=== PATIENT | male | born 1935 | race Caucasian/White ===

== ENCOUNTER 2017-10-05 10:28 | Emergency (ER) | payer MEDICARE, BC ==
[2017-10-05 11:19] VITALS: BP 141/73
--- NOTE | 2017-10-05 12:13 | EDM.PDOC ---
ED HPI GENERAL MEDICAL PROBLEM - General Chief Complaint: Skin Complaint Stated Complaint: DRAINAGE ON CHEST Time Seen by Provider: 10/05/17 11:40 Source of Information: Reports: Patient History Limitations: Reports: No Limitations - History of Present Illness INITIAL COMMENTS - FREE TEXT/NARRATIVE: Cal comes into [facility] ED with new onset drainage from a wound to R anterior chest. He had a Pacemaker/Defib placed in [place] about a month ago, and noticed some drainage this am on his shirt. There is no pain, tenderness or odor. Drainage appears blood tinged. Inspection reveals turbid blood tinged drainage from the corner of the wound, and a WC was obtained. - Related Data Allergies Allergy/AdvReac Type Severity Reaction Status Date / Time Penicillins Allergy Hives Verified 10/05/17 11:10 Home Meds: Home Meds Aspirin [Ecotrin] 81 mg PO BEDTIME 10/27/14 [History] Carvedilol 12.5 mg PO BID 10/27/14 [History] Furosemide [Lasix] 20 mg PO DAILY #30 tablet 10/27/14 [Rx] Isosorbide Mononitrate [Imdur] 30 mg PO DAILY 10/27/14 [History] Losartan [Cozaar] 25 mg PO BEDTIME 10/27/14 [History] [place]-3 Fatty Acids [Fish Oil] 2 tab PO BID 10/27/14 [History] Rosuvastatin [Crestor] 20 mg PO BEDTIME 10/27/14 [History] Spironolactone [Aldactone] 12.5 mg PO DAILY 10/27/14 [History] Clindamycin HCl [Cleocin HCl] 300 mg PO Q6HR #20 capsule 10/05/17 [Rx] Past Medical History - Past Health History Medical/Surgical History: Denies Medical/Surgical History Other Genitourinary History: kidney disease - Past Surgical History Other Cardiovascular Surgeries/Procedures: 1 stent, triple bypass Social & Family History - Tobacco Use Smoking Status *Q: Former Smoker Years of Tobacco use: 28 - Alcohol Use Days Per Week of Alcohol Use: 7 Number of Drinks Per Day: 1 Total Drinks Per Week: 7 - Recreational Drug Use Recreational Drug Use: No ED ROS GENERAL - Review of Systems Review Of Systems: ROS reveals no pertinent complaints other than HPI. ED EXAM, SKIN/RASH Exam: See Below Exam Limited By: No Limitations General Appearance: Alert, WD/WN, No Apparent Distress Head: Normocephalic Neck: Normal Inspection, Supple, Non-Tender, Full Range of Motion Respiratory/Chest: No Respiratory Distress, Lungs Clear, Normal Breath Sounds, No Accessory Muscle Use, Chest Non-Tender, Other (Pacemaker wound R upper chest with a draining small wound from pocket, nontender, no erythema, additional turbid fluid was removed manually) Cardiovascular: Normal Peripheral Pulses, Regular Rate, Rhythm, No Murmur GI/Abdominal: Normal Bowel Sounds, Soft, Non-Tender, No Organomegaly, No Distention, No Mass (Male) Exam: Deferred Rectal (Males) Exam: Deferred Back Exam: Normal Inspection Extremities: Normal Inspection Neurological: Alert, Oriented, CN II-XII Intact, Normal Cognition, Normal Gait, No Motor/Sensory Deficits Psychiatric: Normal Affect, Normal Mood Skin: Warm, Dry, Wound/Incision (see annotation above) Course - Vital Signs Text/Narrative:: Following manual removal of turbid blood tinged fluid from wound, a dressing was applied. Last Recorded V/S: Last Vital Signs Temp 36.1 C 10/05/17 11:12 Pulse 63 10/05/17 11:12 Resp 16 10/05/17 11:12 BP 141/73 H 10/05/17 11:12 Pulse Ox 99 10/05/17 11:12 Departure - Departure Time of Disposition: 12:13 Disposition: Home, Self-Care 01 Condition: Fair Clinical Impression: Abscess - Discharge Information Prescriptions: Clindamycin HCl [Cleocin HCl] 300 mg PO Q6HR #20 capsule Referrals: Sunny Johnson MD [Primary Care Provider] - - Problem List & Annotations (1) Abscess SNOMED Code(s): 458250008 Code(s): L02.91 - CUTANEOUS ABSCESS, UNSPECIFIED Status: Acute Current Visit: Yes Annotation/Comment:: Mr Concepcion has a small abscess involving the surgical pocket created for his new Pacemaker/Defib. He is 'allergic' to Augmentin. I dispensed Clindamycin 300mg cap q6 hrs, and advised a call to Cardiology on Saturday for follow up. He may return to ED if any issues with swelling, tenderness, fever, or constitutional sxs related to antibx. - Problem List Review Problem List Initiated/Reviewed/Updated: Yes - Assessment/Plan Plan: Follow up with Cardiology on Saturday.
== END 2017-10-05 12:20 | disposition home or self-care (01) ==
LOC: FB.ED 10:28
DX: T82.7XXA Infection and inflammatory reaction due to other cardiac and vascular devices, implants and grafts, initial encounter (principal); J86.9 Pyothorax without fistula; Z87.891 Personal history of nicotine dependence; Z79.899 Other long term (current) drug therapy; Z88.0 Allergy status to penicillin
CPT/HCPCS: 87070; 87077; 87186; 87205; 99283

== ENCOUNTER 2018-02-04 21:48 | Emergency (ER) | payer MEDICARE, BC ==
--- NOTE | 2018-02-04 22:07 | EDM.PDOC ---
ED HPI GENERAL MEDICAL PROBLEM - General Chief Complaint: Chest Pain Stated Complaint: CHESTPAIN Time Seen by Provider: 02/04/18 22:00 Source of Information: Reports: Patient History Limitations: Reports: No Limitations - History of Present Illness INITIAL COMMENTS - FREE TEXT/NARRATIVE: Cal comes into [facility] ED with a hx of L precordial chest pains for less than 10 minutes that occurred about an hour ago while sitting in a chair watching TV. Pains were nonradiating, not associated with SOB, palpitations, sweats, dizziness, or GI upset. He has been pain free since arrival by car. He was given ASA 325 mg po, and an IV was inserted. A 12 lead ekg notes paced rhythm without new changes. 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 He has taken no meds. - Related Data Allergies Allergy/AdvReac Type Severity Reaction Status Date / Time Penicillins Allergy Hives Verified 02/04/18 21:53 Home Meds: Home Meds Carvedilol 12.5 mg PO BID 10/27/14 [History] Furosemide [Lasix] 20 mg PO DAILY #30 tablet 10/27/14 [Rx] Isosorbide Mononitrate [Imdur] 30 mg PO DAILY 10/27/14 [History] Losartan [Cozaar] 25 mg PO BEDTIME 10/27/14 [History] [place]-3 Fatty Acids [Fish Oil] 2 tab PO BID 10/27/14 [History] Rosuvastatin [Crestor] 20 mg PO BEDTIME 10/27/14 [History] Warfarin Sodium [Jantoven] 5 mg PO DAILY 02/04/18 [History] Zolpidem [Ambien] 2.5 mg PO BEDTIME 02/04/18 [History] traMADol HCl [Tramadol HCl] 50 mg PO BEDTIME 02/04/18 [History] Past Medical History - Past Health History Medical/Surgical History: Denies Medical/Surgical History HEENT History: Reports: Impaired Vision Other HEENT History: wears glasses Cardiovascular History: Reports: Heart Failure, High Cholesterol, Hypertension, [place] Other Genitourinary History: kidney disease - Infectious Disease History Infectious Disease History: Reports: Chicken Pox, Measles, Mumps - Past Surgical History Other Cardiovascular Surgeries/Procedures: 1 stent, triple bypass Social & Family History - Family History Family Medical History: Noncontributory - Caffeine Use Caffeine Use: Reports: Coffee ED ROS GENERAL - Review of Systems Review Of Systems: See Below Constitutional: Reports: No Symptoms HEENT: Reports: No Symptoms Respiratory: Reports: No Symptoms Cardiovascular: Reports: Chest Pain Endocrine: Reports: No Symptoms GI/Abdominal: Reports: No Symptoms : Reports: No Symptoms Musculoskeletal: Reports: No Symptoms Skin: Reports: No Symptoms Neurological: Reports: No Symptoms Psychiatric: Reports: No Symptoms Hematologic/Lymphatic: Reports: No Symptoms Immunologic: Reports: No Symptoms ED EXAM, GENERAL - Physical Exam Exam: See Below Exam Limited By: No Limitations General Appearance: Alert, WD/WN, No Apparent Distress Eye Exam: Bilateral Eye: EOMI, Normal Inspection, PERRL Ears: Normal External Exam Nose: Normal Inspection Throat/Mouth: Normal Inspection, Normal Lips, Normal Teeth, Normal Gums, Normal Oropharynx, Normal Voice, No Airway Compromise Head: Normocephalic Neck: Normal Inspection, Supple, Non-Tender, Full Range of Motion Respiratory/Chest: No Respiratory Distress, Lungs Clear, Normal Breath Sounds, No Accessory Muscle Use, Chest Non-Tender Cardiovascular: Regular Rate, Rhythm, No Edema, No Gallop, No JVD, No Murmur GI/Abdominal: Normal Bowel Sounds, Soft, Non-Tender, No Organomegaly, No Distention, No Mass (Male) Exam: Deferred Rectal (Males) Exam: Deferred Back Exam: Normal Inspection Extremities: Normal Inspection Neurological: Alert, Oriented, CN II-XII Intact, Normal Cognition, Normal Gait, No Motor/Sensory Deficits Psychiatric: Normal Affect, Normal Mood Skin Exam: Warm, Dry, Intact, Normal Color, No Rash Lymphatic: No Adenopathy Course - Vital Signs Text/Narrative:: Following assessment at the [facility] ED, an IV was started in the LUE. A 12 lead ekg noted paced rhythm, ASA 325 mg po, port chest x ray noting some cardiac enlargement, pacemaker, no active infiltrates. The CBC was baseline, Troponin I 0.062, BUN 28, Cr 1.0. I discussed case with Dr Link at [facility] who accepted care of the patient. Last Recorded V/S: Last Vital Signs Temp Pulse 60 02/04/18 21:48 Resp 15 02/04/18 21:48 BP 127/59 L 02/04/18 21:48 Pulse Ox 100 02/04/18 21:48 - Orders/Labs/Meds Orders: Active Orders 24 hr Category Date Time Status EKG Documentation Completion [RC] ASDIRECTED Care 02/04/18 22:03 Active Chest 1V Frontal [CR] Stat Exams 02/04/18 22:03 Taken Sodium Chloride 0.9% [Saline Flush] Med 02/04/18 23:02 Active 10 ml FLUSH ASDIRECTED PRN Peripheral IV Insertion Adult [OM.PC] Routine Oth 02/04/18 23:02 Ordered EKG 12 Lead [EK] Routine Ther 02/04/18 22:03 Ordered Medication Orders Sodium Chloride (Saline Flush) 10 ml FLUSH ASDIRECTED PRN PRN Reason: Keep Vein Open Last Admin: 02/04/18 23:10 Dose: 10 ml Labs: Laboratory Tests 02/04/18 02/04/18 02/04/18 Range/Units 22:03 22:10 22:10 WBC 5.9 (4.5-12.0) X10-3/uL RBC 4.04 L (4.30-5.75) x10(6)uL Hgb 13.5 (11.5-15.5) g/dL Hct 39.5 (30.0-51.3) % MCV 97.8 H (80-96) fL MCH 33.4 (27.7-33.6) pg MCHC 34.2 (32.2-35.4) g/dL RDW 14.4 (11.5-15.5) % Plt Count 151 (125-369) X10(3)uL MPV 8.5 (7.4-10.4) fL Neut % (Auto) 69.1 (46-82) % Lymph % (Auto) 20.4 (13-37) % [place] % (Auto) 6.9 (4-12) % Eos % (Auto) 3 (1.0-5.0) % Baso % (Auto) 1 (0-2) % Neut # (Auto) 4.1 (1.6-8.3) # Lymph # (Auto) 1.2 (0.6-5.0) # [place] # (Auto) 0.4 (0.0-1.3) # Eos # (Auto) 0.2 (0.0-0.8) # Baso # (Auto) 0.0 (0.0-0.2) # Sodium 136 (135-145) mmol/L Potassium 4.1 (3.5-5.3) mmol/L Chloride 103 (100-110) mmol/L Carbon Dioxide 27 (21-32) mmol/L BUN 28 H (7-18) mg/dL Creatinine 1.0 (0.70-1.30) mg/dL Est Cr Clr Drug Dosing 53.20 mL/min Estimated GFR (MDRD) > 60 (>60) BUN/Creatinine Ratio 28.0 H (9-20) Glucose 133 H (80-116) mg/dL Calcium 8.5 L (8.6-10.2) mg/dL Troponin I 0.062 H (<0.017-0.056) ng/mL Meds: Medications Generic Name Dose Route Start Last Admin Trade Name Freq PRN Reason Stop Dose Admin Sodium Chloride 10 ml 02/04/18 23:02 02/04/18 23:10 Saline Flush FLUSH 10 ml ASDIRECTED PRN Administration Keep Vein Open Discontinued Medications Generic Name Dose Route Start Last Admin Trade Name Freq PRN Reason Stop Dose Admin Aspirin 324 mg 02/04/18 23:04 02/04/18 23:10 Aspirin PO 02/04/18 23:05 324 mg ONETIME ONE Administration Departure - Departure Time of Disposition: 23:25 Disposition: DC/Tfer to Other 70 Reason for Transfer *Q: Primary PCI Indicated Condition: Fair Clinical Impression: Non-STEMI (non-ST elevated myocardial infarction) Referrals: Sunny Johnson MD [Primary Care Provider] - Forms: ED Department Discharge - Problem List & Annotations (1) Non-STEMI (non-ST elevated myocardial infarction) SNOMED Code(s): 810614384 Code(s): I21.4 - NON-ST ELEVATION (NSTEMI) MYOCARDIAL INFARCTION Status: Acute Current Visit: Yes Annotation/Comment:: Mr Gramajo will be transferred to [facility] by ground ambulance tonight. - Problem List Review Problem List Initiated/Reviewed/Updated: Yes - My Orders Last 24 Hours: My Active Orders 02/04/18 22:03 EKG Documentation Completion [RC] ASDIRECTED Chest 1V Frontal [CR] Stat EKG 12 Lead [EK] Routine 02/04/18 23:02 Sodium Chloride 0.9% [Saline Flush] 10 ml FLUSH ASDIRECTED PRN Peripheral IV Insertion Adult [OM.PC] Routine - Assessment/Plan Last 24 Hours: My Active Orders 02/04/18 22:03 EKG Documentation Completion [RC] ASDIRECTED Chest 1V Frontal [CR] Stat EKG 12 Lead [EK] Routine 02/04/18 23:02 Sodium Chloride 0.9% [Saline Flush] 10 ml FLUSH ASDIRECTED PRN Peripheral IV Insertion Adult [OM.PC] Routine Plan: Follow up with Cardiology.
[2018-02-04] MEDS: Aspirin 81 MG Tab.Chew PO ONE (23:10)
[2018-02-04] MEDS: Sodium Chloride 0.9% 10 ML Syringe FLUSH PRN (23:10)
[2018-02-04 23:50] VITALS: BP 144/71
--- NOTE | 2018-02-05 13:24 | CR ---
INDICATION: Atypical chest pain. CHEST: An AP portable upright view of the chest, 02/04/2018, was compared with 10/27/2014 and again revealed the heart to be enlarged with bipolar pacemaker leads unchanged in position. The aorta is tortuous and calcified. Evidence of previous median sternotomy is again noted. Diminished bone density is noted, compatible with osteoporosis. Markings appear similar to the previous examination with no definite active infiltrate or effusion. However, minimal pneumonia and pleuritis cannot be excluded at the left costophrenic angle with increased density in that area. Overlying EKG leads are noted. Lungs appear to be somewhat hyperaerated with mildly flattened diaphragm leaf, raising question of COPD. Upper lung field pulmonary vasculature is minimally prominent and somewhat indistinct, raising question of a mild or early CHF. This should be correlated clinically - PA and lateral views of the chest with full inspiration may be helpful for further evaluation. IMPRESSION: 1. No definite acute process but difficult to exclude pneumonia and pleuritis at the left costophrenic angle. 2. Minimal or early CHF is difficult to exclude but not definite. 3. ASHD with cardiomegaly and bipolar pacemaker leads also post median sternotomy. MTDD
== END 2018-02-05 00:05 | disposition other institution (70) ==
LOC: FB.ED 21:48
DX: I21.4 Non-ST elevation (NSTEMI) myocardial infarction (principal); Z88.0 Allergy status to penicillin; Z79.899 Other long term (current) drug therapy
CPT/HCPCS: 36415; 71045; 80048; 84484; 85025; 85610; 93005; 99285; A9270; J7050

== ENCOUNTER 2018-02-20 10:03 | Emergency (ER) | payer MEDICARE, BC ==
--- NOTE | 2018-02-20 10:46 | EDM.PDOC ---
ED HPI GENERAL MEDICAL PROBLEM - General Chief Complaint: Respiratory Problem Stated Complaint: SOB Time Seen by Provider: 02/20/18 10:36 Source of Information: Reports: Patient History Limitations: Reports: No Limitations - History of Present Illness INITIAL COMMENTS - FREE TEXT/NARRATIVE: Presents with exertional dyspnea x 1 month. Has a h/o heart failure, took an extra Lasix this morning (40mg total). Patient had a cardiac work up at [facility] @2 weeks ago for NSTEMI, negative coronary angio per patient. Coreg was increased. Denies chest pain. Patient called [facility] this morning because exertional SOB has not improved and they referred him here. Patient states symptoms have not worsened. No dyspnea at rest. Per [facility] med records: Coronary Angiography (02/07/18): [place] three vessel CAD with patent grafts (CLIFFORD to LAD, SVG to OM1, SVG to PDA), patent stent in LM to LCX. Transthoracic Echocardiogram (02/05/18): EF decreased from 40% to 35%, PAH increased from 24mm Hg to 50mm Hg (compared to 11/04/14 Echo). Duration: Week(s): (4) Severity: Moderate Associated Symptoms: Denies: Chest Pain, Cough - Related Data Allergies Allergy/AdvReac Type Severity Reaction Status Date / Time Penicillins Allergy Hives Verified 02/20/18 10:30 Home Meds: Home Meds Carvedilol 12.5 mg PO BID 10/27/14 [History] Furosemide [Lasix] 20 mg PO DAILY #30 tablet 10/27/14 [Rx] Isosorbide Mononitrate [Imdur] 30 mg PO DAILY 10/27/14 [History] [place]-3 Fatty Acids [Fish Oil] 2 tab PO BID 10/27/14 [History] Rosuvastatin [Crestor] 20 mg PO BEDTIME 10/27/14 [History] Warfarin Sodium [Jantoven] 5 mg PO SUTUWETHSA 02/04/18 [History] Zolpidem [Ambien] 2.5 mg PO BEDTIME 02/04/18 [History] traMADol HCl [Tramadol HCl] 50 mg PO BEDTIME 02/04/18 [History] Furosemide 20 mg PO DAILY PRN 02/20/18 [History] Warfarin Sodium [Jantoven] 2.5 mg PO MOFR 02/20/18 [History] Past Medical History HEENT History: Reports: Impaired Vision Other HEENT History: wears glasses Cardiovascular History: Reports: Automatic Implantable Cardioverter Defibrillators, Bypass (3V CABG ), Heart Failure, High Cholesterol, Hypertension, [place], Pacemaker Other Genitourinary History: kidney disease - Infectious Disease History Infectious Disease History: Reports: Chicken Pox, Measles, Mumps - Past Surgical History Other Cardiovascular Surgeries/Procedures: 1 stent, triple bypass Social & Family History - Family History Family Medical History: Noncontributory - Tobacco Use Smoking Status *Q: Former Smoker Tobacco Use Within Last Twelve Months: No - Caffeine Use Caffeine Use: Reports: Coffee - Alcohol Use Alcohol Use History: Yes Alcohol Use Frequency: Socially ED ROS GENERAL - Review of Systems Review Of Systems: ROS reveals no pertinent complaints other than HPI. ED EXAM, GENERAL - Physical Exam Exam: See Below Exam Limited By: No Limitations General Appearance: Alert, WD/WN, No Apparent Distress Ears: Normal External Exam Nose: Normal Inspection Throat/Mouth: No Airway Compromise Head: Atraumatic, Normocephalic Neck: Full Range of Motion Respiratory/Chest: No Respiratory Distress, Lungs Clear, Normal Breath Sounds Cardiovascular: Regular Rate, Rhythm, No Murmur GI/Abdominal: No Distention Back Exam: Full Range of Motion Extremities: Normal Range of Motion Neurological: Alert, Oriented, Normal Cognition, No Motor/Sensory Deficits Psychiatric: Normal Affect, Normal Mood Skin Exam: Warm, Dry, Intact EKG INTERPRETATION EKG Date: 02/20/18 Time: 10:39 Rhythm: Other (paced) Rate (Beats/Min): 75 EKG Interpretation Comments: Ventricular-paced rhythm Course - Vital Signs Last Recorded V/S: Last Vital Signs Temp 36.3 C 02/20/18 10:03 Pulse 66 02/20/18 12:02 Resp 16 02/20/18 12:02 BP 139/71 02/20/18 12:02 Pulse Ox 99 02/20/18 12:02 - Orders/Labs/Meds Orders: Active Orders 24 hr Category Date Time Status CXR [Chest 2V] [CR] Stat Exams 02/20/18 10:34 Taken EKG 12 Lead [EK] Stat Ther 02/20/18 10:34 Ordered Labs: Laboratory Tests 09/20/18 09/20/18 09/20/18 Range/Units 10:44 10:44 10:44 WBC 7.1 (4.5-12.0) X10-3/uL RBC 3.90 L (4.30-5.75) x10(6)uL Hgb 12.9 (11.5-15.5) g/dL Hct 38.5 (30.0-51.3) % MCV 98.6 H (80-96) fL MCH 33.0 (27.7-33.6) pg MCHC 33.4 (32.2-35.4) g/dL RDW 14.0 (11.5-15.5) % Plt Count 217 (125-369) X10(3)uL MPV 8.1 (7.4-10.4) fL Neut % (Auto) 78.2 (46-82) % Lymph % (Auto) 11.6 L (13-37) % [place] % (Auto) 8.2 (4-12) % Eos % (Auto) 2 (1.0-5.0) % Baso % (Auto) 0 (0-2) % Neut # (Auto) 5.6 (1.6-8.3) # Lymph # (Auto) 0.8 (0.6-5.0) # [place] # (Auto) 0.6 (0.0-1.3) # Eos # (Auto) 0.1 (0.0-0.8) # Baso # (Auto) 0.0 (0.0-0.2) # PT 37.5 H* (8.7-11.1) INR 3.92 H (0.89-1.13) D-Dimer, Quantitative (0.0-0.59) mg/LFEU Sodium 137 (135-145) mmol/L Potassium 3.9 (3.5-5.3) mmol/L Chloride 101 (100-110) mmol/L Carbon Dioxide 30 (21-32) mmol/L BUN 23 H (7-18) mg/dL Creatinine 1.1 (0.70-1.30) mg/dL Est Cr Clr Drug Dosing 48.36 mL/min Estimated GFR (MDRD) > 60 (>60) BUN/Creatinine Ratio 20.9 H (9-20) Glucose 98 (80-116) mg/dL Calcium 8.4 L (8.6-10.2) mg/dL Total Bilirubin 0.7 (0.1-1.3) mg/dL AST 26 H (5-25) IU/L ALT 48 H (12-36) U/L Alkaline Phosphatase 91 (56-112) IU/L Troponin I (<0.017-0.056) ng/mL NT-Pro-B Natriuret Pep (<=450) pg/mL Total Protein 6.3 (6.0-8.0) g/dL Albumin 3.0 L (3.2-4.6) g/dL Globulin 3.3 g/dL Albumin/Globulin Ratio 0.9 02/20/18 02/20/18 02/20/18 Range/Units 10:44 10:44 12:43 WBC (4.5-12.0) X10-3/uL RBC (4.30-5.75) x10(6)uL Hgb (11.5-15.5) g/dL Hct (30.0-51.3) % MCV (80-96) fL MCH (27.7-33.6) pg MCHC (32.2-35.4) g/dL RDW (11.5-15.5) % Plt Count (125-369) X10(3)uL MPV (7.4-10.4) fL Neut % (Auto) (46-82) % Lymph % (Auto) (13-37) % [place] % (Auto) (4-12) % Eos % (Auto) (1.0-5.0) % Baso % (Auto) (0-2) % Neut # (Auto) (1.6-8.3) # Lymph # (Auto) (0.6-5.0) # [place] # (Auto) (0.0-1.3) # Eos # (Auto) (0.0-0.8) # Baso # (Auto) (0.0-0.2) # PT (8.7-11.1) INR (0.89-1.13) D-Dimer, Quantitative 0.84 H (0.0-0.59) mg/LFEU Sodium (135-145) mmol/L Potassium (3.5-5.3) mmol/L Chloride (100-110) mmol/L Carbon Dioxide (21-32) mmol/L BUN (7-18) mg/dL Creatinine (0.70-1.30) mg/dL Est Cr Clr Drug Dosing mL/min Estimated GFR (MDRD) (>60) BUN/Creatinine Ratio (9-20) Glucose (80-116) mg/dL Calcium (8.6-10.2) mg/dL Total Bilirubin (0.1-1.3) mg/dL AST (5-25) IU/L ALT (12-36) U/L Alkaline Phosphatase (56-112) IU/L Troponin I 0.100 H* 0.097 H* (<0.017-0.056) ng/mL NT-Pro-B Natriuret Pep 4156 H* (<=450) pg/mL Total Protein (6.0-8.0) g/dL Albumin (3.2-4.6) g/dL Globulin g/dL Albumin/Globulin Ratio - Radiology Interpretation Free Text/Narrative:: CXR: New mild linear density in the left lateral lower lung, probably atelectasis - Re-Assessments/Exams Free Text/Narrative Re-Assessment/Exam: 02/20/18 13:31 Patient feels better. Departure - Departure Time of Disposition: 13:31 Disposition: Home, Self-Care 01 Condition: Good Clinical Impression: Warfarin-induced coagulopathy CHF exacerbation Qualifiers: Heart failure type: unspecified Qualified Code(s): I50.9 - Heart failure, unspecified - Discharge Information *PRESCRIPTION DRUG MONITORING PROGRAM REVIEWED*: No *COPY OF PRESCRIPTION DRUG MONITORING REPORT IN PATIENT [place]: Not Applicable Instructions: Warfarin Coagulopathy, Heart Failure, [id number] Referrals: Sunny Johnson MD [Primary Care Provider] - Forms: ED Department Discharge Additional Instructions: Hold Coumadin today, call Coumadin clinic today for further dosing instructions. Increase Lasix to 40mg daily. Follow up with your primary physician in 1-2 days. Return to the ER as needed. - My Orders Last 24 Hours: My Active Orders 02/20/18 10:34 CXR [Chest 2V] [CR] Stat EKG 12 Lead [EK] Stat - Assessment/Plan Last 24 Hours: My Active Orders 02/20/18 10:34 CXR [Chest 2V] [CR] Stat EKG 12 Lead [EK] Stat
[2018-02-20 14:20] VITALS: BP 123/70
== END 2018-02-20 13:45 | disposition home or self-care (01) ==
LOC: FB.ED 10:03
DX: I11.0 Hypertensive heart disease with heart failure (principal); I50.9 Heart failure, unspecified; D68.32 Hemorrhagic disorder due to extrinsic circulating anticoagulants; T45.515A Adverse effect of anticoagulants, initial encounter; E78.00 Pure hypercholesterolemia, unspecified; Z87.891 Personal history of nicotine dependence; Z88.0 Allergy status to penicillin; Z79.899 Other long term (current) drug therapy; Z95.0 Presence of cardiac pacemaker; Z79.01 Long term (current) use of anticoagulants
CPT/HCPCS: 36415; 71046; 80053; 83880; 84484; 85025; 85379; 85610; 93005; 99285

== ENCOUNTER 2019-02-23 09:05 | Inpatient (IN) | payer MEDICARE, BC ==
[2019-02-23] MEDS ORDERED: Acetaminophen 325 MG Tab PO PRN (15:38)
[2019-02-23] MEDS ORDERED: oxyCODONE 5 MG Tab PO PRN (15:38)
[2019-02-23] MEDS ORDERED: Nitroglycerin 0.4 MG Tab.SL SL PRN (15:38)
[2019-02-23] MEDS ORDERED: Warfarin 2.5 MG Tab PO SCH (16:00)
[2019-02-23] MEDS ORDERED: Warfarin Sliding Scale PO SCH (17:00)
[2019-02-23] MEDS: Heparin Sodium 5,000 Units/ML Vial SUBCUT SCH (17:31)
--- NOTE | 2019-02-23 18:19 | PCM.HP.2 ---
H&P History of Present Illness - General Date of Service: 02/23/19 Admit Problem/Dx: Admission Diagnosis/Problem Admission Diagnosis/Problem Stroke occurring within last month Source of Information: Patient, Old Records History Limitations: Reports: No Limitations - History of Present Illness Initial Comments - Free Text/Narative: Cal is an 84-year-old male who was transferred from [facility] for PT. He had right hip arthroplasty on 18 February, suffered postoperative hypotension,anemia but recovered well. Cal however has been generally weak and is being admitted for pain control;physical rehabilitation. He denies any chest pain or shortness of breath or fever. He has a history of coronary disease , HTN CHF,COPD,AICD,hypertension and hyperlipidemia the previously stable. Right Hip Pain Score (Numeric/FACES): 3 - Related Data Allergies/Adverse Reactions: Allergies Allergy/AdvReac Type Severity Reaction Status Date / Time amoxicillin [From Augmentin] Allergy Abdominal Verified 02/23/19 15:22 Pain clavulanic acid Allergy Abdominal Verified 02/23/19 15:22 [From Augmentin] Pain simvastatin [From Zocor] Allergy Other Verified 02/23/19 15:23 Home Medications: Home Meds [place]-3 Fatty Acids [Fish Oil] 2,000 mg PO BID 10/27/14 [History] Rosuvastatin [Crestor] 20 mg PO BEDTIME 10/27/14 [History] Zolpidem [Ambien] 5 mg PO BEDTIME PRN 02/04/18 [History] Aspirin [Ecotrin EC] 81 mg PO BEDTIME 04/24/18 [History] Nitroglycerin [Nitrostat] 0.4 mg SL Q5M PRN 04/29/18 [History] Ubidecarenone [Coenzyme Q10] 100 mg PO BEDTIME 04/29/18 [History] Acetaminophen [Tylenol] 650 mg PO Q4H PRN 02/23/19 [History] Bumetanide 2 mg PO DAILY 02/23/19 [History] Carvedilol 12.5 mg PO BID 02/23/19 [History] Gabapentin [Neurontin] 100 mg PO BID 02/23/19 [History] Isosorbide Mononitrate [Imdur] 60 mg PO DAILY 02/23/19 [History] Sennosides/Docusate Sodium [Senna-S] 2 tab PO BID PRN 02/23/19 [History] Warfarin [Coumadin] 2.5 mg PO DAILY@1600 02/23/19 [History] oxyCODONE 5 - 10 mg PO Q3H PRN 02/23/19 [History] Past Medical History - Past Health History Medical/Surgical History: Denies Medical/Surgical History HEENT History: Reports: Impaired Vision Other HEENT History: wears glasses Cardiovascular History: Reports: Automatic Implantable Cardioverter Defibrillators, Blood Clots/VTE/DVT, Bypass, CAD, Heart Failure, High Cholesterol, Hypertension, [place] Respiratory History: Reports: SOB Gastrointestinal History: Reports: None Genitourinary History: Reports: Renal Disease PROBLEM MANAGER History: Reports: None Musculoskeletal History: Reports: Arthritis Neurological History: Reports: None Psychiatric History: Reports: None Endocrine/Metabolic History: Reports: None Hematologic History: Reports: None Immunologic History: Reports: None Oncologic (Cancer) History: Reports: None Dermatologic History: Reports: None - Infectious Disease History Infectious Disease History: Reports: C-Difficile, Measles, Shingles - Past Surgical History Head Surgeries/Procedures: Reports: None HEENT Surgical History: Reports: Adenoidectomy, Tonsillectomy Cardiovascular Surgical History: Reports: Coronary Artery Bypass, Coronary Artery Stent Other Cardiovascular Surgeries/Procedures: 1 stent, triple bypass GI Surgical History: Reports: Appendectomy, Colonoscopy, Hernia, Inguinal Male Surgical History: Reports: None Musculoskeletal Surgical History: Reports: Arthroscopic Knee, Hip Replacement, Other (See Below) Other Musculoskeletal Surgeries/Procedures:: bilat hip replacement Social & Family History - Family History Family Medical History: Noncontributory GI: Reports: None - Tobacco Use Smoking Status *Q: Former Smoker Years of Tobacco use: 25 Used Tobacco, but Quit: Yes Month/Year Tobacco Last Used: 37 years old Second Hand Smoke Exposure: No - Caffeine Use Caffeine Use: Reports: Coffee Caffeine Use Comment: Daily - Recreational Drug Use Recreational Drug Use: No H&P Review of Systems - Review of Systems: Review Of Systems: ROS reveals no pertinent complaints other than HPI. Exam - Exam Exam: See Below - Vital Signs Vital Signs: Last Vital Signs Temp 97.8 F 02/23/19 15:35 Pulse 65 02/23/19 15:35 Resp 18 02/23/19 15:35 BP 139/65 02/23/19 15:35 Pulse Ox 95 02/23/19 15:35 Weight: 95.617 kg - Exam General: Alert HEENT: PERRLA Neck: Supple Lungs: Clear to Auscultation Cardiovascular: Regular Rate, Systolic Murmur GI/Abdominal Exam: Normal Bowel Sounds Back Exam: Normal Inspection Extremities: Normal Inspection Skin: Warm Neurological: Cranial Nerves Intact, Clonus Neuro Extensive - Motor, Sensory, Reflexes: CN II-XII Intact - Problem List (1) History of total right hip arthroplasty SNOMED Code(s): 533091391347 ICD Code: Z96.641 - PRESENCE OF RIGHT ARTIFICIAL HIP JOINT Status: Acute Current Visit: Yes (2) CAD (coronary artery disease) SNOMED Code(s): 14392334 ICD Code: I25.10 - ATHSCL HEART DISEASE OF [place] CORONARY ARTERY W/O ANG PCTRS Status: Chronic Current Visit: Yes Qualifiers: Coronary Disease-Associated Artery/Lesion type: bypass graft Associated angina: without angina (3) HTN (hypertension) SNOMED Code(s): 14830519 ICD Code: I10 - ESSENTIAL (PRIMARY) HYPERTENSION Status: Chronic Current Visit: Yes Qualifiers: Hypertension type: essential hypertension Qualified Code(s): I10 - Essential (primary) hypertension (4) Weakness SNOMED Code(s): 01672383 ICD Code: R53.1 - WEAKNESS Status: Acute Current Visit: Yes (5) Cardiac pacemaker in situ SNOMED Code(s): 890945986 ICD Code: Z95.0 - PRESENCE OF CARDIAC PACEMAKER Status: Chronic Current Visit: Yes (6) CHF (congestive heart failure) SNOMED Code(s): 54850892 ICD Code: I50.9 - HEART FAILURE, UNSPECIFIED Status: Acute Current Visit : Yes Qualifiers: Heart failure type: combined systolic and diastolic (7) COPD (chronic obstructive pulmonary disease) SNOMED Code(s): 73227849 ICD Code: J44.9 - CHRONIC OBSTRUCTIVE PULMONARY DISEASE, UNSPECIFIED Status : Chronic Current Visit: Yes Qualifiers: Chronic bronchitis type: unspecified (8) CKD (chronic kidney disease) SNOMED Code(s): 694613278 ICD Code: N18.9 - CHRONIC KIDNEY DISEASE, UNSPECIFIED Status: Acute Current Visit: Yes Qualifiers: Chronic kidney disease stage: stage 3 (moderate) Qualified Code(s): N18.3 - Chronic kidney disease, stage 3 (moderate) Problem List Initiated/Reviewed/Updated: Yes Orders Last 24hrs: Active Orders 24 hr Category Date Time Status Patient Status [ADT] Routine ADT 02/23/19 15:35 Active Height and Weight [RC] MO Care 02/23/19 15:35 Active Oxygen Therapy [RC] PRN Care 02/23/19 15:35 Active Up With Assistance [RC] ASDIRECTED Care 02/23/19 15:35 Active VTE/DVT Education [RC] Per Unit Routine Care 02/23/19 15:35 Active Vital Signs [RC] PER UNIT ROUTINE Care 02/23/19 15:35 Active OT Evaluation and Treatment [CONS] Routine Cons 02/23/19 15:35 Active PT Evaluation and Treatment [CONS] Routine Cons 02/23/19 15:35 Active Heart Healthy Diet [DIET] Diet 02/23/19 Dinner Active INR,PT,PROTHROMBIN TIME [COAG] DAILY Lab 02/24/19 06:00 Ordered INR,PT,PROTHROMBIN TIME [COAG] DAILY Lab 02/25/19 06:00 Ordered INR,PT,PROTHROMBIN TIME [COAG] DAILY Lab 02/26/19 06:00 Ordered INR,PT,PROTHROMBIN TIME [COAG] DAILY Lab 02/27/19 06:00 Ordered INR,PT,PROTHROMBIN TIME [COAG] DAILY Lab 02/28/19 06:00 Ordered Acetaminophen [Tylenol] Med 02/23/19 15:38 Active 650 mg PO Q4H PRN Aspirin [Halfprin] Med 02/23/19 21:00 Active 81 mg PO BEDTIME Bumetanide [Bumex] Med 02/24/19 09:00 Active 2 mg PO DAILY Carvedilol [Coreg] Med 02/23/19 21:00 Active 12.5 mg PO BID Docusate Sodium/Sennosides [Senna Plus] Med 02/23/19 15:38 Active 2 tab PO BID PRN Fish Oil/[place]-3 Fatty Acids [Fish Oil] Med 02/23/19 21:00 Active 2 gm PO BID Gabapentin [Neurontin] Med 02/23/19 21:00 Active 100 mg PO BID Heparin Sodium Med 02/23/19 17:00 Active 5,000 units SUBCUT Q8H Isosorbide Mononitrate [Imdur] Med 02/24/19 09:00 Active 60 mg PO DAILY Nitroglycerin [Nitrostat] Med 02/23/19 15:38 Active 0.4 mg SL Q5M PRN Rosuvastatin [Crestor] Med 02/23/19 21:00 Active 20 mg PO BEDTIME Ubidecarenone [Coenzyme Q10] Med 02/23/19 21:00 Active 100 mg PO BEDTIME Warfarin Sliding Scale [Coumadin Sliding Scale] Med 02/23/19 17:00 Pending 1 each PO ASDIRECTED Warfarin [Coumadin] Med 02/23/19 16:00 Active 2.5 mg PO DAILY@1600 Zolpidem [Ambien] Med 02/23/19 15:38 Active 5 mg PO BEDTIME PRN oxyCODONE Med 02/23/19 18:14 Ordered 10 mg PO Q4H PRN Resuscitation Status Routine Resus Stat 02/23/19 15:35 Ordered Medication Orders Acetaminophen (Tylenol) 650 mg PO Q4H PRN PRN Reason: Pain Aspirin (Halfprin) 81 mg PO BEDTIME [facility] Bumetanide (Bumex) 2 mg PO DAILY [facility] Carvedilol (Coreg) 12.5 mg PO BID [facility] Coenzyme Q10 (Coenzyme Q10) 100 mg PO BEDTIME [facility] Fish Oil (Fish Oil) 2 gm PO BID [facility] Gabapentin (Neurontin) 100 mg PO BID [facility] Heparin Sodium (Porcine) (Heparin Sodium) 5,000 units SUBCUT Q8H [facility] Last Admin: 02/23/19 17:31 Dose: 5,000 units Isosorbide Mononitrate (Imdur) 60 mg PO DAILY [facility] Nitroglycerin (Nitrostat) 0.4 mg SL Q5M PRN PRN Reason: Chest Pain Oxycodone HCl (Oxycodone) 10 mg PO Q4H PRN PRN Reason: Pain Rosuvastatin Calcium (Crestor) 20 mg PO BEDTIME [facility] Senna/Docusate Sodium (Senna Plus) 2 tab PO BID PRN PRN Reason: Constipation Warfarin Sodium (Coumadin) 2.5 mg PO DAILY@1600 [facility] Last Admin: 02/23/19 17:31 Dose: 2.5 mg Warfarin Sodium (Coumadin Sliding Scale) 1 each PO ASDIRECTED [facility] Zolpidem Tartrate (Ambien) 5 mg PO BEDTIME PRN PRN Reason: Sleep Assessment/Plan Comment:: Admit. obtain record. PT/OT eval. Continue Meds,pain control by oxycontin - Mortality Measure Prognosis:: Good
[2019-02-23] MEDS: Gabapentin 100 MG Cap PO SCH (21:22)
[2019-02-23] MEDS: Rosuvastatin 20 MG Tab PO SCH (21:24)
[2019-02-23] MEDS: Fish Oil/Omega-3 Fatty Acids 1 Gm Cap PO SCH (21:24)
[2019-02-23] MEDS: Aspirin 81 MG Tab.EC PO SCH (21:24)
[2019-02-23] MEDS: Carvedilol 12.5 MG Tab PO SCH (21:25)
[2019-02-23] MEDS: oxyCODONE 5 MG Tab PO PRN (21:32)
[2019-02-23] MEDS: Zolpidem 5 MG Tab PO PRN (21:32)
[2019-02-24] MEDS: Heparin Sodium 5,000 Units/ML Vial SUBCUT SCH ×3 (01:00→16:58)
[2019-02-24] MEDS: oxyCODONE 5 MG Tab PO PRN ×3 (02:17→20:24)
[2019-02-24] MEDS: Bumetanide 2 MG Tab PO SCH (09:09)
[2019-02-24] MEDS: Carvedilol 12.5 MG Tab PO SCH ×2 (09:10→20:24)
[2019-02-24] MEDS: Fish Oil/Omega-3 Fatty Acids 1 Gm Cap PO SCH ×2 (09:16→20:22)
[2019-02-24] MEDS: Gabapentin 100 MG Cap PO SCH ×2 (09:17→20:23)
[2019-02-24] MEDS: Isosorbide Mononitrate 60 MG Tab.ER PO SCH (09:17)
[2019-02-24] MEDS ORDERED: Warfarin 5 MG Tab PO ONE (16:00)
[2019-02-24] MEDS: Rosuvastatin 20 MG Tab PO SCH (20:21)
[2019-02-24] MEDS: Aspirin 81 MG Tab.EC PO SCH (20:22)
[2019-02-24] MEDS: Zolpidem 5 MG Tab PO PRN (20:25)
[2019-02-25] MEDS: Heparin Sodium 5,000 Units/ML Vial SUBCUT SCH ×3 (01:19→16:11)
[2019-02-25] MEDS: oxyCODONE 5 MG Tab PO PRN ×3 (01:40→20:50)
[2019-02-25] MEDS: Bumetanide 2 MG Tab PO SCH (09:26)
[2019-02-25] MEDS: Carvedilol 12.5 MG Tab PO SCH ×2 (09:26→20:47)
[2019-02-25] MEDS: Fish Oil/Omega-3 Fatty Acids 1 Gm Cap PO SCH ×2 (09:27→20:48)
[2019-02-25] MEDS: Isosorbide Mononitrate 60 MG Tab.ER PO SCH (09:29)
[2019-02-25] MEDS: Gabapentin 100 MG Cap PO SCH ×2 (09:31→20:50)
[2019-02-25] MEDS ORDERED: Warfarin 5 MG Tab PO ONE (16:00)
[2019-02-25] MEDS: Rosuvastatin 20 MG Tab PO SCH (20:48)
[2019-02-25] MEDS: Aspirin 81 MG Tab.EC PO SCH (20:49)
[2019-02-25] MEDS: Zolpidem 5 MG Tab PO PRN (20:50)
[2019-02-26] MEDS: oxyCODONE 5 MG Tab PO PRN (01:44)
[2019-02-26] MEDS: Heparin Sodium 5,000 Units/ML Vial SUBCUT SCH ×2 (01:44→09:21)
[2019-02-26] MEDS: Bumetanide 2 MG Tab PO SCH (09:17)
[2019-02-26] MEDS: Carvedilol 12.5 MG Tab PO SCH (09:20)
[2019-02-26] MEDS: Isosorbide Mononitrate 60 MG Tab.ER PO SCH (09:21)
[2019-02-26] MEDS: Fish Oil/Omega-3 Fatty Acids 1 Gm Cap PO SCH (09:21)
[2019-02-26 09:24] VITALS: BP 108/41; PULSE 63
[2019-02-26] MEDS: Gabapentin 100 MG Cap PO SCH (09:24)
--- NOTE | 2019-02-26 11:13 | DISCH ---
DISCHARGE DATE: 02/26/2019 REASON FOR ADMISSION: 1. Status post right hip arthroplasty. 2. Atrial fibrillation. 3. Postoperative hypotension. 4. CAD. 5. Hypertension. 6. COPD. 7. History of AICD. 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 His pain was controlled by oxycodone. His INR at discharge is 1.6. He has been taking Coumadin and heparin for DVT prophylaxis. He will continue with Coumadin, have an INR checked tomorrow. DISCHARGE MEDICATIONS: I sent him home with these prescriptions as follows: 1. Acetaminophen 650 mg q.4 hours p.r.n. 2. Aspirin 81 mg at bedtime. 3. Bumex 2 mg daily. 4. Carvedilol 12.5 mg b.i.d. 5. Docusate sodium 2 tablets b.i.d. p.r.n. 6. Remer-3 2 g b.i.d. p.o. 7. Gabapentin 100 mg b.i.d. 8. Isosorbide mononitrate 60 mg a day. 9. Oxycodone 10 mg t.i.d. p.r.n., 20 tablets. 10.Crestor 20 mg at bedtime. 11.Warfarin 2.5 mg daily. 12.Ambien 5 mg at bedtime. FOLLOWUP: With PCP in 1 week and with home health and also INR to be checked tomorrow. I spent more than 35 minutes in the discharge of this patient. /[id number] ELY/COMFORTL
[2019-02-26] MEDS ORDERED: Warfarin 5 MG Tab PO ONE (12:00)
== END 2019-02-26 13:25 | disposition home health service (06) | DRG 559 ==
LOC: FB.MS 14:52 → UNDOADMIN 14:52 → FB.MS 15:06
PROVIDERS: ADMIT Family Medicine; ATTEND Family Medicine
DX: Z47.1 Aftercare following joint replacement surgery (principal); I50.41 Acute combined systolic (congestive) and diastolic (congestive) heart failure; I13.0 Hypertensive heart and chronic kidney disease with heart failure and stage 1 through stage 4 chronic kidney disease, or unspecified chronic kidney disease; D62 Acute posthemorrhagic anemia; Z96.641 Presence of right artificial hip joint; I95.81 Postprocedural hypotension; I25.10 Atherosclerotic heart disease of native coronary artery without angina pectoris; R53.1 Weakness; J44.9 Chronic obstructive pulmonary disease, unspecified; E78.5 Hyperlipidemia, unspecified; H54.7 Unspecified visual loss; E78.00 Pure hypercholesterolemia, unspecified; N18.3 Chronic kidney disease, stage 3 (moderate); I25.5 Ischemic cardiomyopathy; I48.2 Chronic atrial fibrillation; Z95.810 Presence of automatic (implantable) cardiac defibrillator; Z88.1 Allergy status to other antibiotic agents; Z88.8 Allergy status to other drugs, medicaments and biological substances; Z79.899 Other long term (current) drug therapy; Z79.01 Long term (current) use of anticoagulants; Z79.82 Long term (current) use of aspirin; I25.2 Old myocardial infarction; Z90.89 Acquired absence of other organs; Z95.5 Presence of coronary angioplasty implant and graft; Z90.49 Acquired absence of other specified parts of digestive tract; Z87.891 Personal history of nicotine dependence; Z95.1 Presence of aortocoronary bypass graft
CPT/HCPCS: 36415; 85610; 97110-GP; 97116-GP; 97161-GP; 97165-GO; 97530-GO; 97535-GO; A9270-GY; J1644

== ENCOUNTER 2019-04-20 11:02 | Emergency (ER) | payer MEDICARE, BC ==
[2019-04-20] MEDS ORDERED: Meclizine 25 MG Tab PO ONE (11:18)
[2019-04-20] MEDS ORDERED: Sodium Chloride 0.9% 1,000 ML IV SCH (13:30)
--- NOTE | 2019-04-20 13:32 | EDM.PDOC ---
ED HPI GENERAL MEDICAL PROBLEM - General Chief Complaint: Neurological Problem Stated Complaint: dizzyness Time Seen by Provider: 04/20/19 11:05 Source of Information: Reports: Patient History Limitations: Reports: No Limitations - History of Present Illness INITIAL COMMENTS - FREE TEXT/NARRATIVE: Patient presented to the ED because of dizziness at about 0900 while sitting down. He described it as a spinning sensation which lasted for ten minutes. He denies any chest pain dyspnea although he complains of 5 pound weight gain during the past week. He then increased his bumetanide from 1 mg daily to 3 mg daily because of this weight gain. He went to his clinic this morning and there he had another brief episode of vertigo without any other neurologic symptoms. - Related Data Allergies Allergy/AdvReac Type Severity Reaction Status Date / Time amoxicillin [From Augmentin] Allergy Abdominal Verified 04/20/19 11:25 Pain clavulanic acid Allergy Abdominal Verified 04/20/19 11:25 [From Augmentin] Pain simvastatin [From Zocor] Allergy Other Verified 04/20/19 11:25 Home Meds: Home Meds [place]-3 Fatty Acids [Fish Oil] 2,000 mg PO BID 10/27/14 [History] Rosuvastatin [Crestor] 20 mg PO BEDTIME 10/27/14 [History] Zolpidem [Ambien] 5 mg PO BEDTIME PRN 02/04/18 [History] Aspirin [Ecotrin EC] 81 mg PO BEDTIME 04/24/18 [History] Nitroglycerin [Nitrostat] 0.4 mg SL Q5M PRN 04/29/18 [History] Ubidecarenone [Coenzyme Q10] 100 mg PO BEDTIME 04/29/18 [History] Acetaminophen [Tylenol] 650 mg PO Q4H PRN 02/23/19 [History] Bumetanide 2 mg PO DAILY 02/23/19 [History] Carvedilol 12.5 mg PO BID 02/23/19 [History] Gabapentin [Neurontin] 100 mg PO BID 02/23/19 [History] Sennosides/Docusate Sodium [Senna-S] 2 tab PO BID PRN 02/23/19 [History] Warfarin [Coumadin] 2.5 mg PO DAILY@1600 02/23/19 [History] Isosorbide Mononitrate [Imdur] 60 mg PO DAILY #30 tab.er 02/26/19 [Rx] oxyCODONE 10 mg PO TID PRN #20 tablet 02/26/19 [Rx] Meclizine [Antivert] 25 mg PO Q6H PRN #15 tab 04/20/19 [Rx] Past Medical History - Past Health History Medical/Surgical History: Denies Medical/Surgical History HEENT History: Reports: Impaired Vision Other HEENT History: wears glasses Cardiovascular History: Reports: Automatic Implantable Cardioverter Defibrillators, Blood Clots/VTE/DVT, Bypass, CAD, Heart Failure, High Cholesterol, Hypertension, [place] Respiratory History: Reports: SOB Gastrointestinal History: Reports: None Genitourinary History: Reports: Renal Disease PROPOSAL REP History: Reports: None Musculoskeletal History: Reports: Arthritis Neurological History: Reports: None Psychiatric History: Reports: None Endocrine/Metabolic History: Reports: None Hematologic History: Reports: None Immunologic History: Reports: None Oncologic (Cancer) History: Reports: None Dermatologic History: Reports: None - Infectious Disease History Infectious Disease History: Reports: C-Difficile, Measles, Shingles - Past Surgical History Head Surgeries/Procedures: Reports: None HEENT Surgical History: Reports: Adenoidectomy, Tonsillectomy Cardiovascular Surgical History: Reports: Coronary Artery Bypass, Coronary Artery Stent Other Cardiovascular Surgeries/Procedures: 1 stent, triple bypass GI Surgical History: Reports: Appendectomy, Colonoscopy, Hernia, Inguinal Male Surgical History: Reports: None Musculoskeletal Surgical History: Reports: Arthroscopic Knee, Hip Replacement, Other (See Below) Other Musculoskeletal Surgeries/Procedures:: bilat hip replacement Social & Family History - Family History Family Medical History: Noncontributory GI: Reports: None - Caffeine Use Caffeine Use: Reports: Coffee Caffeine Use Comment: Daily ED ROS GENERAL - Review of Systems Review Of Systems: See Below Constitutional: Reports: No Symptoms, Weight Gain HEENT: Reports: No Symptoms, Vertigo Respiratory: Reports: No Symptoms Cardiovascular: Reports: No Symptoms Endocrine: Reports: No Symptoms GI/Abdominal: Reports: No Symptoms : Reports: No Symptoms Musculoskeletal: Reports: No Symptoms Skin: Reports: No Symptoms Neurological: Reports: Dizziness Psychiatric: Reports: No Symptoms Hematologic/Lymphatic: Reports: No Symptoms ED EXAM, NEURO - Physical Exam Exam: See Below Exam Limited By: No Limitations General Appearance: Alert, No Apparent Distress Eye Exam: Bilateral Eye: PERRL Ears: Normal External Exam Nose: Normal Inspection, Normal Mucosa, No Blood Throat/Mouth: Normal Inspection, Normal Lips Head Exam: Atraumatic, Normocephalic Neck: Normal Inspection, Supple, Non-Tender, Full Range of Motion Respiratory/Chest: No Respiratory Distress, Lungs Clear, Normal Breath Sounds Cardiovascular: Normal Peripheral Pulses, Regular Rate, Rhythm, No JVD Neurological: Alert, Normal Mood/Affect, CN II-XII Intact, Normal Plantar Flexion, Normal Gait, Normal Reflexes, No Motor/Sensory Deficits, Oriented x 3 Extremities: Normal Inspection, Normal Range of Motion, Pedal Edema Psychiatric: Normal Affect Course - Vital Signs Text/Narrative:: labs,EKG discussed with patient and his spouse His EKG is NSR trop is slightly elevated but it has been chronically elevated since 2018 BNP-elevated at more than 6K,however, I don't think he has a CHF exacerbation. He denies dyspnea and his oxygen saturation is 99% on RA. CXR-stable old small right pleural eff I did discuss the case with Dr. Platt who agreed with plan to hydrate the patient and take meclizine at home. Patient is very comfortable in going home. Last Recorded V/S: Last Vital Signs Temp 36.4 C 04/20/19 11:02 Pulse 66 04/20/19 11:02 Resp 18 04/20/19 11:02 BP 129/65 04/20/19 11:02 Pulse Ox 97 04/20/19 11:02 - Orders/Labs/Meds Orders: Active Orders 24 hr Category Date Time Status EKG Documentation Completion [RC] ASDIRECTED Care 04/20/19 11:18 Active Chest 1V Frontal [CR] Stat Exams 04/20/19 11:17 Taken Sodium Chloride 0.9% [Normal Saline] 500 ml Med 04/20/19 13:44 Ordered IV .BOLUS EKG 12 Lead [EK] Routine Ther 04/20/19 11:17 Ordered Medication Orders Sodium Chloride (Normal Saline) 500 mls @ 500 mls/hr IV .BOLUS ONE Stop: 04/20/19 14:43 Labs: Laboratory Tests 04/20/19 04/20/19 04/20/19 Range/Units 11:40 11:40 11:40 WBC 6.3 (4.5-12.0) X10-3/uL RBC 3.38 L (4.30-5.75) x10(6)uL Hgb 11.4 L (13.5-17.8) g/dL Hct 33.5 (30.0-51.3) % MCV 99.3 H (80-96) fL MCH 33.6 (27.7-33.6) pg MCHC 33.9 (32.2-35.4) g/dL RDW 14.2 (11.5-15.5) % Plt Count 188 (125-369) X10(3)uL MPV 8.5 (7.4-10.4) fL Neut % (Auto) 81.5 (46-82) % Lymph % (Auto) 9.9 L (13-37) % Nicholas % (Auto) 6.6 (4-12) % Eos % (Auto) 2 (1.0-5.0) % Baso % (Auto) 0 (0-2) % Neut # (Auto) 5.2 (1.6-8.3) # Lymph # (Auto) 0.6 (0.6-5.0) # Nicholas # (Auto) 0.4 (0.0-1.3) # Eos # (Auto) 0.1 (0.0-0.8) # Baso # (Auto) 0.0 (0.0-0.2) # PT (8.7-11.1) INR (0.89-1.13) Sodium 138 (135-145) mmol/L Potassium 3.8 (3.5-5.3) mmol/L Chloride 100 (100-110) mmol/L Carbon Dioxide 30 (21-32) mmol/L BUN 30 H (7-18) mg/dL Creatinine 1.4 H (0.70-1.30) mg/dL Est Cr Clr Drug Dosing TNP Estimated GFR (MDRD) 48 L (>60) BUN/Creatinine Ratio 21.4 H (9-20) Glucose 109 (80-116) mg/dL Calcium 8.9 (8.6-10.2) mg/dL Total Bilirubin 0.9 (0.1-1.3) mg/dL AST 30 H D (5-25) IU/L ALT 31 D (12-36) U/L Alkaline Phosphatase 159 H (56-112) IU/L Troponin I 0.103 H* (<0.017-0.056) ng/mL NT-Pro-B Natriuret Pep 6645 H* (<=450) pg/mL Total Protein 7.3 (6.0-8.0) g/dL Albumin 3.5 (3.2-4.6) g/dL Globulin 3.8 g/dL Albumin/Globulin Ratio 0.9 18/19 Range/Units 11:40 WBC (4.5-12.0) X10-3/uL RBC (4.30-5.75) x10(6)uL Hgb (13.5-17.8) g/dL Hct (30.0-51.3) % MCV (80-96) fL MCH (27.7-33.6) pg MCHC (32.2-35.4) g/dL RDW (11.5-15.5) % Plt Count (125-369) X10(3)uL MPV (7.4-10.4) fL Neut % (Auto) (46-82) % Lymph % (Auto) (13-37) % Nicholas % (Auto) (4-12) % Eos % (Auto) (1.0-5.0) % Baso % (Auto) (0-2) % Neut # (Auto) (1.6-8.3) # Lymph # (Auto) (0.6-5.0) # Nicholas # (Auto) (0.0-1.3) # Eos # (Auto) (0.0-0.8) # Baso # (Auto) (0.0-0.2) # PT 21.7 H (8.7-11.1) INR 2.26 H (0.89-1.13) Sodium (135-145) mmol/L Potassium (3.5-5.3) mmol/L Chloride (100-110) mmol/L Carbon Dioxide (21-32) mmol/L BUN (7-18) mg/dL Creatinine (0.70-1.30) mg/dL Est Cr Clr Drug Dosing Estimated GFR (MDRD) (>60) BUN/Creatinine Ratio (9-20) Glucose (80-116) mg/dL Calcium (8.6-10.2) mg/dL Total Bilirubin (0.1-1.3) mg/dL AST (5-25) IU/L ALT (12-36) U/L Alkaline Phosphatase (56-112) IU/L Troponin I (<0.017-0.056) ng/mL NT-Pro-B Natriuret Pep (<=450) pg/mL Total Protein (6.0-8.0) g/dL Albumin (3.2-4.6) g/dL Globulin g/dL Albumin/Globulin Ratio Meds: Medications Generic Name Dose Route Start Last Admin Trade Name Freq PRN Reason Stop Dose Admin Sodium Chloride 500 mls @ 500 mls/hr 04/20/19 13:44 Normal Saline IV 04/20/19 14:43 .BOLUS ONE Discontinued Medications Generic Name Dose Route Start Last Admin Trade Name Freq PRN Reason Stop Dose Admin Sodium Chloride 1,000 mls @ 100 mls/hr 04/20/19 13:30 Normal Saline IV ASDIRECTED [facility] Meclizine HCl 25 mg 04/20/19 11:18 04/20/19 11:40 Antivert PO 04/20/19 11:19 25 mg ONETIME ONE Administration Departure - Departure Time of Disposition: 13:55 Disposition: Home, W Home Health Agency 06 Condition: Good Clinical Impression: BPV (benign positional vertigo) - Discharge Information Prescriptions: Meclizine [Antivert] 25 mg PO Q6H PRN #15 tab PRN Reason: vertigo Referrals: Sunny Johnson MD [Primary Care Provider] - Forms: ED Department Discharge Additional Instructions: please read discharge instructions on vertigo hydrate yourself at least 1 liter of fluid a day take the previous dose of your bumetadine at 2 mg daily meclizine 25 mg every 6 hours as needed for vertigo follow up as needed - My Orders Last 24 Hours: My Active Orders 04/20/19 11:17 Chest 1V Frontal [CR] Stat EKG 12 Lead [EK] Routine 04/20/19 11:18 EKG Documentation Completion [RC] ASDIRECTED 04/20/19 13:44 Sodium Chloride 0.9% [Normal Saline] 500 ml IV .BOLUS - Assessment/Plan Last 24 Hours: My Active Orders 04/20/19 11:17 Chest 1V Frontal [CR] Stat EKG 12 Lead [EK] Routine 04/20/19 11:18 EKG Documentation Completion [RC] ASDIRECTED 04/20/19 13:44 Sodium Chloride 0.9% [Normal Saline] 500 ml IV .BOLUS
[2019-04-20] MEDS ORDERED: Sodium Chloride 0.9% 500 ML IV ONE (13:44)
[2019-04-21 20:56] VITALS: BP 131/61; PULSE 60
== END 2019-04-20 15:00 | disposition home health service (06) ==
LOC: FB.ED 11:02
DX: H81.10 Benign paroxysmal vertigo, unspecified ear (principal); I25.10 Atherosclerotic heart disease of native coronary artery without angina pectoris; I25.2 Old myocardial infarction; I11.0 Hypertensive heart disease with heart failure; I50.9 Heart failure, unspecified; E78.5 Hyperlipidemia, unspecified; Z88.8 Allergy status to other drugs, medicaments and biological substances; Z88.0 Allergy status to penicillin; Z79.82 Long term (current) use of aspirin; Z86.718 Personal history of other venous thrombosis and embolism; Z79.01 Long term (current) use of anticoagulants; Z79.899 Other long term (current) drug therapy
CPT/HCPCS: 36415; 71045; 80053; 82962; 83880; 84484; 85025; 85610; 93005; 93010; 99283; 99284; A9270; J7030

== ENCOUNTER 2020-10-17 17:52 | Emergency (ER) | payer MEDICARE, BC ==
--- NOTE | 2020-10-17 18:54 | EDM.PDOC ---
ED HPI GENERAL MEDICAL PROBLEM - General Chief Complaint: Gastrointestinal Problem Stated Complaint: BLACK STOOL Time Seen by Provider: 10/17/20 18:00 Source of Information: Reports: Patient History Limitations: Reports: No Limitations - History of Present Illness INITIAL COMMENTS - FREE TEXT/NARRATIVE: c/o black stools pt with dark to black stools 3-4x/d for the past 4 days, slight discomfort in LLQ but otherwise has felt well, no weak, no f/c/d, no n/v last colonoscopy 15y ago in [place] lives with , drove himself to ED (after calling clinic, who directed him here) on warfarin for afib, last INR 2.[address] 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, 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 [facility] PMH: [place] age 47, HF, afib has had COVID vax - Related Data Allergies Allergy/AdvReac Type Severity Reaction Status Date / Time amoxicillin [From Augmentin] Allergy Abdominal Verified 10/17/20 18:19 Pain clavulanic acid Allergy Abdominal Verified 10/17/20 18:19 [From Augmentin] Pain simvastatin [From Zocor] Allergy Other Verified 10/17/20 18:19 Home Meds: Home Meds [place]-3 Fatty Acids [Fish Oil] 2,000 mg PO BID 10/27/14 [History] Rosuvastatin [Crestor] 20 mg PO BEDTIME 10/27/14 [History] Zolpidem [Ambien] 5 mg PO BEDTIME PRN 02/04/18 [History] Aspirin [Ecotrin EC] 81 mg PO BEDTIME 04/24/18 [History] Nitroglycerin [Nitrostat] 0.4 mg SL Q5M PRN 04/29/18 [History] Ubidecarenone [Coenzyme Q10] 100 mg PO BEDTIME 04/29/18 [History] Acetaminophen [Tylenol] 650 mg PO Q4H PRN 02/23/19 [History] Bumetanide 2 mg PO DAILY 02/23/19 [History] Gabapentin [Neurontin] 100 mg PO BID 02/23/19 [History] Sennosides/Docusate Sodium [Senna-S] 2 tab PO BID PRN 02/23/19 [History] Warfarin [Coumadin] 2.5 mg PO DAILY@1600 02/23/19 [History] carvediloL [Carvedilol] 12.5 mg PO BID 02/23/19 [History] Isosorbide Mononitrate [Imdur] 60 mg PO DAILY #30 tab.er 02/26/19 [Rx] oxyCODONE 10 mg PO TID PRN #20 tablet 02/26/19 [Rx] Meclizine [Antivert] 25 mg PO Q6H PRN #15 tab 04/20/19 [Rx] Past Medical History - Past Health History Medical/Surgical History: Denies Medical/Surgical History HEENT History: Reports: Impaired Vision Other HEENT History: wears glasses Cardiovascular History: Reports: Automatic Implantable Cardioverter Defibrillators, Blood Clots/VTE/DVT, Bypass, CAD, Heart Failure, High Cholesterol, Hypertension, [place] Respiratory History: Reports: SOB Gastrointestinal History: Reports: None Genitourinary History: Reports: Renal Disease [employer] History: Reports: None Musculoskeletal History: Reports: Arthritis Neurological History: Reports: None Psychiatric History: Reports: None Endocrine/Metabolic History: Reports: None Hematologic History: Reports: None Immunologic History: Reports: None Oncologic (Cancer) History: Reports: None Dermatologic History: Reports: None - Infectious Disease History Infectious Disease History: Reports: C-Difficile, Measles, Shingles - Past Surgical History Head Surgeries/Procedures: Reports: None HEENT Surgical History: Reports: Adenoidectomy, Tonsillectomy Cardiovascular Surgical History: Reports: Coronary Artery Bypass, Coronary Artery Stent Other Cardiovascular Surgeries/Procedures: 1 stent, triple bypass GI Surgical History: Reports: Appendectomy, Colonoscopy, Hernia, Inguinal Male Surgical History: Reports: None Musculoskeletal Surgical History: Reports: Arthroscopic Knee, Hip Replacement, Other (See Below) Other Musculoskeletal Surgeries/Procedures:: bilat hip replacement Social & Family History - Family History Family Medical History: No Pertinent Family History GI: Reports: None - Caffeine Use Caffeine Use: Reports: Coffee Caffeine Use Comment: Daily ED ROS GENERAL - Review of Systems Review Of Systems: See Below Constitutional: Reports: No Symptoms HEENT: Reports: No Symptoms Respiratory: Reports: No Symptoms Cardiovascular: Reports: No Symptoms Endocrine: Reports: No Symptoms GI/Abdominal: Reports: Abdominal Pain, Black Stool. Denies: Constipation, Diarrhea, Nausea, Vomiting : Reports: No Symptoms Musculoskeletal: Reports: No Symptoms Skin: Reports: No Symptoms Neurological: Reports: No Symptoms Psychiatric: Reports: No Symptoms Hematologic/Lymphatic: Reports: No Symptoms Immunologic: Reports: No Symptoms ED EXAM, GI/ABD - Physical Exam Exam: See Below Exam Limited By: No Limitations General Appearance: Alert, WD/WN, No Apparent Distress, Other Throat/Mouth: Normal Inspection, No Airway Compromise Head: Atraumatic, Normocephalic Neck: Normal Inspection, Supple, Non-Tender, Full Range of Motion. No: Lymphadenopathy (R), Lymphadenopathy (L) Respiratory/Chest: No Respiratory Distress, Lungs Clear, Normal Breath Sounds, No Accessory Muscle Use, Chest Non-Tender Cardiovascular: Other (quiet precordium, near regular, 2/6 ARIAN at LSB, PMI not palp) GI/Abdominal Exam: Normal Bowel Sounds, Soft, No Organomegaly, No Distention, Other (slight tender to deep palp in the midpoint of the LLQ, soft, ND, no guard/rebound) Back Exam: Normal Inspection, Full Range of Motion Extremities: Normal Inspection, Normal Range of Motion, Non-Tender, No Pedal Edema Neurological: Alert, Oriented, CN II-XII Intact, Normal Cognition Psychiatric: Normal Affect, Normal Mood Skin Exam: Warm, Dry, Intact, Normal Color, No Rash Lymphatic: No Adenopathy Course - Vital Signs Last Recorded V/S: Last Vital Signs Temp 36.6 C 10/17/20 17:58 Pulse 83 10/17/20 17:58 Resp 16 10/17/20 17:58 BP 105/51 L 10/17/20 17:58 Pulse Ox 100 10/17/20 17:58 - Orders/Labs/Meds Orders: Active Orders 24 hr Category Date Time Status EKG Documentation Completion [RC] ASDIRECTED Care 10/17/20 18:20 Ordered C-REACTIVE PROTEIN [CHEM] Stat Lab 10/17/20 18:18 Ordered CBC WITH AUTO DIFF [HEME] Stat Lab 10/17/20 18:18 Ordered COMPREHENSIVE METABOLIC PN,CMP [CHEM] Stat Lab 10/17/20 18:18 Ordered Hemoccult [OCCULT BLOOD DIAGNOSTIC] [OP] Stat Lab 10/17/20 18:18 Ordered INR,PT,PROTHROMBIN TIME [COAG] Stat Lab 10/17/20 18:18 Ordered TROPONIN I [CHEM] Stat Lab 10/17/20 18:18 Ordered UA W/MICROSCOPIC [URIN] Stat Lab 10/17/20 18:18 Ordered EKG 12 Lead [EK] Routine Ther 10/17/20 18:18 Ordered - Re-Assessments/Exams Free Text/Narrative Re-Assessment/Exam: 10/17/20 18:[address] ordered, will sign out to Dr Monzon at 19:00 at change of shift, pt aware 10/17/20 19:05 hgb 9.6, down from 11.4 from 2y ago INR 3.68 BUN/creat inc'd from baseline Departure - Departure Time of Disposition: 19:04 Disposition: Still A Patient 30 Clinical Impression: Melena, Anemia, Macrocytosis, Acute on chronic renal insufficiency, Elevated liver function tests, Elevated INR - Discharge Information *PRESCRIPTION DRUG MONITORING PROGRAM REVIEWED*: Not Applicable *COPY OF PRESCRIPTION DRUG MONITORING REPORT IN PATIENT [place]: Not Applicable Sepsis Event Note (ED) - Evaluation Sepsis Screening Result: No Definite Risk - Focused Exam Vital Signs: Vital Signs Temp Pulse Resp BP Pulse Ox 10/17/20 17:58 36.6 C 83 16 105/51 L 100 - My Orders Last 24 Hours: My Active Orders 10/17/20 18:18 C-REACTIVE PROTEIN [CHEM] Stat CBC WITH AUTO DIFF [HEME] Stat COMPREHENSIVE METABOLIC PN,CMP [CHEM] Stat Hemoccult [OCCULT BLOOD DIAGNOSTIC] [OP] Stat INR,PT,PROTHROMBIN TIME [COAG] Stat TROPONIN I [CHEM] Stat UA W/MICROSCOPIC [URIN] Stat EKG 12 Lead [EK] Routine 10/17/20 18:20 EKG Documentation Completion [RC] ASDIRECTED - Assessment/Plan Last 24 Hours: My Active Orders 10/17/20 18:18 C-REACTIVE PROTEIN [CHEM] Stat CBC WITH AUTO DIFF [HEME] Stat COMPREHENSIVE METABOLIC PN,CMP [CHEM] Stat Hemoccult [OCCULT BLOOD DIAGNOSTIC] [OP] Stat INR,PT,PROTHROMBIN TIME [COAG] Stat TROPONIN I [CHEM] Stat UA W/MICROSCOPIC [URIN] Stat EKG 12 Lead [EK] Routine 10/17/20 18:20 EKG Documentation Completion [RC] ASDIRECTED
[2020-10-17] MEDS ORDERED: Pantoprazole 40 MG Vial IVPUSH ONE (19:23)
[2020-10-17] MEDS ORDERED: Phytonadione 5 MG in Sodium Chloride 0.9% 50 ML IV ONE (19:23)
[2020-10-17 21:53] VITALS: BP 123/61; PULSE 86
== END 2020-10-17 22:48 ==
LOC: FB.ED 17:52
DX: K92.1 Melena (principal); D75.89 Other specified diseases of blood and blood-forming organs; D64.9 Anemia, unspecified; N17.9 Acute kidney failure, unspecified; I12.9 Hypertensive chronic kidney disease with stage 1 through stage 4 chronic kidney disease, or unspecified chronic kidney disease; N18.9 Chronic kidney disease, unspecified; R79.1 Abnormal coagulation profile; R79.89 Other specified abnormal findings of blood chemistry; E78.00 Pure hypercholesterolemia, unspecified; I25.2 Old myocardial infarction; M19.90 Unspecified osteoarthritis, unspecified site; Z88.0 Allergy status to penicillin; Z88.1 Allergy status to other antibiotic agents; Z88.8 Allergy status to other drugs, medicaments and biological substances; Z79.82 Long term (current) use of aspirin; Z79.899 Other long term (current) drug therapy; Z79.01 Long term (current) use of anticoagulants
CPT/HCPCS: 36415; 74176; 80053; 81001; 84484; 85025; 85610; 86140; 93005; 96365; 96375; 99285; C9113; J3430

== ENCOUNTER 2020-11-21 09:49 | Observation (INO) | payer MEDICARE, BC ==
--- NOTE | 2020-11-21 10:28 | EDM.PDOC ---
ED HPI GENERAL MEDICAL PROBLEM - General Chief Complaint: Respiratory Problem Stated Complaint: sob Time Seen by Provider: 11/21/20 10:21 Source of Information: Reports: Patient History Limitations: Reports: No Limitations - History of Present Illness INITIAL COMMENTS - FREE TEXT/NARRATIVE: 85-year-old male who reports shortness of breath that has been going on for a few years but beginning about 10 days ago he has had increased shortness of breath that has progressively worsened over time. He reports that about 10 days ago he had blood in his stool and had an EGD which showed some type of ulcer and he was taken off of his Coumadin and placed on Protonix and Carafate. He reports that he was given 2 units of blood following this as well and he feels that his shortness of breath is worsening and over the past 2 days he also has noticed that he has had some abdominal bloating with central abdominal discomfort that he reports is a fullness type of discomfort. He rates that discomfort is a 5/10. He also reports that his shortness of breath has progressed to being short of breath even at rest where it had just been with activity. He denies any chest pain. There has been no nausea or vomiting. He has had a poor appetite but he has been eating and drinking. The pain is not made better or worse with eating or drinking. In addition, he has been having several bowel movements daily that are all amounts but he has noticed no blood in them. He reports that when he urinates he also feels that he has to defecate at the same time (this has been going on for the past 5-6 days). He has had no dysuria or hematuria. He also reports that he feels weak all over and he has some dizziness with standing. There are no other associated signs or symptoms. There are no other modifying factors. Onset: Other (Ongoing for the past 10 days.) Duration: Getting Worse Location: Reports: Abdomen (Abdominal discomfort for the past 2 days with some distention.) Quality: Reports: Other (Fullness) Severity: Moderate Improves with: Reports: None Worsens with: Reports: Other (Activity) Context: Reports: Other (As above) Associated Symptoms: Reports: No Other Symptoms (Except as above.) Treatments [employer]: Reports: Other Medication(s) (He took an extra Bumex today.) Abdomen Pain Score (Numeric/FACES): 5 - Related Data Allergies Allergy/AdvReac Type Severity Reaction Status Date / Time simvastatin [From Zocor] Allergy Unknown Other Verified 11/21/20 14:01 amoxicillin [From Augmentin] Allergy Abdominal Verified 11/21/20 14:01 Pain clavulanic acid Allergy Abdominal Verified 11/21/20 14:01 [From Augmentin] Pain sucralfate [From Carafate] Allergy Itching Verified 11/21/20 14:01 Home Meds: Home Meds Rosuvastatin [Crestor] 20 mg PO BEDTIME 10/27/14 [History] Aspirin [Ecotrin EC] 81 mg PO BEDTIME 04/24/18 [History] Nitroglycerin [Nitrostat] 0.4 mg SL Q5M PRN 04/29/18 [History] Bumetanide 1 mg PO DAILY 02/23/19 [History] Sennosides/Docusate Sodium [Senna-S] 2 tab PO BID PRN 02/23/19 [History] Isosorbide Mononitrate [Imdur] 30 mg PO DAILY 11/21/20 [History] Pantoprazole Sodium [Protonix] 40 mg PO BID 11/21/20 [History] Potassium Chloride 20 meq PO DAILY 11/21/20 [History] carvediloL [Coreg] 6.25 mg PO BID 11/21/20 [History] hydrOXYzine pamoate [Hydroxyzine Pamoate] 25 mg PO QID PRN 11/21/20 [History] Past Medical History HEENT History: Reports: Impaired Vision Other HEENT History: wears glasses Cardiovascular History: Reports: Automatic Implantable Cardioverter Defibrillators, Blood Clots/VTE/DVT, Bypass, CAD, Cardiomyopathy, Heart Failure, High Cholesterol, Hypertension, [place], Other (See Below) Other Cardiovascular History: DVT, PFO Respiratory History: Reports: COPD, SOB Genitourinary History: Reports: Renal Disease, Other (See Below) Other Genitourinary History: renal infarct Musculoskeletal History: Reports: Arthritis, Other (See Below) Other Musculoskeletal History: sacroiliitis - Infectious Disease History Infectious Disease History: Reports: C-Difficile, Measles, Shingles - Past Surgical History HEENT Surgical History: Reports: Adenoidectomy, Tonsillectomy Cardiovascular Surgical History: Reports: Coronary Artery Bypass, Coronary Artery Stent Other Cardiovascular Surgeries/Procedures: 1 stent, triple bypass GI Surgical History: Reports: Appendectomy, Colonoscopy, EGD, Hernia, Inguinal Musculoskeletal Surgical History: Reports: Arthroscopic Knee, Hip Replacement, Other (See Below) Other Musculoskeletal Surgeries/Procedures:: bilat hip replacement Social & Family History - Tobacco Use Tobacco Use Status *Q: Former Tobacco User (Nonsmoker for 40+ years.) - Caffeine Use Caffeine Use: Reports: None Caffeine Use Comment: Daily - Alcohol Use Alcohol Use History: Yes Alcohol Use Frequency: Rarely - Living Situation & Occupation Living situation: Reports: Occupation: Retired ED ROS GENERAL - Review of Systems Review Of Systems: See Below Constitutional: Denies: Fever, Chills HEENT: Denies: Throat Pain, Vision Change Respiratory: Reports: Shortness of Breath. Denies: Cough, Sputum, Hemoptysis Cardiovascular: Reports: Dyspnea on Exertion. Denies: Chest Pain Endocrine: Denies: Polydypsia, Polyuria GI/Abdominal: Reports: Abdominal Pain. Denies: Nausea, Vomiting : Denies: Dysuria, Hematuria Musculoskeletal: Reports: Other (Some leg swelling). Denies: Back Pain, Leg Pain Skin: Denies: Diaphoresis, Rash Neurological: Reports: Weakness (Feels generally weak all over.). Denies: Dizziness, Headache Hematologic/Lymphatic: Reports: Anemia, Other (Was on Coumadin until 10 days ago) ED EXAM, GENERAL - Physical Exam Exam: See Below Exam Limited By: No Limitations General Appearance: Alert, WD/WN, Mild Distress Eye Exam: Bilateral Eye: EOMI, Normal Inspection (Sclera are anicteric) Ears: Normal External Exam, Hearing Grossly Normal Ear Exam: Bilateral Ear: Auricle Normal Nose: Normal Inspection, Normal Mucosa, No Blood Throat/Mouth: Normal Oropharynx, Normal Voice, No Airway Compromise Head: Atraumatic, Normocephalic Neck: Normal Inspection, Supple, Non-Tender, Full Range of Motion Respiratory/Chest: No Respiratory Distress, No Accessory Muscle Use, Chest Non- Tender, Rales (Laterally.) Cardiovascular: Normal Peripheral Pulses, Regular Rate, Rhythm, JVD Peripheral Pulses: 2+: Radial (L), Radial (R), Dorsalis Pedis (L), Dorsalis Pedis (R) GI/Abdominal: Normal Bowel Sounds, Soft, No Mass, Distended, Tender (Mild t enderness in the periumbilical area) Back Exam: Normal Inspection. No: CVA Tenderness (R), CVA Tenderness (L) Extremities: Normal Range of Motion, Normal Capillary Refill, Pedal Edema Neurological: Alert, Oriented, CN II-XII Intact, Normal Cognition, No Motor/Sensory Deficits Skin Exam: Warm, Dry, Intact, Normal Color, No Rash #1 Interpretation EKG Date: 11/21/20 Time: 09:59 Rhythm: A-Fib (A. fib flutter with ventricular paced rhythm) Rate (Beats/Min): 61 Comparison: No Change (No change from EKG performed on 10/17/2020.) EKG Interpretation Comments: No further analysis attempted due to paced rhythm Course - Vital Signs Last Recorded V/S: Last Vital Signs Temp 37.2 C 11/21/20 23:58 Pulse 89 11/21/20 23:58 Resp 16 11/21/20 23:58 BP 141/70 H 11/21/20 23:58 Pulse Ox 95 11/21/20 23:58 - Orders/Labs/Meds Orders: Active Orders 24 hr Category Date Time Status Admission Status [Patient Status] [ADT] Routine ADT 11/21/20 13:28 Active Cardiac Monitoring [RC] QSHIFT Care 11/21/20 13:28 Active Heart Healthy Diet [DIET] Diet 11/21/20 Lunch Ordered Sodium Chloride 0.9% [Saline Flush] Med 11/21/20 10:46 Active 10 ml FLUSH ASDIRECTED PRN Peripheral IV Insertion Adult [OM.PC] Routine Oth 11/21/20 10:46 Ordered Code Status [Resuscitation Status] Stat Resus Stat 11/21/20 13:30 Ordered EKG 12 Lead [EK] Routine Ther 11/21/20 10:46 Ordered Medication Orders Aspirin (Aspirin 81 Mg Tab.Ec *P-Jose Rafael) 81 mg PO BEDTIME SITA Last Admin: 11/21/20 21:38 Dose: 81 mg Documented by: JENNA Bumetanide (Bumetanide 1 Mg Tab *Ptom) 1 mg PO DAILY [facility] Carvedilol (Carvedilol 6.25 Mg Tab *Ptom) 6.25 mg PO BID SITA Last Admin: 11/21/20 21:37 Dose: 6.25 mg Documented by: JENNA Isosorbide Mononitrate (Isosorbide Mononitrate 60 Mg Tab.Er *Ptom) 30 mg PO DAILY SITA Nitroglycerin (Nitroglycerin 0.4 Mg Tab.Sl) 0.4 mg SL Q5M PRN PRN Reason: Chest Pain [Hydroxyzine Pamoate ] 25 Mg Capsule) * Ptom 25 mg PO QID PRN PRN Reason: Itching Last Admin: 11/21/20 21:43 Dose: 25 mg Documented by: JENNA (Rosuvastatin [ Crestor] 40 Mg Tablet) *Ptom 20 mg PO BEDTIME SITA Last Admin: 11/21/20 21:39 Dose: 20 mg Documented by: JENNA Pantoprazole Sodium (Pantoprazole 40 Mg Tab.Cr *Ptom) 40 mg PO BID [facility] Last Admin: 11/21/20 21:39 Dose: 40 mg Documented by: JENNA Potassium Chloride (Potassium Chloride 10 Meq Tab.Er *Ptom) 10 meq PO DAILY [facility] Senna/Docusate Sodium (Docusate Sodium/Sennosides 50-8.6 Mg Tab *Ptom) 2 tab PO BID PRN PRN Reason: Constipation Sodium Chloride (Sodium Chloride 0.9% 10 Ml Syringe) 10 ml FLUSH ASDIRECTED PRN PRN Reason: Keep Vein Open Last Admin: 11/21/20 15:37 Dose: 10 ml Documented by: LASHAWN Trazodone HCl (Trazodone 50 Mg Tab) 25 mg PO BEDTIME PRN PRN Reason: Insomnia Last Admin: 11/21/20 22:42 Dose: 25 mg Documented by: JENNA Labs: Laboratory Tests 11/21/20 11/21/20 11/21/20 Range/Units 10:49 10:55 10:55 WBC 5.6 (3.2-10.1) x10-3/uL RBC 3.34 L (3.90-5.90) x10(6)uL Hgb 10.7 L (12.9-17.7) g/dL Hct 32.4 L (38.3-50.1) % MCV 97.1 (80.8-98.7) fL MCH 32.0 (27.0-33.3) pg MCHC 32.9 (28.7-35.3) g/dL RDW 17.6 H (12.4-15.0) % Plt Count 167 (117-477) x10(3)uL MPV 9.1 (6.7-11.0) fL Neut % (Auto) 76.2 H (40.3-71.8) % Lymph % (Auto) 10.9 L (15.8-45.3) % [place] % (Auto) 10.3 (5.5-15.2) % Eos % (Auto) 2.0 (0.1-6.8) % Baso % (Auto) 0.6 (0.3-3.8) % Neut # (Auto) 4.2 (1.7-6.9) x10-3/uL Lymph # (Auto) 0.6 (0.5-4.5) x10-3/uL [place] # (Auto) 0.6 (0.0-1.2) x10-3/uL Eos # (Auto) 0.1 (0.0-0.6) x10-3/uL Baso # (Auto) 0.0 (0.0-0.3) x10-3/uL Sodium 141 (135-145) mmol/L Potassium 3.8 (3.5-5.3) mmol/L Chloride 102 (100-110) mmol/L Carbon Dioxide 29 (21-32) mmol/L BUN 29 H D (7-18) mg/dL Creatinine 1.9 H (0.70-1.30) mg/dL Est Cr Clr Drug Dosing 26.09 mL/min Estimated GFR (MDRD) 34 L (>60) BUN/Creatinine Ratio 15.3 (9-20) Glucose 85 (80-116) mg/dL Calcium 9.0 (8.6-10.2) mg/dL Magnesium 2.1 (1.8-2.5) mg/dL Total Bilirubin 1.1 (0.1-1.3) mg/dL AST 36 H (5-25) IU/L ALT 41 H D (12-36) U/L Alkaline Phosphatase 182 H (56-112) IU/L Troponin I (4.0-60.3) pg/mL C-Reactive Protein (0.5-0.9) mg/dL NT-Pro-B Natriuret Pep (<=450) pg/mL Total Protein 6.8 (6.0-8.0) g/dL Albumin 3.3 (3.2-4.6) g/dL Globulin 3.5 g/dL Albumin/Globulin Ratio 0.9 Lipase (73-393) U/L Urine Color Yellow (YELLOW) Urine Appearance Slightly cloudy (CLEAR) Urine pH 7.0 H (5.0-6.5) Ur Specific [place] 1.010 (1.010-1.025) Urine Protein Negative (NEGATIVE) mg/dL Urine Glucose (UA) Normal (NORMAL) mg/dL Urine Ketones Negative (NEGATIVE) mg/dL Urine Occult Blood Negative (NEGATIVE) Urine Nitrite Negative (NEGATIVE) Urine Bilirubin Negative (NEGATIVE) Urine Urobilinogen Normal (NEGATIVE) mg/dL Ur Leukocyte Esterase Negative (NEGATIVE) Urine WBC 0-5 (0-5) Ur Squamous Epith Cells Few H (NS,R,O) Urine Bacteria Few H (NS) 11/21/20 11/21/20 Range/Units 10:55 10:55 WBC (3.2-10.1) x10-3/uL RBC (3.90-5.90) x10(6)uL Hgb (12.9-17.7) g/dL Hct (38.3-50.1) % MCV (80.8-98.7) fL MCH (27.0-33.3) pg MCHC (28.7-35.3) g/dL RDW (12.4-15.0) % Plt Count (117-477) x10(3)uL MPV (6.7-11.0) fL Neut % (Auto) (40.3-71.8) % Lymph % (Auto) (15.8-45.3) % [place] % (Auto) (5.5-15.2) % Eos % (Auto) (0.1-6.8) % Baso % (Auto) (0.3-3.8) % Neut # (Auto) (1.7-6.9) x10-3/uL Lymph # (Auto) (0.5-4.5) x10-3/uL [place] # (Auto) (0.0-1.2) x10-3/uL Eos # (Auto) (0.0-0.6) x10-3/uL Baso # (Auto) (0.0-0.3) x10-3/uL Sodium (135-145) mmol/L Potassium (3.5-5.3) mmol/L Chloride (100-110) mmol/L Carbon Dioxide (21-32) mmol/L BUN (7-18) mg/dL Creatinine (0.70-1.30) mg/dL Est Cr Clr Drug Dosing mL/min Estimated GFR (MDRD) (>60) BUN/Creatinine Ratio (9-20) Glucose (80-116) mg/dL Calcium (8.6-10.2) mg/dL Magnesium (1.8-2.5) mg/dL Total Bilirubin (0.1-1.3) mg/dL AST (5-25) IU/L ALT (12-36) U/L Alkaline Phosphatase (56-112) IU/L Troponin I 83.4 H* (4.0-60.3) pg/mL C-Reactive Protein 3.2 H* (0.5-0.9) mg/dL NT-Pro-B Natriuret Pep 47627 H* (<=450) pg/mL Total Protein (6.0-8.0) g/dL Albumin (3.2-4.6) g/dL Globulin g/dL Albumin/Globulin Ratio Lipase 77 (73-393) U/L Urine Color (YELLOW) Urine Appearance (CLEAR) Urine pH (5.0-6.5) Ur Specific [place] (1.010-1.025) Urine Protein (NEGATIVE) mg/dL Urine Glucose (UA) (NORMAL) mg/dL Urine Ketones (NEGATIVE) mg/dL Urine Occult Blood (NEGATIVE) Urine Nitrite (NEGATIVE) Urine Bilirubin (NEGATIVE) Urine Urobilinogen (NEGATIVE) mg/dL Ur Leukocyte Esterase (NEGATIVE) Urine WBC (0-5) Ur Squamous Epith Cells (NS,R,O) Urine Bacteria (NS) Meds: Medications Generic Name Dose Route Start Last Admin Trade Name Freq PRN Reason Stop Dose Admin Aspirin 81 mg 11/21/20 21:00 11/21/20 21:38 Aspirin 81 Mg Tab.Ec *P-Jose Rafael PO 81 mg BEDTIME SITA Administration Bumetanide 1 mg 11/22/20 09:00 Bumetanide 1 Mg Tab *Ptom PO DAILY SITA Carvedilol 6.25 mg 11/21/20 21:00 06/21/21 21:37 Carvedilol 6.25 Mg Tab *Ptom PO 6.25 mg BID SITA Administration Isosorbide Mononitrate 30 mg 11/22/20 09:00 Isosorbide Mononitrate 60 Mg Tab.Er *Ptom PO DAILY SITA Nitroglycerin 0.4 mg 11/21/20 16:42 Nitroglycerin 0.4 Mg Tab.Sl SL Q5M PRN Chest Pain [Hydroxyzine Pamoate 25 mg 11/21/20 16:42 11/21/20 21:43 ] 25 Mg Capsule) * PO 25 mg Ptom QID PRN Administration Itching (Rosuvastatin [ 20 mg 11/21/20 21:00 11/21/20 21:39 Crestor] 40 Mg PO 20 mg Tablet) *Ptom BEDTIME SITA Administration Pantoprazole Sodium 40 mg 11/21/20 21:00 11/21/20 21:39 Pantoprazole 40 Mg Tab.Cr *Ptom PO 40 mg BID SITA Administration Potassium Chloride 10 meq 11/22/20 09:00 Potassium Chloride 10 Meq Tab.Er *Ptom PO DAILY SITA Senna/Docusate Sodium 2 tab 11/21/20 16:42 Docusate Sodium/Sennosides 50-8.6 Mg Tab *Ptom PO BID PRN Constipation Sodium Chloride 10 ml 11/21/20 10:46 11/21/20 15:37 Sodium Chloride 0.9% 10 Ml Syringe FLUSH 10 ml ASDIRECTED PRN Administration Keep Vein Open Trazodone HCl 25 mg 11/21/20 22:20 11/21/20 22:42 Trazodone 50 Mg Tab PO 25 mg BEDTIME PRN Administration Insomnia Discontinued Medications Generic Name Dose Route Start Last Admin Trade Name Freq PRN Reason Stop Dose Admin Bumetanide 1 mg 11/21/20 14:37 11/21/20 15:37 Bumetanide 1 Mg/4 Ml Mdv IVPUSH 11/21/20 14:38 1 mg ONETIME ONE Administration Iopamidol 75 ml 11/21/20 12:51 11/21/20 12:53 Iopamidol 755 Mg/Ml 75 Ml Bottle IV 11/21/20 12:52 75 ml ASDIRECTED ONE Administration - Radiology Interpretation Free Text/Narrative:: Portable chest x-ray showed cardiomegaly and CHF. CT of the abdomen and pelvis showed ascites. There were what was felt to be infiltrates in both bases uncus. There were no other acute intra-abdominal abnormality. This was per Dr. Yanes. - Re-Assessments/Exams Free Text/Narrative Re-Assessment/Exam: 11/21/20 12:00: The patient appears to have decompensated CHF. He does have some abdominal bloating and discomfort but most of his symptoms seemed related to fluid overload. He has an elevated proBNP to 12,000. The elevated troponin but this is chronic. The patient's electrolytes are normal. The creatinine is 1.9 which is where it has been recently. His chest x-ray I feel shows some evidence of CHF. And his lung exam has crackles bilaterally. I will send the patient for CT of the abdomen and pelvis without IV contrast to rule out any significant intra-abdominal pathology. I feel the patient will need admission for IV diuresis and he is complicated medically and has not improved with increase in his Bumex orally and I think he will need IV diuresis. I have discussed this with the patient and with his and they would be in agreement with this. The patient is a DNR/DNI and I have confirmed this with him and with his . He would not want transfer to another facility. He would wish only to stay at [facility] at this point. 11/21/20 13:00: I discussed the patient's case with Dr. Yanes and he had recommended that we give IV contrast to more fully evaluate the abdomen and pelvis. This was done after he had reviewed the uncontrasted CT scan of the abdomen and pelvis. This showed abdominal ascites and a really showed no evidence of significant intra-abdominal pathology other than the ascites. There were bilateral peripheral lower lobe infiltrate seen on the CT scan and Dr. Yanes question whether Covid was a possibility. The patient has been fully vaccinated for Covid and he has no symptoms that would be associated with. His symptoms are more closely aligned with decompensated CHF. He does not have any head or symptoms that point toward this being a pneumonia at this time. 11/21/20 13:15: I discussed the patient's case with Dr. Branch, hospitalist at [facility], and she will admit the patient. The patient and his are in agreement with this. Departure - Departure Time of Disposition: 13:28 Disposition: Admitted As Inpatient 65 Condition: Fair Clinical Impression: Decompensated heart failure, Respiratory distress Abdominal ascites Qualifiers: Ascites type: other type Qualified Code(s): R18.8 - Other ascites - Discharge Information Sepsis Event Note (ED) - Evaluation Sepsis Screening Result: No Definite Risk - My Orders Last 24 Hours: My Active Orders 11/21/20 Lunch Heart Healthy Diet [DIET] 11/21/20 10:46 Sodium Chloride 0.9% [Saline Flush] 10 ml FLUSH ASDIRECTED PRN Peripheral IV Insertion Adult [OM.PC] Routine EKG 12 Lead [EK] Routine 11/21/20 13:28 Admission Status [Patient Status] [ADT] Routine Cardiac Monitoring [RC] QSHIFT 11/21/20 13:30 Code Status [Resuscitation Status] Stat - Assessment/Plan Last 24 Hours: My Active Orders 11/21/20 Lunch Heart Healthy Diet [DIET] 11/21/20 10:46 Sodium Chloride 0.9% [Saline Flush] 10 ml FLUSH ASDIRECTED PRN Peripheral IV Insertion Adult [OM.PC] Routine EKG 12 Lead [EK] Routine 11/21/20 13:28 Admission Status [Patient Status] [ADT] Routine Cardiac Monitoring [RC] QSHIFT 11/21/20 13:30 Code Status [Resuscitation Status] Stat
[2020-11-21] MEDS ORDERED: Sodium Chloride 0.9% 10 ML Syringe FLUSH PRN (10:46)
--- NOTE | 2020-11-21 11:32 | CR ---
INDICATION: Short of breath. CHEST ONE-VIEW 52375: AP upright portable view of the chest 11/21/20 was compared with 04/20/19 and 02/28/18. The heart is again noted to be enlarged with post median sternotomy change. Pacemaker leads are again noted, unchanged. Calcifications are noted in the aorta, descending and arch area, with tortuosity of the aorta noted. There are again noted pleural parenchymal changes at the left lung base likely fibrotic in nature as they appear essentially changed from 2019. No definite active infiltrate or effusion was identified. Overlying EKG leads and snap noted. IMPRESSION: 1. No acute process. 2. 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 3. ASHD with cardiomegaly, post median sternotomy change, and pacemaker leads. MTDD
[2020-11-21] MEDS ORDERED: Iopamidol 755 Mg/ML 75 ML Bottle IV ONE (12:51)
--- NOTE | 2020-11-21 14:15 | CT ---
INDICATION: Abdominal distension with abdominal pain, periumbilical. CT ABDOMEN AND PELVIS WITHOUT AND WITH IV CONTRAST: Spiral 2.5 mm axial sections were obtained through the abdomen and pelvis initially without contrast and then repeated with 75 mL [id number] at 2 mL/sec with sagittal and coronal reconstructions 11/21/20 and compared with 10/17/20. Total exam DLP was 1254.91 milligray/cm. There is again essentially unchanged infiltration and localized pleural reactions - peripheral infiltration at both lower lobes much more prominent on the left than right which may represent persistent pneumonia with localized pleuritis. The appearance raises question of a process such as Covid-19 pneumonia and should be correlated clinically. The heart is enlarged with pacemaker leads. No definite pericardial effusion was seen. There are a few calcifications in the kidneys which are likely pharmacy services representative of arterial calcifications. Proximal renal arterial calcifications are fairly prominent as are aortic calcifications with severe calcifications also noted in the splenic artery. Some calcifications are prominent also in the superior mesenteric artery, iliac and femoral arteries. There is fairly severe renal cortical scarring on the left which may be due to previous bouts of pyelonephritis and/or infarcts. Relatively minimal findings - no significant scarring is seen on the right with a small low-density lesion compatible with a simple cyst in the upper pole of the right kidney. No obstructive uropathy was seen. A new finding of moderately prominent abdominal and pelvic ascites is now seen with no clear-cut etiology. The appendix is not visualized compatible with appendectomy. There is a loop of what appears to be distal jejunum or proximal ileum with a thickened wall which could represent an inflammatory process or possibly ischemic change and should be correlated clinically. No other etiology for the abdominal ascites was identified with relatively normal-appearing liver except for some relative heterogeneity of contrast enhancement which may simply be on the basis of the patient's age and vascular status. The gallbladder demonstrated no calculi. The adrenal glands were unremarkable as was the spleen and pancreas. The common bile duct did not appear to be enlarged. Retroperitoneal lymphadenopathy is mild and nonspecific. No retroperitoneal mass was seen. The urinary bladder was unremarkable as visualized with hard beam artifact due to bilateral total hip arthroplasties limiting visualization of the lower pelvis. No additional mass lesions or organomegaly were identified. IMPRESSION: 1. There is now noted prominent abdominal ascites and pelvic ascites. The etiology is not definitely determined, however, there is a thick-walled loop of what appears to be distal jejunum or proximal ileum which could be related as it could be on the basis of ischemia or inflammatory disease and should be correlated clinically. 2. ASD with prominent renal artery calcifications and fairly severe scarring of a portion of the left kidney. 3. Small probable simple cyst of the upper pole of the right kidney with intrarenal calcifications likely on the basis of arterial calcifications, although one calyceal calculus may be present in the lower middle pole of the right kidney. 4. Post appendectomy. 5. Umbilical hernia which on the noncontrast study included a portion of a loop of transverse colon not present on the post IV contrast injection images - nonobstructive. 6. Degenerative disc disease L4-L5 and L5-S1 with hypertrophic changes fairly prominent at L5-S1 and to a lesser degree in mid and lower lumbar levels. 7. ASD with no evidence of abdominal aortic aneurysm. 8. Pleuroparenchymal changes are again noted in both lung bases - left lower lobe more prominent than right lower lobe which may be on the basis of pneumonia and pleuritis with an appearance raising question of Covid-19 pneumonia - correlate clinically. 9. Bilateral THAs. Report was called to Dr. Bautista at 1314 hours 11/21/20. [facility]
[2020-11-21] MEDS ORDERED: Bumetanide 1 MG/4 ML MDV IVPUSH ONE (14:37)
--- NOTE | 2020-11-21 14:49 | PCM.HP.2 ---
H&P History of Present Illness - General Date of Service: 11/21/20 Admit Problem/Dx: Admission Diagnosis/Problem Admission Diagnosis/Problem CHF, Congestive heart failure Source of Information: Patient, EMS Notes Reviewed - History of Present Illness Initial Comments - Free Text/Narative: Cal comes to ER today for progressively worsening shortness of breath over the past 10 days. He has had a gradual weight gain of 4-5 pounds since his Bumex dose was decreased from 2 mg to 1 mg daily. He had a recent EGD for GI bleed that found an ulcer, was taken off his Coumadin and now on Enteric coated aspirin 81 mg daily and Protonix. He has allergic reaction to Carafate, all over itching. Treated with Hydroxyzine. States he still has some residual full body itching but much improved. He did require transfusion of PRBCs 10/29 secondary to recent bleed. He has been having shortness of breath with exertion and now at rest. No coughing, fevers, chills. Denies any chest pain, cough, cold symptoms, nausea, vomiting, diarrhea, constipation, dysuria or hematuria. He has had some abdominal pain with bloating. He has also had weakness and dizziness with standing. He has been fluctuating between Bumex 2 mg and 1 mg for past few months. His dry weight is around 160 lbs, his weight at home this morning was 164 lbs. He states sometimes he has gotten to 158 but that is not too often. 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 He also reports that he took an extra Bumex this morning and has had increased output since arriving to ER. ER course: WBC 5.6, Hgb 10.7, proBNP 39760, Creatinine 1.9. Troponin 83.4, CRP 3.2; UA negative for infection. Had CT abdomen & pelvis with/without contrast has some ascites, reducible hernia, bibasilar infiltrates. Telemetry: paced rhythm. Abdomen Pain Score (Numeric/FACES): 5 - Related Data Allergies/Adverse Reactions: Allergies Allergy/AdvReac Type Severity Reaction Status Date / Time simvastatin [From Zocor] Allergy Unknown Other Verified 11/21/20 14:01 amoxicillin [From Augmentin] Allergy Abdominal Verified 11/21/20 14:01 Pain clavulanic acid Allergy Abdominal Verified 11/21/20 14:01 [From Augmentin] Pain sucralfate [From Carafate] Allergy Itching Verified 11/21/20 14:01 Home Medications: Home Meds [place]-3 Fatty Acids [Fish Oil] 2,000 mg PO BID 10/27/14 [History] Rosuvastatin [Crestor] 20 mg PO BEDTIME 10/27/14 [History] Zolpidem [Ambien] 5 mg PO BEDTIME PRN 02/04/18 [History] Aspirin [Ecotrin EC] 81 mg PO BEDTIME 04/24/18 [History] Nitroglycerin [Nitrostat] 0.4 mg SL Q5M PRN 04/29/18 [History] Ubidecarenone [Coenzyme Q10] 100 mg PO BEDTIME 04/29/18 [History] Acetaminophen [Tylenol] 1,000 mg PO Q6HR 02/23/19 [History] Bumetanide 1 mg PO DAILY 02/23/19 [History] Gabapentin [Neurontin] 100 mg PO BID 02/23/19 [History] Sennosides/Docusate Sodium [Senna-S] 2 tab PO BID PRN 02/23/19 [History] Warfarin [Coumadin] 2.5 mg PO DAILY@1600 02/23/19 [History] carvediloL [Carvedilol] 12.5 mg PO BID 02/23/19 [History] Isosorbide Mononitrate [Imdur] 60 mg PO DAILY #30 tab.er 02/26/19 [Rx] oxyCODONE 10 mg PO TID PRN #20 tablet 02/26/19 [Rx] Meclizine [Antivert] 25 mg PO Q6H PRN #15 tab 04/20/19 [Rx] Past Medical History - Past Health History Medical/Surgical History: Denies Medical/Surgical History HEENT History: Reports: Impaired Vision Other HEENT History: wears glasses Cardiovascular History: Reports: Automatic Implantable Cardioverter Defibrillators, Blood Clots/VTE/DVT, Bypass, CAD, Cardiomyopathy, Heart Failure, High Cholesterol, Hypertension, NM, Other (See Below) Other Cardiovascular History: DVT, PFO Respiratory History: Reports: COPD, SOB Gastrointestinal History: Reports: None Genitourinary History: Reports: Renal Disease, Other (See Below) Other Genitourinary History: renal infarct [employer] History: Reports: None Musculoskeletal History: Reports: Arthritis, Other (See Below) Other Musculoskeletal History: sacroiliitis Neurological History: Reports: None Psychiatric History: Reports: None Endocrine/Metabolic History: Reports: None Hematologic History: Reports: None Immunologic History: Reports: None Oncologic (Cancer) History: Reports: None Dermatologic History: Reports: None - Infectious Disease History Infectious Disease History: Reports: C-Difficile, Measles, Shingles - Past Surgical History Other Musculoskeletal Surgeries/Procedures:: bilat hip replacement Social & Family History - Family History Family Medical History: No Pertinent Family History GI: Reports: None - Tobacco Use Tobacco Use Status *Q: Former Tobacco User (Nonsmoker for 40+ years.) - Caffeine Use Caffeine Use: Reports: Coffee Caffeine Use Comment: Daily - Recreational Drug Use Recreational Drug Use: Yes Recreational Drug Type: Reports: Marijuana/Hashish - Living Situation & Occupation Living situation: Reports: Occupation: Retired H&P Review of Systems - Review of Systems: Review Of Systems: Comprehensive ROS is negative, except as noted in HPI. Exam - Exam Exam: See Below - Vital Signs Vital Signs: Last Vital Signs Temp 98.2 F 11/21/20 14:00 Pulse 67 11/21/20 14:00 Resp 20 11/21/20 14:00 BP 128/61 11/21/20 14:00 Pulse Ox 99 11/21/20 14:00 Weight: 161 lb 8 oz - Exam General: Alert, Oriented, Cooperative. No: Mild Distress HEENT: PERRLA, Conjunctiva Clear, EOMI, Hearing Intact, Mucosa Moist & [place], Nares Patent, Posterior Pharynx Clear, Glasses Neck: Trachea Midline. No: Lymphadenopathy Lungs: Clear to Auscultation (BUL), Normal Respiratory Effort, Decreased Breath Sounds (bibasilar), Crackles (bibasilar). No: Wheezing Cardiovascular: Regular Rate, Regular Rhythm, Systolic Murmur (3/6 diastolic, mitral area.) GI/Abdominal Exam: Normal Bowel Sounds, Soft, No Distention, Guarding, Tender. No: Rigid, Rebound (Male) Exam: Deferred Rectal (Males) Exam: Deferred Extremities: No Pedal Edema Peripheral Pulses: 2+: Radial (L), Radial (R) Neurological: Cranial Nerves Intact, Normal Speech Psychiatric: Normal Affect, Normal Mood - Patient Data Lab Results Last 24 hrs: Laboratory Results - last 24 hr 11/21/20 11/21/20 11/21/20 Range/Units 10:49 10:55 10:55 WBC 5.6 (3.2-10.1) x10-3/uL RBC 3.34 L (3.90-5.90) x10(6)uL Hgb 10.7 L (12.9-17.7) g/dL Hct 32.4 L (38.3-50.1) % MCV 97.1 (80.8-98.7) fL MCH 32.0 (27.0-33.3) pg MCHC 32.9 (28.7-35.3) g/dL RDW 17.6 H (12.4-15.0) % Plt Count 167 (117-477) x10(3)uL MPV 9.1 (6.7-11.0) fL Neut % (Auto) 76.2 H (40.3-71.8) % Lymph % (Auto) 10.9 L (15.8-45.3) % [place] % (Auto) 10.3 (5.5-15.2) % Eos % (Auto) 2.0 (0.1-6.8) % Baso % (Auto) 0.6 (0.3-3.8) % Neut # (Auto) 4.2 (1.7-6.9) x10-3/uL Lymph # (Auto) 0.6 (0.5-4.5) x10-3/uL [place] # (Auto) 0.6 (0.0-1.2) x10-3/uL Eos # (Auto) 0.1 (0.0-0.6) x10-3/uL Baso # (Auto) 0.0 (0.0-0.3) x10-3/uL Sodium 141 (135-145) mmol/L Potassium 3.8 (3.5-5.3) mmol/L Chloride 102 (100-110) mmol/L Carbon Dioxide 29 (21-32) mmol/L BUN 29 H D (7-18) mg/dL Creatinine 1.9 H (0.70-1.30) mg/dL Est Cr Clr Drug Dosing 26.09 mL/min Estimated GFR (MDRD) 34 L (>60) BUN/Creatinine Ratio 15.3 (9-20) Glucose 85 (80-116) mg/dL Calcium 9.0 (8.6-10.2) mg/dL Magnesium 2.1 (1.8-2.5) mg/dL Total Bilirubin 1.1 (0.1-1.3) mg/dL AST 36 H (5-25) IU/L ALT 41 H D (12-36) U/L Alkaline Phosphatase 182 H (56-112) IU/L Troponin I (4.0-60.3) pg/mL C-Reactive Protein (0.5-0.9) mg/dL NT-Pro-B Natriuret Pep (<=450) pg/mL Total Protein 6.8 (6.0-8.0) g/dL Albumin 3.3 (3.2-4.6) g/dL Globulin 3.5 g/dL Albumin/Globulin Ratio 0.9 Lipase (73-393) U/L Urine Color Yellow (YELLOW) Urine Appearance Slightly cloudy (CLEAR) Urine pH 7.0 H (5.0-6.5) Ur Specific [place] 1.010 (1.010-1.025) Urine Protein Negative (NEGATIVE) mg/dL Urine Glucose (UA) Normal (NORMAL) mg/dL Urine Ketones Negative (NEGATIVE) mg/dL Urine Occult Blood Negative (NEGATIVE) Urine Nitrite Negative (NEGATIVE) Urine Bilirubin Negative (NEGATIVE) Urine Urobilinogen Normal (NEGATIVE) mg/dL Ur Leukocyte Esterase Negative (NEGATIVE) Urine WBC 0-5 (0-5) Ur Squamous Epith Cells Few H (NS,R,O) Urine Bacteria Few H (NS) 11/21/20 11/21/20 Range/Units 10:55 10:55 WBC (3.2-10.1) x10-3/uL RBC (3.90-5.90) x10(6)uL Hgb (12.9-17.7) g/dL Hct (38.3-50.1) % MCV (80.8-98.7) fL MCH (27.0-33.3) pg MCHC (28.7-35.3) g/dL RDW (12.4-15.0) % Plt Count (117-477) x10(3)uL MPV (6.7-11.0) fL Neut % (Auto) (40.3-71.8) % Lymph % (Auto) (15.8-45.3) % [place] % (Auto) (5.5-15.2) % Eos % (Auto) (0.1-6.8) % Baso % (Auto) (0.3-3.8) % Neut # (Auto) (1.7-6.9) x10-3/uL Lymph # (Auto) (0.5-4.5) x10-3/uL [place] # (Auto) (0.0-1.2) x10-3/uL Eos # (Auto) (0.0-0.6) x10-3/uL Baso # (Auto) (0.0-0.3) x10-3/uL Sodium (135-145) mmol/L Potassium (3.5-5.3) mmol/L Chloride (100-110) mmol/L Carbon Dioxide (21-32) mmol/L BUN (7-18) mg/dL Creatinine (0.70-1.30) mg/dL Est Cr Clr Drug Dosing mL/min Estimated GFR (MDRD) (>60) BUN/Creatinine Ratio (9-20) Glucose (80-116) mg/dL Calcium (8.6-10.2) mg/dL Magnesium (1.8-2.5) mg/dL Total Bilirubin (0.1-1.3) mg/dL AST (5-25) IU/L ALT (12-36) U/L Alkaline Phosphatase (56-112) IU/L Troponin I 83.4 H* (4.0-60.3) pg/mL C-Reactive Protein 3.2 H* (0.5-0.9) mg/dL NT-Pro-B Natriuret Pep 32053 H* (<=450) pg/mL Total Protein (6.0-8.0) g/dL Albumin (3.2-4.6) g/dL Globulin g/dL Albumin/Globulin Ratio Lipase 77 (73-393) U/L Urine Color (YELLOW) Urine Appearance (CLEAR) Urine pH (5.0-6.5) Ur Specific [place] (1.010-1.025) Urine Protein (NEGATIVE) mg/dL Urine Glucose (UA) (NORMAL) mg/dL Urine Ketones (NEGATIVE) mg/dL Urine Occult Blood (NEGATIVE) Urine Nitrite (NEGATIVE) Urine Bilirubin (NEGATIVE) Urine Urobilinogen (NEGATIVE) mg/dL Ur Leukocyte Esterase (NEGATIVE) Urine WBC (0-5) Ur Squamous Epith Cells (NS,R,O) Urine Bacteria (NS) Result Diagrams: 11/21/20 10:55 11/21/20 10:55 Sepsis Event Note - Evaluation Sepsis Screening Result: No Definite Risk - Focused Exam Vital Signs: Vital Signs Temp Pulse Resp BP Pulse Ox 11/21/20 14:00 98.2 F 67 20 128/61 99 11/21/20 09:50 97.5 F 73 18 122/67 97 *Q Meaningful Use (ADM) - VTE *Q VTE Mechanical Contraindications *Q: Congestive Heart Failure VTE Pharmacological Contraindications *Q: Risk of Bleeding - VTE Risk Assess *Q Each Risk Factor Represents 1 Point: Congestive heart failure (CHF) Total Score 1 Point Risk Factors: 1 Each Risk Factor Represents 2 Points: None Total Score 2 Point Risk Factors: 0 Each Risk Factor Represents 3 Points: Age 75 Years or Greater Total Score 3 Point Risk Factors: 3 Each Risk Factor Represents 5 Points: None Total Score 5 Point Risk Factors: 0 Venous Thromboembolism Risk Factor Score *Q: 4 - Problem List (1) CHF exacerbation SNOMED Code(s): 297054973, 07660979097240 ICD Code: I50.9 - HEART FAILURE, UNSPECIFIED Status: Acute Current Visit: No (2) CHF (congestive heart failure) SNOMED Code(s): 03427199 ICD Code: I50.9 - HEART FAILURE, UNSPECIFIED Status: Chronic Current Visit: No Qualifiers: Heart failure type: combined systolic and diastolic (3) CKD (chronic kidney disease) SNOMED Code(s): 126224071 ICD Code: N18.9 - CHRONIC KIDNEY DISEASE, UNSPECIFIED Status: Chronic Current Visit: No Qualifiers: Chronic kidney disease stage: stage 3 (moderate) (4) CAD (coronary artery disease) SNOMED Code(s): 24740010 ICD Code: I25.10 - ATHSCL HEART DISEASE OF [place] CORONARY ARTERY W/O ANG PCTRS Status: Chronic Current Visit: No Qualifiers: Coronary Disease-Associated Artery/Lesion type: bypass graft Associated angina: without angina (5) COPD (chronic obstructive pulmonary disease) SNOMED Code(s): 56425066 ICD Code: J44.9 - CHRONIC OBSTRUCTIVE PULMONARY DISEASE, UNSPECIFIED Status: Chronic Current Visit: No Qualifiers: Chronic bronchitis type: unspecified (6) Cardiac pacemaker in situ SNOMED Code(s): 055181930 ICD Code: Z95.0 - PRESENCE OF CARDIAC PACEMAKER Status: Chronic Current Visit: No (7) HTN (hypertension) SNOMED Code(s): 64032532 ICD Code: I10 - ESSENTIAL (PRIMARY) HYPERTENSION Status: Chronic Current Visit: No Qualifiers: Hypertension type: essential hypertension Qualified Code(s): I10 - Essential (primary) hypertension Problem List Initiated/Reviewed/Updated: Yes Orders Last 24hrs: Active Orders 24 hr Category Date Time Status Admission Status [Patient Status] [ADT] Routine ADT 11/21/20 13:28 Active Cardiac Monitoring [RC] QSHIFT Care 11/21/20 13:28 Active Height and Weight [RC] DAILY Care 11/21/20 14:31 Ordered Intake and Output [RC] QSHIFT Care 11/21/20 14:35 Ordered Oxygen Therapy [RC] PRN Care 11/21/20 14:31 Ordered Up ad [place]i [RC] ASDIRECTED Care 11/21/20 14:31 Ordered VTE/DVT Education [RC] Per Unit Routine Care 11/21/20 14:31 Ordered Vital Signs [RC] Q4H Care 11/21/20 14:31 Ordered Heart Healthy Diet [DIET] Diet 11/21/20 Lunch Ordered No Added Salt [DIET] Diet 11/21/20 Dinner Ordered BASIC METABOLIC PANEL,BMP [CHEM] Routine Lab 11/22/20 06:00 Ordered Bumetanide [Bumex] Med 11/21/20 14:37 Once 1 mg IVPUSH ONETIME ONE Sodium Chloride 0.9% [Saline Flush] Med 11/21/20 10:46 Active 10 ml FLUSH ASDIRECTED PRN Antiembolic Hose [OM.PC] Per Unit Routine Oth 11/21/20 14:35 Ordered Peripheral IV Insertion Adult [OM.PC] Routine Oth 11/21/20 10:46 Ordered Code Status [Resuscitation Status] Stat Resus Stat 11/21/20 13:30 Ordered EKG 12 Lead [EK] Routine Ther 11/21/20 10:46 Ordered Medication Orders Sodium Chloride (Sodium Chloride 0.9% 10 Ml Syringe) 10 ml FLUSH ASDIRECTED PRN PRN Reason: Keep Vein Open Assessment/Plan Comment:: 1. Admit for observation for CHF exacerbation, weakness. 2. CHF: Bumex 1 mg IV x 1 this afternoon, got extra dose this morning. Daily weight & I&Os. Telemetry. Repeat BMP tomorrow. If diuresis well overnight anticipate discharge tomorrow or . 3. DIET: Heart health, BARBARA. 4. Activity: up ad falguni. 5. DVT prophylaxis: TEDs BLE. Recent GI bleed, will continue home aspirin. 6. CODE STATUS: DNR/DNI. 7. Discharge planning: anticipate discharge in 24-48 hours to home, may benefit from home health services for medical management. - Mortality Measure Prognosis:: Good
[2020-11-21] MEDS ORDERED: Nitroglycerin 0.4 MG Tab.SL SL PRN (16:42)
[2020-11-21] MEDS ORDERED: Docusate Sodium/Sennosides 50-8.6 MG Tab *PTOM PO PRN (16:42)
[2020-11-21] MEDS ORDERED: ASPIRIN PO SCH (21:00)
[2020-11-21] MEDS ORDERED: [UNRECOGNIZED DRUG - OTHER] PO SCH (21:00)
[2020-11-21] MEDS: Carvedilol 6.25 MG Tab *PTOM PO SCH (21:37)
[2020-11-21] MEDS: Pantoprazole 40 MG Tab.CR *PTOM PO SCH (21:39)
[2020-11-21] MEDS ORDERED: traZODone 50 MG Tab PO PRN (22:20)
[2020-11-22] MEDS ORDERED: Isosorbide Mononitrate 60 MG Tab.ER *PTOM PO SCH (09:00)
[2020-11-22] MEDS ORDERED: BUMETANIDE 1 MG PO SCH (09:00)
[2020-11-22] MEDS ORDERED: Potassium Chloride 10 MEQ Tab.ER *PTOM PO SCH (09:00)
[2020-11-22] MEDS: Carvedilol 6.25 MG Tab *PTOM PO SCH (09:09)
[2020-11-22] MEDS: Pantoprazole 40 MG Tab.CR *PTOM PO SCH (09:10)
[2020-11-22 09:12] VITALS: BP 116/53; PULSE 65
--- NOTE | 2020-11-22 16:34 | PCM.DCSUM1 ---
Discharge Summary - Hospital Course HPI Initial Comments: Cal comes to ER today for progressively worsening shortness of breath over the past 10 days. He has had a gradual weight gain of 4-5 pounds since his Bumex dose was decreased from 2 mg to 1 mg daily. He had a recent EGD for GI bleed that found an ulcer, was taken off his Coumadin and now on Enteric coated aspirin 81 mg daily and Protonix. He has allergic reaction to Carafate, all over itching. Treated with Hydroxyzine. States he still has some residual full body itching but much improved. He did require transfusion of PRBCs 10/29 secondary to recent bleed. He has been having shortness of breath with exertion and now at rest. No coughing, fevers, chills. Denies any chest pain, cough, cold symptoms, nausea, vomiting, diarrhea, constipation, dysuria or hematuria. He has had some abdominal pain with bloating. He has also had weakness and dizziness with standing. He has been fluctuating between Bumex 2 mg and 1 mg for past few months. His dry weight is around 160 lbs, his weight at home this morning was 164 lbs. He states sometimes he has gotten to 158 but that is not too often. 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 He also reports that he took an extra Bumex this morning and has had increased output since arriving to ER. ER course: WBC 5.6, Hgb 10.7, proBNP 70182, Creatinine 1.9. Troponin 83.4, CRP 3.2; UA negative for infection. Had CT abdomen & pelvis with/without contrast has some ascites, reducible hernia, bibasilar infiltrates. Telemetry: paced rhythm. Diagnosis: Stroke: No - Discharge Data Discharge Date: 11/22/20 Discharge Disposition: Home, W Home Health Agency Condition: Stable - Referral to Home Health Date of Face to Face Encounter: 11/22/20 Reason for Homebound Status: CHF, limited mobility Primary Care Physician: Sunny Johnson MD Skilled Need: Skilled nurse: assess & teach CHF exacerbation & medication management. - Discharge Diagnosis/Problem(s) (1) CHF exacerbation SNOMED Code(s): 220896076, [id number] ICD Code: I50.9 - HEART FAILURE, UNSPECIFIED Status: Acute (2) CHF (congestive heart failure) SNOMED Code(s): 81680187 ICD Code: I50.9 - HEART FAILURE, UNSPECIFIED Status: Chronic Qualifiers: Heart failure type: combined systolic and diastolic (3) CKD (chronic kidney disease) SNOMED Code(s): 779596675 ICD Code: N18.9 - CHRONIC KIDNEY DISEASE, UNSPECIFIED Status: Chronic Qualifiers: Chronic kidney disease stage: stage 3 (moderate) (4) CAD (coronary artery disease) SNOMED Code(s): 48927704 ICD Code: I25.10 - ATHSCL HEART DISEASE OF [place] CORONARY ARTERY W/O ANG PCTRS Status: Chronic Qualifiers: Coronary Disease-Associated Artery/Lesion type: bypass graft Associated angina: without angina (5) COPD (chronic obstructive pulmonary disease) SNOMED Code(s): 48244864 ICD Code: J44.9 - CHRONIC OBSTRUCTIVE PULMONARY DISEASE, UNSPECIFIED Status: Chronic Qualifiers: Chronic bronchitis type: unspecified (6) Cardiac pacemaker in situ SNOMED Code(s): 588419766 ICD Code: Z95.0 - PRESENCE OF CARDIAC PACEMAKER Status: Chronic (7) HTN (hypertension) SNOMED Code(s): 22684164 ICD Code: I10 - ESSENTIAL (PRIMARY) HYPERTENSION Status: Chronic Qualifiers: Hypertension type: essential hypertension Qualified Code(s): I10 - Essential (primary) hypertension - Patient Summary/Data Hospital Course: Cal was admitted overnight for CHF exacerbation: Had 2 mg Bumex prior to arrival to floor. He did not require any oxygen on the floor. Received Bumex 1 mg IV x 1, diuresed about 900 ml overnight. Had no chest pain, telemetry showed paced rhythm during hospital course. Creatinine went down from 1.9 to 1.7. Weight was stable at 162. He reported yesterday am weight was 164. Will discharge on Bumex 1 mg at 0800 and 0.5 mg at 1400, potassium was 1.4 today, he has not been taking his 20 mEq of Potassium unless he takes 2 mg of Bumex. Will have him take potassium 20 mEq daily on discharge. - Patient Instructions Diet: Usual Diet as Tolerated Activity: As Tolerated Driving: May Drive Today Showering/Bathing: May Shower Notify Provider of: Fever, Increased Pain, Nausea and/or Vomiting Other/Special Instructions: Follow up with Titi Dyer PA-C at [facility] Th or Sat with recheck BMP. Added Bumex 0.5 mg daily at 2 pm, will continue to take your Bumex 1 mg daily at 8am. Increase potassium 20 mEQ daily. - Discharge Plan *PRESCRIPTION DRUG MONITORING PROGRAM REVIEWED*: Not Applicable *COPY OF PRESCRIPTION DRUG MONITORING REPORT IN PATIENT [place]: Not Applicable Prescriptions/Med Rec: RX: Bumetanide 0.5 mg PO DAILY@1400 30 Days #30 tablet RX: Potassium Chloride 20 meq PO DAILY 30 Days #30 tab Home Medications: Home Meds RX: Rosuvastatin [Crestor] 20 mg PO BEDTIME 10/27/14 [History] RX: Aspirin [Ecotrin EC] 81 mg PO BEDTIME 04/24/18 [History] RX: Nitroglycerin [Nitrostat] 0.4 mg SL Q5M PRN 04/29/18 [History] RX: Sennosides/Docusate Sodium [Senna-S] 2 tab PO BID PRN 02/23/19 [History] RX: Isosorbide Mononitrate [Imdur] 30 mg PO DAILY 11/21/20 [History] RX: Pantoprazole Sodium [Protonix] 40 mg PO BID 11/21/20 [History] RX: carvediloL [Coreg] 6.25 mg PO BID 11/21/20 [History] RX: hydrOXYzine pamoate [Hydroxyzine Pamoate] 25 mg PO QID PRN 11/21/20 [History] RX: Bumetanide 0.5 mg PO DAILY@1400 30 Days #30 tablet 11/22/20 [Rx] RX: Bumetanide 1 mg PO DAILY@0800 30 Days #30 tab 11/22/20 [Rx] RX: Potassium Chloride 20 meq PO DAILY 30 Days #30 tab 11/22/20 [Rx] Oxygen Therapy Mode: Room Air Patient Handouts: Potassium Chloride Extended-Release Capsules, Heart Failure, Self Care, [id number], Bumetanide Oral Tablets Forms: ED Department Discharge Referrals: Sunny Johnson MD [Primary Care Provider] - - Discharge Summary/Plan Comment DC Time >30 min.: No - General Info Date of Service: 11/22/20 Subjective Update: Cal is feeling much better this morning, his weight is stable at 162 lbs. His creatinine improved from 1.9 to 1.7. Denies any chest pain, cough, fever. Up walking in room. - Patient Data Vitals - Most Recent: Last Vital Signs Temp 98.4 F 11/22/20 08:00 Pulse 65 11/22/20 09:09 Resp 18 11/22/20 08:00 BP 116/53 L 11/22/20 09:09 Pulse Ox 96 11/22/20 08:00 Weight - Most Recent: 162 lb I&O - Last 24 hours: Intake & Output 11/22/20 11/22/20 11/22/20 06:59 14:59 22:59 Output Total 600 Balance -600 Lab Results - Last 24 hrs: Laboratory Results - last 24 hr 11/22/20 11/22/20 Range/Units 06:05 06:05 WBC 5.0 (3.2-10.1) x10-3/uL RBC 3.20 L (3.90-5.90) x10(6)uL Hgb 10.0 L (12.9-17.7) g/dL Hct 30.7 L (38.3-50.1) % MCV 96.2 (80.8-98.7) fL MCH 31.4 (27.0-33.3) pg MCHC 32.6 (28.7-35.3) g/dL RDW 17.9 H (12.4-15.0) % Plt Count 144 (117-477) x10(3)uL MPV 9.6 (6.7-11.0) fL Neut % (Auto) 74.1 H (40.3-71.8) % Lymph % (Auto) 11.4 L (15.8-45.3) % [place] % (Auto) 12.3 (5.5-15.2) % Eos % (Auto) 1.7 (0.1-6.8) % Baso % (Auto) 0.5 (0.3-3.8) % Neut # (Auto) 3.7 (1.7-6.9) x10-3/uL Lymph # (Auto) 0.6 (0.5-4.5) x10-3/uL [place] # (Auto) 0.6 (0.0-1.2) x10-3/uL Eos # (Auto) 0.1 (0.0-0.6) x10-3/uL Baso # (Auto) 0.0 (0.0-0.3) x10-3/uL Sodium 142 (135-145) mmol/L Potassium 3.4 L (3.5-5.3) mmol/L Chloride 103 (100-110) mmol/L Carbon Dioxide 26 (21-32) mmol/L BUN 31 H (7-18) mg/dL Creatinine 1.7 H (0.70-1.30) mg/dL Est Cr Clr Drug Dosing 29.16 mL/min Estimated GFR (MDRD) 38 L (>60) BUN/Creatinine Ratio 18.2 (9-20) Glucose 91 (80-116) mg/dL Calcium 8.8 (8.6-10.2) mg/dL Med Orders - Current: Current Medications Discontinued Medications Aspirin (Aspirin 81 Mg Tab.Ec *P-Jose Rafael) 81 mg PO BEDTIME [facility] Last Admin: 11/21/20 21:38 Dose: 81 mg Documented by: Bumetanide (Bumetanide 1 Mg/4 Ml Mdv) 1 mg IVPUSH ONETIME ONE Stop: 11/21/20 14:38 Last Admin: 11/21/20 15:37 Dose: 1 mg Documented by: Bumetanide (Bumetanide 1 Mg Tab *Ptom) 1 mg PO DAILY [facility] Last Admin: 11/22/20 09:10 Dose: 1 mg Documented by: Carvedilol (Carvedilol 6.25 Mg Tab *Ptom) 6.25 mg PO BID [facility] Last Admin: 11/22/20 09:09 Dose: 6.25 mg Documented by: Iopamidol (Iopamidol 755 Mg/Ml 75 Ml Bottle) 75 ml IV ASDIRECTED ONE Stop: 11/21/20 12:52 Last Admin: 11/21/20 12:53 Dose: 75 ml Documented by: Isosorbide Mononitrate (Isosorbide Mononitrate 60 Mg Tab.Er *Ptom) 30 mg PO DAILY [facility] Last Admin: 11/22/20 09:10 Dose: 30 mg Documented by: Nitroglycerin (Nitroglycerin 0.4 Mg Tab.Sl) 0.4 mg SL Q5M PRN PRN Reason: Chest Pain [Hydroxyzine Pamoate ] 25 Mg Capsule) * Ptom 25 mg PO QID PRN PRN Reason: Itching Last Admin: 11/22/20 06:42 Dose: 25 mg Documented by: (Rosuvastatin [ Crestor] 40 Mg Tablet) *Ptom 20 mg PO BEDTIME [facility] Last Admin: 11/21/20 21:39 Dose: 20 mg Documented by: Pantoprazole Sodium (Pantoprazole 40 Mg Tab.Cr *Ptom) 40 mg PO BID [facility] Last Admin: 11/22/20 09:10 Dose: 40 mg Documented by: Potassium Chloride (Potassium Chloride 10 Meq Tab.Er *Ptom) 10 meq PO DAILY [facility] Last Admin: 11/22/20 09:09 Dose: 10 meq Documented by: Senna/Docusate Sodium (Docusate Sodium/Sennosides 50-8.6 Mg Tab *Ptom) 2 tab PO BID PRN PRN Reason: Constipation Sodium Chloride (Sodium Chloride 0.9% 10 Ml Syringe) 10 ml FLUSH ASDIRECTED PRN PRN Reason: Keep Vein Open Last Admin: 11/21/20 15:37 Dose: 10 ml Documented by: Trazodone HCl (Trazodone 50 Mg Tab) 25 mg PO BEDTIME PRN PRN Reason: Insomnia Last Admin: 11/21/20 22:42 Dose: 25 mg Documented by: - Exam General: Reports: Alert, Oriented, Cooperative, No Acute Distress Lungs: Reports: Clear to Auscultation, Normal Respiratory Effort, Crackles (rare in bibasilar). Denies: Wheezing Cardiovascular: Reports: Regular Rate, Regular Rhythm (paced), Murmurs GI/Abdominal Exam: Normal Bowel Sounds, Soft, Non-Tender, No Distention (Male) Exam: Deferred Rectal (Males) Exam: Deferred Extremities: No Pedal Edema *Q Meaningful Use (DIS) - VTE *Q VTE Mechanical Contraindications *Q: Congestive Heart Failure VTE Pharmacological Contraindications *Q: Risk of Bleeding
== END 2020-11-22 11:36 | disposition home health service (06) ==
LOC: FB.ED 09:49 → FB.MS 13:32
PROVIDERS: ADMIT Emergency Medicine; ATTEND Family Medicine
DX: I13.0 Hypertensive heart and chronic kidney disease with heart failure and stage 1 through stage 4 chronic kidney disease, or unspecified chronic kidney disease (principal); I50.9 Heart failure, unspecified; N18.31 Chronic kidney disease, stage 3a; I25.10 Atherosclerotic heart disease of native coronary artery without angina pectoris; E78.00 Pure hypercholesterolemia, unspecified; I25.2 Old myocardial infarction; J44.9 Chronic obstructive pulmonary disease, unspecified; Z95.0 Presence of cardiac pacemaker; Z88.8 Allergy status to other drugs, medicaments and biological substances; Z79.01 Long term (current) use of anticoagulants; Z87.891 Personal history of nicotine dependence; Z88.1 Allergy status to other antibiotic agents; Z79.899 Other long term (current) drug therapy; Z79.82 Long term (current) use of aspirin
CPT/HCPCS: 36415; 71045; 74178; 80048; 80053; 81001; 83690; 83735; 83880; 84484; 85025; 86140; 93005; 93010; 96374; 99285; 99285-25; A9270-GY; G0378; J3490; Q9967

== ENCOUNTER 2021-02-27 16:28 | Inpatient (IN) | payer MEDICARE, BC ==
[2021-02-27] MEDS ORDERED: Sodium Chloride 0.9% 250 ML IV SCH (17:30)
[2021-02-27] MEDS ORDERED: Sodium Chloride 0.9% 1,000 ML IV SCH (17:30)
[2021-02-27] MEDS ORDERED: Pantoprazole 40 MG Vial IVPUSH ONE (18:04)
--- NOTE | 2021-02-27 18:36 | CR ---
INDICATION: Dyspnea. History of CHF. CHEST, ONE VIEW: AP upright portable view of the chest 02/27/21 was compared with 11/21/20 and 04/20/19. Bipolar pacemaker leads are unchanged in position. Evidence of previous median sternotomy with surgery is noted. Densities in the lungs are unchanged from 11/21/20, compatible with areas of sclerosis-fibrosis. It is difficult to exclude minimal active disease - pneumonia and pleuritis or even a nodular mass at the left lung base with a somewhat nodular density seen in that area. The right lung and pleural space were relatively unremarkable. IMPRESSION: Little interval change - no definite acute process, but difficult to exclude minimal pneumonia and pleuritis at the left lung base or even a neoplastic process. MTDD
[2021-02-27] MEDS ORDERED: Morphine 2 MG/ML SYRINGE IVPUSH PRN (19:11)
[2021-02-27] MEDS ORDERED: Ondansetron 4 MG/2 ML SDV IV PRN (19:11)
[2021-02-27] MEDS ORDERED: Nitroglycerin 0.4 MG Tab.SL SL PRN (19:17)
--- NOTE | 2021-02-27 20:30 | EDM.PDOC ---
ED HPI GENERAL MEDICAL PROBLEM - General Chief Complaint: General Stated Complaint: LOW HEMOGLOBIN Time Seen by Provider: 02/27/21 16:45 Source of Information: Reports: Patient History Limitations: Reports: No Limitations - History of Present Illness INITIAL COMMENTS - FREE TEXT/NARRATIVE: Patient is an 86 YO WM who presented to the ED because of anemia. There was a drop in her HB frpm 10() down to 7.8 today. He noticed that he started to have dark stools which started 2 weeks. He also started taking eliquis 2.5 mg BID 2weeks ago. He is also taking 81 mg of aspirin for his cardiac issues. He also c/o weakness and insomnia 2 weeks. Denies having any abdominal pain, N/V but has some loose stools for months. There is no fever, chills,cough or cold.He has an EGD/Colonoscopy done 1 and 1/2 mo ago but he doesn't know the result. - Related Data Allergies Allergy/AdvReac Type Severity Reaction Status Date / Time simvastatin [From Zocor] Allergy Unknown Other Verified 11/21/20 14:01 amoxicillin [From Augmentin] Allergy Abdominal Verified 11/21/20 14:01 Pain clavulanic acid Allergy Abdominal Verified 11/21/20 14:01 [From Augmentin] Pain sucralfate [From Carafate] Allergy Itching Verified 11/21/20 14:01 Home Meds: Home Meds Rosuvastatin [Crestor] 20 mg PO BEDTIME 10/27/14 [History] Aspirin [Ecotrin EC] 81 mg PO BEDTIME 04/24/18 [History] Nitroglycerin [Nitrostat] 0.4 mg SL Q5M PRN 04/29/18 [History] Sennosides/Docusate Sodium [Senna-S] 2 tab PO BID PRN 02/23/19 [History] Isosorbide Mononitrate [Imdur] 30 mg PO DAILY 11/21/20 [History] Pantoprazole Sodium [Protonix] 40 mg PO BID 11/21/20 [History] carvediloL [Coreg] 6.25 mg PO BID 11/21/20 [History] hydrOXYzine pamoate [Hydroxyzine Pamoate] 25 mg PO QID PRN 11/21/20 [History] Bumetanide 0.5 mg PO DAILY@1400 30 Days #30 tablet 11/22/20 [Rx] Bumetanide 1 mg PO DAILY@0800 30 Days #30 tab 11/22/20 [Rx] Potassium Chloride 20 meq PO DAILY 30 Days #30 tab 11/22/20 [Rx] Past Medical History - Past Health History Medical/Surgical History: Denies Medical/Surgical History HEENT History: Reports: Impaired Vision Other HEENT History: wears glasses Cardiovascular History: Reports: Blood Clots/VTE/DVT, Bypass, CAD, Cardiomyopathy, Heart Failure, High Cholesterol, Hypertension, [place], Pacemaker, Other (See Below) Other Cardiovascular History: DVT, PFO Respiratory History: Reports: COPD, SOB Gastrointestinal History: Reports: None, Other (See Below) Other Gastrointestinal History: EGD recent, ulceration, on Carafate, anti- coagulation stopped at that time Genitourinary History: Reports: Renal Disease, Other (See Below) Other Genitourinary History: renal infarct INSOLE FILLER History: Reports: None Musculoskeletal History: Reports: Arthritis, Other (See Below) Other Musculoskeletal History: sacroiliitis Neurological History: Reports: None Psychiatric History: Reports: None Endocrine/Metabolic History: Reports: None Hematologic History: Reports: None Immunologic History: Reports: None Oncologic (Cancer) History: Reports: None Dermatologic History: Reports: None - Infectious Disease History Infectious Disease History: Reports: C-Difficile, Measles, Shingles - Past Surgical History Head Surgeries/Procedures: Reports: None HEENT Surgical History: Reports: Adenoidectomy, Cataract Surgery, Tonsillectomy Cardiovascular Surgical History: Reports: Coronary Artery Bypass, Coronary Artery Stent Other Cardiovascular Surgeries/Procedures: 1 stent, triple bypass Respiratory Surgical History: Reports: None GI Surgical History: Reports: None, Appendectomy, Colonoscopy, EGD, Hernia, Inguinal Male Surgical History: Reports: Other (See Below) Other Male Surgeries/Procedures: renal angiogram Musculoskeletal Surgical History: Reports: Arthroscopic Knee, Hip Replacement, Other (See Below) Other Musculoskeletal Surgeries/Procedures:: bilat hip replacement Social & Family History - Family History Family Medical History: No Pertinent Family History GI: Reports: None - Tobacco Use Tobacco Use Status *Q: Never Tobacco User - Caffeine Use Caffeine Use: Reports: Coffee Other Caffeine Use: 1-2 cups coffee/day Caffeine Use Comment: Daily - Recreational Drug Use Recreational Drug Use: No Other Recreational Drug Type: Patient uses medical marijuana pills. - Living Situation & Occupation Living situation: Reports: Occupation: Retired ED ROS GENERAL - Review of Systems Review Of Systems: See Below Constitutional: Reports: Weakness HEENT: Reports: No Symptoms Respiratory: Reports: No Symptoms Cardiovascular: Reports: No Symptoms Endocrine: Reports: No Symptoms GI/Abdominal: Reports: No Symptoms, Black Stool : Reports: No Symptoms Musculoskeletal: Reports: No Symptoms Skin: Reports: No Symptoms Neurological: Reports: No Symptoms Psychiatric: Reports: No Symptoms ED EXAM, GENERAL - Physical Exam Exam: See Below Exam Limited By: No Limitations General Appearance: Alert, No Apparent Distress Eye Exam: Bilateral Eye: Other (pale conjunctiva) Nose: Normal Inspection, Normal Mucosa, No Blood Throat/Mouth: Normal Inspection, Normal Lips, Normal Teeth, Normal Gums, Normal Oropharynx, Normal Voice, No Airway Compromise Head: Atraumatic, Normocephalic Neck: Normal Inspection, Supple, Non-Tender, Full Range of Motion Respiratory/Chest: No Respiratory Distress, Lungs Clear, Normal Breath Sounds, No Accessory Muscle Use, Chest Non-Tender Cardiovascular: Normal Peripheral Pulses, Regular Rate, Rhythm, No Edema, No Gallop, No JVD, No Murmur, No Rub GI/Abdominal: Normal Bowel Sounds, Soft, Non-Tender, No Organomegaly, No Distention, No Abnormal Bruit Back Exam: Normal Inspection, Full Range of Motion Extremities: Normal Inspection, Normal Range of Motion, Non-Tender Neurological: Alert, Oriented, CN II-XII Intact, Normal Cognition, Normal Gait Psychiatric: Normal Affect Skin Exam: Warm #1 Interpretation EKG Date: 02/27/21 Time: 17:28 Rhythm: Other (Ventricular Paced Rhythm) [place]: Normal P-Wave: Present QRS: Normal ST-T: Normal QT: Normal Comparison: No Change EKG Interpretation Comments: Pacemaker rhythm Course - Vital Signs Text/Narrative:: Lab/EKG/CXR result was reviewed and discussed with patient NS @ 75 ml/HR Protonix 80 mg IV x1 Transfuse 2 U PRBC Elevated troponin most likely from CHF and GILES Covid test-negative Code Status: Full Code Dr Patton was consulted and he will do EGD and possible Colonoscopy tomorrow. CAse was also discussed with Dr Smalls of [facility] who agreed with the above plan of care Last Recorded V/S: Last Vital Signs Temp 36.7 C 02/27/21 16:29 Pulse 64 02/27/21 16:29 Resp 20 02/27/21 16:29 BP 116/43 L 02/27/21 16:29 Pulse Ox 94 L 02/27/21 16:29 - Orders/Labs/Meds Orders: Active Orders 24 hr Category Date Time Status RED BLOOD CELLS LP [BBK] Stat Lab 02/27/21 17:50 Results TYPE AND SCREEN [BBK] Stat Lab 02/27/21 17:50 Results Sodium Chloride 0.9% [Normal Saline] 1,000 ml Med 02/27/21 17:30 Active IV ASDIRECTED Sodium Chloride 0.9% [Normal Saline] 250 ml Med 02/27/21 17:30 Active IV ASDIRECTED Sodium Chloride 0.9% [Saline Flush] Med 02/27/21 17:27 Active 10 ml FLUSH ASDIRECTED PRN Saline Lock Insert [OM.PC] Routine Oth 02/27/21 17:27 Ordered Transfuse Red Blood Cells [COMM] Stat Oth 02/27/21 17:27 Ordered EKG 12 Lead [EK] Routine Ther 02/27/21 17:27 Ordered Medication Orders Carvedilol (Carvedilol 6.25 Mg Tab) 6.25 mg PO BID [facility] Hydroxyzine HCl (Hydroxyzine Hcl 25 Mg Tab) 25 mg PO QID PRN PRN Reason: Itching Sodium Chloride (Normal Saline) 250 mls @ 100 mls/hr IV ASDIRECTED SITA Sodium Chloride (Normal Saline) 1,000 mls @ 75 mls/hr IV ASDIRECTED SITA Last Admin: 02/27/21 18:09 Dose: 75 mls/hr Documented by: JORGE Isosorbide Mononitrate (Isosorbide Mononitrate 30 Mg Tab.Er) 30 mg PO DAILY [facility] Morphine Sulfate (Morphine 2 Mg/Ml Syringe) 2 mg IVPUSH Q4H PRN PRN Reason: Pain Nitroglycerin (Nitroglycerin 0.4 Mg Tab.Sl) 0.4 mg SL Q5M PRN PRN Reason: Chest Pain Ondansetron HCl (Ondansetron 4 Mg/2 Ml Sdv) 4 mg IV Q4H PRN PRN Reason: Nausea/Vomiting Pantoprazole Sodium (Pantoprazole 40 Mg Vial) 40 mg IVPUSH DAILY SITA Potassium Chloride (Potassium Chloride 20 Meq Tab.Er) 20 meq PO DAILY SITA Rosuvastatin Calcium (Rosuvastatin 20 Mg Tab) 20 mg PO BEDTIME SITA Senna/Docusate Sodium (Docusate Sodium/Sennosides 50-8.6 Mg Tab) 1 tab PO BID PRN PRN Reason: Constipation Sodium Chloride (Sodium Chloride 0.9% 10 Ml Syringe) 10 ml FLUSH ASDIRECTED PRN PRN Reason: Keep Vein Open Zolpidem Tartrate (Zolpidem 5 Mg Tab) 5 mg PO BEDTIME PRN PRN Reason: Sleep Labs: Laboratory Tests 02/27/21 02/27/21 02/27/21 Range/Units 17:50 17:50 17:50 WBC 5.6 (3.2-10.1) x10-3/uL RBC 2.71 L (3.90-5.90) x10(6)uL Hgb 7.8 L (12.9-17.7) g/dL Hct 24.9 L (38.3-50.1) % MCV 91.9 (80.8-98.7) fL MCH 28.7 (27.0-33.3) pg MCHC 31.2 (28.7-35.3) g/dL RDW 18.9 H (12.4-15.0) % Plt Count 175 (117-477) x10(3)uL MPV 9.0 (6.7-11.0) fL Neut % (Auto) 72.3 H (40.3-71.8) % Lymph % (Auto) 14.5 L (15.8-45.3) % [place] % (Auto) 11.4 (5.5-15.2) % Eos % (Auto) 1.2 (0.1-6.8) % Baso % (Auto) 0.6 (0.3-3.8) % Neut # (Auto) 4.0 (1.7-6.9) x10-3/uL Lymph # (Auto) 0.8 (0.5-4.5) x10-3/uL [place] # (Auto) 0.6 (0.0-1.2) x10-3/uL Eos # (Auto) 0.1 (0.0-0.6) x10-3/uL Baso # (Auto) 0.0 (0.0-0.3) x10-3/uL Sodium 137 (135-145) mmol/L Potassium 3.7 (3.5-5.3) mmol/L Chloride 101 (100-110) mmol/L Carbon Dioxide 24 (21-32) mmol/L BUN 53 H D (7-18) mg/dL Creatinine 2.3 H* (0.70-1.30) mg/dL Est Cr Clr Drug Dosing 21.16 mL/min Estimated GFR (MDRD) 27 L (>60) BUN/Creatinine Ratio 23.0 H (9-20) Glucose 91 (80-116) mg/dL Calcium 9.0 (8.6-10.2) mg/dL Total Bilirubin 1.0 (0.1-1.3) mg/dL AST 24 D (5-25) IU/L ALT 33 D (12-36) U/L Alkaline Phosphatase 160 H (56-112) IU/L Troponin I 107.4 H* (4.0-60.3) pg/mL NT-Pro-B Natriuret Pep 56320 H* (<=450) pg/mL Total Protein 6.9 (6.0-8.0) g/dL Albumin 3.5 (3.2-4.6) g/dL Globulin 3.4 g/dL Albumin/Globulin Ratio 1.0 SARS-CoV-2 RNA (MARCELINA) (NEGATIVE) Blood Type Gel Antibody Screen Crossmatch 02/27/21 02/27/21 Range/Units 17:50 18:20 WBC (3.2-10.1) x10-3/uL RBC (3.90-5.90) x10(6)uL Hgb (12.9-17.7) g/dL Hct (38.3-50.1) % MCV (80.8-98.7) fL MCH (27.0-33.3) pg MCHC (28.7-35.3) g/dL RDW (12.4-15.0) % Plt Count (117-477) x10(3)uL MPV (6.7-11.0) fL Neut % (Auto) (40.3-71.8) % Lymph % (Auto) (15.8-45.3) % [place] % (Auto) (5.5-15.2) % Eos % (Auto) (0.1-6.8) % Baso % (Auto) (0.3-3.8) % Neut # (Auto) (1.7-6.9) x10-3/uL Lymph # (Auto) (0.5-4.5) x10-3/uL [place] # (Auto) (0.0-1.2) x10-3/uL Eos # (Auto) (0.0-0.6) x10-3/uL Baso # (Auto) (0.0-0.3) x10-3/uL Sodium (135-145) mmol/L Potassium (3.5-5.3) mmol/L Chloride (100-110) mmol/L Carbon Dioxide (21-32) mmol/L BUN (7-18) mg/dL Creatinine (0.70-1.30) mg/dL Est Cr Clr Drug Dosing mL/min Estimated GFR (MDRD) (>60) BUN/Creatinine Ratio (9-20) Glucose (80-116) mg/dL Calcium (8.6-10.2) mg/dL Total Bilirubin (0.1-1.3) mg/dL AST (5-25) IU/L ALT (12-36) U/L Alkaline Phosphatase (56-112) IU/L Troponin I (4.0-60.3) pg/mL NT-Pro-B Natriuret Pep (<=450) pg/mL Total Protein (6.0-8.0) g/dL Albumin (3.2-4.6) g/dL Globulin g/dL Albumin/Globulin Ratio SARS-CoV-2 RNA (MARCELINA) Negative (NEGATIVE) Blood Type O POSITIVE Gel Antibody Screen Negative Crossmatch See Detail Meds: Medications Generic Name Dose Route Start Last Admin Trade Name Freq PRN Reason Stop Dose Admin Carvedilol 6.25 mg 02/27/21 21:00 Carvedilol 6.25 Mg Tab PO BID SITA Hydroxyzine HCl 25 mg 02/27/21 19:17 Hydroxyzine Hcl 25 Mg Tab PO QID PRN Itching Sodium Chloride 250 mls @ 100 mls/hr 02/27/21 17:30 Normal Saline IV ASDIRECTED SITA Sodium Chloride 1,000 mls @ 75 mls/hr 02/27/21 17:30 02/27/21 18:09 Normal Saline IV 75 mls/hr ASDIRECTED SITA Administration Isosorbide Mononitrate 30 mg 02/28/21 09:00 Isosorbide Mononitrate 30 Mg Tab.Er PO DAILY SITA Morphine Sulfate 2 mg 02/27/21 19:11 Morphine 2 Mg/Ml Syringe IVPUSH Q4H PRN Pain Nitroglycerin 0.4 mg 02/27/21 19:17 Nitroglycerin 0.4 Mg Tab.Sl SL Q5M PRN Chest Pain Ondansetron HCl 4 mg 02/27/21 19:11 Ondansetron 4 Mg/2 Ml Sdv IV Q4H PRN Nausea/Vomiting Pantoprazole Sodium 40 mg 02/28/21 09:00 Pantoprazole 40 Mg Vial IVPUSH DAILY [facility] Potassium Chloride 20 meq 02/28/21 09:00 Potassium Chloride 20 Meq Tab.Er PO DAILY [facility] Rosuvastatin Calcium 20 mg 02/27/21 21:00 Rosuvastatin 20 Mg Tab PO BEDTIME SITA Senna/Docusate Sodium 1 tab 02/27/21 19:11 Docusate Sodium/Sennosides 50-8.6 Mg Tab PO BID PRN Constipation Sodium Chloride 10 ml 02/27/21 17:27 Sodium Chloride 0.9% 10 Ml Syringe FLUSH ASDIRECTED PRN Keep Vein Open Zolpidem Tartrate 5 mg 02/27/21 19:11 Zolpidem 5 Mg Tab PO BEDTIME PRN Sleep Discontinued Medications Generic Name Dose Route Start Last Admin Trade Name Freq PRN Reason Stop Dose Admin Pantoprazole Sodium 80 mg 02/27/21 18:04 02/27/21 18:17 Pantoprazole 40 Mg Vial IVPUSH 02/27/21 18:05 80 mg ONETIME ONE Administration Departure - Departure Time of Disposition: 19:00 Disposition: Admitted As Inpatient 65 Condition: Good Clinical Impression: Anemia due to GI blood loss, Dehydration, Acute kidney injury superimposed on CKD, Elevated troponin CHF (congestive heart failure) Qualifiers: Heart failure type: combined systolic and diastolic - Discharge Information Sepsis Event Note (ED) - Evaluation Sepsis Screening Result: No Definite Risk - Focused Exam Vital Signs: Vital Signs Temp Pulse Resp BP Pulse Ox 02/27/21 16:29 36.7 C 64 20 116/43 L 94 L - My Orders Last 24 Hours: My Active Orders 02/27/21 17:27 Sodium Chloride 0.9% [Saline Flush] 10 ml FLUSH ASDIRECTED PRN Saline Lock Insert [OM.PC] Routine Transfuse Red Blood Cells [COMM] Stat EKG 12 Lead [EK] Routine 02/27/21 17:30 Sodium Chloride 0.9% [Normal Saline] 1,000 ml IV ASDIRECTED Sodium Chloride 0.9% [Normal Saline] 250 ml IV ASDIRECTED 02/27/21 17:50 RED BLOOD CELLS LP [BBK] Stat TYPE AND SCREEN [BBK] Stat - Assessment/Plan Last 24 Hours: My Active Orders 02/27/21 17:27 Sodium Chloride 0.9% [Saline Flush] 10 ml FLUSH ASDIRECTED PRN Saline Lock Insert [OM.PC] Routine Transfuse Red Blood Cells [COMM] Stat EKG 12 Lead [EK] Routine 02/27/21 17:30 Sodium Chloride 0.9% [Normal Saline] 1,000 ml IV ASDIRECTED Sodium Chloride 0.9% [Normal Saline] 250 ml IV ASDIRECTED 02/27/21 17:50 RED BLOOD CELLS LP [BBK] Stat TYPE AND SCREEN [BBK] Stat
[2021-02-27] MEDS: Zolpidem 5 MG Tab PO PRN (20:50)
[2021-02-27] MEDS: Carvedilol 6.25 MG Tab PO SCH (20:50)
[2021-02-27] MEDS ORDERED: Rosuvastatin 20 MG Tab PO SCH (21:00)
[2021-02-28] MEDS: hydrOXYzine HCl 25 MG Tab PO PRN (02:30)
--- NOTE | 2021-02-28 08:25 | PCM.HP.2 ---
H&P History of Present Illness - General Date of Service: 02/28/21 Admit Problem/Dx: Admission Diagnosis/Problem Admission Diagnosis/Problem Anemia Source of Information: Patient, Old Records, Provider History Limitations: Reports: No Limitations - History of Present Illness Initial Comments - Free Text/Narative: 86-year-old gentleman was sent to the emergency department because his primary care physician found that he had significant anemia. His hemoglobin dropped from approximately 10.6-7.8 today. He had EGD in October 2020 that showed preduodenal angioectasis. The anteriorectasis was treated with laser therapy at that time. Further lab work in the emergency department noted acute kidney injury with elevated troponin. Patient was admitted for EGD and red blood cell transfusion. Related past medical history includes coronary artery disease, ischemic cardiomyopathy, paroxysmal atrial fibrillation, and history of NSTEMI. Patient had echocardiogram earlier this year that showed improved ejection fraction to approximately 40 to 45%. 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 Sciatica Pain Score (Numeric/FACES): 4 - Related Data Allergies/Adverse Reactions: Allergies Allergy/AdvReac Type Severity Reaction Status Date / Time simvastatin [From Zocor] Allergy Unknown Other Verified 02/28/21 01:43 amoxicillin [From Augmentin] Allergy Abdominal Verified 02/28/21 01:43 Pain clavulanic acid Allergy Abdominal Verified 02/28/21 01:43 [From Augmentin] Pain sucralfate [From Carafate] Allergy Itching Verified 02/28/21 01:43 Home Medications: Home Meds Aspirin [Ecotrin EC] 81 mg PO BEDTIME 04/24/18 [History] Nitroglycerin [Nitrostat] 0.4 mg SL Q5M PRN 04/29/18 [History] Isosorbide Mononitrate [Imdur] 30 mg PO DAILY 11/21/20 [History] Pantoprazole Sodium [Protonix] 40 mg PO BID 11/21/20 [History] carvediloL [Coreg] 6.25 mg PO BID 11/21/20 [History] Acetaminophen [Acetaminophen Extra Strength] 1,000 mg PO Q6HR PRN 02/28/21 [History] Amoxicillin 500 mg PO ASDIRECTED PRN 02/28/21 [History] Apixaban [Eliquis] 2.5 mg PO BID 02/28/21 [History] Bumetanide 3 mg PO DAILY 02/28/21 [History] Cyanocobalamin (Vitamin B-12) [B-12] 1,000 mcg PO DAILY 02/28/21 [History] Diclofenac Sodium [Voltaren 1% Gel] 2 gm TOP QID PRN 02/28/21 [History] Melatonin 3 mg PO BEDTIME 02/28/21 [History] Potassium Chloride 30 meq PO DAILY 02/28/21 [History] Ubidecarenone [Coenzyme Q10] 100 mg PO DAILY 02/28/21 [History] metOLazone [Metolazone] 2.5 mg PO WEEKLY PRN 02/28/21 [History] traZODone 25 mg PO BEDTIME PRN 02/28/21 [History] Past Medical History - Past Health History Medical/Surgical History: Denies Medical/Surgical History HEENT History: Reports: Impaired Vision Other HEENT History: wears glasses Cardiovascular History: Reports: Blood Clots/VTE/DVT, Bypass, CAD, Cardiomyopathy, Heart Failure, High Cholesterol, Hypertension, CA, Pacemaker, Other (See Below) Other Cardiovascular History: DVT, PFO Respiratory History: Reports: COPD, SOB Gastrointestinal History: Reports: None, Other (See Below) Other Gastrointestinal History: EGD recent, ulceration, on Carafate, anti- coagulation stopped at that time Genitourinary History: Reports: Renal Disease, Other (See Below) Other Genitourinary History: renal infarct 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 Musculoskeletal History: Reports: Arthritis, Other (See Below) Other Musculoskeletal History: sacroiliitis Neurological History: Reports: None Psychiatric History: Reports: None Endocrine/Metabolic History: Reports: None Hematologic History: Reports: None Immunologic History: Reports: None Oncologic (Cancer) History: Reports: None Dermatologic History: Reports: None - Infectious Disease History Infectious Disease History: Reports: C-Difficile, Measles, Shingles - Past Surgical History Head Surgeries/Procedures: Reports: None HEENT Surgical History: Reports: Adenoidectomy, Cataract Surgery, Tonsillectomy Cardiovascular Surgical History: Reports: Coronary Artery Bypass, Coronary Artery Stent Other Cardiovascular Surgeries/Procedures: 1 stent, triple bypass Respiratory Surgical History: Reports: None GI Surgical History: Reports: None, Appendectomy, Colonoscopy, EGD, Hernia, Inguinal Male Surgical History: Reports: Other (See Below) Other Male Surgeries/Procedures: renal angiogram Musculoskeletal Surgical History: Reports: Arthroscopic Knee, Hip Replacement, Other (See Below) Other Musculoskeletal Surgeries/Procedures:: bilat hip replacement Social & Family History - Family History Family Medical History: No Pertinent Family History GI: Reports: None - Tobacco Use Tobacco Use Status *Q: Never Tobacco User Second Hand Smoke Exposure: No - Caffeine Use Caffeine Use: Reports: Coffee Other Caffeine Use: 1-2 cups coffee/day Caffeine Use Comment: Daily - Recreational Drug Use Recreational Drug Use: No Other Recreational Drug Type: Patient uses medical marijuana pills. - Living Situation & Occupation Living situation: Reports: Occupation: Retired H&P Review of Systems - Review of Systems: Review Of Systems: See Below General: Reports: Weakness HEENT: Reports: No Symptoms Pulmonary: Reports: No Symptoms Cardiovascular: Reports: No Symptoms Gastrointestinal: Reports: No Symptoms Genitourinary: Reports: No Symptoms Musculoskeletal: Reports: No Symptoms Skin: Reports: No Symptoms Psychiatric: Reports: No Symptoms Hematologic/Lymphatic: Reports: No Symptoms Immunologic: Reports: No Symptoms Exam - Exam Exam: See Below - Vital Signs Vital Signs: Last Vital Signs Temp 36.4 C 02/28/21 03:26 Pulse 68 02/28/21 03:26 Resp 16 02/28/21 03:26 BP 110/64 02/28/21 03:26 Pulse Ox 98 02/28/21 03:26 Weight: 70.171 kg - Exam Quality Assessment: Supplemental Oxygen, Other (Patient was on Eliquis secondary to atrial fibrillation but Eliquis held secondary to likely GI bleed) General: Alert, Oriented, Cooperative HEENT: EOMI Neck: Supple Lungs: Normal Respiratory Effort, Crackles. No: Wheezing Cardiovascular: Regular Rate, Regular Rhythm, Systolic Murmur GI/Abdominal Exam: Normal Bowel Sounds, Soft, Tender, Other (Periumbilical tenderness likely secondary to hernia) Back Exam: No: CVA Tenderness (R), CVA Tenderness (L) Extremities: Pedal Edema Peripheral Pulses: 1+: Dorsalis Pedis (L), Dorsalis Pedis (R), 2+: Radial (L), Radial (R) Skin: Warm, Dry Neurological: Cranial Nerves Intact Neuro Extensive - Mental Status: Alert, Oriented x3, Normal Mood/Affect Neuro Extensive - Motor, Sensory, Reflexes: CN II-XII Intact, Normal Gait Psychiatric: Alert, Normal Affect, Normal Mood - Patient Data Lab Results Last 24 hrs: Laboratory Results - last 24 hr 02/27/21 02/27/21 02/27/21 Range/Units 17:50 17:50 17:50 WBC 5.6 (3.2-10.1) x10-3/uL RBC 2.71 L (3.90-5.90) x10(6)uL Hgb 7.8 L (12.9-17.7) g/dL Hct 24.9 L (38.3-50.1) % MCV 91.9 (80.8-98.7) fL MCH 28.7 (27.0-33.3) pg MCHC 31.2 (28.7-35.3) g/dL RDW 18.9 H (12.4-15.0) % Plt Count 175 (117-477) x10(3)uL MPV 9.0 (6.7-11.0) fL Neut % (Auto) 72.3 H (40.3-71.8) % Lymph % (Auto) 14.5 L (15.8-45.3) % [place] % (Auto) 11.4 (5.5-15.2) % Eos % (Auto) 1.2 (0.1-6.8) % Baso % (Auto) 0.6 (0.3-3.8) % Neut # (Auto) 4.0 (1.7-6.9) x10-3/uL Lymph # (Auto) 0.8 (0.5-4.5) x10-3/uL [place] # (Auto) 0.6 (0.0-1.2) x10-3/uL Eos # (Auto) 0.1 (0.0-0.6) x10-3/uL Baso # (Auto) 0.0 (0.0-0.3) x10-3/uL Sodium 137 (135-145) mmol/L Potassium 3.7 (3.5-5.3) mmol/L Chloride 101 (100-110) mmol/L Carbon Dioxide 24 (21-32) mmol/L BUN 53 H D (7-18) mg/dL Creatinine 2.3 H* (0.70-1.30) mg/dL Est Cr Clr Drug Dosing 21.16 mL/min Estimated GFR (MDRD) 27 L (>60) BUN/Creatinine Ratio 23.0 H (9-20) Glucose 91 (80-116) mg/dL Calcium 9.0 (8.6-10.2) mg/dL Total Bilirubin 1.0 (0.1-1.3) mg/dL AST 24 D (5-25) IU/L ALT 33 D (12-36) U/L Alkaline Phosphatase 160 H (56-112) IU/L Troponin I 107.4 H* (4.0-60.3) pg/mL NT-Pro-B Natriuret Pep 77627 H* (<=450) pg/mL Total Protein 6.9 (6.0-8.0) g/dL Albumin 3.5 (3.2-4.6) g/dL Globulin 3.4 g/dL Albumin/Globulin Ratio 1.0 SARS-CoV-2 RNA (MARCELINA) (NEGATIVE) Blood Type Gel Antibody Screen Crossmatch 02/27/21 02/27/21 02/28/21 Range/Units 17:50 18:20 00:05 WBC (3.2-10.1) x10-3/uL RBC (3.90-5.90) x10(6)uL Hgb (12.9-17.7) g/dL Hct (38.3-50.1) % MCV (80.8-98.7) fL MCH (27.0-33.3) pg MCHC (28.7-35.3) g/dL RDW (12.4-15.0) % Plt Count (117-477) x10(3)uL MPV (6.7-11.0) fL Neut % (Auto) (40.3-71.8) % Lymph % (Auto) (15.8-45.3) % [place]oux % (Auto) (5.5-15.2) % Eos % (Auto) (0.1-6.8) % Baso % (Auto) (0.3-3.8) % Neut # (Auto) (1.7-6.9) x10-3/uL Lymph # (Auto) (0.5-4.5) x10-3/uL [place] # (Auto) (0.0-1.2) x10-3/uL Eos # (Auto) (0.0-0.6) x10-3/uL Baso # (Auto) (0.0-0.3) x10-3/uL Sodium (135-145) mmol/L Potassium (3.5-5.3) mmol/L Chloride (100-110) mmol/L Carbon Dioxide (21-32) mmol/L BUN (7-18) mg/dL Creatinine (0.70-1.30) mg/dL Est Cr Clr Drug Dosing mL/min Estimated GFR (MDRD) (>60) BUN/Creatinine Ratio (9-20) Glucose (80-116) mg/dL Calcium (8.6-10.2) mg/dL Total Bilirubin (0.1-1.3) mg/dL AST (5-25) IU/L ALT (12-36) U/L Alkaline Phosphatase (56-112) IU/L Troponin I 94.2 H* (4.0-60.3) pg/mL NT-Pro-B Natriuret Pep (<=450) pg/mL Total Protein (6.0-8.0) g/dL Albumin (3.2-4.6) g/dL Globulin g/dL Albumin/Globulin Ratio SARS-CoV-2 RNA (MARCELINA) Negative (NEGATIVE) Blood Type O POSITIVE Gel Antibody Screen Negative Crossmatch See Detail 02/28/21 02/28/21 02/28/21 Range/Units 06:50 06:50 06:50 WBC 3.9 (3.2-10.1) x10-3/uL RBC 3.18 L (3.90-5.90) x10(6)uL Hgb 9.3 L (12.9-17.7) g/dL Hct 28.4 L (38.3-50.1) % MCV 89.6 (80.8-98.7) fL MCH 29.2 (27.0-33.3) pg MCHC 32.5 (28.7-35.3) g/dL RDW 17.8 H (12.4-15.0) % Plt Count 125 (117-477) x10(3)uL MPV 8.8 (6.7-11.0) fL Neut % (Auto) 68.9 (40.3-71.8) % Lymph % (Auto) 16.0 (15.8-45.3) % [place] % (Auto) 12.5 (5.5-15.2) % Eos % (Auto) 2.0 (0.1-6.8) % Baso % (Auto) 0.6 (0.3-3.8) % Neut # (Auto) 2.7 (1.7-6.9) x10-3/uL Lymph # (Auto) 0.6 (0.5-4.5) x10-3/uL [place] # (Auto) 0.5 (0.0-1.2) x10-3/uL Eos # (Auto) 0.1 (0.0-0.6) x10-3/uL Baso # (Auto) 0.0 (0.0-0.3) x10-3/uL Sodium 138 (135-145) mmol/L Potassium 3.3 L (3.5-5.3) mmol/L Chloride 104 (100-110) mmol/L Carbon Dioxide 22 (21-32) mmol/L BUN 48 H (7-18) mg/dL Creatinine 2.1 H* (0.70-1.30) mg/dL Est Cr Clr Drug Dosing 23.17 mL/min Estimated GFR (MDRD) 30 L (>60) BUN/Creatinine Ratio 22.9 H (9-20) Glucose 78 L (80-116) mg/dL Calcium 8.6 (8.6-10.2) mg/dL Total Bilirubin (0.1-1.3) mg/dL AST (5-25) IU/L ALT (12-36) U/L Alkaline Phosphatase (56-112) IU/L Troponin I 102.4 H* (4.0-60.3) pg/mL NT-Pro-B Natriuret Pep (<=450) pg/mL Total Protein (6.0-8.0) g/dL Albumin (3.2-4.6) g/dL Globulin g/dL Albumin/Globulin Ratio SARS-CoV-2 RNA (MARCELINA) (NEGATIVE) Blood Type Gel Antibody Screen Crossmatch Result Diagrams: 02/28/21 06:50 02/28/21 06:50 Dl Results Last 24 hrs: Microbiology 02/27/21 18:26 Occult Blood - Final Stool / Feces Sepsis Event Note - Evaluation Sepsis Screening Result: No Definite Risk - Focused Exam Vital Signs: Vital Signs Temp Temp Pulse Pulse Resp BP BP 02/28/21 03:26 36.4 C 68 16 110/64 02/28/21 03:00 36.6 C 62 16 110/62 02/28/21 02:27 36.8 C 72 16 116/60 02/27/21 23:42 36.9 C 60 16 106/54 L 02/27/21 23:28 36.9 C 63 16 109/54 L 02/27/21 22:47 36.7 C 74 16 111/57 L 02/27/21 20:50 65 124/64 02/27/21 20:44 36.8 C 72 16 121/62 02/27/21 20:25 36.9 C 65 18 117/56 L Pulse Ox 02/28/21 03:26 98 02/28/21 03:00 98 02/28/21 02:27 98 02/27/21 23:42 97 02/27/21 23:28 96 02/27/21 22:47 97 02/27/21 20:50 02/27/21 20:44 98 02/27/21 20:25 97 - Problem List (1) Acute kidney injury superimposed on CKD SNOMED Code(s): 02958492 ICD Code: N17.9 - ACUTE KIDNEY FAILURE, UNSPECIFIED; N18.9 - CHRONIC KIDNEY DISEASE, UNSPECIFIED Status: Acute Current Visit: Yes (2) Anemia due to GI blood loss SNOMED Code(s): 684391387, 035731601 ICD Code: D50.0 - IRON DEFICIENCY ANEMIA SECONDARY TO BLOOD LOSS (CHRONIC) Status: Acute Current Visit: Yes (3) Elevated troponin SNOMED Code(s): 468188463, 868960602, 807564073 ICD Code: R77.8 - OTHER SPECIFIED ABNORMALITIES OF PLASMA PROTEINS Status: Acute Current Visit: Yes (4) CHF (congestive heart failure) SNOMED Code(s): 64099089 ICD Code: I50.9 - HEART FAILURE, UNSPECIFIED Status: Chronic Current Visit: Yes Qualifiers: Heart failure type: combined systolic and diastolic (5) Peripheral edema SNOMED Code(s): 526595283 ICD Code: R60.9 - EDEMA, UNSPECIFIED Status: Acute Current Visit: No (6) Cardiac pacemaker in situ SNOMED Code(s): 092071006 ICD Code: Z95.0 - PRESENCE OF CARDIAC PACEMAKER Status: Chronic Current Visit: No (7) HTN (hypertension) SNOMED Code(s): 43977835 ICD Code: I10 - ESSENTIAL (PRIMARY) HYPERTENSION Status: Chronic Current Visit: No Qualifiers: Hypertension type: essential hypertension Qualified Code(s): I10 - Essential (primary) hypertension (8) Hypokalemia SNOMED Code(s): 84657417 ICD Code: E87.6 - HYPOKALEMIA Status: Acute Current Visit: Yes Problem List Initiated/Reviewed/Updated: Yes Orders Last 24hrs: Active Orders 24 hr Category Date Time Status Patient Status [ADT] Routine ADT 02/27/21 19:11 Active Patient Status [ADT] Routine ADT 02/28/21 08:19 Ordered Antiembolic Devices [RC] .Routine Care 02/28/21 08:19 Ordered Cardiac Monitoring [RC] CONTINUOUS Care 02/27/21 19:13 Active EKG Documentation Completion [RC] ASDIRECTED Care 02/28/21 07:32 Active Height and Weight [RC] DAILY Care 02/27/21 19:11 Active Intake and Output [RC] 06,14,22 Care 02/27/21 19:13 Active Oxygen Therapy [RC] .PRN Care 02/27/21 19:11 Active Pulse Oximetry [RC] CONTINUOUS Care 02/27/21 19:13 Active Pulse Oximetry [RC] PRN Care 02/28/21 08:19 Ordered Up With Assistance [RC] ASDIRECTED Care 02/27/21 19:11 Active VTE/DVT Education [RC] Click to Edit Care 02/28/21 08:19 Ordered VTE/DVT Education [RC] Per Unit Routine Care 02/27/21 19:11 Active Vital Signs [RC] 00,04,08,12,16,20 Care 02/27/21 19:11 Active Vital Signs [RC] Q4H Care 02/28/21 08:19 Ordered Nothing per Oral After Midnight Diet [DIET] Diet 02/27/21 Dinner Active Echo Comp wo Cont [US] Routine Exams 02/28/21 07:33 Ordered TROPONIN I [CHEM] Routine Lab 02/28/21 11:00 Ordered Docusate Sodium/Sennosides [Senna Plus] Med 02/27/21 19:11 Active 1 tab PO BID PRN Isosorbide Mononitrate [Imdur] Med 02/28/21 09:00 Active 30 mg PO DAILY Morphine Med 02/27/21 19:11 Active 2 mg IVPUSH Q4H PRN Nitroglycerin [Nitrostat] Med 02/27/21 19:17 Active 0.4 mg SL Q5M PRN Ondansetron [Zofran] Med 02/27/21 19:11 Active 4 mg IV Q4H PRN Pantoprazole [ProTONIX IV] Med 02/28/21 09:00 Active 40 mg IVPUSH DAILY Potassium Chloride [Klor-Con M20] Med 02/28/21 09:00 Active 20 meq PO DAILY Sodium Chloride 0.9% [Normal Saline] 1,000 ml Med 02/27/21 17:30 Active IV ASDIRECTED Sodium Chloride 0.9% [Normal Saline] 250 ml Med 02/27/21 17:30 Active IV ASDIRECTED Sodium Chloride 0.9% [Saline Flush] Med 02/27/21 17:27 Active 10 ml FLUSH ASDIRECTED PRN Zolpidem [Ambien] Med 02/27/21 19:11 Active 5 mg PO BEDTIME PRN carvediloL [Coreg] Med 02/27/21 21:00 Active 6.25 mg PO BID hydrOXYzine HCL [Atarax] Med 02/27/21 19:17 Active 25 mg PO QID PRN DVT/VTE Prophylaxis Reflex [OM.PC] Per Unit Routine Oth 02/28/21 08:19 Ordered Saline Lock Insert [OM.PC] Routine Oth 02/27/21 17:27 Ordered Sequential Compression Device [OM.PC] Per Unit Routine Oth 02/27/21 19:13 Ordered Transfuse Red Blood Cells [COMM] Stat Oth 02/27/21 17:27 Ordered Resuscitation Status Routine Resus Stat 02/27/21 19:11 Ordered EKG 12 Lead [EK] Routine Ther 02/27/21 17:27 Ordered EKG 12 Lead [EK] Routine Ther 02/28/21 07:32 Ordered Medication Orders Carvedilol (Carvedilol 6.25 Mg Tab) 6.25 mg PO BID SITA Last Admin: 02/27/21 20:50 Dose: 6.25 mg Documented by: CAPRICE Hydroxyzine HCl (Hydroxyzine Hcl 25 Mg Tab) 25 mg PO QID PRN PRN Reason: Itching Last Admin: 02/28/21 02:30 Dose: 25 mg Documented by: CAPRICE Sodium Chloride (Normal Saline) 250 mls @ 100 mls/hr IV ASDIRECTED ON LICENSE OF [facility] Last Admin: 02/27/21 20:29 Dose: 100 mls/hr Documented by: CAPRICE Sodium Chloride (Normal Saline) 1,000 mls @ 75 mls/hr IV ASDIRECTED ON LICENSE OF [facility] Last Infusion: 02/27/21 20:15 Dose: 0 mls/hr Documented by: Admin: 02/27/21 18:09 Dose: 75 mls/hr Documented by: JORGE Isosorbide Mononitrate (Isosorbide Mononitrate 30 Mg Tab.Er) 30 mg PO DAILY ON LICENSE OF [facility] Morphine Sulfate (Morphine 2 Mg/Ml Syringe) 2 mg IVPUSH Q4H PRN PRN Reason: Pain Nitroglycerin (Nitroglycerin 0.4 Mg Tab.Sl) 0.4 mg SL Q5M PRN PRN Reason: Chest Pain Ondansetron HCl (Ondansetron 4 Mg/2 Ml Sdv) 4 mg IV Q4H PRN PRN Reason: Nausea/Vomiting Pantoprazole Sodium (Pantoprazole 40 Mg Vial) 40 mg IVPUSH DAILY ON LICENSE OF [facility] Potassium Chloride (Potassium Chloride 20 Meq Tab.Er) 20 meq PO DAILY ON LICENSE OF [facility] Senna/Docusate Sodium (Docusate Sodium/Sennosides 50-8.6 Mg Tab) 1 tab PO BID PRN PRN Reason: Constipation Sodium Chloride (Sodium Chloride 0.9% 10 Ml Syringe) 10 ml FLUSH ASDIRECTED PRN PRN Reason: Keep Vein Open Zolpidem Tartrate (Zolpidem 5 Mg Tab) 5 mg PO BEDTIME PRN PRN Reason: Sleep Last Admin: 02/27/21 20:50 Dose: 5 mg Documented by: CAPRICE Assessment/Plan Comment:: 1. Admit patient to inpatient service. Appreciate Dr. Castaneda consult. Patient will go to EGD this morning. Further recommendations based on findings. Continue to hold antiplatelet and anticoagulation. 2. Anemia: Patient was given 2 units of packed red blood cells and hemoglobin improved with improvement in patient's physical function 3. Elevated troponin: Likely demand ischemia secondary to anemia and acute kidney injury. Troponin initially trended down but went up overnight. Continue to trend troponin. EKG shows no obvious ST-T segment abnormalities but the patient does have a ventricular pacemaker making full delineation difficult 4. Acute kidney injury: Creatinine improved slightly overnight, continue to trend and function and monitor electrolytes 5. Hypokalemia: Replete potassium, continue to monitor electrolytes 6. DVT reflexes: Compression stockings, SCDs, ambulation, restart Eliquis in accordance with recommendations from general surgery 7. GI prophylaxis: Protonix 8. Position: Pending improvement and test findings including troponin, echo, general surgery consultation
--- NOTE | 2021-02-28 08:57 | PCM.EKG ---
#1 Interpretation EKG Date: 02/28/21 Time: 07:49 EKG Interpretation Comments: Ventricular paced rhythm, rate 62
[2021-02-28] MEDS ORDERED: Pantoprazole 40 MG Vial IVPUSH SCH (09:00)
[2021-02-28] MEDS ORDERED: Potassium Chloride 20 MEQ Tab.ER PO SCH (09:00)
[2021-02-28] MEDS: Sodium Chloride 0.9% 10 ML Syringe FLUSH PRN ×2 (10:00→14:04)
--- NOTE | 2021-02-28 10:23 | CONS ---
DATE OF CONSULTATION: 02/28/2021 HISTORY: This 86-year-old gentleman is seen at the request of Dr. Cummings for evaluation of anemia. He presented to the emergency room last night with a hemoglobin drop of approximately 2 in the last couple months. The patient denies any bleeding. 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 I did his colonoscopy in April of 2018 and no significant findings were noted. Hemoccult stool test is negative. The patient denies any evidence of recent blood including red stool or dark stool. He has had no nausea, vomiting, or abdominal pain. He is on Eliquis and aspirin and does have a ventricular pacemaker. Earlier this year when he had his GI bleed, he was on Coumadin which was switched to Eliquis. PHYSICAL EXAMINATION: GENERAL: On exam today, he is awake, alert, and in no distress. SKIN: Prien and warm. He has received 2 units of blood. ABDOMEN: Completely soft and nontender. No masses or hernias are palpable. ASSESSMENT: Anemia. PLAN: Findings were reviewed with Dr. Carey and there was no evidence of active bleeding. His anemia has likely slowly occurred over the last couple of months. Given his upper endoscopy findings earlier this year, I do not feel it is necessary to re-endoscope him unless he has evidence of recurrent bleeding. /[id number] CAMMIE/JOSE RAFAEL
[2021-02-28] MEDS: Carvedilol 6.25 MG Tab PO SCH ×2 (10:24→20:27)
[2021-02-28] MEDS: Isosorbide Mononitrate 30 MG Tab.ER PO SCH (10:24)
[2021-02-28] MEDS ORDERED: Furosemide 40 MG/4 ML VIAL IVPUSH ONE (13:12)
[2021-02-28] MEDS ORDERED: Perflutren Lipid Microspheres 2.2 MG/2 ML SDV IVPUSH ONE (14:53)
[2021-02-28] MEDS ORDERED: Potassium Chloride 20 MEQ Tab.ER PO ONE (17:54)
[2021-02-28] MEDS ORDERED: traZODone 50 MG Tab PO PRN (17:56)
[2021-02-28] MEDS ORDERED: Metolazone 2.5 MG Tab PO PRN (17:56)
[2021-02-28] MEDS ORDERED: Diclofenac Sodium 1% Gel 100 GM Tube TOP PRN (17:56)
[2021-02-28] MEDS: Pantoprazole 40 MG Tab.CR PO SCH (20:27)
[2021-02-28] MEDS: Zolpidem 5 MG Tab PO PRN (20:27)
[2021-03-01] MEDS: Pantoprazole 40 MG Tab.CR PO SCH (07:21)
--- NOTE | 2021-03-01 08:24 | PCM.DCSUM1 ---
Discharge Summary - Hospital Course Free Text/Narrative:: Patient was admitted and given 2 units of packed red blood cells. His troponins were trended. Troponins are somewhat chronically elevated. His troponins initially trended down slightly and then up slightly but are generally steady at around 110. I spoke with cardiology on the phone and they informed me that this patient has a scheduled watchman procedure for early next month, approximately 2 weeks from now. Cardiology informed me that we can hold anticoagulation at this time but that he will need to be anticoagulated after the watchman procedure for approximately 4 to 6 weeks. General surgery saw the patient and reviewed prior medical records. Patient has a history of angioectasis treated with laser therapy. We do not have those facilities here. Patient's hemoglobin has been steady. It is likely that the patient has difficulties with intermittent bleeds and that is why anticoagulation will be held at this time. Diagnosis: Stroke: No - Discharge Data Discharge Date: 03/01/21 Discharge Disposition: Home, Self-Care 01 Condition: Good - Referral to Home Health Primary Care Physician: Sunny Johnson MD - Discharge Diagnosis/Problem(s) (1) Acute kidney injury superimposed on CKD SNOMED Code(s): 76633129 ICD Code: N17.9 - ACUTE KIDNEY FAILURE, UNSPECIFIED; N18.9 - CHRONIC KIDNEY DISEASE, UNSPECIFIED Status: Acute Current Visit: Yes (2) Anemia due to GI blood loss SNOMED Code(s): 190111961, 389426084 ICD Code: D50.0 - IRON DEFICIENCY ANEMIA SECONDARY TO BLOOD LOSS (CHRONIC) Status: Acute Current Visit: Yes (3) Elevated troponin SNOMED Code(s): 331491796, 114455046, 621934867 ICD Code: R77.8 - OTHER SPECIFIED ABNORMALITIES OF PLASMA PROTEINS Status: Acute Current Visit: Yes (4) CHF (congestive heart failure) SNOMED Code(s): 52359624 ICD Code: I50.9 - HEART FAILURE, UNSPECIFIED Status: Chronic Current Visit: Yes Qualifiers: Heart failure type: combined systolic and diastolic (5) Peripheral edema SNOMED Code(s): 182655724 ICD Code: R60.9 - EDEMA, UNSPECIFIED Status: Acute Current Visit: No (6) Cardiac pacemaker in situ SNOMED Code(s): 278812199 ICD Code: Z95.0 - PRESENCE OF CARDIAC PACEMAKER Status: Chronic Current Visit: No (7) HTN (hypertension) SNOMED Code(s): 01326010 ICD Code: I10 - ESSENTIAL (PRIMARY) HYPERTENSION Status: Chronic Current Visit: No Qualifiers: Hypertension type: essential hypertension Qualified Code(s): I10 - Essential (primary) hypertension (8) Hypokalemia SNOMED Code(s): 76350598 ICD Code: E87.6 - HYPOKALEMIA Status: Acute Current Visit: Yes - Patient Instructions Diet: Usual Diet as Tolerated Driving: May Drive Today Showering/Bathing: May Shower - Discharge Plan *PRESCRIPTION DRUG MONITORING PROGRAM REVIEWED*: Not Applicable *COPY OF PRESCRIPTION DRUG MONITORING REPORT IN PATIENT [place]: Not Applicable Home Medications: Home Meds Nitroglycerin [Nitrostat] 0.4 mg SL Q5M PRN 04/29/18 [History] Isosorbide Mononitrate [Imdur] 30 mg PO DAILY 11/21/20 [History] Pantoprazole Sodium [Protonix] 40 mg PO BID 11/21/20 [History] carvediloL [Coreg] 6.25 mg PO BID 11/21/20 [History] Acetaminophen [Acetaminophen Extra Strength] 1,000 mg PO Q6HR PRN 02/28/21 [History] Amoxicillin 500 mg PO ASDIRECTED PRN 02/28/21 [History] Bumetanide 3 mg PO DAILY 02/28/21 [History] Cyanocobalamin (Vitamin B-12) [B-12] 1,000 mcg PO DAILY 02/28/21 [History] Diclofenac Sodium [Voltaren 1% Gel] 2 gm TOP QID PRN 02/28/21 [History] Melatonin 3 mg PO BEDTIME 02/28/21 [History] Potassium Chloride 30 meq PO DAILY 02/28/21 [History] Ubidecarenone [Coenzyme Q10] 100 mg PO DAILY 02/28/21 [History] metOLazone [Metolazone] 2.5 mg PO WEEKLY PRN 02/28/21 [History] traZODone 25 mg PO BEDTIME PRN 02/28/21 [History] Patient Handouts: Blood Transfusion, Adult, [id number], Anemia, Fall Prevention in Hospitals, Adult, Venous Thromboembolism Prevention Forms: ED Department Discharge Referrals: Sunny Johnson MD [Primary Care Provider] - - Discharge Summary/Plan Comment DC Time >30 min.: No Total # of Minutes for Discharge Time: 25 Discharge Summary/Plan Comment: Patient advised to follow-up with his primary care physician as soon as practical. Patient advised to call cardiology and ensure that he does not miss his scheduled watchman procedure. Patient advised to hold anticoagulation until he receives further instructions from his primary care physician and cardiology. - General Info Date of Service: 03/01/21 Admission Dx/Problem (Free Text: Admission Diagnosis/Problem Admission Diagnosis/Problem Anemia Functional Status: Reports: Pain Controlled, Tolerating Diet, Ambulating, Urinating - Review of Systems General: Reports: No Symptoms HEENT: Reports: No Symptoms Pulmonary: Reports: No Symptoms Cardiovascular: Reports: No Symptoms Gastrointestinal: Reports: No Symptoms Genitourinary: Reports: No Symptoms Musculoskeletal: Reports: No Symptoms Skin: Reports: No Symptoms Neurological: Reports: No Symptoms Psychiatric: Reports: No Symptoms - Patient Data Vitals - Most Recent: Last Vital Signs Temp 36.8 C 03/01/21 04:00 Pulse 80 03/01/21 04:00 Resp 16 03/01/21 04:00 BP 110/64 03/01/21 04:00 Pulse Ox 98 03/01/21 04:00 Weight - Most Recent: 70.171 kg I&O - Last 24 hours: Intake & Output 02/28/21 03/01/21 03/01/21 22:59 06:59 14:59 Intake Total 300 Output Total 850 Balance -550 Lab Results - Last 24 hrs: Laboratory Results - last 24 hr 02/28/21 02/28/21 03/01/21 Range/Units 11:10 15:03 06:15 WBC 5.1 (3.2-10.1) x10-3/uL RBC 3.51 L (3.90-5.90) x10(6)uL Hgb 10.2 L (12.9-17.7) g/dL Hct 31.8 L (38.3-50.1) % MCV 90.8 (80.8-98.7) fL MCH 29.0 (27.0-33.3) pg MCHC 31.9 (28.7-35.3) g/dL RDW 17.8 H (12.4-15.0) % Plt Count 145 (117-477) x10(3)uL MPV 9.2 (6.7-11.0) fL Neut % (Auto) 68.7 (40.3-71.8) % Lymph % (Auto) 14.0 L (15.8-45.3) % [place] % (Auto) 14.7 (5.5-15.2) % Eos % (Auto) 2.2 (0.1-6.8) % Baso % (Auto) 0.4 (0.3-3.8) % Neut # (Auto) 3.5 (1.7-6.9) x10-3/uL Lymph # (Auto) 0.7 (0.5-4.5) x10-3/uL [place] # (Auto) 0.8 (0.0-1.2) x10-3/uL Eos # (Auto) 0.1 (0.0-0.6) x10-3/uL Baso # (Auto) 0.0 (0.0-0.3) x10-3/uL Sodium (135-145) mmol/L Potassium (3.5-5.3) mmol/L Chloride (100-110) mmol/L Carbon Dioxide (21-32) mmol/L BUN (7-18) mg/dL Creatinine (0.70-1.30) mg/dL Est Cr Clr Drug Dosing mL/min Estimated GFR (MDRD) (>60) BUN/Creatinine Ratio (9-20) Glucose (80-116) mg/dL Calcium (8.6-10.2) mg/dL Troponin I 107.4 H* 108.3 H* (4.0-60.3) pg/mL NT-Pro-B Natriuret Pep (<=450) pg/mL 03/01/21 03/01/21 Range/Units 06:15 06:15 WBC (3.2-10.1) x10-3/uL RBC (3.90-5.90) x10(6)uL Hgb (12.9-17.7) g/dL Hct (38.3-50.1) % MCV (80.8-98.7) fL MCH (27.0-33.3) pg MCHC (28.7-35.3) g/dL RDW (12.4-15.0) % Plt Count (117-477) x10(3)uL MPV (6.7-11.0) fL Neut % (Auto) (40.3-71.8) % Lymph % (Auto) (15.8-45.3) % [place] % (Auto) (5.5-15.2) % Eos % (Auto) (0.1-6.8) % Baso % (Auto) (0.3-3.8) % Neut # (Auto) (1.7-6.9) x10-3/uL Lymph # (Auto) (0.5-4.5) x10-3/uL [place] # (Auto) (0.0-1.2) x10-3/uL Eos # (Auto) (0.0-0.6) x10-3/uL Baso # (Auto) (0.0-0.3) x10-3/uL Sodium 142 (135-145) mmol/L Potassium 3.8 (3.5-5.3) mmol/L Chloride 106 (100-110) mmol/L Carbon Dioxide 24 (21-32) mmol/L BUN 46 H (7-18) mg/dL Creatinine 2.0 H* (0.70-1.30) mg/dL Est Cr Clr Drug Dosing 24.33 mL/min Estimated GFR (MDRD) 32 L (>60) BUN/Creatinine Ratio 23.0 H (9-20) Glucose 93 (80-116) mg/dL Calcium 8.9 (8.6-10.2) mg/dL Troponin I 113.7 H* (4.0-60.3) pg/mL NT-Pro-B Natriuret Pep 71546 H* (<=450) pg/mL Med Orders - Current: Current Medications Bumetanide (Bumetanide 1 Mg Tab) 3 mg PO DAILY [facility] Carvedilol (Carvedilol 6.25 Mg Tab) 6.25 mg PO BID [facility] Last Admin: 02/28/21 20:27 Dose: 6.25 mg Documented by: Diclofenac Sodium (Diclofenac Sodium 1% Gel 100 Gm Tube) 2 gm TOP QID PRN PRN Reason: Pain Hydroxyzine HCl (Hydroxyzine Hcl 25 Mg Tab) 25 mg PO QID PRN PRN Reason: Itching Last Admin: 02/28/21 02:30 Dose: 25 mg Documented by: Sodium Chloride (Normal Saline) 250 mls @ 100 mls/hr IV ASDIRECTED [facility] Last Admin: 02/27/21 20:29 Dose: 100 mls/hr Documented by: Isosorbide Mononitrate (Isosorbide Mononitrate 30 Mg Tab.Er) 30 mg PO DAILY [facility] Last Admin: 02/28/21 10:24 Dose: 30 mg Documented by: Metolazone (Metolazone 2.5 Mg Tab) 2.5 mg PO ASDIRECTED PRN PRN Reason: Edema Morphine Sulfate (Morphine 2 Mg/Ml Syringe) 2 mg IVPUSH Q4H PRN PRN Reason: Pain Nitroglycerin (Nitroglycerin 0.4 Mg Tab.Sl) 0.4 mg SL Q5M PRN PRN Reason: Chest Pain Ondansetron HCl (Ondansetron 4 Mg/2 Ml Sdv) 4 mg IV Q4H PRN PRN Reason: Nausea/Vomiting Pantoprazole Sodium (Pantoprazole 40 Mg Tab.Cr) 40 mg PO BID@0730,2100 [facility] Last Admin: 03/01/21 07:21 Dose: 40 mg Documented by: Potassium Chloride (Potassium Chloride 10 Meq Tab.Er) 30 meq PO DAILY [facility] Senna/Docusate Sodium (Docusate Sodium/Sennosides 50-8.6 Mg Tab) 1 tab PO BID PRN PRN Reason: Constipation Sodium Chloride (Sodium Chloride 0.9% 10 Ml Syringe) 10 ml FLUSH ASDIRECTED PRN PRN Reason: Keep Vein Open Last Admin: 02/28/21 14:04 Dose: 10 ml Documented by: Trazodone HCl (Trazodone 50 Mg Tab) 25 mg PO BEDTIME PRN PRN Reason: Insomnia Zolpidem Tartrate (Zolpidem 5 Mg Tab) 5 mg PO BEDTIME PRN PRN Reason: Sleep Last Admin: 02/28/21 20:27 Dose: 5 mg Documented by: Discontinued Medications Furosemide (Furosemide 40 Mg/4 Ml Vial) 40 mg IVPUSH NOW ONE Stop: 02/28/21 13:13 Last Admin: 02/28/21 14:01 Dose: 40 mg Documented by: Sodium Chloride (Normal Saline) 1,000 mls @ 75 mls/hr IV ASDIRECTED [facility] Last Infusion: 02/27/21 20:15 Dose: 0 mls/hr Documented by: Pantoprazole Sodium (Pantoprazole 40 Mg Vial) 80 mg IVPUSH ONETIME ONE Stop: 02/27/21 18:05 Last Admin: 02/27/21 18:17 Dose: 80 mg Documented by: Pantoprazole Sodium (Pantoprazole 40 Mg Vial) 40 mg IVPUSH DAILY [facility] Last Admin: 02/28/21 08:26 Dose: 40 mg Documented by: Perflutren Lipid Microsphere (Perflutren Lipid Microspheres 2.2 Mg/2 Ml Sdv) 2.2 mg IVPUSH PREPRO ONE Stop: 02/28/21 14:54 Last Admin: 02/28/21 16:13 Dose: 2.2 mg Documented by: Potassium Chloride (Potassium Chloride 20 Meq Tab.Er) 20 meq PO DAILY [facility] Last Admin: 02/28/21 10:25 Dose: 20 meq Documented by: Potassium Chloride (Potassium Chloride 20 Meq Tab.Er) 40 meq PO ONETIME ONE Stop: 02/28/21 17:55 Last Admin: 02/28/21 18:27 Dose: 40 meq Documented by: Rosuvastatin Calcium (Rosuvastatin 20 Mg Tab) 20 mg PO BEDTIME [facility] Last Admin: 02/27/21 23:12 Dose: Not Given Documented by: Comments:: Patient was able to get out of bed and stand up on his own and stand throughout the interview and physical exam. - Exam Quality Assessment: Reports: Supplemental Oxygen, DVT Prophylaxis General: Reports: Alert, Oriented, Cooperative, No Acute Distress HEENT: Reports: EOMI Neck: Reports: Supple Lungs: Reports: Crackles, Other (Mild bilateral lower lobe crackles) Cardiovascular: Reports: Regular Rate, Regular Rhythm, Murmurs GI/Abdominal Exam: Normal Bowel Sounds, Tender, Other (Chronic abdominal tenderness secondary to hernia) Back Exam: Reports: Normal Inspection. Denies: CVA Tenderness (R), CVA Tenderness (L) Extremities: Other (Trace bilateral lower lobe edema) Skin: Reports: Warm, Dry Neurological: Reports: No New Focal Deficit Psy/Mental Status: Reports: Alert, Normal Affect, Normal Mood
[2021-03-01] MEDS ORDERED: Potassium Chloride 10 MEQ Tab.ER PO SCH (09:00)
[2021-03-01] MEDS ORDERED: Bumetanide 1 MG Tab PO SCH (09:00)
[2021-03-01] MEDS: Carvedilol 6.25 MG Tab PO SCH (10:25)
[2021-03-01] MEDS: Isosorbide Mononitrate 30 MG Tab.ER PO SCH (10:25)
[2021-03-01] MEDS: hydrOXYzine HCl 25 MG Tab PO PRN (10:30)
[2021-03-01 10:31] VITALS: BP 116/56; PULSE 67
== END 2021-03-01 11:40 | disposition home or self-care (01) | DRG 812 ==
LOC: FB.ED 16:28 → FB.MS 18:38
PROVIDERS: ADMIT Student in an Organized Health Care Education/Training Program; ATTEND Student in an Organized Health Care Education/Training Program
PROC: 30233N1 Transfusion of Nonautologous Red Blood Cells into Peripheral Vein, Percutaneous Approach (ICD-10-PCS; principal; 2021-02-27)
DX: D50.0 Iron deficiency anemia secondary to blood loss (chronic) (principal); I50.42 Chronic combined systolic (congestive) and diastolic (congestive) heart failure; N17.9 Acute kidney failure, unspecified; I13.0 Hypertensive heart and chronic kidney disease with heart failure and stage 1 through stage 4 chronic kidney disease, or unspecified chronic kidney disease; I24.8 Other forms of acute ischemic heart disease; R77.8 Other specified abnormalities of plasma proteins; I50.9 Heart failure, unspecified; N18.9 Chronic kidney disease, unspecified; E87.6 Hypokalemia; I42.9 Cardiomyopathy, unspecified; H54.7 Unspecified visual loss; I25.10 Atherosclerotic heart disease of native coronary artery without angina pectoris; Z95.1 Presence of aortocoronary bypass graft; Z20.822 Contact with and (suspected) exposure to COVID-19; E78.00 Pure hypercholesterolemia, unspecified; J44.9 Chronic obstructive pulmonary disease, unspecified; M19.90 Unspecified osteoarthritis, unspecified site; Z95.5 Presence of coronary angioplasty implant and graft; Z88.1 Allergy status to other antibiotic agents; Z88.8 Allergy status to other drugs, medicaments and biological substances; Z96.643 Presence of artificial hip joint, bilateral; E86.0 Dehydration; Z95.0 Presence of cardiac pacemaker; I25.2 Old myocardial infarction; Z88.0 Allergy status to penicillin; Z88.6 Allergy status to analgesic agent; Z79.82 Long term (current) use of aspirin; Z79.899 Other long term (current) drug therapy; Z86.718 Personal history of other venous thrombosis and embolism; Z79.01 Long term (current) use of anticoagulants; Z90.49 Acquired absence of other specified parts of digestive tract; Z98.49 Cataract extraction status, unspecified eye; Z98.890 Other specified postprocedural states
CPT/HCPCS: 36415; 71045; 80053; 82270; 83880; 84484; 85025; 86850; 86900; 86901; 86920; 86922; 93005; 96374; 99285; C9113; J7030; U0002; 36430; 80048; A9270-GY; C8929; J1940; J7050; P9016; Q9957

== ENCOUNTER 2021-03-29 13:25 | Emergency (ER) | payer MEDICARE, BC ==
[2021-03-29] MEDS ORDERED: Potassium Chloride 20 MEQ in Premix Bag 1 BAG IV ONE (14:07)
[2021-03-29] MEDS ORDERED: Sodium Chloride 0.9% 10 ML Syringe FLUSH PRN (14:07)
[2021-03-29] MEDS ORDERED: NS + KCl 20mEq/L 1,000 ML IV SCH (14:15)
--- NOTE | 2021-03-29 14:20 | EDM.PDOC ---
ED HPI GENERAL MEDICAL PROBLEM - General Chief Complaint: General Stated Complaint: weakness Time Seen by Provider: 03/29/21 14:05 Source of Information: Reports: Patient, Old Records, RN History Limitations: Reports: No Limitations - History of Present Illness INITIAL COMMENTS - FREE TEXT/NARRATIVE: 86 yo male here after spending the night on the floor of his kitchen after he got up to get a drink of water and fell. He was too weak to get up after that. He was able to sleep a bit on the floor. He suffered only minor injuries in the fall. Says he's been getting weaker for the past few days. No other complaints now except dry mouth. Onset: Gradual (onset of weakness) Duration: Day(s):, Getting Worse Location: Reports: Generalized Quality: Reports: Other (pain is not a main complaint currently) Severity: Mild Improves with: Reports: None Worsens with: Reports: None Context: Reports: Other (See HPI) Associated Symptoms: Reports: Weakness, Other (fall due to weakness) Treatments NURSE ASSESSOR: Reports: Other (see below) (none) - Related Data Allergies Allergy/AdvReac Type Severity Reaction Status Date / Time simvastatin [From Zocor] Allergy Unknown Other Verified 02/28/21 01:43 amoxicillin [From Augmentin] Allergy Abdominal Verified 02/28/21 01:43 Pain clavulanic acid Allergy Abdominal Verified 02/28/21 01:43 [From Augmentin] Pain sucralfate [From Carafate] Allergy Itching Verified 02/28/21 01:43 Home Meds: Home Meds Nitroglycerin [Nitrostat] 0.4 mg SL Q5M PRN 04/29/18 [History] Isosorbide Mononitrate [Imdur] 30 mg PO DAILY 11/21/20 [History] Pantoprazole Sodium [Protonix] 40 mg PO BID 11/21/20 [History] carvediloL [Coreg] 6.25 mg PO BID 11/21/20 [History] Acetaminophen [Acetaminophen Extra Strength] 1,000 mg PO Q6HR PRN 02/28/21 [History] Amoxicillin 500 mg PO ASDIRECTED PRN 02/28/21 [History] Bumetanide 3 mg PO DAILY 02/28/21 [History] Cyanocobalamin (Vitamin B-12) [B-12] 1,000 mcg PO DAILY 02/28/21 [History] Diclofenac Sodium [Voltaren 1% Gel] 2 gm TOP QID PRN 02/28/21 [History] Melatonin 3 mg PO BEDTIME 02/28/21 [History] Potassium Chloride 30 meq PO DAILY 02/28/21 [History] Ubidecarenone [Coenzyme Q10] 100 mg PO DAILY 02/28/21 [History] metOLazone [Metolazone] 2.5 mg PO WEEKLY PRN 02/28/21 [History] traZODone 25 mg PO BEDTIME PRN 02/28/21 [History] Past Medical History - Past Health History Medical/Surgical History: Denies Medical/Surgical History HEENT History: Reports: Impaired Vision Other HEENT History: wears glasses Cardiovascular History: Reports: Blood Clots/VTE/DVT, Bypass, CAD, Cardiomyopathy, Heart Failure, High Cholesterol, Hypertension, [place], Pacemaker, Other (See Below) Other Cardiovascular History: DVT, PFO Respiratory History: Reports: COPD, SOB Gastrointestinal History: Reports: None, Other (See Below) Other Gastrointestinal History: EGD recent, ulceration, on Carafate, anti- coagulation stopped at that time Genitourinary History: Reports: Renal Disease, Other (See Below) Other Genitourinary History: renal infarct SENIOR REPORT DEVELOPER History: Reports: None Musculoskeletal History: Reports: Arthritis, Other (See Below) Other Musculoskeletal History: sacroiliitis Neurological History: Reports: None Psychiatric History: Reports: None Endocrine/Metabolic History: Reports: None Hematologic History: Reports: None Immunologic History: Reports: None Oncologic (Cancer) History: Reports: None Dermatologic History: Reports: None - Infectious Disease History Infectious Disease History: Reports: C-Difficile, Measles, Shingles - Past Surgical History Head Surgeries/Procedures: Reports: None HEENT Surgical History: Reports: Adenoidectomy, Cataract Surgery, Tonsillectomy Cardiovascular Surgical History: Reports: Coronary Artery Bypass, Coronary Artery Stent Other Cardiovascular Surgeries/Procedures: 1 stent, triple bypass Respiratory Surgical History: Reports: None GI Surgical History: Reports: None, Appendectomy, Colonoscopy, EGD, Hernia, Inguinal Male Surgical History: Reports: Other (See Below) Other Male Surgeries/Procedures: renal angiogram Musculoskeletal Surgical History: Reports: Arthroscopic Knee, Hip Replacement, Other (See Below) Other Musculoskeletal Surgeries/Procedures:: bilat hip replacement Social & Family History - Family History Family Medical History: No Pertinent Family History GI: Reports: None - Caffeine Use Caffeine Use: Reports: Coffee Other Caffeine Use: 1-2 cups coffee/day Caffeine Use Comment: Daily - Living Situation & Occupation Living situation: Reports: Occupation: Retired ED ROS GENERAL - Review of Systems Review Of Systems: See Below Constitutional: Reports: Weakness HEENT: Reports: Other (dry mouth) Respiratory: Reports: No Symptoms Cardiovascular: Reports: No Symptoms Endocrine: Reports: No Symptoms GI/Abdominal: Reports: Other (has a hernia) : Reports: No Symptoms Musculoskeletal: Reports: No Symptoms Skin: Reports: Wound (bruises LUE) Neurological: Reports: No Symptoms ED EXAM, GENERAL - Physical Exam Exam: See Below Exam Limited By: No Limitations General Appearance: Alert, WD/WN, No Apparent Distress Eye Exam: Bilateral Eye: Normal Inspection Ears: Normal External Exam, Normal Canal, Hearing Grossly Normal Ear Exam: Bilateral Ear: Auricle Normal, Canal Normal Nose: Normal Inspection, No Blood Throat/Mouth: Normal Inspection, Normal Lips, Normal Voice, No Airway Compromise, Other (dry mucosa) Head: Atraumatic, Normocephalic Neck: Normal Inspection Respiratory/Chest: No Respiratory Distress, Lungs Clear, Normal Breath Sounds, No Accessory Muscle Use Cardiovascular: Regular Rate, Rhythm, No Edema GI/Abdominal: Soft, Non-Tender, Hernia Back Exam: Normal Inspection Extremities: Normal Inspection, Normal Range of Motion, Non-Tender, No Pedal Edema Neurological: Alert, Oriented, CN II-XII Intact, Normal Cognition, No Motor/Sensory Deficits Psychiatric: Normal Affect, Normal Mood Skin Exam: Warm, Dry, Normal Color, No Rash, Wound/Incision (abrasions L knee and L dorsum of hand) Course - Vital Signs Text/Narrative:: dressings placed by EMT's were changed here before discharge by nursing. Last Recorded V/S: Last Vital Signs Temp 36.4 C 03/29/21 13:25 Pulse 66 03/29/21 13:25 Resp 16 03/29/21 13:25 BP 109/81 03/29/21 13:25 Pulse Ox 96 03/29/21 13:25 - Orders/Labs/Meds Orders: Active Orders 24 hr Category Date Time Status Bacitracin [Bacitracin Oint 1 GM] Med 03/29/21 18:34 Once 2 dose TOP ONETIME ONE NS + KCl 20mEq/L [Normal Saline with 20 mEq KCl] 1,000 Med 03/29/21 14:15 Active ml IV ASDIRECTED Sodium Chloride 0.9% [Saline Flush] Med 03/29/21 14:07 Active 10 ml FLUSH ASDIRECTED PRN Saline Lock Insert [OM.PC] Routine Oth 03/29/21 14:07 Ordered Medication Orders Potassium Chloride/Sodium Chloride (Normal Saline With 20 Meq Kcl) 1,000 mls @ 500 mls/hr IV ASDIRECTED SITA Last Admin: 03/29/21 14:52 Dose: 500 mls/hr Documented by: ASUFKAT Sodium Chloride (Sodium Chloride 0.9% 10 Ml Syringe) 10 ml FLUSH ASDIRECTED PRN PRN Reason: Keep Vein Open Labs: Laboratory Tests 03/29/21 03/29/21 03/29/21 Range/Units 13:40 13:40 13:40 WBC 6.6 (3.2-10.1) x10-3/uL RBC 3.63 L (3.90-5.90) x10(6)uL Hgb 10.6 L (12.9-17.7) g/dL Hct 32.4 L (38.3-50.1) % MCV 89.2 (80.8-98.7) fL MCH 29.1 (27.0-33.3) pg MCHC 32.6 (28.7-35.3) g/dL RDW 17.7 H (12.4-15.0) % Plt Count 193 (117-477) x10(3)uL Sodium 139 (135-145) mmol/L Potassium 2.8 L* D (3.5-5.3) mmol/L Chloride 100 D (100-110) mmol/L Carbon Dioxide 32 (21-32) mmol/L BUN 44 H (7-18) mg/dL Creatinine 1.8 H (0.70-1.30) mg/dL Est Cr Clr Drug Dosing TNP Estimated GFR (MDRD) 36 L (>60) BUN/Creatinine Ratio 24.4 H (9-20) Glucose 102 (80-116) mg/dL Calcium 9.4 (8.6-10.2) mg/dL Magnesium 2.2 (1.8-2.5) mg/dL Urine Color (YELLOW) Urine Appearance (CLEAR) Urine pH (5.0-6.5) Ur Specific [place] (1.010-1.025) Urine Protein (NEGATIVE) mg/dL Urine Glucose (UA) (NORMAL) mg/dL Urine Ketones (NEGATIVE) mg/dL Urine Occult Blood (NEGATIVE) Urine Nitrite (NEGATIVE) Urine Bilirubin (NEGATIVE) Urine Urobilinogen (NEGATIVE) mg/dL Ur Leukocyte Esterase (NEGATIVE) Urine RBC (0-5) Urine WBC (0-5) Ur Squamous Epith Cells (NS,R,O) Urine Bacteria (NS) 03/29/21 03/29/21 Range/Units 14:55 18:00 WBC (3.2-10.1) x10-3/uL RBC (3.90-5.90) x10(6)uL Hgb (12.9-17.7) g/dL Hct (38.3-50.1) % MCV (80.8-98.7) fL MCH (27.0-33.3) pg MCHC (28.7-35.3) g/dL RDW (12.4-15.0) % Plt Count (117-477) x10(3)uL Sodium (135-145) mmol/L Potassium 3.0 L (3.5-5.3) mmol/L Chloride (100-110) mmol/L Carbon Dioxide (21-32) mmol/L BUN (7-18) mg/dL Creatinine (0.70-1.30) mg/dL Est Cr Clr Drug Dosing Estimated GFR (MDRD) (>60) BUN/Creatinine Ratio (9-20) Glucose (80-116) mg/dL Calcium (8.6-10.2) mg/dL Magnesium (1.8-2.5) mg/dL Urine Color Yellow (YELLOW) Urine Appearance Clear (CLEAR) Urine pH 6.0 (5.0-6.5) Ur Specific [place] 1.020 (1.010-1.025) Urine Protein Negative (NEGATIVE) mg/dL Urine Glucose (UA) Normal (NORMAL) mg/dL Urine Ketones Negative (NEGATIVE) mg/dL Urine Occult Blood Negative (NEGATIVE) Urine Nitrite Negative (NEGATIVE) Urine Bilirubin Negative (NEGATIVE) Urine Urobilinogen Normal (NEGATIVE) mg/dL Ur Leukocyte Esterase Negative (NEGATIVE) Urine RBC 0-5 (0-5) Urine WBC 0-5 (0-5) Ur Squamous Epith Cells Rare (NS,R,O) Urine Bacteria Occasional H (NS) Meds: Medications Generic Name Dose Route Start Last Admin Trade Name Freq PRN Reason Stop Dose Admin Potassium Chloride/Sodium Chloride 1,000 mls @ 500 mls/hr 03/29/21 14:15 03/29/21 14:52 Normal Saline With 20 Meq Kcl IV 500 mls/hr ASDIRECTED SITA Administration Sodium Chloride 10 ml 03/29/21 14:07 Sodium Chloride 0.9% 10 Ml Syringe FLUSH ASDIRECTED PRN Keep Vein Open Discontinued Medications Generic Name Dose Route Start Last Admin Trade Name Freq PRN Reason Stop Dose Admin Potassium Chloride 20 meq/ 100 mls @ 50 mls/hr 03/29/21 14:07 03/29/21 14:53 Premix IV 03/29/21 16:06 50 mls/hr ONETIME ONE Administration Potassium Chloride 20 meq 03/29/21 14:41 03/29/21 14:53 Potassium Chloride 20 Meq Tab.Er PO 03/29/21 14:42 20 meq ONETIME ONE Administration Potassium Chloride 40 meq 03/29/21 18:20 Potassium Chloride 20 Meq Tab.Er PO 03/29/21 18:21 ONETIME ONE Departure - Departure Time of Disposition: 18:42 Disposition: Home, Self-Care 01 Condition: Fair Clinical Impression: Hypokalemia, Mild dehydration, Weakness, Fall in elderly patient, Abrasions of multiple sites - Discharge Information Instructions: Hypokalemia Referrals: Sunny Johnson MD [Primary Care Provider] - Forms: ED Department Discharge Additional Instructions: Double your potassium until you see your doctor again to 40 meq twice daily. Consider support hose to reduce your need for diuretics. Avoid added salt. Elevate your legs above your heart as much as possible. Clean your wounds twice daily with soap and water. Dry. Apply Bacitracin ointment and a new bandage. Recheck with your doctor within the week, call for an appt. Sepsis Event Note (ED) - Focused Exam Vital Signs: Vital Signs Temp Pulse Resp BP Pulse Ox 03/29/21 13:25 36.4 C 66 16 109/81 96 - My Orders Last 24 Hours: My Active Orders 03/29/21 14:07 Sodium Chloride 0.9% [Saline Flush] 10 ml FLUSH ASDIRECTED PRN Saline Lock Insert [OM.PC] Routine 03/29/21 14:15 NS + KCl 20mEq/L [Normal Saline with 20 mEq KCl] 1,000 ml IV ASDIRECTED 03/29/21 18:34 Bacitracin [Bacitracin Oint 1 GM] 2 dose TOP ONETIME ONE - Assessment/Plan Last 24 Hours: My Active Orders 03/29/21 14:07 Sodium Chloride 0.9% [Saline Flush] 10 ml FLUSH ASDIRECTED PRN Saline Lock Insert [OM.PC] Routine 03/29/21 14:15 NS + KCl 20mEq/L [Normal Saline with 20 mEq KCl] 1,000 ml IV ASDIRECTED 03/29/21 18:34 Bacitracin [Bacitracin Oint 1 GM] 2 dose TOP ONETIME ONE
[2021-03-29] MEDS ORDERED: Potassium Chloride 20 MEQ Tab.ER PO ONE ×2 (14:41→18:20)
[2021-03-29] MEDS ORDERED: Bacitracin Oint 1 GM U/D Packet TOP ONE (18:34)
[2021-03-29 19:46] VITALS: BP 148/79; PULSE 63
== END 2021-03-29 19:20 | disposition home or self-care (01) ==
LOC: FB.ED 13:25
DX: S80.212A Abrasion, left knee, initial encounter (principal); S60.512A Abrasion of left hand, initial encounter; E86.0 Dehydration; E87.6 Hypokalemia; R53.1 Weakness; I25.10 Atherosclerotic heart disease of native coronary artery without angina pectoris; I11.0 Hypertensive heart disease with heart failure; I50.9 Heart failure, unspecified; I25.2 Old myocardial infarction; J44.9 Chronic obstructive pulmonary disease, unspecified; Z88.8 Allergy status to other drugs, medicaments and biological substances; Z88.0 Allergy status to penicillin; Z88.1 Allergy status to other antibiotic agents; Z79.899 Other long term (current) drug therapy; W18.30XA Fall on same level, unspecified, initial encounter; Y92.000 Kitchen of unspecified non-institutional (private) residence as the place of occurrence of the external cause
CPT/HCPCS: 36415; 80048; 81001; 83735; 84132; 85027; 96365; 96366; 99284; A9270; J3480

== ENCOUNTER 2021-04-10 10:10 | Inpatient (IN) | payer MEDICARE, BC ==
[2021-04-10] MEDS: Sodium Chloride 0.9% 10 ML Syringe FLUSH PRN (11:07)
[2021-04-10] MEDS ORDERED: Phytonadione 10 MG in Sodium Chloride 0.9% 50 ML IV ONE (11:28)
[2021-04-10] MEDS ORDERED: Furosemide 40 MG/4 ML VIAL IVPUSH ONE (11:33)
[2021-04-10] MEDS ORDERED: Metolazone 2.5 MG Tab PO PRN (11:33)
[2021-04-10] MEDS ORDERED: Nitroglycerin 0.4 MG Tab.SL SL PRN (11:33)
[2021-04-10] MEDS ORDERED: traZODone 50 MG Tab PO PRN (11:33)
--- NOTE | 2021-04-10 11:39 | EDM.PDOC ---
ED HPI GENERAL MEDICAL PROBLEM - General Chief Complaint: Respiratory Problem Stated Complaint: SOB Time Seen by Provider: 04/10/21 10:25 Source of Information: Reports: Patient History Limitations: Reports: No Limitations - History of Present Illness INITIAL COMMENTS - FREE TEXT/NARRATIVE: Patient presented to the ED because of increasing dyspnea especially on exertion, weakness and weight gain. His dyspnea has been getting worse for the past 2 weeks. There is no chest pain, N/V. No fever or chills. He was recently admitted at [facility] for a cardiac device placement which he doesn't know. 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 Back Pain Score (Numeric/FACES): 3 - Related Data Allergies Allergy/AdvReac Type Severity Reaction Status Date / Time simvastatin [From Zocor] Allergy Unknown Other Verified 02/28/21 01:43 amoxicillin [From Augmentin] Allergy Abdominal Verified 02/28/21 01:43 Pain clavulanic acid Allergy Abdominal Verified 02/28/21 01:43 [From Augmentin] Pain sucralfate [From Carafate] Allergy Itching Verified 02/28/21 01:43 Home Meds: Home Meds Nitroglycerin [Nitrostat] 0.4 mg SL Q5M PRN 04/29/18 [History] Pantoprazole Sodium [Protonix] 40 mg PO DAILY 11/21/20 [History] carvediloL [Coreg] 6.25 mg PO BID 11/21/20 [History] Acetaminophen [Acetaminophen Extra Strength] 1,000 mg PO Q6H PRN 02/28/21 [History] Amoxicillin 2,000 mg PO ASDIRECTED PRN 02/28/21 [History] Bumetanide 3 mg PO DAILY 02/28/21 [History] Cyanocobalamin (Vitamin B-12) [B-12] 1,000 mcg PO DAILY 02/28/21 [History] Potassium Chloride 30 meq PO DAILY 02/28/21 [History] metOLazone [Metolazone] 2.5 mg PO WEEKLY PRN 02/28/21 [History] traZODone 50 mg PO BEDTIME 02/28/21 [History] Aspirin [Halfprin] 81 mg PO BEDTIME 04/10/21 [History] Docusate Sodium/Sennosides [Senna Plus] 2 tab PO DAILY PRN 04/10/21 [History] Enoxaparin [Lovenox] 80 mg SUBCUT Q12H 04/10/21 [History] Melatonin 10 mg PO BEDTIME 04/10/21 [History] Warfarin [Coumadin] 2.5 - 5 mg PO ASDIRECTED 04/10/21 [History] Past Medical History - Past Health History Medical/Surgical History: Denies Medical/Surgical History HEENT History: Reports: Impaired Vision Other HEENT History: wears glasses Cardiovascular History: Reports: Blood Clots/VTE/DVT, Bypass, CAD, Cardiomyopathy, Heart Failure, High Cholesterol, Hypertension, [place], Pacemaker, Other (See Below) Other Cardiovascular History: DVT, PFO Respiratory History: Reports: COPD, SOB Gastrointestinal History: Reports: None, Other (See Below) Other Gastrointestinal History: EGD recent, ulceration, on Carafate, anti- coagulation stopped at that time Genitourinary History: Reports: Renal Disease, Other (See Below) Other Genitourinary History: renal infarct [employer]OR History: Reports: None Musculoskeletal History: Reports: Arthritis, Other (See Below) Other Musculoskeletal History: sacroiliitis Neurological History: Reports: None Psychiatric History: Reports: None Endocrine/Metabolic History: Reports: None Hematologic History: Reports: None Immunologic History: Reports: None Oncologic (Cancer) History: Reports: None Dermatologic History: Reports: None - Infectious Disease History Infectious Disease History: Reports: C-Difficile, Chicken Pox, Measles, Shingles - Past Surgical History Head Surgeries/Procedures: Reports: None HEENT Surgical History: Reports: Adenoidectomy, Cataract Surgery, Tonsillectomy Cardiovascular Surgical History: Reports: Coronary Artery Bypass, Coronary Artery Stent Other Cardiovascular Surgeries/Procedures: 1 stent, triple bypass Respiratory Surgical History: Reports: None GI Surgical History: Reports: None, Appendectomy, Colonoscopy, EGD, Hernia, Inguinal Male Surgical History: Reports: Other (See Below) Other Male Surgeries/Procedures: renal angiogram Musculoskeletal Surgical History: Reports: Arthroscopic Knee, Hip Replacement, Other (See Below) Other Musculoskeletal Surgeries/Procedures:: bilat hip replacement Social & Family History - Family History Family Medical History: No Pertinent Family History GI: Reports: None - Caffeine Use Caffeine Use: Reports: Coffee Other Caffeine Use: 1-2 cups coffee/day Caffeine Use Comment: Daily - Living Situation & Occupation Living situation: Reports: Occupation: Retired ED ROS GENERAL - Review of Systems Review Of Systems: See Below Constitutional: Reports: Malaise, Weakness HEENT: Reports: No Symptoms Respiratory: Reports: Shortness of Breath, Cough Cardiovascular: Reports: No Symptoms Endocrine: Reports: No Symptoms GI/Abdominal: Reports: No Symptoms : Reports: No Symptoms Musculoskeletal: Reports: No Symptoms Skin: Reports: No Symptoms Neurological: Reports: No Symptoms Psychiatric: Reports: No Symptoms ED EXAM, GENERAL - Physical Exam Exam: See Below Exam Limited By: No Limitations General Appearance: Alert, No Apparent Distress Ears: Normal External Exam, Normal Canal, Hearing Grossly Normal Nose: Normal Inspection, Normal Mucosa, No Blood Throat/Mouth: Normal Inspection, Normal Lips, Normal Teeth Head: Atraumatic, Normocephalic Neck: Normal Inspection, Supple, Non-Tender, Full Range of Motion Respiratory/Chest: No Respiratory Distress, Normal Breath Sounds, Crackles, Rhonchi Cardiovascular: Normal Peripheral Pulses, Regular Rate, Rhythm, No Edema, No Gallop, No JVD, No Murmur GI/Abdominal: Normal Bowel Sounds, Soft, Non-Tender Back Exam: Normal Inspection, Full Range of Motion Extremities: Normal Inspection, Normal Range of Motion, Non-Tender, No Pedal Edema, Pedal Edema Neurological: Alert, Oriented, CN II-XII Intact #1 Interpretation EKG Date: 04/10/21 Time: 10:58 Rhythm: Other (Pacemaker Rhythm) Rate (Beats/Min): 71 [place]: Normal P-Wave: Present QRS: Normal ST-T: Normal QT: Normal NV/PQ Interval: 71 Comparison: No Change EKG Interpretation Comments: Pacemaker Rhythm Course - Vital Signs Text/Narrative:: Lab/EKG, CXR result was reviewed and discussed with patient Zaroxolyn 2.5 mg PO x1 Lasix 40 mg IV x1 Last Recorded V/S: Last Vital Signs Temp 36.9 C 04/11/21 08:45 Pulse 67 04/11/21 08:45 Resp 16 04/11/21 08:45 BP 118/52 L 04/11/21 08:45 Pulse Ox 98 04/11/21 08:45 - Orders/Labs/Meds Orders: Active Orders 24 hr Category Date Time Status Chest 1V Frontal [CR] Stat Exams 04/10/21 10:21 Taken Acetaminophen [Tylenol Extra Strength] Med 04/10/21 11:33 Active 1,000 mg PO Q6H PRN Nitroglycerin [Nitrostat] Med 04/10/21 11:33 Active 0.4 mg SL Q5M PRN Pantoprazole [ProTONIX] Med 04/10/21 21:00 Active 40 mg PO BID Potassium Chloride [Klor-Con 10] Med 04/11/21 09:00 Active 30 meq PO DAILY Sodium Chloride 0.9% [Saline Flush] Med 04/10/21 10:21 Active 10 ml FLUSH ASDIRECTED PRN carvediloL [Coreg] Med 04/10/21 21:00 Active 6.25 mg PO BID metOLazone [Zaroxolyn] Med 04/11/21 09:00 Active 5 mg PO DAILY Saline Lock Insert [OM.PC] Routine Oth 04/10/21 10:21 Ordered EKG 12 Lead [EK] Routine Ther 04/10/21 10:21 Stop Req Medication Orders Acetaminophen (Acetaminophen 500 Mg Tab) 1,000 mg PO Q6H PRN PRN Reason: Pain Carvedilol (Carvedilol 6.25 Mg Tab) 6.25 mg PO BID [facility] Last Admin: 04/11/21 08:39 Dose: 6.25 mg Documented by: Admin: 04/10/21 20:34 Dose: 6.25 mg Documented by: MAGDALENA Furosemide (Furosemide 40 Mg/4 Ml Vial) 40 mg IVPUSH BIDDIURETIC [facility] Last Admin: 04/10/21 17:30 Dose: 40 mg Documented by: BLANKA Melatonin (Melatonin 3 Mg Tab) 9 mg PO BEDTIME [facility] Last Admin: 04/10/21 20:31 Dose: 9 mg Documented by: MAGDALENA Metolazone (Metolazone 5 Mg Tab) 5 mg PO DAILY [facility] Last Admin: 04/11/21 08:38 Dose: 5 mg Documented by: JOHNNY Nitroglycerin (Nitroglycerin 0.4 Mg Tab.Sl) 0.4 mg SL Q5M PRN PRN Reason: Chest Pain Pantoprazole Sodium (Pantoprazole 40 Mg Tab.Cr) 40 mg PO BID [facility] Last Admin: 04/11/21 08:39 Dose: 40 mg Documented by: Admin: 04/10/21 20:31 Dose: 40 mg Documented by: MAGDALENA Potassium Chloride (Potassium Chloride 10 Meq Tab.Er) 30 meq PO DAILY [facility] Last Admin: 04/11/21 08:38 Dose: 30 meq Documented by: JOHNNY Senna/Docusate Sodium (Docusate Sodium/Sennosides 50-8.6 Mg Tab) 2 tab PO DAILY PRN PRN Reason: Constipation Sodium Chloride (Sodium Chloride 0.9% 10 Ml Syringe) 10 ml FLUSH ASDIRECTED PRN PRN Reason: Keep Vein Open Last Admin: 04/10/21 11:07 Dose: 10 ml Documented by: EVELYN Trazodone HCl (Trazodone 50 Mg Tab) 50 mg PO BEDTIME [facility] Last Admin: 04/10/21 20:31 Dose: 50 mg Documented by: MAGDALENA Labs: Laboratory Tests 04/10/21 04/10/21 04/10/21 Range/Units 10:49 10:49 10:49 WBC 7.1 (3.2-10.1) x10-3/uL RBC 3.03 L (3.90-5.90) x10(6)uL Hgb 8.4 L (12.9-17.7) g/dL Hct 27.1 L (38.3-50.1) % MCV 89.3 (80.8-98.7) fL MCH 27.7 (27.0-33.3) pg MCHC 31.0 (28.7-35.3) g/dL RDW 18.1 H (12.4-15.0) % Plt Count 220 (117-477) x10(3)uL MPV 8.5 (6.7-11.0) fL Neut % (Auto) 75.9 H (40.3-71.8) % Lymph % (Auto) 12.0 L (15.8-45.3) % [place] % (Auto) 10.9 (5.5-15.2) % Eos % (Auto) 0.7 (0.1-6.8) % Baso % (Auto) 0.5 (0.3-3.8) % Neut # (Auto) 5.4 (1.7-6.9) x10-3/uL Lymph # (Auto) 0.9 (0.5-4.5) x10-3/uL [place] # (Auto) 0.8 (0.0-1.2) x10-3/uL Eos # (Auto) 0.1 (0.0-0.6) x10-3/uL Baso # (Auto) 0.0 (0.0-0.3) x10-3/uL PT 59.4 H* (9.0-11.1) sec INR 6.20 H* (1.00-1.24) Sodium 137 (135-145) mmol/L Potassium 4.5 D (3.5-5.3) mmol/L Chloride 100 (100-110) mmol/L Carbon Dioxide 27 (21-32) mmol/L BUN 53 H (7-18) mg/dL Creatinine 1.9 H (0.70-1.30) mg/dL Est Cr Clr Drug Dosing 27.39 mL/min Estimated GFR (MDRD) 34 L (>60) BUN/Creatinine Ratio 27.9 H (9-20) Glucose 110 (80-116) mg/dL Calcium 8.6 (8.6-10.2) mg/dL Total Bilirubin 1.0 (0.1-1.3) mg/dL AST 28 H D (5-25) IU/L ALT 21 D (12-36) U/L Alkaline Phosphatase 139 H (56-112) IU/L Troponin I (4.0-60.3) pg/mL NT-Pro-B Natriuret Pep (<=450) pg/mL Total Protein 6.2 (6.0-8.0) g/dL Albumin 3.1 L (3.2-4.6) g/dL Globulin 3.1 g/dL Albumin/Globulin Ratio 1.0 SARS-CoV-2 RNA (MARCELINA) (NEGATIVE) 04/10/21 04/10/21 Range/Units 10:50 11:55 WBC (3.2-10.1) x10-3/uL RBC (3.90-5.90) x10(6)uL Hgb (12.9-17.7) g/dL Hct (38.3-50.1) % MCV (80.8-98.7) fL MCH (27.0-33.3) pg MCHC (28.7-35.3) g/dL RDW (12.4-15.0) % Plt Count (117-477) x10(3)uL MPV (6.7-11.0) fL Neut % (Auto) (40.3-71.8) % Lymph % (Auto) (15.8-45.3) % [place] % (Auto) (5.5-15.2) % Eos % (Auto) (0.1-6.8) % Baso % (Auto) (0.3-3.8) % Neut # (Auto) (1.7-6.9) x10-3/uL Lymph # (Auto) (0.5-4.5) x10-3/uL [place] # (Auto) (0.0-1.2) x10-3/uL Eos # (Auto) (0.0-0.6) x10-3/uL Baso # (Auto) (0.0-0.3) x10-3/uL PT (9.0-11.1) sec INR (1.00-1.24) Sodium (135-145) mmol/L Potassium (3.5-5.3) mmol/L Chloride (100-110) mmol/L Carbon Dioxide (21-32) mmol/L BUN (7-18) mg/dL Creatinine (0.70-1.30) mg/dL Est Cr Clr Drug Dosing mL/min Estimated GFR (MDRD) (>60) BUN/Creatinine Ratio (9-20) Glucose (80-116) mg/dL Calcium (8.6-10.2) mg/dL Total Bilirubin (0.1-1.3) mg/dL AST (5-25) IU/L ALT (12-36) U/L Alkaline Phosphatase (56-112) IU/L Troponin I 107.3 H* (4.0-60.3) pg/mL NT-Pro-B Natriuret Pep 58174 H* (<=450) pg/mL Total Protein (6.0-8.0) g/dL Albumin (3.2-4.6) g/dL Globulin g/dL Albumin/Globulin Ratio SARS-CoV-2 RNA (MARCELINA) Negative (NEGATIVE) Meds: Medications Generic Name Dose Route Start Last Admin Trade Name Freq PRN Reason Stop Dose Admin Acetaminophen 1,000 mg 04/10/21 11:33 Acetaminophen 500 Mg Tab PO Q6H PRN Pain Carvedilol 6.25 mg 04/10/21 21:00 04/11/21 08:39 Carvedilol 6.25 Mg Tab PO 6.25 mg BID [facility] Administration Furosemide 40 mg 04/10/21 17:00 04/10/21 17:30 Furosemide 40 Mg/4 Ml Vial IVPUSH 40 mg BIDDIURETIC [facility] Administration Melatonin 9 mg 04/10/21 21:00 04/10/21 20:31 Melatonin 3 Mg Tab PO 9 mg BEDTIME [facility] Administration Metolazone 5 mg 04/11/21 09:00 04/11/21 08:38 Metolazone 5 Mg Tab PO 5 mg DAILY [facility] Administration Nitroglycerin 0.4 mg 04/10/21 11:33 Nitroglycerin 0.4 Mg Tab.Sl SL Q5M PRN Chest Pain Pantoprazole Sodium 40 mg 04/10/21 21:00 04/11/21 08:39 Pantoprazole 40 Mg Tab.Cr PO 40 mg BID [facility]ITA Administration Potassium Chloride 30 meq 04/11/21 09:00 04/11/21 08:38 Potassium Chloride 10 Meq Tab.Er PO 30 meq DAILY [facility] Administration Senna/Docusate Sodium 2 tab 04/10/21 13:56 Docusate Sodium/Sennosides 50-8.6 Mg Tab PO DAILY PRN Constipation Sodium Chloride 10 ml 04/10/21 10:21 04/10/21 11:07 Sodium Chloride 0.9% 10 Ml Syringe FLUSH 10 ml ASDIRECTED PRN Administration Keep Vein Open Trazodone HCl 50 mg 04/10/21 21:00 04/10/21 20:31 Trazodone 50 Mg Tab PO 50 mg BEDTIME [facility] Administration Discontinued Medications Generic Name Dose Route Start Last Admin Trade Name Freq PRN Reason Stop Dose Admin Coenzyme Q10 100 mg 04/11/21 09:00 Ubidecarenone 100 Mg Cap PO DAILY [facility] Furosemide 40 mg 04/10/21 11:33 04/10/21 12:17 Furosemide 40 Mg/4 Ml Vial IVPUSH 04/10/21 11:34 40 mg NOW ONE Administration Phytonadione 10 mg/ Sodium 51 mls @ 100 mls/hr 04/10/21 11:28 04/10/21 12:17 Chloride IV 04/10/21 11:58 100 mls/hr NOW ONE Administration Melatonin 3 mg 04/10/21 21:00 Melatonin 3 Mg Tab PO BEDTIME [facility] Metolazone 2.5 mg 04/10/21 11:33 Metolazone 2.5 Mg Tab PO WEEKLY PRN Edema Trazodone HCl 25 mg 04/10/21 11:33 Trazodone 50 Mg Tab PO BEDTIME PRN Insomnia Departure - Departure Time of Disposition: 11:30 Disposition: Admitted As Inpatient 65 Condition: Good Clinical Impression: Elevated troponin, Anemia CHF (congestive heart failure) Qualifiers: Heart failure type: combined systolic and diastolic - Discharge Information Sepsis Event Note (ED) - Evaluation Sepsis Screening Result: No Definite Risk - My Orders Last 24 Hours: My Active Orders 04/10/21 10:21 Chest 1V Frontal [CR] Stat Sodium Chloride 0.9% [Saline Flush] 10 ml FLUSH ASDIRECTED PRN Saline Lock Insert [OM.PC] Routine EKG 12 Lead [EK] Routine 04/10/21 11:33 Acetaminophen [Tylenol Extra Strength] 1,000 mg PO Q6H PRN Nitroglycerin [Nitrostat] 0.4 mg SL Q5M PRN 04/10/21 21:00 Pantoprazole [ProTONIX] 40 mg PO BID carvediloL [Coreg] 6.25 mg PO BID 04/11/21 09:00 Potassium Chloride [Klor-Con 10] 30 meq PO DAILY metOLazone [Zaroxolyn] 5 mg PO DAILY - Assessment/Plan Last 24 Hours: My Active Orders 04/10/21 10:21 Chest 1V Frontal [CR] Stat Sodium Chloride 0.9% [Saline Flush] 10 ml FLUSH ASDIRECTED PRN Saline Lock Insert [OM.PC] Routine EKG 12 Lead [EK] Routine 04/10/21 11:33 Acetaminophen [Tylenol Extra Strength] 1,000 mg PO Q6H PRN Nitroglycerin [Nitrostat] 0.4 mg SL Q5M PRN 04/10/21 21:00 Pantoprazole [ProTONIX] 40 mg PO BID carvediloL [Coreg] 6.25 mg PO BID 04/11/21 09:00 Potassium Chloride [Klor-Con 10] 30 meq PO DAILY metOLazone [Zaroxolyn] 5 mg PO DAILY
[2021-04-10] MEDS: Furosemide 40 MG/4 ML VIAL IVPUSH SCH (17:30)
--- NOTE | 2021-04-10 18:08 | PCM.HP.2 ---
H&P History of Present Illness - General Date of Service: 04/10/21 Admit Problem/Dx: Admission Diagnosis/Problem Admission Diagnosis/Problem CHF, Congestive heart failure Source of Information: Patient, Old Records, Provider - History of Present Illness Initial Comments - Free Text/Narative: 86-year-old gentleman came to the emergency department due to a 2 or more week history of increasing shortness of breath/dyspnea on exertion. His past medical history is extensive and complicated and involves ischemic cardiomyopathy with both systolic and diastolic heart failure. His last echocardiogram showed EF approximately 30% with severe wall motion abnormality. 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 Patient also has hypertension, known atrial septal defect, paroxysmal atrial fibrillation, history of NSTEMI, chronic kidney disease stage IIIb, COPD. In the emergency department the patient was found to have a significantly elevated BNP at greater than 18,000. Note that BNP has been elevated at greater than 19,000 in the past. Patient is a poor historian but it appears that the patient recently had a watchman device placed. It is possible that the device placed was an atrial septal defect closure device. Patient was restarted on his Coumadin secondary to placement of this device with a Lovenox bridge. However, he was also found to have significantly elevated INR at 6.2 in the emergency department. Back Pain Score (Numeric/FACES): 5 - Related Data Allergies/Adverse Reactions: Allergies Allergy/AdvReac Type Severity Reaction Status Date / Time simvastatin [From Zocor] Allergy Unknown Other Verified 02/28/21 01:43 amoxicillin [From Augmentin] Allergy Abdominal Verified 02/28/21 01:43 Pain clavulanic acid Allergy Abdominal Verified 02/28/21 01:43 [From Augmentin] Pain sucralfate [From Carafate] Allergy Itching Verified 02/28/21 01:43 Home Medications: Home Meds Nitroglycerin [Nitrostat] 0.4 mg SL Q5M PRN 04/29/18 [History] Pantoprazole Sodium [Protonix] 40 mg PO DAILY 11/21/20 [History] carvediloL [Coreg] 6.25 mg PO BID 11/21/20 [History] Acetaminophen [Acetaminophen Extra Strength] 1,000 mg PO Q6H PRN 02/28/21 [History] Amoxicillin 2,000 mg PO ASDIRECTED PRN 02/28/21 [History] Bumetanide 3 mg PO DAILY 02/28/21 [History] Cyanocobalamin (Vitamin B-12) [B-12] 1,000 mcg PO DAILY 02/28/21 [History] Potassium Chloride 30 meq PO DAILY 02/28/21 [History] metOLazone [Metolazone] 2.5 mg PO WEEKLY PRN 02/28/21 [History] traZODone 50 mg PO BEDTIME 02/28/21 [History] Aspirin [Halfprin] 81 mg PO BEDTIME 04/10/21 [History] Docusate Sodium/Sennosides [Senna Plus] 2 tab PO DAILY PRN 04/10/21 [History] Enoxaparin [Lovenox] 80 mg SUBCUT Q12H 04/10/21 [History] Melatonin 10 mg PO BEDTIME 04/10/21 [History] Warfarin [Coumadin] 2.5 - 5 mg PO ASDIRECTED 04/10/21 [History] Past Medical History - Past Health History Medical/Surgical History: Denies Medical/Surgical History HEENT History: Reports: Impaired Vision Other HEENT History: wears glasses Cardiovascular History: Reports: Blood Clots/VTE/DVT, Bypass, CAD, Card iomyopathy, Heart Failure, High Cholesterol, Hypertension, [place], Pacemaker, Other (See Below) Other Cardiovascular History: DVT, PFO Respiratory History: Reports: COPD, SOB Gastrointestinal History: Reports: None, Other (See Below) Other Gastrointestinal History: EGD recent, ulceration, on Carafate, anti- coagulation stopped at that time Genitourinary History: Reports: Renal Disease, Other (See Below) Other Genitourinary History: renal infarct [employer] History: Reports: None Musculoskeletal History: Reports: Arthritis, Other (See Below) Other Musculoskeletal History: sacroiliitis Neurological History: Reports: None Psychiatric History: Reports: None Endocrine/Metabolic History: Reports: None Hematologic History: Reports: None Immunologic History: Reports: None Oncologic (Cancer) History: Reports: None Dermatologic History: Reports: None - Infectious Disease History Infectious Disease History: Reports: C-Difficile, Chicken Pox, Measles, Shingles - Past Surgical History Head Surgeries/Procedures: Reports: None HEENT Surgical History: Reports: Adenoidectomy, Cataract Surgery, Tonsillectomy Cardiovascular Surgical History: Reports: Coronary Artery Bypass, Coronary Artery Stent, Other (See Below) Other Cardiovascular Surgeries/Procedures: 1 stent, triple bypass watchman procedure 04/23 Respiratory Surgical History: Reports: None GI Surgical History: Reports: None, Appendectomy, Colonoscopy, EGD, Hernia, Inguinal Male Surgical History: Reports: Other (See Below) Other Male Surgeries/Procedures: renal angiogram Musculoskeletal Surgical History: Reports: Arthroscopic Knee, Hip Replacement, Other (See Below) Other Musculoskeletal Surgeries/Procedures:: bilat hip replacement Social & Family History - Family History Family Medical History: No Pertinent Family History GI: Reports: None - Tobacco Use Tobacco Use Status *Q: Former Tobacco User Used Tobacco, but Quit: Yes Month/Year Tobacco Last Used: 1988 - Caffeine Use Caffeine Use: Reports: None Other Caffeine Use: 1-2 cups coffee/day Caffeine Use Comment: Daily - Alcohol Use Days Per Week of Alcohol Use: 4 Number of Drinks Per Day: 1 Total Drinks Per Week: 4 - Recreational Drug Use Recreational Drug Use: Yes Recreational Drug Type: Reports: Other (see below) Other Recreational Drug Type: medical marijuana Recreational Drug Use Frequency: Daily - Living Situation & Occupation Living situation: Reports: Occupation: Retired H&P Review of Systems - Review of Systems: Review Of Systems: See Below General: Reports: Weakness HEENT: Reports: No Symptoms Pulmonary: Reports: Shortness of Breath Cardiovascular: Reports: No Symptoms Gastrointestinal: Reports: Abdominal Pain Genitourinary: Reports: No Symptoms Musculoskeletal: Reports: No Symptoms Skin: Reports: Wound, Other (Skin tears) Psychiatric: Reports: No Symptoms Neurological: Reports: Difficulty Walking, Weakness Hematologic/Lymphatic: Reports: Anemia, Easy Bruising Immunologic: Reports: No Symptoms Exam - Exam Exam: See Below - Vital Signs Vital Signs: Last Vital Signs Temp 36.7 C 04/10/21 13:30 Pulse 74 04/10/21 13:30 Resp 18 04/10/21 13:30 BP 166/68 H 04/10/21 13:30 Pulse Ox 98 04/10/21 13:30 Weight: 73.936 kg - Exam Quality Assessment: Supplemental Oxygen General: Alert, Oriented, Cooperative HEENT: EOMI Neck: Supple Lungs: Decreased Breath Sounds, Crackles Cardiovascular: Irregular Rhythm, Systolic Murmur, Gallop/S3 GI/Abdominal Exam: Normal Bowel Sounds, Distended, Tender, Other (Patient has palpable, likely hernias ventral abdomen with tenderness to palpation) Back Exam: Normal Inspection. No: CVA Tenderness (R), CVA Tenderness (L) Extremities: Pedal Edema Peripheral Pulses: 2+: Radial (L), Radial (R) Skin: Other (Patient has ecchymosis and skin tears likely secondary to thinning of the skin secondary to age and ecchymosis/thinning skin secondary to chronic Coumadin use and or enoxaparin) Neurological: Cranial Nerves Intact Neuro Extensive - Mental Status: Alert, Oriented x3, Normal Mood/Affect, Normal Cognition Psychiatric: Alert, Normal Affect, Normal Mood - Patient Data Lab Results Last 24 hrs: Laboratory Results - last 24 hr 04/10/21 04/10/21 04/10/21 Range/Units 10:49 10:49 10:49 WBC 7.1 (3.2-10.1) x10-3/uL RBC 3.03 L (3.90-5.90) x10(6)uL Hgb 8.4 L (12.9-17.7) g/dL Hct 27.1 L (38.3-50.1) % MCV 89.3 (80.8-98.7) fL MCH 27.7 (27.0-33.3) pg MCHC 31.0 (28.7-35.3) g/dL RDW 18.1 H (12.4-15.0) % Plt Count 220 (117-477) x10(3)uL MPV 8.5 (6.7-11.0) fL Neut % (Auto) 75.9 H (40.3-71.8) % Lymph % (Auto) 12.0 L (15.8-45.3) % [place] % (Auto) 10.9 (5.5-15.2) % Eos % (Auto) 0.7 (0.1-6.8) % Baso % (Auto) 0.5 (0.3-3.8) % Neut # (Auto) 5.4 (1.7-6.9) x10-3/uL Lymph # (Auto) 0.9 (0.5-4.5) x10-3/uL [place] # (Auto) 0.8 (0.0-1.2) x10-3/uL Eos # (Auto) 0.1 (0.0-0.6) x10-3/uL Baso # (Auto) 0.0 (0.0-0.3) x10-3/uL PT 59.4 H* (9.0-11.1) sec INR 6.20 H* (1.00-1.24) Sodium 137 (135-145) mmol/L Potassium 4.5 D (3.5-5.3) mmol/L Chloride 100 (100-110) mmol/L Carbon Dioxide 27 (21-32) mmol/L BUN 53 H (7-18) mg/dL Creatinine 1.9 H (0.70-1.30) mg/dL Est Cr Clr Drug Dosing 27.39 mL/min Estimated GFR (MDRD) 34 L (>60) BUN/Creatinine Ratio 27.9 H (9-20) Glucose 110 (80-116) mg/dL Calcium 8.6 (8.6-10.2) mg/dL Total Bilirubin 1.0 (0.1-1.3) mg/dL AST 28 H D (5-25) IU/L ALT 21 D (12-36) U/L Alkaline Phosphatase 139 H (56-112) IU/L Troponin I (4.0-60.3) pg/mL NT-Pro-B Natriuret Pep (<=450) pg/mL Total Protein 6.2 (6.0-8.0) g/dL Albumin 3.1 L (3.2-4.6) g/dL Globulin 3.1 g/dL Albumin/Globulin Ratio 1.0 SARS-CoV-2 RNA (MARCELINA) (NEGATIVE) 04/10/21 04/10/21 Range/Units 10:50 11:55 WBC (3.2-10.1) x10-3/uL RBC (3.90-5.90) x10(6)uL Hgb (12.9-17.7) g/dL Hct (38.3-50.1) % MCV (80.8-98.7) fL MCH (27.0-33.3) pg MCHC (28.7-35.3) g/dL RDW (12.4-15.0) % Plt Count (117-477) x10(3)uL MPV (6.7-11.0) fL Neut % (Auto) (40.3-71.8) % Lymph % (Auto) (15.8-45.3) % [place] % (Auto) (5.5-15.2) % Eos % (Auto) (0.1-6.8) % Baso % (Auto) (0.3-3.8) % Neut # (Auto) (1.7-6.9) x10-3/uL Lymph # (Auto) (0.5-4.5) x10-3/uL [place] # (Auto) (0.0-1.2) x10-3/uL Eos # (Auto) (0.0-0.6) x10-3/uL Baso # (Auto) (0.0-0.3) x10-3/uL PT (9.0-11.1) sec INR (1.00-1.24) Sodium (135-145) mmol/L Potassium (3.5-5.3) mmol/L Chloride (100-110) mmol/L Carbon Dioxide (21-32) mmol/L BUN (7-18) mg/dL Creatinine (0.70-1.30) mg/dL Est Cr Clr Drug Dosing mL/min Estimated GFR (MDRD) (>60) BUN/Creatinine Ratio (9-20) Glucose (80-116) mg/dL Calcium (8.6-10.2) mg/dL Total Bilirubin (0.1-1.3) mg/dL AST (5-25) IU/L ALT (12-36) U/L Alkaline Phosphatase (56-112) IU/L Troponin I 107.3 H* (4.0-60.3) pg/mL NT-Pro-B Natriuret Pep 19173 H* (<=450) pg/mL Total Protein (6.0-8.0) g/dL Albumin (3.2-4.6) g/dL Globulin g/dL Albumin/Globulin Ratio SARS-CoV-2 RNA (MARCELINA) Negative (NEGATIVE) Result Diagrams: 04/10/21 10:49 04/10/21 10:49 Sepsis Event Note - Evaluation Sepsis Screening Result: No Definite Risk - Focused Exam Vital Signs: Vital Signs Temp Pulse Resp BP Pulse Ox 04/10/21 13:30 36.7 C 74 18 166/68 H 98 04/10/21 10:17 35.8 C L 71 16 124/63 99 - Problem List (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 SNOMED Code(s): 56063882, 585835609 ICD Code: I50.40 - UNSP COMBINED SYSTOLIC AND DIASTOLIC (CONGESTIVE) HRT FAIL Status: Chronic Current Visit: Yes (2) Abdominal ascites SNOMED Code(s): 782724786 ICD Code: R18.8 - OTHER ASCITES Status: Acute Current Visit: No Qualifiers: Ascites type: other type Qualified Code(s): R18.8 - Other ascites (3) Abrasions of multiple sites SNOMED Code(s): 050732995, 961304850 ICD Code: T07.XXXA - UNSPECIFIED MULTIPLE INJURIES, INITIAL ENCOUNTER Status: Acute Current Visit: No (4) Anemia SNOMED Code(s): 379112810 ICD Code: D64.9 - ANEMIA, UNSPECIFIED Status: Chronic Current Visit: No (5) CHF exacerbation SNOMED Code(s): 023116070, 76272156037531 ICD Code: I50.9 - HEART FAILURE, UNSPECIFIED Status: Acute Current Visit: No Qualifiers: Heart failure type: unspecified Qualified Code(s): I50.9 - Heart failure, unspecified (6) Decompensated heart failure SNOMED Code(s): 313657127 ICD Code: I50.9 - HEART FAILURE, UNSPECIFIED Status: Acute Current Visit: No (7) Elevated INR SNOMED Code(s): 765728089 ICD Code: R79.1 - ABNORMAL COAGULATION PROFILE Status: Acute Current Visit: No (8) Elevated troponin SNOMED Code(s): 201370781, 905087552, 777944743 ICD Code: R77.8 - OTHER SPECIFIED ABNORMALITIES OF PLASMA PROTEINS Status: Acute Current Visit: No (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 SNOMED Code(s): 6885609 ICD Code: I25.2 - OLD MYOCARDIAL INFARCTION Status: Chronic Current Visit: No (10) Peripheral edema SNOMED Code(s): 242322597 ICD Code: R60.9 - EDEMA, UNSPECIFIED Status: Acute Current Visit: No (11) Weakness SNOMED Code(s): 25935606 ICD Code: R53.1 - WEAKNESS Status: Acute Current Visit: No (12) CAD (coronary artery disease) SNOMED Code(s): 33993169 ICD Code: I25.10 - ATHSCL HEART DISEASE OF [place] CORONARY ARTERY W/O ANG PCTRS Status: Chronic Current Visit: No Qualifiers: Coronary Disease-Associated Artery/Lesion type: bypass graft Associated angina: without angina (13) COPD (chronic obstructive pulmonary disease) SNOMED Code(s): 75998209 ICD Code: J44.9 - CHRONIC OBSTRUCTIVE PULMONARY DISEASE, UNSPECIFIED Status: Chronic Current Visit: No Qualifiers: Chronic bronchitis type: unspecified (14) Cardiac pacemaker in situ SNOMED Code(s): 420638854 ICD Code: Z95.0 - PRESENCE OF CARDIAC PACEMAKER Status: Chronic Current Visit: No (15) HTN (hypertension) SNOMED Code(s): 84017719 ICD Code: I10 - ESSENTIAL (PRIMARY) HYPERTENSION Status: Chronic Current Visit: No Qualifiers: Hypertension type: essential hypertension (16) Hyperlipidemia SNOMED Code(s): 42552649 ICD Code: E78.5 - HYPERLIPIDEMIA, UNSPECIFIED Status: Chronic Current Visit: Yes (17) Chronic kidney disease, stage 3b SNOMED Code(s): 984087762 ICD Code: N18.32 - CHRONIC KIDNEY DISEASE, STAGE 3B Status: Chronic Current Visit: Yes (18) Encounter for palliative care SNOMED Code(s): 924645463, 074170562 ICD Code: Z51.5 - ENCOUNTER FOR PALLIATIVE CARE Status: Acute Current Visit: Yes Problem List Initiated/Reviewed/Updated: Yes Orders Last 24hrs: Active Orders 24 hr Category Date Time Status Patient Status [ADT] Routine ADT 04/10/21 14:04 Active Antiembolic Devices [RC] .PRN Care 04/10/21 14:08 Active Pulse Oximetry [RC] PRN Care 04/10/21 14:04 Active VTE/DVT Education [RC] DAILY Care 04/10/21 14:08 Active Vital Signs [RC] Q4H Care 04/10/21 14:04 Active Heart Healthy Diet [DIET] Diet 04/10/21 Dinner Active Chest 1V Frontal [CR] Stat Exams 04/10/21 10:21 Taken TROPONIN I [CHEM] Routine Lab 04/11/21 Ordered Acetaminophen [Tylenol Extra Strength] Med 04/10/21 11:33 Active 1,000 mg PO Q6H PRN Docusate Sodium/Sennosides [Senna Plus] Med 04/10/21 13:56 Active 2 tab PO DAILY PRN Furosemide [Lasix] Med 04/10/21 17:00 Active 40 mg IVPUSH BIDDIURETIC Melatonin Med 04/10/21 21:00 Active 9 mg PO BEDTIME Nitroglycerin [Nitrostat] Med 04/10/21 11:33 Active 0.4 mg SL Q5M PRN Pantoprazole [ProTONIX] Med 04/10/21 21:00 Active 40 mg PO BID Potassium Chloride [Klor-Con 10] Med 04/11/21 09:00 Active 30 meq PO DAILY Sodium Chloride 0.9% [Saline Flush] Med 04/10/21 10:21 Active 10 ml FLUSH ASDIRECTED PRN carvediloL [Coreg] Med 04/10/21 21:00 Active 6.25 mg PO BID metOLazone [Zaroxolyn] Med 04/11/21 09:00 Active 5 mg PO DAILY traZODone Med 04/10/21 21:00 Active 50 mg PO BEDTIME DVT/VTE Prophylaxis Reflex [OM.PC] Per Unit Routine Oth 04/10/21 14:04 Ordered Saline Lock Insert [OM.PC] Routine Oth 04/10/21 10:21 Ordered Resuscitation Status Routine Resus Stat 04/10/21 14:04 Ordered EKG 12 Lead [EK] Routine Ther 04/10/21 10:21 Stop Req Medication Orders Acetaminophen (Acetaminophen 500 Mg Tab) 1,000 mg PO Q6H PRN PRN Reason: Pain Carvedilol (Carvedilol 6.25 Mg Tab) 6.25 mg PO BID SITA Furosemide (Furosemide 40 Mg/4 Ml Vial) 40 mg IVPUSH BIDDIURETIC SITA Last Admin: 04/10/21 17:30 Dose: 40 mg Documented by: BLANKA Melatonin (Melatonin 3 Mg Tab) 9 mg PO BEDTIME SITA Metolazone (Metolazone 5 Mg Tab) 5 mg PO DAILY SITA Nitroglycerin (Nitroglycerin 0.4 Mg Tab.Sl) 0.4 mg SL Q5M PRN PRN Reason: Chest Pain Pantoprazole Sodium (Pantoprazole 40 Mg Tab.Cr) 40 mg PO BID SITA Potassium Chloride (Potassium Chloride 10 Meq Tab.Er) 30 meq PO DAILY [facility] Senna/Docusate Sodium (Docusate Sodium/Sennosides 50-8.6 Mg Tab) 2 tab PO DAILY PRN PRN Reason: Constipation Sodium Chloride (Sodium Chloride 0.9% 10 Ml Syringe) 10 ml FLUSH ASDIRECTED PRN PRN Reason: Keep Vein Open Last Admin: 04/10/21 11:07 Dose: 10 ml Documented by: EVELYN Trazodone HCl (Trazodone 50 Mg Tab) 50 mg PO BEDTIME [facility] Assessment/Plan Comment:: 1. Elevated INR: Hold Coumadin at this time. We will try to coordinate with his director of people/primary care physician to determine goals of care regarding anticoagulation 2. Acute exacerbation of congestive heart failure: Patient was being treated at home with Bumex. He been gaining weight steadily and having increasing dyspnea on exertion over the last several weeks. Patient given metolazone and IV Lasix in the emergency department. Patient will continue with this treatment and daily weights to help return his low weight to baseline 3. Weakness/dyspnea on exertion: PT/OT, treatments as above 4. Chronic medical problems: Continue home medications as indicated 5. DVT prophylaxis: SCDs at night, compression hose during the day. We will restart Coumadin and/or enoxaparin and/or NOAC as indicated in consultation with primary care/cardiology 6. GI prophylaxis: Heart healthy diet, home medicationpantoprazole 40 mg twice daily 7. Disposition: Patient will need significant diuresis and OT/PT evaluation and treatment, likely 3 to 4 days
[2021-04-10] MEDS: Pantoprazole 40 MG Tab.CR PO SCH (20:31)
[2021-04-10] MEDS: Melatonin 3 MG Tab PO SCH (20:31)
[2021-04-10] MEDS: traZODone 50 MG Tab PO SCH (20:31)
[2021-04-10] MEDS: Carvedilol 6.25 MG Tab PO SCH (20:34)
[2021-04-10] MEDS ORDERED: Melatonin 3 MG Tab PO SCH (21:00)
[2021-04-11] MEDS: Potassium Chloride 10 MEQ Tab.ER PO SCH (08:38)
[2021-04-11] MEDS: Metolazone 5 MG Tab PO SCH (08:38)
[2021-04-11] MEDS: Carvedilol 6.25 MG Tab PO SCH ×2 (08:39→19:59)
[2021-04-11] MEDS: Pantoprazole 40 MG Tab.CR PO SCH ×2 (08:39→19:59)
--- NOTE | 2021-04-11 08:57 | PCM.PN ---
- General Info Date of Service: 04/11/21 Admission Dx/Problem (Free Text): Admission Diagnosis/Problem Admission Diagnosis/Problem CHF, Congestive heart failure Subjective Update: Patient feels well today and he is concerned that he is having some dark stools, he otherwise has no acute complaints and no new pain Functional Status: Reports: Pain Controlled, Tolerating Diet, Ambulating, Urinating - Review of Systems General: Reports: No Symptoms HEENT: Reports: No Symptoms Pulmonary: Reports: Shortness of Breath Cardiovascular: Reports: No Symptoms Gastrointestinal: Reports: No Symptoms Genitourinary: Reports: No Symptoms Musculoskeletal: Reports: No Symptoms Skin: Reports: No Symptoms Neurological: Reports: No Symptoms Psychiatric: Reports: No Symptoms - Patient Data Vitals - Most Recent: Last Vital Signs Temp 37.2 C 04/11/21 04:00 Pulse 67 04/11/21 08:39 Resp 18 04/11/21 04:00 BP 118/52 L 04/11/21 08:39 Pulse Ox 97 04/11/21 04:00 Weight - Most Recent: 73.936 kg Lab Results Last 24 Hours: Laboratory Results - last 24 hr 04/10/21 04/10/21 04/10/21 Range/Units 10:49 10:49 10:49 WBC 7.1 (3.2-10.1) x10-3/uL RBC 3.03 L (3.90-5.90) x10(6)uL Hgb 8.4 L (12.9-17.7) g/dL Hct 27.1 L (38.3-50.1) % MCV 89.3 (80.8-98.7) fL MCH 27.7 (27.0-33.3) pg MCHC 31.0 (28.7-35.3) g/dL RDW 18.1 H (12.4-15.0) % Plt Count 220 (117-477) x10(3)uL MPV 8.5 (6.7-11.0) fL Neut % (Auto) 75.9 H (40.3-71.8) % Lymph % (Auto) 12.0 L (15.8-45.3) % Divide % (Auto) 10.9 (5.5-15.2) % Eos % (Auto) 0.7 (0.1-6.8) % Baso % (Auto) 0.5 (0.3-3.8) % Neut # (Auto) 5.4 (1.7-6.9) x10-3/uL Lymph # (Auto) 0.9 (0.5-4.5) x10-3/uL Divide # (Auto) 0.8 (0.0-1.2) x10-3/uL Eos # (Auto) 0.1 (0.0-0.6) x10-3/uL Baso # (Auto) 0.0 (0.0-0.3) x10-3/uL PT 59.4 H* (9.0-11.1) sec INR 6.20 H* (1.00-1.24) Sodium 137 (135-145) mmol/L Potassium 4.5 D (3.5-5.3) mmol/L Chloride 100 (100-110) mmol/L Carbon Dioxide 27 (21-32) mmol/L BUN 53 H (7-18) mg/dL Creatinine 1.9 H (0.70-1.30) mg/dL Est Cr Clr Drug Dosing 27.39 mL/min Estimated GFR (MDRD) 34 L (>60) BUN/Creatinine Ratio 27.9 H (9-20) Glucose 110 (80-116) mg/dL Calcium 8.6 (8.6-10.2) mg/dL Total Bilirubin 1.0 (0.1-1.3) mg/dL AST 28 H D (5-25) IU/L ALT 21 D (12-36) U/L Alkaline Phosphatase 139 H (56-112) IU/L Troponin I (4.0-60.3) pg/mL NT-Pro-B Natriuret Pep (<=450) pg/mL Total Protein 6.2 (6.0-8.0) g/dL Albumin 3.1 L (3.2-4.6) g/dL Globulin 3.1 g/dL Albumin/Globulin Ratio 1.0 SARS-CoV-2 RNA (MARCELINA) (NEGATIVE) 04/10/21 04/10/21 04/11/21 Range/Units 10:50 11:55 06:07 WBC (3.2-10.1) x10-3/uL RBC (3.90-5.90) x10(6)uL Hgb (12.9-17.7) g/dL Hct (38.3-50.1) % MCV (80.8-98.7) fL MCH (27.0-33.3) pg MCHC (28.7-35.3) g/dL RDW (12.4-15.0) % Plt Count (117-477) x10(3)uL MPV (6.7-11.0) fL Neut % (Auto) (40.3-71.8) % Lymph % (Auto) (15.8-45.3) % Divide % (Auto) (5.5-15.2) % Eos % (Auto) (0.1-6.8) % Baso % (Auto) (0.3-3.8) % Neut # (Auto) (1.7-6.9) x10-3/uL Lymph # (Auto) (0.5-4.5) x10-3/uL Divide # (Auto) (0.0-1.2) x10-3/uL Eos # (Auto) (0.0-0.6) x10-3/uL Baso # (Auto) (0.0-0.3) x10-3/uL PT (9.0-11.1) sec INR (1.00-1.24) Sodium (135-145) mmol/L Potassium (3.5-5.3) mmol/L Chloride (100-110) mmol/L Carbon Dioxide (21-32) mmol/L BUN (7-18) mg/dL Creatinine (0.70-1.30) mg/dL Est Cr Clr Drug Dosing mL/min Estimated GFR (MDRD) (>60) BUN/Creatinine Ratio (9-20) Glucose (80-116) mg/dL Calcium (8.6-10.2) mg/dL Total Bilirubin (0.1-1.3) mg/dL AST (5-25) IU/L ALT (12-36) U/L Alkaline Phosphatase (56-112) IU/L Troponin I 107.3 H* 119.9 H* (4.0-60.3) pg/mL NT-Pro-B Natriuret Pep 58988 H* (<=450) pg/mL Total Protein (6.0-8.0) g/dL Albumin (3.2-4.6) g/dL Globulin g/dL Albumin/Globulin Ratio SARS-CoV-2 RNA (MARCELINA) Negative (NEGATIVE) Med Orders - Current: Current Medications Acetaminophen (Acetaminophen 500 Mg Tab) 1,000 mg PO Q6H PRN PRN Reason: Pain Carvedilol (Carvedilol 6.25 Mg Tab) 6.25 mg PO BID [facility] Last Admin: 04/11/21 08:39 Dose: 6.25 mg Documented by: Furosemide (Furosemide 40 Mg/4 Ml Vial) 40 mg IVPUSH BIDDIURETIC [facility] Last Admin: 04/10/21 17:30 Dose: 40 mg Documented by: Melatonin (Melatonin 3 Mg Tab) 9 mg PO BEDTIME [facility] Last Admin: 04/10/21 20:31 Dose: 9 mg Documented by: Metolazone (Metolazone 5 Mg Tab) 5 mg PO DAILY [facility] Last Admin: 04/11/21 08:38 Dose: 5 mg Documented by: Nitroglycerin (Nitroglycerin 0.4 Mg Tab.Sl) 0.4 mg SL Q5M PRN PRN Reason: Chest Pain Pantoprazole Sodium (Pantoprazole 40 Mg Tab.Cr) 40 mg PO BID [facility] Last Admin: 04/11/21 08:39 Dose: 40 mg Documented by: Potassium Chloride (Potassium Chloride 10 Meq Tab.Er) 30 meq PO DAILY [facility] Last Admin: 04/11/21 08:38 Dose: 30 meq Documented by: Senna/Docusate Sodium (Docusate Sodium/Sennosides 50-8.6 Mg Tab) 2 tab PO DAILY PRN PRN Reason: Constipation Sodium Chloride (Sodium Chloride 0.9% 10 Ml Syringe) 10 ml FLUSH ASDIRECTED PRN PRN Reason: Keep Vein Open Last Admin: 04/10/21 11:07 Dose: 10 ml Documented by: Trazodone HCl (Trazodone 50 Mg Tab) 50 mg PO BEDTIME [facility] Last Admin: 04/10/21 20:31 Dose: 50 mg Documented by: Discontinued Medications Coenzyme Q10 (Ubidecarenone 100 Mg Cap) 100 mg PO DAILY [facility] Furosemide (Furosemide 40 Mg/4 Ml Vial) 40 mg IVPUSH NOW ONE Stop: 04/10/21 11:34 Last Admin: 04/10/21 12:17 Dose: 40 mg Documented by: Phytonadione 10 mg/ Sodium (Chloride) 51 mls @ 100 mls/hr IV NOW ONE Stop: 04/10/21 11:58 Last Admin: 04/10/21 12:17 Dose: 100 mls/hr Documented by: Melatonin (Melatonin 3 Mg Tab) 3 mg PO BEDTIME [facility] Metolazone (Metolazone 2.5 Mg Tab) 2.5 mg PO WEEKLY PRN PRN Reason: Edema Trazodone HCl (Trazodone 50 Mg Tab) 25 mg PO BEDTIME PRN PRN Reason: Insomnia Comments:: Patient is sitting in bedside chair next to the window eating breakfast - Exam Quality Assessment: Supplemental Oxygen, DVT Prophylaxis General: Alert, Oriented, Cooperative, No Acute Distress HEENT: EOMI Neck: Supple Lungs: Crackles Cardiovascular: Regular Rate, Murmurs GI/Abdominal Exam: Normal Bowel Sounds, Soft, Non-Tender Back Exam: Normal Inspection Extremities: Pedal Edema Peripheral Pulses: 2+: Radial (L), Radial (R) Skin: Ecchymosis Wound/Incisions: Dressing Dry and Intact, No Drainage Neurological: No New Focal Deficit Psy/Mental Status: Alert, Normal Affect, Normal Mood - Patient Data Lab Results Last 24 hrs: Laboratory Results - last 24 hr 04/10/21 04/10/21 04/10/21 Range/Units 10:49 10:49 10:49 WBC 7.1 (3.2-10.1) x10-3/uL RBC 3.03 L (3.90-5.90) x10(6)uL Hgb 8.4 L (12.9-17.7) g/dL Hct 27.1 L (38.3-50.1) % MCV 89.3 (80.8-98.7) fL MCH 27.7 (27.0-33.3) pg MCHC 31.0 (28.7-35.3) g/dL RDW 18.1 H (12.4-15.0) % Plt Count 220 (117-477) x10(3)uL MPV 8.5 (6.7-11.0) fL Neut % (Auto) 75.9 H (40.3-71.8) % Lymph % (Auto) 12.0 L (15.8-45.3) % Divide % (Auto) 10.9 (5.5-15.2) % Eos % (Auto) 0.7 (0.1-6.8) % Baso % (Auto) 0.5 (0.3-3.8) % Neut # (Auto) 5.4 (1.7-6.9) x10-3/uL Lymph # (Auto) 0.9 (0.5-4.5) x10-3/uL Divide # (Auto) 0.8 (0.0-1.2) x10-3/uL Eos # (Auto) 0.1 (0.0-0.6) x10-3/uL Baso # (Auto) 0.0 (0.0-0.3) x10-3/uL PT 59.4 H* (9.0-11.1) sec INR 6.20 H* (1.00-1.24) Sodium 137 (135-145) mmol/L Potassium 4.5 D (3.5-5.3) mmol/L Chloride 100 (100-110) mmol/L Carbon Dioxide 27 (21-32) mmol/L BUN 53 H (7-18) mg/dL Creatinine 1.9 H (0.70-1.30) mg/dL Est Cr Clr Drug Dosing 27.39 mL/min Estimated GFR (MDRD) 34 L (>60) BUN/Creatinine Ratio 27.9 H (9-20) Glucose 110 (80-116) mg/dL Calcium 8.6 (8.6-10.2) mg/dL Total Bilirubin 1.0 (0.1-1.3) mg/dL AST 28 H D (5-25) IU/L ALT 21 D (12-36) U/L Alkaline Phosphatase 139 H (56-112) IU/L Troponin I (4.0-60.3) pg/mL NT-Pro-B Natriuret Pep (<=450) pg/mL Total Protein 6.2 (6.0-8.0) g/dL Albumin 3.1 L (3.2-4.6) g/dL Globulin 3.1 g/dL Albumin/Globulin Ratio 1.0 SARS-CoV-2 RNA (MARCELINA) (NEGATIVE) 1104/10/21 04/11/21 Range/Units 10:50 11:55 06:07 WBC (3.2-10.1) x10-3/uL RBC (3.90-5.90) x10(6)uL Hgb (12.9-17.7) g/dL Hct (38.3-50.1) % MCV (80.8-98.7) fL MCH (27.0-33.3) pg MCHC (28.7-35.3) g/dL RDW (12.4-15.0) % Plt Count (117-477) x10(3)uL MPV (6.7-11.0) fL Neut % (Auto) (40.3-71.8) % Lymph % (Auto) (15.8-45.3) % Divide % (Auto) (5.5-15.2) % Eos % (Auto) (0.1-6.8) % Baso % (Auto) (0.3-3.8) % Neut # (Auto) (1.7-6.9) x10-3/uL Lymph # (Auto) (0.5-4.5) x10-3/uL Divide # (Auto) (0.0-1.2) x10-3/uL Eos # (Auto) (0.0-0.6) x10-3/uL Baso # (Auto) (0.0-0.3) x10-3/uL PT (9.0-11.1) sec INR (1.00-1.24) Sodium (135-145) mmol/L Potassium (3.5-5.3) mmol/L Chloride (100-110) mmol/L Carbon Dioxide (21-32) mmol/L BUN (7-18) mg/dL Creatinine (0.70-1.30) mg/dL Est Cr Clr Drug Dosing mL/min Estimated GFR (MDRD) (>60) BUN/Creatinine Ratio (9-20) Glucose (80-116) mg/dL Calcium (8.6-10.2) mg/dL Total Bilirubin (0.1-1.3) mg/dL AST (5-25) IU/L ALT (12-36) U/L Alkaline Phosphatase (56-112) IU/L Troponin I 107.3 H* 119.9 H* (4.0-60.3) pg/mL NT-Pro-B Natriuret Pep 05481 H* (<=450) pg/mL Total Protein (6.0-8.0) g/dL Albumin (3.2-4.6) g/dL Globulin g/dL Albumin/Globulin Ratio SARS-CoV-2 RNA (MARCELINA) Negative (NEGATIVE) Result Diagrams: 04/10/21 10:49 04/10/21 10:49 Sepsis Event Note - Evaluation Sepsis Screening Result: No Definite Risk - Focused Exam Vital Signs: Vital Signs Temp Pulse Pulse Resp BP BP Pulse Ox 04/11/21 08:39 67 118/52 L 04/11/21 04:00 37.2 C 72 18 129/60 97 04/11/21 00:00 36.6 C 74 18 134/66 97 - Problem List & Annotations (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 SNOMED Code(s): 50836398, 797909090 Code(s): I50.40 - UNSP COMBINED SYSTOLIC AND DIASTOLIC (CONGESTIVE) HRT FAIL Status: Chronic Current Visit: Yes (2) Abdominal ascites SNOMED Code(s): 965355684 Code(s): R18.8 - OTHER ASCITES Status: Acute Current Visit: No Qualifiers: Ascites type: other type Qualified Code(s): R18.8 - Other ascites (3) Abrasions of multiple sites SNOMED Code(s): 420366251, 129001294 Code(s): T07.XXXA - UNSPECIFIED MULTIPLE INJURIES, INITIAL ENCOUNTER Status: Acute Current Visit: No (4) Anemia SNOMED Code(s): 288229659 Code(s): D64.9 - ANEMIA, UNSPECIFIED Status: Chronic Current Visit: No (5) CHF exacerbation SNOMED Code(s): 990039238, 11639701051241 Code(s): I50.9 - HEART FAILURE, UNSPECIFIED Status: Acute Current Visit: No Qualifiers: Heart failure type: unspecified Qualified Code(s): I50.9 - Heart failure, unspecified (6) Decompensated heart failure SNOMED Code(s): 445131407 Code(s): I50.9 - HEART FAILURE, UNSPECIFIED Status: Acute Current Visit: No (7) Elevated INR SNOMED Code(s): 477752149 Code(s): R79.1 - ABNORMAL COAGULATION PROFILE Status: Acute Current Visit: No (8) Elevated troponin SNOMED Code(s): 731983773, 684906493, 484199464 Code(s): R77.8 - OTHER SPECIFIED ABNORMALITIES OF PLASMA PROTEINS Status: Acute Current Visit: No (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 SNOMED Code(s): 6322508 Code(s): I25.2 - OLD MYOCARDIAL INFARCTION Status: Chronic Current Visit: No (10) Peripheral edema SNOMED Code(s): 601446192 Code(s): R60.9 - EDEMA, UNSPECIFIED Status: Acute Current Visit: No (11) Weakness SNOMED Code(s): 66955326 Code(s): R53.1 - WEAKNESS Status: Acute Current Visit: No (12) CAD (coronary artery disease) SNOMED Code(s): 02547553 Code(s): I25.10 - ATHSCL HEART DISEASE OF [place] CORONARY ARTERY W/O ANG PCTRS Status: Chronic Current Visit: No Qualifiers: Coronary Disease-Associated Artery/Lesion type: bypass graft Associated angina: without angina (13) COPD (chronic obstructive pulmonary disease) SNOMED Code(s): 07453060 Code(s): J44.9 - CHRONIC OBSTRUCTIVE PULMONARY DISEASE, UNSPECIFIED Status: Chronic Current Visit: No Qualifiers: Chronic bronchitis type: unspecified (14) Cardiac pacemaker in situ SNOMED Code(s): 847155975 Code(s): Z95.0 - PRESENCE OF CARDIAC PACEMAKER Status: Chronic Current Visit: No (15) HTN (hypertension) SNOMED Code(s): 51928578 Code(s): I10 - ESSENTIAL (PRIMARY) HYPERTENSION Status: Chronic Current Visit: No Qualifiers: Hypertension type: essential hypertension (16) Hyperlipidemia SNOMED Code(s): 65499591 Code(s): E78.5 - HYPERLIPIDEMIA, UNSPECIFIED Status: Chronic Current Visit: Yes (17) Chronic kidney disease, stage 3b SNOMED Code(s): 083604587 Code(s): N18.32 - CHRONIC KIDNEY DISEASE, STAGE 3B Status: Chronic Current Visit: Yes (18) Encounter for palliative care SNOMED Code(s): 893097388, 862090030 Code(s): Z51.5 - ENCOUNTER FOR PALLIATIVE CARE Status: Acute Current Visit: Yes - Problem List Review Problem List Initiated/Reviewed/Updated: Yes - My Orders Last 24 Hours: My Active Orders 04/10/21 13:56 Docusate Sodium/Sennosides [Senna Plus] 2 tab PO DAILY PRN 04/10/21 14:04 Patient Status [ADT] Routine Pulse Oximetry [RC] PRN Vital Signs [RC] 04,08,12,16,20,00 DVT/VTE Prophylaxis Reflex [OM.PC] Per Unit Routine Resuscitation Status Routine 04/10/21 14:08 Antiembolic Devices [RC] .PRN VTE/DVT Education [RC] DAILY 04/10/21 Dinner Heart Healthy Diet [DIET] 04/10/21 17:00 Furosemide [Lasix] 40 mg IVPUSH BIDDIURETIC 04/10/21 18:16 OT Evaluation and Treatment [CONS] Routine PT Evaluation and Treatment [CONS] Routine 04/10/21 21:00 Melatonin 9 mg PO BEDTIME - Plan Plan:: 1. Elevated INR: Hold Coumadin at this time. 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 Acute exacerbation of congestive heart failure: Patient was being treated at home with Bumex. He been gaining weight steadily and having increasing dyspnea on exertion over the last several weeks. We will continue giving metolazone and IV Lasix twice daily, daily weights 3. Weakness/dyspnea on exertion: PT/OT, treatments as above 4. Chronic medical problems: Continue home medications as indicated 5. DVT prophylaxis: SCDs at night, compression hose during the day. We will restart Coumadin and/or enoxaparin and/or NOAC as indicated in consultation with primary care/cardiology 6. GI prophylaxis: Heart healthy diet, home medicationpantoprazole 40 mg twice daily 7. Disposition: Patient will need significant diuresis and OT/PT evaluation and treatment, likely 3 to 4 days
[2021-04-11] MEDS: Furosemide 40 MG/4 ML VIAL IVPUSH SCH ×2 (09:26→13:19)
[2021-04-11] MEDS: Sodium Chloride 0.9% 10 ML Syringe FLUSH PRN ×2 (09:26→13:19)
[2021-04-11] MEDS ORDERED: Warfarin Sliding Scale PO SCH (12:30)
[2021-04-11] MEDS: Enoxaparin 80 MG/0.8 ML Syringe SUBCUT SCH (13:19)
[2021-04-11] MEDS: Acetaminophen 500 MG Tab PO PRN (19:52)
[2021-04-11] MEDS: traZODone 50 MG Tab PO SCH (19:59)
[2021-04-11] MEDS: Melatonin 3 MG Tab PO SCH (19:59)
[2021-04-12] MEDS ORDERED: Potassium Chloride 20 MEQ Tab.ER PO ONE (07:52)
[2021-04-12] MEDS: Carvedilol 6.25 MG Tab PO SCH ×2 (08:16→21:29)
[2021-04-12] MEDS: Pantoprazole 40 MG Tab.CR PO SCH ×2 (08:16→20:37)
[2021-04-12] MEDS: Metolazone 5 MG Tab PO SCH (08:16)
[2021-04-12] MEDS: Furosemide 40 MG/4 ML VIAL IVPUSH SCH ×2 (08:16→13:32)
--- NOTE | 2021-04-12 08:44 | PCM.PN ---
- General Info Date of Service: 04/12/21 Admission Dx/Problem (Free Text): Admission Diagnosis/Problem Admission Diagnosis/Problem CHF, Congestive heart failure Subjective Update: Patient states that he has some occasional pain and points to his abdomen in the area of the right upper quadrant he otherwise has no new complaints today than difficulty sleeping Functional Status: Reports: Pain Controlled, Tolerating Diet, Ambulating, Urinating - Review of Systems General: Reports: No Symptoms HEENT: Reports: No Symptoms Pulmonary: Reports: No Symptoms Cardiovascular: Reports: No Symptoms Gastrointestinal: Reports: Abdominal Pain Genitourinary: Reports: No Symptoms Musculoskeletal: Reports: No Symptoms Skin: Reports: No Symptoms Neurological: Reports: No Symptoms Psychiatric: Reports: Other (Insomnia) - Patient Data Vitals - Most Recent: Last Vital Signs Temp 36.9 C 04/12/21 08:00 Pulse 76 04/12/21 08:16 Resp 16 04/12/21 08:00 BP 109/55 L 04/12/21 08:16 Pulse Ox 98 04/12/21 08:07 Weight - Most Recent: 74.162 kg I&O - Last 24 Hours: Intake & Output 04/11/21 04/12/21 04/12/21 22:59 06:59 14:59 Intake Total 240 Balance 240 Lab Results Last 24 Hours: Laboratory Results - last 24 hr 04/11/21 04/11/21 04/11/21 Range/Units 10:15 10:15 10:15 Hgb 7.4 L (12.9-17.7) g/dL Hct 23.5 L (38.3-50.1) % PT 13.0 H (9.0-11.1) sec INR 1.22 (1.00-1.24) Sodium (135-145) mmol/L Potassium (3.5-5.3) mmol/L Chloride (100-110) mmol/L Carbon Dioxide (21-32) mmol/L BUN (7-18) mg/dL Creatinine (0.70-1.30) mg/dL Est Cr Clr Drug Dosing mL/min Estimated GFR (MDRD) (>60) BUN/Creatinine Ratio (9-20) Glucose (80-116) mg/dL Calcium (8.6-10.2) mg/dL Blood Type O POSITIVE Gel Antibody Screen Negative Crossmatch See Detail 1104/11/21 04/11/21 Range/Units 14:10 18:05 22:05 Hgb 7.5 L 7.7 L 6.9 L* (12.9-17.7) g/dL Hct 23.2 L 24.1 L 21.7 L* (38.3-50.1) % PT (9.0-11.1) sec INR (1.00-1.24) Sodium (135-145) mmol/L Potassium (3.5-5.3) mmol/L Chloride (100-110) mmol/L Carbon Dioxide (21-32) mmol/L BUN (7-18) mg/dL Creatinine (0.70-1.30) mg/dL Est Cr Clr Drug Dosing mL/min Estimated GFR (MDRD) (>60) BUN/Creatinine Ratio (9-20) Glucose (80-116) mg/dL Calcium (8.6-10.2) mg/dL Blood Type Gel Antibody Screen Crossmatch 04/12/21 04/12/21 04/12/21 Range/Units 06:30 06:30 06:30 Hgb 6.8 L* (12.9-17.7) g/dL Hct 21.8 L* (38.3-50.1) % PT 12.7 H (9.0-11.1) sec INR 1.19 (1.00-1.24) Sodium 137 (135-145) mmol/L Potassium 3.0 L D (3.5-5.3) mmol/L Chloride 99 L (100-110) mmol/L Carbon Dioxide 28 (21-32) mmol/L BUN 56 H (7-18) mg/dL Creatinine 1.7 H (0.70-1.30) mg/dL Est Cr Clr Drug Dosing 29.62 mL/min Estimated GFR (MDRD) 38 L (>60) BUN/Creatinine Ratio 32.9 H (9-20) Glucose 94 (80-116) mg/dL Calcium 8.6 (8.6-10.2) mg/dL Blood Type Gel Antibody Screen Crossmatch Med Orders - Current: Current Medications Acetaminophen (Acetaminophen 500 Mg Tab) 1,000 mg PO Q6H PRN PRN Reason: Pain Last Admin: 04/11/21 19:52 Dose: 1,000 mg Documented by: Carvedilol (Carvedilol 6.25 Mg Tab) 6.25 mg PO BID [facility] Last Admin: 04/12/21 08:16 Dose: 6.25 mg Documented by: Enoxaparin Sodium (Enoxaparin 80 Mg/0.8 Ml Syringe) 70 mg SUBCUT Q24H [facility] Last Admin: 04/11/21 13:19 Dose: 70 mg Documented by: Furosemide (Furosemide 40 Mg/4 Ml Vial) 40 mg IVPUSH BIDDIURETIC [facility] Last Admin: 04/12/21 08:16 Dose: 40 mg Documented by: Sodium Chloride (Normal Saline) 250 mls @ 100 mls/hr IV ASDIRECTED [facility] Melatonin (Melatonin 3 Mg Tab) 9 mg PO BEDTIME [facility] Last Admin: 04/11/21 19:59 Dose: 9 mg Documented by: Metolazone (Metolazone 5 Mg Tab) 5 mg PO DAILY [facility] Last Admin: 04/12/21 08:16 Dose: 5 mg Documented by: Nitroglycerin (Nitroglycerin 0.4 Mg Tab.Sl) 0.4 mg SL Q5M PRN PRN Reason: Chest Pain Pantoprazole Sodium (Pantoprazole 40 Mg Tab.Cr) 40 mg PO BID [facility] Last Admin: 04/12/21 08:16 Dose: 40 mg Documented by: Potassium Chloride (Potassium Chloride 10 Meq Tab.Er) 30 meq PO DAILY [facility] Last Admin: 04/11/21 08:38 Dose: 30 meq Documented by: Senna/Docusate Sodium (Docusate Sodium/Sennosides 50-8.6 Mg Tab) 2 tab PO DAILY PRN PRN Reason: Constipation Sodium Chloride (Sodium Chloride 0.9% 10 Ml Syringe) 10 ml FLUSH ASDIRECTED PRN PRN Reason: Keep Vein Open Last Admin: 04/11/21 13:19 Dose: 10 ml Documented by: Trazodone HCl (Trazodone 50 Mg Tab) 50 mg PO BEDTIME [facility] Last Admin: 04/11/21 19:59 Dose: 50 mg Documented by: Warfarin Sodium (Warfarin 1 Mg Tab) 1 mg PO DAILY@1600 [facility] Last Admin: 04/11/21 16:36 Dose: 1 mg Documented by: Warfarin Sodium (Warfarin Sliding Scale) 1 each PO ASDIRECTED [facility] Warfarin Sodium (Warfarin 2.5 Mg Tab) 2.5 mg PO ONETIME ONE Stop: 04/12/21 16:01 Discontinued Medications Coenzyme Q10 (Ubidecarenone 100 Mg Cap) 100 mg PO DAILY [facility] Furosemide (Furosemide 40 Mg/4 Ml Vial) 40 mg IVPUSH NOW ONE Stop: 04/10/21 11:34 Last Admin: 04/10/21 12:17 Dose: 40 mg Documented by: Phytonadione 10 mg/ Sodium (Chloride) 51 mls @ 100 mls/hr IV NOW ONE Stop: 04/10/21 11:58 Last Admin: 04/10/21 12:17 Dose: 100 mls/hr Documented by: Melatonin (Melatonin 3 Mg Tab) 3 mg PO BEDTIME [facility] Metolazone (Metolazone 2.5 Mg Tab) 2.5 mg PO WEEKLY PRN PRN Reason: Edema Potassium Chloride (Potassium Chloride 20 Meq Tab.Er) 40 meq PO ONETIME ONE Stop: 04/12/21 07:53 Last Admin: 04/12/21 08:16 Dose: 40 meq Documented by: Trazodone HCl (Trazodone 50 Mg Tab) 25 mg PO BEDTIME PRN PRN Reason: Insomnia Comments:: Patient sitting in bedside chair eating breakfast - Exam Quality Assessment: Supplemental Oxygen, DVT Prophylaxis General: Alert, Oriented, Cooperative, No Acute Distress HEENT: EOMI Neck: Supple Lungs: Crackles Cardiovascular: Regular Rate, Gallops GI/Abdominal Exam: Normal Bowel Sounds, Soft, Non-Tender Back Exam: Normal Inspection Extremities: Pedal Edema Peripheral Pulses: 2+: Radial (L), Radial (R) Skin: Warm, Dry Neurological: No New Focal Deficit Psy/Mental Status: Alert, Normal Affect, Normal Mood - Patient Data Lab Results Last 24 hrs: Laboratory Results - last 24 hr 04/11/21 04/11/21 04/11/21 Range/Units 10:15 10:15 10:15 Hgb 7.4 L (12.9-17.7) g/dL Hct 23.5 L (38.3-50.1) % PT 13.0 H (9.0-11.1) sec INR 1.22 (1.00-1.24) Sodium (135-145) mmol/L Potassium (3.5-5.3) mmol/L Chloride (100-110) mmol/L Carbon Dioxide (21-32) mmol/L BUN (7-18) mg/dL Creatinine (0.70-1.30) mg/dL Est Cr Clr Drug Dosing mL/min Estimated GFR (MDRD) (>60) BUN/Creatinine Ratio (9-20) Glucose (80-116) mg/dL Calcium (8.6-10.2) mg/dL Blood Type O POSITIVE Gel Antibody Screen Negative Crossmatch See Detail 04/11/21 04/11/21 04/11/21 Range/Units 14:10 18:05 22:05 Hgb 7.5 L 7.7 L 6.9 L* (12.9-17.7) g/dL Hct 23.2 L 24.1 L 21.7 L* (38.3-50.1) % PT (9.0-11.1) sec INR (1.00-1.24) Sodium (135-145) mmol/L Potassium (3.5-5.3) mmol/L Chloride (100-110) mmol/L Carbon Dioxide (21-32) mmol/L BUN (7-18) mg/dL Creatinine (0.70-1.30) mg/dL Est Cr Clr Drug Dosing mL/min Estimated GFR (MDRD) (>60) BUN/Creatinine Ratio (9-20) Glucose (80-116) mg/dL Calcium (8.6-10.2) mg/dL Blood Type Gel Antibody Screen Crossmatch 04/12/21 04/12/21 04/12/21 Range/Units 06:30 06:30 06:30 Hgb 6.8 L* (12.9-17.7) g/dL Hct 21.8 L* (38.3-50.1) % PT 12.7 H (9.0-11.1) sec INR 1.19 (1.00-1.24) Sodium 137 (135-145) mmol/L Potassium 3.0 L D (3.5-5.3) mmol/L Chloride 99 L (100-110) mmol/L Carbon Dioxide 28 (21-32) mmol/L BUN 56 H (7-18) mg/dL Creatinine 1.7 H (0.70-1.30) mg/dL Est Cr Clr Drug Dosing 29.62 mL/min Estimated GFR (MDRD) 38 L (>60) BUN/Creatinine Ratio 32.9 H (9-20) Glucose 94 (80-116) mg/dL Calcium 8.6 (8.6-10.2) mg/dL Blood Type Gel Antibody Screen Crossmatch Result Diagrams: 04/12/21 06:30 04/12/21 06:30 Sepsis Event Note - Evaluation Sepsis Screening Result: No Definite Risk - Focused Exam Vital Signs: Vital Signs Temp Pulse Pulse Resp BP BP Pulse Ox 04/12/21 08:16 76 109/55 L 04/12/21 08:07 98 04/12/21 08:00 36.9 C 76 16 109/55 L 98 04/12/21 02:30 36.3 C 76 16 111/57 L 98 04/12/21 00:00 36.5 C 74 16 114/56 L 98 - Problem List & Annotations (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 SNOMED Code(s): 00794133, 107807320 Code(s): I50.40 - UNSP COMBINED SYSTOLIC AND DIASTOLIC (CONGESTIVE) HRT FAIL Status: Chronic Current Visit: Yes (2) Abdominal ascites SNOMED Code(s): 465971998 Code(s): R18.8 - OTHER ASCITES Status: Acute Current Visit: No Qualifiers: Ascites type: other type Qualified Code(s): R18.8 - Other ascites (3) Abrasions of multiple sites SNOMED Code(s): 415831845, 249515500 Code(s): T07.XXXA - UNSPECIFIED MULTIPLE INJURIES, INITIAL ENCOUNTER Status: Acute Current Visit: No (4) Anemia SNOMED Code(s): 563411407 Code(s): D64.9 - ANEMIA, UNSPECIFIED Status: Chronic Current Visit: Yes (5) CHF exacerbation SNOMED Code(s): 608823015, 06197092015607 Code(s): I50.9 - HEART FAILURE, UNSPECIFIED Status: Acute Current Visit: No Qualifiers: Heart failure type: unspecified Qualified Code(s): I50.9 - Heart failure, unspecified (6) Decompensated heart failure SNOMED Code(s): 166427972 Code(s): I50.9 - HEART FAILURE, UNSPECIFIED Status: Acute Current Visit: No (7) Elevated INR SNOMED Code(s): 162394326 Code(s): R79.1 - ABNORMAL COAGULATION PROFILE Status: Acute Current Visit: No (8) Elevated troponin SNOMED Code(s): 882938732, 834703632, 630463526 Code(s): R77.8 - OTHER SPECIFIED ABNORMALITIES OF PLASMA PROTEINS Status: Acute Current Visit: Yes (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 SNOMED Code(s): 9216018 Code(s): I25.2 - OLD MYOCARDIAL INFARCTION Status: Chronic Current Visit: No (10) Peripheral edema SNOMED Code(s): 213686953 Code(s): R60.9 - EDEMA, UNSPECIFIED Status: Acute Current Visit: No (11) Weakness SNOMED Code(s): 34232886 Code(s): R53.1 - WEAKNESS Status: Acute Current Visit: No (12) CAD (coronary artery disease) SNOMED Code(s): 75960222 Code(s): I25.10 - ATHSCL HEART DISEASE OF [place] CORONARY ARTERY W/O ANG PCTRS Status: Chronic Current Visit: No Qualifiers: Coronary Disease-Associated Artery/Lesion type: bypass graft Associated angina: without angina (13) COPD (chronic obstructive pulmonary disease) SNOMED Code(s): 11095473 Code(s): J44.9 - CHRONIC OBSTRUCTIVE PULMONARY DISEASE, UNSPECIFIED Status: Chronic Current Visit: No Qualifiers: Chronic bronchitis type: unspecified (14) Cardiac pacemaker in situ SNOMED Code(s): 644308486 Code(s): Z95.0 - PRESENCE OF CARDIAC PACEMAKER Status: Chronic Current V isit: No (15) HTN (hypertension) SNOMED Code(s): 70992593 Code(s): I10 - ESSENTIAL (PRIMARY) HYPERTENSION Status: Chronic Current Visit: No Qualifiers: Hypertension type: essential hypertension (16) Hyperlipidemia SNOMED Code(s): 58169150 Code(s): E78.5 - HYPERLIPIDEMIA, UNSPECIFIED Status: Chronic Current Visit: Yes (17) Chronic kidney disease, stage 3b SNOMED Code(s): 258338601 Code(s): N18.32 - CHRONIC KIDNEY DISEASE, STAGE 3B Status: Chronic Current Visit: Yes (18) Encounter for palliative care SNOMED Code(s): 341519650, 222172478 Code(s): Z51.5 - ENCOUNTER FOR PALLIATIVE CARE Status: Acute Current Visit: Yes (19) LV (left ventricular) mural thrombus SNOMED Code(s): 849777004412217 Code(s): I51.3 - INTRACARDIAC THROMBOSIS, NOT ELSEWHERE CLASSIFIED Status: Acute Current Visit: Yes - Problem List Review Problem List Initiated/Reviewed/Updated: Yes - My Orders Last 24 Hours: My Active Orders 04/11/21 08:57 Weight Daily [Height and Weight] [RC] 06 04/11/21 10:15 TYPE AND SCREEN [BBK] Routine 04/11/21 12:30 Warfarin Sliding Scale [Coumadin Sliding Scale] 1 each PO ASDIRECTED 04/11/21 13:00 Enoxaparin [Lovenox] 70 mg SUBCUT Q24H 04/11/21 16:00 Warfarin [Coumadin] 1 mg PO DAILY@1600 04/12/21 07:27 RED BLOOD CELLS LP [BBK] Routine Transfuse Red Blood Cells [COMM] Routine 04/12/21 07:30 Sodium Chloride 0.9% [Normal Saline] 250 ml IV ASDIRECTED 04/12/21 10:00 HEMOGLOBIN/HEMATOCRIT,HH [HEME] Q4H 04/12/21 14:00 HEMOGLOBIN/HEMATOCRIT,HH [HEME] Q4H 04/12/21 16:00 Warfarin [Coumadin] 2.5 mg PO ONETIME ONE 04/12/21 18:00 HEMOGLOBIN/HEMATOCRIT,HH [HEME] Q4H 04/13/21 12:23 INR,PT,PROTHROMBIN TIME [COAG] DAILY 04/14/21 12:23 INR,PT,PROTHROMBIN TIME [COAG] DAILY 04/15/21 12:23 INR,PT,PROTHROMBIN TIME [COAG] DAILY 04/16/21 12:23 INR,PT,PROTHROMBIN TIME [COAG] DAILY 04/17/21 12:23 INR,PT,PROTHROMBIN TIME [COAG] DAILY 04/18/21 12:23 INR,PT,PROTHROMBIN TIME [COAG] DAILY - Plan Plan:: 1. Elevated INR: INR normalized after receiving 10 units of vitamin K in the emergency department. See disposition for INR plan 2. Acute exacerbation of congestive heart failure: Patient was being treated at home with Bumex. He been gaining weight steadily and having increasing dyspnea on exertion over the last several weeks. We will continue giving metolazone and IV Lasix twice daily, daily weights -Daily weights have so far been unreliable due to different scales, patient will be weighed again later today on the same scale for reference 3. Weakness/dyspnea on exertion: PT/OT, treatments as above 4. Chronic medical problems: Continue home medications as indicated 5. DVT prophylaxis: SCDs at night, compression hose during the day. Enoxaparin bridge to therapeutic Coumadin 6. GI prophylaxis: Heart healthy diet, home medicationpantoprazole 40 mg twice daily 7. 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 He was found to have an LV apical thrombus following placement of watchman device and that is why he was restarted on anticoagulation. Cardiology strongly recommended that we continue anticoagulation and try to get his INR greater than 2. They would like his INR tightly controlled between 2 and 2.5. We will continue with diuresis and Lovenox while restarting Coumadin. When patient is therapeutic at 2.0 we will consider discharge, likely 2 to 3 days. 8. Anemia: Patient likely has some residual bleeding after having significantly elevated INR at 6.2 as found in the emergency department. We have restarted Lovenox and Coumadin as above. Patient will receive 1 unit of packed red blood cells today after hemoglobin of 6.8. We will continue to trend hemoglobin/hematocrit while trying to achieve therapeutic INR was stable H&H.
[2021-04-12] MEDS: Sodium Chloride 0.9% 250 ML IV SCH ×2 (09:17→20:10)
[2021-04-12] MEDS: Sodium Chloride 0.9% 10 ML Syringe FLUSH PRN ×3 (09:20→20:05)
[2021-04-12] MEDS: Potassium Chloride 10 MEQ Tab.ER PO SCH (09:35)
[2021-04-12] MEDS: Enoxaparin 80 MG/0.8 ML Syringe SUBCUT SCH (13:30)
[2021-04-12] MEDS ORDERED: Warfarin 2.5 MG Tab PO ONE (16:00)
[2021-04-12] MEDS: Acetaminophen 500 MG Tab PO PRN (17:10)
[2021-04-12] MEDS: Melatonin 3 MG Tab PO SCH (20:37)
[2021-04-12] MEDS: traZODone 50 MG Tab PO SCH (20:38)
[2021-04-13] MEDS: Furosemide 40 MG/4 ML VIAL IVPUSH SCH ×2 (08:27→13:27)
[2021-04-13] MEDS: Carvedilol 6.25 MG Tab PO SCH ×2 (08:27→20:46)
[2021-04-13] MEDS: Potassium Chloride 10 MEQ Tab.ER PO SCH (08:27)
[2021-04-13] MEDS: Pantoprazole 40 MG Tab.CR PO SCH ×2 (08:27→20:47)
[2021-04-13] MEDS: Metolazone 5 MG Tab PO SCH (08:27)
[2021-04-13] MEDS: Sodium Chloride 0.9% 10 ML Syringe FLUSH PRN ×2 (08:33→13:27)
--- NOTE | 2021-04-13 09:13 | PCM.PN ---
- General Info Date of Service: 04/13/21 Admission Dx/Problem (Free Text): Admission Diagnosis/Problem Admission Diagnosis/Problem CHF, Congestive heart failure Subjective Update: Patient states that he continues to feel better, no acute complaints. He did state that he had some difficulty breathing overnight but feels better this morning. Functional Status: Reports: Pain Controlled, Tolerating Diet, Ambulating, Urinating - Review of Systems General: Reports: No Symptoms HEENT: Reports: No Symptoms Pulmonary: Reports: No Symptoms Cardiovascular: Reports: No Symptoms Gastrointestinal: Reports: No Symptoms Genitourinary: Reports: No Symptoms Musculoskeletal: Reports: No Symptoms Skin: Reports: No Symptoms Neurological: Reports: No Symptoms Psychiatric: Reports: No Symptoms - Patient Data Vitals - Most Recent: Last Vital Signs Temp 36.3 C 04/13/21 05:00 Pulse 80 04/13/21 08:27 Resp 16 04/13/21 05:00 BP 102/52 L 04/13/21 08:27 Pulse Ox 95 04/13/21 05:00 Weight - Most Recent: 72.348 kg I&O - Last 24 Hours: Intake & Output 04/12/21 04/13/21 04/13/21 22:59 06:59 14:59 Intake Total 0 350 Balance 0 350 Lab Results Last 24 Hours: Laboratory Results - last 24 hr 04/11/21 04/12/21 04/13/21 Range/Units 10:15 14:00 06:15 Hgb 8.4 L (12.9-17.7) g/dL Hct 26.5 L (38.3-50.1) % PT 14.4 H (9.0-11.1) sec INR 1.36 H (1.00-1.24) Blood Type O POSITIVE Gel Antibody Screen Negative Crossmatch See Detail Med Orders - Current: Current Medications Acetaminophen (Acetaminophen 500 Mg Tab) 1,000 mg PO Q6H PRN PRN Reason: Pain Last Admin: 04/12/21 17:10 Dose: 1,000 mg Documented by: Carvedilol (Carvedilol 6.25 Mg Tab) 6.25 mg PO BID [facility] Last Admin: 04/13/21 08:27 Dose: 6.25 mg Documented by: Enoxaparin Sodium (Enoxaparin 80 Mg/0.8 Ml Syringe) 70 mg SUBCUT Q24H [facility] Last Admin: 04/12/21 13:30 Dose: 70 mg Documented by: Furosemide (Furosemide 40 Mg/4 Ml Vial) 40 mg IVPUSH BIDDIURETIC [facility] Last Admin: 04/13/21 08:27 Dose: 40 mg Documented by: Sodium Chloride (Normal Saline) 250 mls @ 100 mls/hr IV ASDIRECTED [facility] Last Admin: 04/12/21 20:10 Dose: 100 mls/hr Documented by: Melatonin (Melatonin 3 Mg Tab) 9 mg PO BEDTIME [facility] Last Admin: 04/12/21 20:37 Dose: 9 mg Documented by: Metolazone (Metolazone 5 Mg Tab) 5 mg PO DAILY [facility] Last Admin: 04/13/21 08:27 Dose: 5 mg Documented by: Nitroglycerin (Nitroglycerin 0.4 Mg Tab.Sl) 0.4 mg SL Q5M PRN PRN Reason: Chest Pain Pantoprazole Sodium (Pantoprazole 40 Mg Tab.Cr) 40 mg PO BID [facility] Last Admin: 04/13/21 08:27 Dose: 40 mg Documented by: Potassium Chloride (Potassium Chloride 10 Meq Tab.Er) 30 meq PO DAILY [facility] Last Admin: 04/13/21 08:27 Dose: 30 meq Documented by: Senna/Docusate Sodium (Docusate Sodium/Sennosides 50-8.6 Mg Tab) 2 tab PO DAILY PRN PRN Reason: Constipation Sodium Chloride (Sodium Chloride 0.9% 10 Ml Syringe) 10 ml FLUSH ASDIRECTED PRN PRN Reason: Keep Vein Open Last Admin: 04/13/21 08:33 Dose: 10 ml Documented by: Trazodone HCl (Trazodone 50 Mg Tab) 50 mg PO BEDTIME [facility] Last Admin: 04/12/21 20:38 Dose: 50 mg Documented by: Warfarin Sodium (Warfarin 1 Mg Tab) 1 mg PO DAILY@1600 [facility] Last Admin: 04/11/21 16:36 Dose: 1 mg Documented by: Warfarin Sodium (Warfarin Sliding Scale) 1 each PO ASDIRECTED [facility] Discontinued Medications Coenzyme Q10 (Ubidecarenone 100 Mg Cap) 100 mg PO DAILY [facility] Furosemide (Furosemide 40 Mg/4 Ml Vial) 40 mg IVPUSH NOW ONE Stop: 04/10/21 11:34 Last Admin: 04/10/21 12:17 Dose: 40 mg Documented by: Phytonadione 10 mg/ Sodium (Chloride) 51 mls @ 100 mls/hr IV NOW ONE Stop: 04/10/21 11:58 Last Admin: 04/10/21 12:17 Dose: 100 mls/hr Documented by: Melatonin (Melatonin 3 Mg Tab) 3 mg PO BEDTIME [facility] Metolazone (Metolazone 2.5 Mg Tab) 2.5 mg PO WEEKLY PRN PRN Reason: Edema Potassium Chloride (Potassium Chloride 20 Meq Tab.Er) 40 meq PO ONETIME ONE Stop: 04/12/21 07:53 Last Admin: 04/12/21 08:16 Dose: 40 meq Documented by: Trazodone HCl (Trazodone 50 Mg Tab) 25 mg PO BEDTIME PRN PRN Reason: Insomnia Warfarin Sodium (Warfarin 2.5 Mg Tab) 2.5 mg PO ONETIME ONE Stop: 04/12/21 16:01 Last Admin: 04/12/21 16:44 Dose: 2.5 mg Documented by: Comments:: Patient sitting in bedside chair eating breakfast - Exam Quality Assessment: Supplemental Oxygen, DVT Prophylaxis General: Alert, Oriented, Cooperative, No Acute Distress HEENT: EOMI Neck: Supple Lungs: Crackles Cardiovascular: Regular Rate, Murmurs GI/Abdominal Exam: Normal Bowel Sounds Back Exam: Normal Inspection Extremities: Pedal Edema Peripheral Pulses: 2+: Radial (L), Radial (R) Skin: Warm, Dry Neurological: No New Focal Deficit Psy/Mental Status: Alert, Normal Affect, Normal Mood - Patient Data Lab Results Last 24 hrs: Laboratory Results - last 24 hr 04/11/21 04/12/21 04/13/21 Range/Units 10:15 14:00 06:15 Hgb 8.4 L (12.9-17.7) g/dL Hct 26.5 L (38.3-50.1) % PT 14.4 H (9.0-11.1) sec INR 1.36 H (1.00-1.24) Blood Type O POSITIVE Gel Antibody Screen Negative Crossmatch See Detail Result Diagrams: 04/12/21 14:00 04/12/21 06:30 Sepsis Event Note - Evaluation Sepsis Screening Result: No Definite Risk - Focused Exam Vital Signs: Vital Signs Temp Temp Pulse Pulse Pulse Resp BP 04/13/21 08:27 80 102/52 L 04/13/21 05:00 36.3 C 66 16 04/13/21 00:00 36.3 C 36.3 C 68 16 04/12/21 23:00 36.6 C 65 18 04/12/21 21:29 68 116/67 BP Pulse Ox 04/13/21 08:27 04/13/21 05:00 114/50 L 95 04/13/21 00:00 111/61 95 04/12/21 23:00 114/58 L 97 04/12/21 21:29 - Problem List & Annotations (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 SNOMED Code(s): 80178832, 142854352 Code(s): I50.40 - UNSP COMBINED SYSTOLIC AND DIASTOLIC (CONGESTIVE) HRT FAIL Status: Chronic Current Visit: Yes (2) Abdominal ascites SNOMED Code(s): 082037274 Code(s): R18.8 - OTHER ASCITES Status: Acute Current Visit: No Qualifiers: Ascites type: other type Qualified Code(s): R18.8 - Other ascites (3) Abrasions of multiple sites SNOMED Code(s): 030385527, 959508166 Code(s): T07.XXXA - UNSPECIFIED MULTIPLE INJURIES, INITIAL ENCOUNTER Status: Acute Current Visit: No (4) Anemia SNOMED Code(s): 677122737 Code(s): D64.9 - ANEMIA, UNSPECIFIED Status: Chronic Current Visit: Yes (5) CHF exacerbation SNOMED Code(s): 249375523, 26194980775310 Code(s): I50.9 - HEART FAILURE, UNSPECIFIED Status: Acute Current Visit: No Qualifiers: Heart failure type: unspecified Qualified Code(s): I50.9 - Heart failure, unspecified (6) Decompensated heart failure SNOMED Code(s): 763878430 Code(s): I50.9 - HEART FAILURE, UNSPECIFIED Status: Acute Current Visit: No (7) Elevated INR SNOMED Code(s): 989525981 Code(s): R79.1 - ABNORMAL COAGULATION PROFILE Status: Acute Current Visit: No (8) Elevated troponin SNOMED Code(s): 119197135, 403263945, 302843871 Code(s): R77.8 - OTHER SPECIFIED ABNORMALITIES OF PLASMA PROTEINS Status: Acute Current Visit: Yes (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 SNOMED Code(s): 6816560 Code(s): I25.2 - OLD MYOCARDIAL INFARCTION Status: Chronic Current Visit: No (10) Peripheral edema SNOMED Code(s): 808937665 Code(s): R60.9 - EDEMA, UNSPECIFIED Status: Acute Current Visit: No (11) Weakness SNOMED Code(s): 69250744 Code(s): R53.1 - WEAKNESS Status: Acute Current Visit: No (12) CAD (coronary artery disease) SNOMED Code(s): 82765364 Code(s): I25.10 - ATHSCL HEART DISEASE OF [place] CORONARY ARTERY W/O ANG PCTRS Status: Chronic Current Visit: No Qualifiers: Coronary Disease-Associated Artery/Lesion type: bypass graft Associated angina: without angina (13) COPD (chronic obstructive pulmonary disease) SNOMED Code(s): 33959835 Code(s): J44.9 - CHRONIC OBSTRUCTIVE PULMONARY DISEASE, UNSPECIFIED Status: Chronic Current Visit: No Qualifiers: Chronic bronchitis type: unspecified (14) Cardiac pacemaker in situ SNOMED Code(s): 932600555 Code(s): Z95.0 - PRESENCE OF CARDIAC PACEMAKER Status: Chronic Current Visit: No (15) HTN (hypertension) SNOMED Code(s): 73020398 Code(s): I10 - ESSENTIAL (PRIMARY) HYPERTENSION Status: Chronic Current Visit: No Qualifiers: Hypertension type: essential hypertension (16) Hyperlipidemia SNOMED Code(s): 68197805 Code(s): E78.5 - HYPERLIPIDEMIA, UNSPECIFIED Status: Chronic Current Visit: Yes (17) Chronic kidney disease, stage 3b SNOMED Code(s): 566588490 Code(s): N18.32 - CHRONIC KIDNEY DISEASE, STAGE 3B Status: Chronic Current Visit: Yes (18) Encounter for palliative care SNOMED Code(s): 683700118, 737411650 Code(s): Z51.5 - ENCOUNTER FOR PALLIATIVE CARE Status: Acute Current Visit: Yes (19) LV (left ventricular) mural thrombus SNOMED Code(s): 326682886407868 Code(s): I51.3 - INTRACARDIAC THROMBOSIS, NOT ELSEWHERE CLASSIFIED Status: Acute Current Visit: Yes - Problem List Review Problem List Initiated/Reviewed/Updated: Yes - My Orders Last 24 Hours: My Active Orders 04/12/21 15:20 Transfuse Red Blood Cells [COMM] Routine 04/14/21 12:23 INR,PT,PROTHROMBIN TIME [COAG] DAILY 04/15/21 12:23 INR,PT,PROTHROMBIN TIME [COAG] DAILY 04/16/21 12:23 INR,PT,PROTHROMBIN TIME [COAG] DAILY 04/17/21 12:23 INR,PT,PROTHROMBIN TIME [COAG] DAILY 04/18/21 12:23 INR,PT,PROTHROMBIN TIME [COAG] DAILY - Plan Plan:: 1. Elevated INR: INR normalized after receiving 10 units of vitamin K in the emergency department. See disposition for INR plan 2. Acute exacerbation of congestive heart failure: Patient was being treated at home with Bumex. He been gaining weight steadily and having increasing dyspnea on exertion over the last several weeks. We will continue giving metolazone and IV Lasix twice daily, daily weights -Daily weight decreased from yesterday, lower extremity edema significantly improved 3. Weakness/dyspnea on exertion: PT/OT, treatments as above 4. Chronic medical problems: Continue home medications as indicated 5. DVT prophylaxis: Enoxaparin bridge to therapeutic Coumadin 6. GI prophylaxis: Heart healthy diet, home medicationpantoprazole 40 mg twice daily 7. 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 He was found to have an LV apical thrombus following placement of watchman device and that is why he was restarted on anticoagulation. Cardiology strongly recommended that we continue anticoagulation and try to get his INR greater than 2. They would like his INR tightly controlled between 2 and 2.5. We will continue with Lovenox while restarting Coumadin. When patient is therapeutic at 2.0 we will consider discharge, likely 1 to 2 days. Note that patient has been on Coumadin for quite some time in the past and understands Coumadin use. Patient will be sent home on Coumadin tightly controlled as above. I spent some time today explaining to the patient how to use metolazone with Lasix. He will need to keep a close eye on his daily weights and adjust metolazone and Lasix use to maintain daily weights and therefore control CHF.
[2021-04-13] MEDS: Enoxaparin 80 MG/0.8 ML Syringe SUBCUT SCH (13:26)
[2021-04-13] MEDS ORDERED: Warfarin 2.5 MG Tab PO ONE (16:00)
[2021-04-13] MEDS: Melatonin 3 MG Tab PO SCH (20:47)
[2021-04-13] MEDS: traZODone 50 MG Tab PO SCH (20:47)
[2021-04-14] MEDS: Furosemide 40 MG/4 ML VIAL IVPUSH SCH ×2 (08:41→13:01)
[2021-04-14] MEDS: Carvedilol 6.25 MG Tab PO SCH ×2 (08:42→20:53)
[2021-04-14] MEDS: Potassium Chloride 10 MEQ Tab.ER PO SCH ×2 (08:42→20:53)
[2021-04-14] MEDS: Metolazone 5 MG Tab PO SCH (08:43)
[2021-04-14] MEDS: Pantoprazole 40 MG Tab.CR PO SCH ×2 (08:43→20:53)
[2021-04-14] MEDS: Sodium Chloride 0.9% 10 ML Syringe FLUSH PRN ×2 (08:47→13:02)
--- NOTE | 2021-04-14 10:23 | PCM.PN ---
- General Info Date of Service: 04/14/21 Subjective Update: He is feeling better, still some fluid he feels in his belly and his legs but they are improved. He states he feels best around 150s. He had BM yesterday that was more sanchez and not as dark as when he came in. Pharmacy verified what doses he took when his Coumadin was restarted and they were the correct doses. His was admitted to [facility] since he has been hospitalized and he states she is doing well. He would like Home Health services on going home and PT/OT recommended services at home. - Patient Data Vitals - Most Recent: Last Vital Signs Temp 97.4 F 04/14/21 04:00 Pulse 70 04/14/21 08:42 Resp 18 04/14/21 04:00 BP 105/60 04/14/21 08:42 Pulse Ox 97 04/14/21 04:00 Weight - Most Recent: 153 lb 2 oz Lab Results Last 24 Hours: Laboratory Results - last 24 hr 04/14/21 04/14/21 04/14/21 Range/Units 06:20 06:20 06:20 WBC 6.1 (3.2-10.1) x10-3/uL RBC 3.36 L (3.90-5.90) x10(6)uL Hgb 9.3 L (12.9-17.7) g/dL Hct 29.2 L (38.3-50.1) % MCV 87.0 (80.8-98.7) fL MCH 27.7 (27.0-33.3) pg MCHC 31.9 (28.7-35.3) g/dL RDW 16.8 H (12.4-15.0) % Plt Count 183 (117-477) x10(3)uL MPV 8.5 (6.7-11.0) fL Neut % (Auto) 73.6 H (40.3-71.8) % Lymph % (Auto) 11.4 L (15.8-45.3) % Swisher % (Auto) 12.4 (5.5-15.2) % Eos % (Auto) 2.3 (0.1-6.8) % Baso % (Auto) 0.3 (0.3-3.8) % Neut # (Auto) 4.5 (1.7-6.9) x10-3/uL Lymph # (Auto) 0.7 (0.5-4.5) x10-3/uL Swisher # (Auto) 0.8 (0.0-1.2) x10-3/uL Eos # (Auto) 0.1 (0.0-0.6) x10-3/uL Baso # (Auto) 0.0 (0.0-0.3) x10-3/uL PT 16.0 H (9.0-11.1) sec INR 1.52 H (1.00-1.24) Sodium 136 (135-145) mmol/L Potassium 3.0 L (3.5-5.3) mmol/L Chloride 96 L (100-110) mmol/L Carbon Dioxide 33 H (21-32) mmol/L BUN 43 H D (7-18) mg/dL Creatinine 1.7 H (0.70-1.30) mg/dL Est Cr Clr Drug Dosing 29.62 mL/min Estimated GFR (MDRD) 38 L (>60) BUN/Creatinine Ratio 25.3 H (9-20) Glucose 91 (80-116) mg/dL Calcium 8.8 (8.6-10.2) mg/dL Med Orders - Current: Current Medications Acetaminophen (Acetaminophen 500 Mg Tab) 1,000 mg PO Q6H PRN PRN Reason: Pain Last Admin: 04/12/21 17:10 Dose: 1,000 mg Documented by: Carvedilol (Carvedilol 6.25 Mg Tab) 6.25 mg PO BID [facility] Last Admin: 04/14/21 08:42 Dose: 6.25 mg Documented by: Enoxaparin Sodium (Enoxaparin 80 Mg/0.8 Ml Syringe) 70 mg SUBCUT Q24H [facility] Last Admin: 04/13/21 13:26 Dose: 70 mg Documented by: Furosemide (Furosemide 40 Mg/4 Ml Vial) 40 mg IVPUSH BIDDIURETIC [facility] Last Admin: 04/14/21 08:41 Dose: 40 mg Documented by: Sodium Chloride (Normal Saline) 250 mls @ 100 mls/hr IV ASDIRECTED [facility] Last Admin: 04/12/21 20:10 Dose: 100 mls/hr Documented by: Melatonin (Melatonin 3 Mg Tab) 9 mg PO BEDTIME [facility] Last Admin: 04/13/21 20:47 Dose: 9 mg Documented by: Metolazone (Metolazone 5 Mg Tab) 5 mg PO DAILY [facility] Last Admin: 04/14/21 08:43 Dose: 5 mg Documented by: Nitroglycerin (Nitroglycerin 0.4 Mg Tab.Sl) 0.4 mg SL Q5M PRN PRN Reason: Chest Pain Pantoprazole Sodium (Pantoprazole 40 Mg Tab.Cr) 40 mg PO BID [facility] Last Admin: 04/14/21 08:43 Dose: 40 mg Documented by: Potassium Chloride (Potassium Chloride 10 Meq Tab.Er) 30 meq PO BID [facility] Last Admin: 04/14/21 08:42 Dose: 30 meq Documented by: Senna/Docusate Sodium (Docusate Sodium/Sennosides 50-8.6 Mg Tab) 2 tab PO DAILY PRN PRN Reason: Constipation Sodium Chloride (Sodium Chloride 0.9% 10 Ml Syringe) 10 ml FLUSH ASDIRECTED PRN PRN Reason: Keep Vein Open Last Admin: 04/14/21 08:47 Dose: 10 ml Documented by: Trazodone HCl (Trazodone 50 Mg Tab) 50 mg PO BEDTIME [facility] Last Admin: 04/13/21 20:47 Dose: 50 mg Documented by: Warfarin Sodium (Warfarin Sliding Scale) 1 each PO ASDIRECTED [facility] Warfarin Sodium (Warfarin 2.5 Mg Tab) 2.5 mg PO ONETIME ONE Stop: 04/14/21 16:01 Discontinued Medications Coenzyme Q10 (Ubidecarenone 100 Mg Cap) 100 mg PO DAILY [facility] Furosemide (Furosemide 40 Mg/4 Ml Vial) 40 mg IVPUSH NOW ONE Stop: 04/10/21 11:34 Last Admin: 04/10/21 12:17 Dose: 40 mg Documented by: Phytonadione 10 mg/ Sodium (Chloride) 51 mls @ 100 mls/hr IV NOW ONE Stop: 04/10/21 11:58 Last Admin: 04/10/21 12:17 Dose: 100 mls/hr Documented by: Melatonin (Melatonin 3 Mg Tab) 3 mg PO BEDTIME [facility] Metolazone (Metolazone 2.5 Mg Tab) 2.5 mg PO WEEKLY PRN PRN Reason: Edema Potassium Chloride (Potassium Chloride 10 Meq Tab.Er) 30 meq PO DAILY [facility] Last Admin: 04/13/21 08:27 Dose: 30 meq Documented by: Potassium Chloride (Potassium Chloride 20 Meq Tab.Er) 40 meq PO ONETIME ONE Stop: 04/12/21 07:53 Last Admin: 04/12/21 08:16 Dose: 40 meq Documented by: Trazodone HCl (Trazodone 50 Mg Tab) 25 mg PO BEDTIME PRN PRN Reason: Insomnia Warfarin Sodium (Warfarin 1 Mg Tab) 1 mg PO DAILY@1600 [facility] Last Admin: 04/11/21 16:36 Dose: 1 mg Documented by: Warfarin Sodium (Warfarin 2.5 Mg Tab) 2.5 mg PO ONETIME ONE Stop: 04/12/21 16:01 Last Admin: 04/12/21 16:44 Dose: 2.5 mg Documented by: Warfarin Sodium (Warfarin 2.5 Mg Tab) 2.5 mg PO ONETIME ONE Stop: 04/13/21 16:01 Last Admin: 04/13/21 15:32 Dose: 2.5 mg Documented by: - Exam Quality Assessment: No: Supplemental Oxygen General: Alert, Oriented, Cooperative Lungs: Clear to Auscultation, Normal Respiratory Effort, Decreased Breath Sounds (LLL), Crackles (Bibasilar). No: Wheezing Cardiovascular: Regular Rate, Irregular Rhythm GI/Abdominal Exam: Normal Bowel Sounds, Soft, Non-Tender, No Distention, Other (SQ edema) (Male) Exam: Deferred Extremities: Pedal Edema (L midshin to midfoot: 2+ Right midshin to midfoot: 1+) Peripheral Pulses: 2+: Radial (L), Radial (R) Skin: Warm, Dry, Intact - Patient Data Lab Results Last 24 hrs: Laboratory Results - last 24 hr 04/14/21 04/14/21 04/14/21 Range/Units 06:20 06:20 06:20 WBC 6.1 (3.2-10.1) x10-3/uL RBC 3.36 L (3.90-5.90) x10(6)uL Hgb 9.3 L (12.9-17.7) g/dL Hct 29.2 L (38.3-50.1) % MCV 87.0 (80.8-98.7) fL MCH 27.7 (27.0-33.3) pg MCHC 31.9 (28.7-35.3) g/dL RDW 16.8 H (12.4-15.0) % Plt Count 183 (117-477) x10(3)uL MPV 8.5 (6.7-11.0) fL Neut % (Auto) 73.6 H (40.3-71.8) % Lymph % (Auto) 11.4 L (15.8-45.3) % Swisher % (Auto) 12.4 (5.5-15.2) % Eos % (Auto) 2.3 (0.1-6.8) % Baso % (Auto) 0.3 (0.3-3.8) % Neut # (Auto) 4.5 (1.7-6.9) x10-3/uL Lymph # (Auto) 0.7 (0.5-4.5) x10-3/uL Swisher # (Auto) 0.8 (0.0-1.2) x10-3/uL Eos # (Auto) 0.1 (0.0-0.6) x10-3/uL Baso # (Auto) 0.0 (0.0-0.3) x10-3/uL PT 16.0 H (9.0-11.1) sec INR 1.52 H (1.00-1.24) Sodium 136 (135-145) mmol/L Potassium 3.0 L (3.5-5.3) mmol/L Chloride 96 L (100-110) mmol/L Carbon Dioxide 33 H (21-32) mmol/L BUN 43 H D (7-18) mg/dL Creatinine 1.7 H (0.70-1.30) mg/dL Est Cr Clr Drug Dosing 29.62 mL/min Estimated GFR (MDRD) 38 L (>60) BUN/Creatinine Ratio 25.3 H (9-20) Glucose 91 (80-116) mg/dL Calcium 8.8 (8.6-10.2) mg/dL Result Diagrams: 04/14/21 06:20 04/14/21 06:20 Sepsis Event Note - Evaluation Sepsis Screening Result: No Definite Risk - Focused Exam Vital Signs: Vital Signs Temp Temp Pulse Pulse Resp BP BP 11/12/21 08:42 70 105/60 04/14/21 04:00 97.4 F 68 18 115/64 04/13/21 23:22 97.1 F 71 18 111/61 Pulse Ox 04/14/21 08:42 04/14/21 04:00 97 04/13/21 23:22 97 - Problem List & Annotations (1) LV (left ventricular) mural thrombus SNOMED Code(s): 679659543603327 Code(s): I51.3 - INTRACARDIAC THROMBOSIS, NOT ELSEWHERE CLASSIFIED Status: Acute Current Visit: Yes (2) Hypokalemia SNOMED Code(s): 43742572 Code(s): E87.6 - HYPOKALEMIA Status: Acute Current Visit: No (3) Anemia SNOMED Code(s): 793346063 Code(s): D64.9 - ANEMIA, UNSPECIFIED Status: Chronic Current Visit: Yes (4) CHF (congestive heart failure) SNOMED Code(s): 64899530 Code(s): I50.9 - HEART FAILURE, UNSPECIFIED Status: Chronic Current Visit: Yes Qualifiers: Heart failure type: combined systolic and diastolic (5) Weakness SNOMED Code(s): 04257407 Code(s): R53.1 - WEAKNESS Status: Acute Current Visit: No (6) Chronic kidney disease, stage 3b SNOMED Code(s): 569919908 Code(s): N18.32 - CHRONIC KIDNEY DISEASE, STAGE 3B Status: Chronic Current Visit: Yes (7) Hyperlipidemia SNOMED Code(s): 84730515 Code(s): E78.5 - HYPERLIPIDEMIA, UNSPECIFIED Status: Chronic Current Visit: Yes (8) COPD (chronic obstructive pulmonary disease) SNOMED Code(s): 38793766 Code(s): J44.9 - CHRONIC OBSTRUCTIVE PULMONARY DISEASE, UNSPECIFIED Status: Chronic Current Visit: No Qualifiers: Chronic bronchitis type: unspecified (9) Cardiac pacemaker in situ SNOMED Code(s): 476008725 Code(s): Z95.0 - PRESENCE OF CARDIAC PACEMAKER Status: Chronic Current Visit: No - Problem List Review Problem List Initiated/Reviewed/Updated: Yes - My Orders Last 24 Hours: My Active Orders 04/14/21 09:00 Potassium Chloride [Klor-Con 10] 30 meq PO BID 04/14/21 16:00 Warfarin [Coumadin] 2.5 mg PO ONETIME ONE - Plan Plan:: 1. Acute anemia: Hgb 9.3, continue to monitor. 2. Elevated INR: Resolved, INR 1.5 today, continue to bridge with Lovenox 70 mg q24h, Pharmacy to adjust dose. 3. Acute exacerbation of congestive heart failure: metolazone and IV Lasix twice daily, daily weights, weight down 6 lbs today. 4. Weakness: PT/OT on discharge with home health. 5. DVT prophylaxis: Enoxaparin bridge to therapeutic Coumadin 6. Disposition: He was found to have an LV apical thrombus following placement of watchman device and that is why he was restarted on anticoagulation. Cardiology strongly recommended that we continue anticoagulation and try to get his INR greater than 2. They would like his INR tightly controlled between 2 and 2.5. We will continue with Lovenox while restarting Coumadin. When patient is therapeutic at 2.0 we will consider discharge, likely 1 to 2 days.
[2021-04-14] MEDS: Enoxaparin 80 MG/0.8 ML Syringe SUBCUT SCH (13:00)
[2021-04-14] MEDS ORDERED: Warfarin 2.5 MG Tab PO ONE (16:00)
[2021-04-14] MEDS: Melatonin 3 MG Tab PO SCH (20:53)
[2021-04-14] MEDS: traZODone 50 MG Tab PO SCH (20:53)
[2021-04-14] MEDS: Acetaminophen 500 MG Tab PO PRN (20:53)
[2021-04-15] MEDS: Furosemide 40 MG/4 ML VIAL IVPUSH SCH (08:43)
[2021-04-15] MEDS ORDERED: Metolazone 5 MG Tab PO PRN (08:47)
[2021-04-15] MEDS: Potassium Chloride 10 MEQ Tab.ER PO SCH ×2 (08:50→20:32)
[2021-04-15] MEDS: Pantoprazole 40 MG Tab.CR PO SCH ×2 (08:50→20:37)
[2021-04-15] MEDS: Carvedilol 6.25 MG Tab PO SCH ×2 (08:50→20:35)
--- NOTE | 2021-04-15 10:38 | PCM.PN ---
- General Info Date of Service: 04/15/21 Subjective Update: Cal's weight came down to 149.6 lbs today, legs are better but belly still feels distended. Has not had bowel movement for 2 days. He states he usually takes Colace at home and that works for him. No shortness of breath. - Patient Data Vitals - Most Recent: Last Vital Signs Temp 97.7 F 04/15/21 08:00 Pulse 64 04/15/21 08:50 Resp 16 04/15/21 08:00 BP 96/55 L 04/15/21 08:50 Pulse Ox 98 04/15/21 08:00 Weight - Most Recent: 149 lb 9.6 oz I&O - Last 24 Hours: Intake & Output 04/14/21 04/15/21 04/15/21 22:59 06:59 14:59 Intake Total 150 Balance 150 Lab Results Last 24 Hours: Laboratory Results - last 24 hr 04/15/21 04/15/21 04/15/21 Range/Units 06:12 06:12 06:12 Hgb 10.0 L (12.9-17.7) g/dL Hct 31.2 L (38.3-50.1) % PT 15.9 H (9.0-11.1) sec INR 1.51 H (1.00-1.24) Sodium 124 L D (135-145) mmol/L Potassium 3.2 L (3.5-5.3) mmol/L Chloride 93 L (100-110) mmol/L Carbon Dioxide 34 H (21-32) mmol/L BUN 45 H (7-18) mg/dL Creatinine 1.7 H (0.70-1.30) mg/dL Est Cr Clr Drug Dosing 29.38 mL/min Estimated GFR (MDRD) 38 L (>60) BUN/Creatinine Ratio 26.5 H (9-20) Glucose 90 (80-116) mg/dL Calcium 9.0 (8.6-10.2) mg/dL Med Orders - Current: Current Medications Acetaminophen (Acetaminophen 500 Mg Tab) 1,000 mg PO Q6H PRN PRN Reason: Pain Last Admin: 04/14/21 20:53 Dose: 1,000 mg Documented by: Carvedilol (Carvedilol 6.25 Mg Tab) 6.25 mg PO BID [facility] Last Admin: 04/15/21 08:50 Dose: 6.25 mg Documented by: Docusate Sodium (Docusate Sodium 100 Mg Cap) 100 mg PO DAILY PRN PRN Reason: Constipation Enoxaparin Sodium (Enoxaparin 80 Mg/0.8 Ml Syringe) 70 mg SUBCUT Q24H [facility] Last Admin: 04/14/21 13:00 Dose: 70 mg Documented by: Furosemide (Furosemide 20 Mg Tab) 20 mg PO BIDDIURETIC [facility] Sodium Chloride (Normal Saline) 250 mls @ 100 mls/hr IV ASDIRECTED [facility] Last Admin: 04/12/21 20:10 Dose: 100 mls/hr Documented by: Melatonin (Melatonin 3 Mg Tab) 9 mg PO BEDTIME [facility] Last Admin: 04/14/21 20:53 Dose: 9 mg Documented by: Metolazone (Metolazone 5 Mg Tab) 2.5 mg PO DAILY PRN PRN Reason: weight gain > 3lbs Nitroglycerin (Nitroglycerin 0.4 Mg Tab.Sl) 0.4 mg SL Q5M PRN PRN Reason: Chest Pain Pantoprazole Sodium (Pantoprazole 40 Mg Tab.Cr) 40 mg PO BID [facility] Last Admin: 04/15/21 08:50 Dose: 40 mg Documented by: Potassium Chloride (Potassium Chloride 10 Meq Tab.Er) 30 meq PO BID [facility] Last Admin: 04/15/21 08:50 Dose: 30 meq Documented by: Senna/Docusate Sodium (Docusate Sodium/Sennosides 50-8.6 Mg Tab) 2 tab PO DAILY PRN PRN Reason: Constipation Sodium Chloride (Sodium Chloride 0.9% 10 Ml Syringe) 10 ml FLUSH ASDIRECTED PRN PRN Reason: Keep Vein Open Last Admin: 04/14/21 13:02 Dose: 10 ml Documented by: Trazodone HCl (Trazodone 50 Mg Tab) 50 mg PO BEDTIME [facility] Last Admin: 04/14/21 20:53 Dose: 50 mg Documented by: Warfarin Sodium (Warfarin Sliding Scale) 1 each PO ASDIRECTED [facility] Warfarin Sodium (Warfarin 3 Mg Tab) 3 mg PO 1600 [facility] Stop: 04/15/21 16:01 Discontinued Medications Coenzyme Q10 (Ubidecarenone 100 Mg Cap) 100 mg PO DAILY [facility] Furosemide (Furosemide 40 Mg/4 Ml Vial) 40 mg IVPUSH NOW ONE Stop: 04/10/21 11:34 Last Admin: 04/10/21 12:17 Dose: 40 mg Documented by: Furosemide (Furosemide 40 Mg/4 Ml Vial) 40 mg IVPUSH BIDDIURETIC [facility] Last Admin: 04/15/21 08:43 Dose: Not Given Documented by: Phytonadione 10 mg/ Sodium (Chloride) 51 mls @ 100 mls/hr IV NOW ONE Stop: 04/10/21 11:58 Last Admin: 04/10/21 12:17 Dose: 100 mls/hr Documented by: Melatonin (Melatonin 3 Mg Tab) 3 mg PO BEDTIME [facility] Metolazone (Metolazone 5 Mg Tab) 5 mg PO DAILY [facility] Last Admin: 04/14/21 08:43 Dose: 5 mg Documented by: Metolazone (Metolazone 2.5 Mg Tab) 2.5 mg PO WEEKLY PRN PRN Reason: Edema Potassium Chloride (Potassium Chloride 10 Meq Tab.Er) 30 meq PO DAILY [facility] Last Admin: 04/13/21 08:27 Dose: 30 meq Documented by: Potassium Chloride (Potassium Chloride 20 Meq Tab.Er) 40 meq PO ONETIME ONE Stop: 04/12/21 07:53 Last Admin: 04/12/21 08:16 Dose: 40 meq Documented by: Trazodone HCl (Trazodone 50 Mg Tab) 25 mg PO BEDTIME PRN PRN Reason: Insomnia Warfarin Sodium (Warfarin 1 Mg Tab) 1 mg PO DAILY@1600 [facility] Last Admin: 04/11/21 16:36 Dose: 1 mg Documented by: Warfarin Sodium (Warfarin 2.5 Mg Tab) 2.5 mg PO ONETIME ONE Stop: 04/12/21 16:01 Last Admin: 04/12/21 16:44 Dose: 2.5 mg Documented by: Warfarin Sodium (Warfarin 2.5 Mg Tab) 2.5 mg PO ONETIME ONE Stop: 04/13/21 16:01 Last Admin: 04/13/21 15:32 Dose: 2.5 mg Documented by: Warfarin Sodium (Warfarin 2.5 Mg Tab) 2.5 mg PO ONETIME ONE Stop: 04/14/21 16:01 Last Admin: 04/14/21 15:50 Dose: 2.5 mg Documented by: - Exam General: Alert, Oriented, Cooperative, No Acute Distress Lungs: Clear to Auscultation, Normal Respiratory Effort, Decreased Breath Sounds (LLL). No: Crackles, Wheezing Cardiovascular: Regular Rate, Irregular Rhythm GI/Abdominal Exam: Normal Bowel Sounds, Soft, Non-Tender, Distended, Hernia (reducible, umbilical) Extremities: Pedal Edema (1+ BLE) Peripheral Pulses: 2+: Radial (L), Radial (R) - Patient Data Lab Results Last 24 hrs: Laboratory Results - last 24 hr 04/15/21 04/15/21 04/15/21 Range/Units 06:12 06:12 06:12 Hgb 10.0 L (12.9-17.7) g/dL Hct 31.2 L (38.3-50.1) % PT 15.9 H (9.0-11.1) sec INR 1.51 H (1.00-1.24) Sodium 124 L D (135-145) mmol/L Potassium 3.2 L (3.5-5.3) mmol/L Chloride 93 L (100-110) mmol/L Carbon Dioxide 34 H (21-32) mmol/L BUN 45 H (7-18) mg/dL Creatinine 1.7 H (0.70-1.30) mg/dL Est Cr Clr Drug Dosing 29.38 mL/min Estimated GFR (MDRD) 38 L (>60) BUN/Creatinine Ratio 26.5 H (9-20) Glucose 90 (80-116) mg/dL Calcium 9.0 (8.6-10.2) mg/dL Result Diagrams: 04/15/21 06:12 04/15/21 06:12 Sepsis Event Note - Evaluation Sepsis Screening Result: No Definite Risk - Focused Exam Vital Signs: Vital Signs Temp Temp Pulse Pulse Pulse Resp BP 04/15/21 08:50 64 96/55 L 04/15/21 08:00 97.7 F 64 16 04/15/21 00:00 97.2 F 78 16 BP Pulse Ox 04/15/21 08:50 04/15/21 08:00 96/55 L 98 04/15/21 00:00 104/62 96 - Problem List & Annotations (1) LV (left ventricular) mural thrombus SNOMED Code(s): 394090153984600 Code(s): I51.3 - INTRACARDIAC THROMBOSIS, NOT ELSEWHERE CLASSIFIED Status: Acute Current Visit: Yes (2) Hypokalemia SNOMED Code(s): 48204668 Code(s): E87.6 - HYPOKALEMIA Status: Acute Current Visit: No (3) Anemia SNOMED Code(s): 352698931 Code(s): D64.9 - ANEMIA, UNSPECIFIED Status: Chronic Current Visit: Yes (4) CHF (congestive heart failure) SNOMED Code(s): 44237210 Code(s): I50.9 - HEART FAILURE, UNSPECIFIED Status: Chronic Current Visit: Yes Qualifiers: Heart failure type: combined systolic and diastolic (5) Weakness SNOMED Code(s): 18319189 Code(s): R53.1 - WEAKNESS Status: Acute Current Visit: No (6) Chronic kidney disease, stage 3b SNOMED Code(s): 606464798 Code(s): N18.32 - CHRONIC KIDNEY DISEASE, STAGE 3B Status: Chronic Current Visit: Yes (7) Hyperlipidemia SNOMED Code(s): 12576213 Code(s): E78.5 - HYPERLIPIDEMIA, UNSPECIFIED Status: Chronic Current Visit: Yes (8) COPD (chronic obstructive pulmonary disease) SNOMED Code(s): 73170134 Code(s): J44.9 - CHRONIC OBSTRUCTIVE PULMONARY DISEASE, UNSPECIFIED Status: Chronic Current Visit: No Qualifiers: Chronic bronchitis type: unspecified (9) Cardiac pacemaker in situ SNOMED Code(s): 594266529 Code(s): Z95.0 - PRESENCE OF CARDIAC PACEMAKER Status: Chronic Current Visit: No - Problem List Review Problem List Initiated/Reviewed/Updated: Yes - My Orders Last 24 Hours: My Active Orders 04/15/21 08:47 metOLazone [Zaroxolyn] 2.5 mg PO DAILY PRN 04/15/21 09:59 Docusate Sodium [Colace] 100 mg PO DAILY PRN 04/15/21 14:00 Furosemide [Lasix] 20 mg PO BIDDIURETIC 04/16/21 06:00 BASIC METABOLIC PANEL,BMP [CHEM] Routine - Plan Plan:: 1. Acute anemia: Improved Hgb 10.0, continue to monitor with H&H. 2. Subtherapeutic INR: INR 1.51 today, continue to bridge with Lovenox 70 mg q24h, Pharmacy to adjust dose. 3. Acute exacerbation of congestive heart failure: Change Lasix to 20 mg po bid and Metolazone 2.5 mg daily as needed weight gain >3 lbs, daily weights, weight down 4 lbs today, 10 lbs since 04/13. Colace as needed constipation. If he's still having a lot of abdominal edema will change to Torsemide. 4. Hyponatremia/hypokalemia: Na dropped to 124 today, decrease diuretics; K improved to 3.2, continue KCl 30 mEq bid. Recheck BMP tomorrow. 5. Weakness: PT/OT on discharge with home health. 6. Disposition: Cardiology strongly recommended that we continue anticoagulation and they would like his INR tightly controlled between 2 and 2.5 due to LV thrombus(he was on Eliquis prior to Watchman device procedure). We will continue with Lovenox until INR close to 2.0 with Coumadin. When patient is therapeutic at 2.0 we will consider discharge, likely 1 to 2 days.
[2021-04-15] MEDS: Docusate Sodium 100 MG Cap PO PRN (11:01)
[2021-04-15] MEDS: Enoxaparin 80 MG/0.8 ML Syringe SUBCUT SCH (13:07)
[2021-04-15] MEDS: Furosemide 20 MG Tab PO SCH (13:07)
[2021-04-15] MEDS ORDERED: Warfarin 3 MG Tab PO SCH (16:00)
[2021-04-15] MEDS: traZODone 50 MG Tab PO SCH (20:32)
[2021-04-15] MEDS: Melatonin 3 MG Tab PO SCH (20:32)
[2021-04-15] MEDS: Acetaminophen 500 MG Tab PO PRN (20:32)
[2021-04-15] MEDS: Hydrocortisone 2.5% Crm 30 GM Tube TOP PRN (22:16)
[2021-04-16] MEDS: Furosemide 20 MG Tab PO SCH ×2 (07:45→13:22)
[2021-04-16] MEDS: Carvedilol 6.25 MG Tab PO SCH ×2 (08:11→20:33)
[2021-04-16] MEDS: Potassium Chloride 10 MEQ Tab.ER PO SCH ×2 (08:12→20:34)
[2021-04-16] MEDS: Pantoprazole 40 MG Tab.CR PO SCH ×2 (08:12→20:34)
[2021-04-16] MEDS: Enoxaparin 80 MG/0.8 ML Syringe SUBCUT SCH (13:22)
--- NOTE | 2021-04-16 15:07 | PCM.PN ---
- General Info Date of Service: 04/16/21 Subjective Update: Cal states feeling better today, had worsening shortness of breath yesterday, nursing rechecked his weight in afternoon and had gone up 3 lbs so metolazone was given. His weight is 150 today. He stated today that [facility] called him and let him know that they had an adjacent room to his 's open up and wondered if he was interested in taking it. He asked if I thought he would benefit from that even if in the short-term; I advised that I think it would be benefit to him, he could get stronger, have meals made for him, could have Home health PT/OT and nursing doing INR checks. He has been hospitalized and ER visits more frequently over the last 6 months, believe he would benefit from someone helping care for him and have some respite from being primary caregiver for his . He stated he wanted to talk to Mary Ann Fernández, Discharge planning about going to [facility] tomorrow. - Patient Data Vitals - Most Recent: Last Vital Signs Temp 97.5 F 04/16/21 08:00 Pulse 74 04/16/21 08:11 Resp 16 04/16/21 08:00 BP 105/60 04/16/21 08:11 Pulse Ox 97 04/16/21 08:00 Weight - Most Recent: 150 lb Lab Results Last 24 Hours: Laboratory Results - last 24 hr 04/16/21 04/16/21 Range/Units 06:20 06:20 PT 15.8 H (9.0-11.1) sec INR 1.50 H (1.00-1.24) Sodium 136 D (135-145) mmol/L Potassium 3.5 (3.5-5.3) mmol/L Chloride 97 L (100-110) mmol/L Carbon Dioxide 33 H (21-32) mmol/L BUN 50 H (7-18) mg/dL Creatinine 1.6 H (0.70-1.30) mg/dL Est Cr Clr Drug Dosing 31.30 mL/min Estimated GFR (MDRD) 41 L (>60) BUN/Creatinine Ratio 31.3 H (9-20) Glucose 91 (80-116) mg/dL Calcium 8.8 (8.6-10.2) mg/dL Med Orders - Current: Current Medications Acetaminophen (Acetaminophen 500 Mg Tab) 1,000 mg PO Q6H PRN PRN Reason: Pain Last Admin: 04/15/21 20:32 Dose: 1,000 mg Documented by: Carvedilol (Carvedilol 6.25 Mg Tab) 6.25 mg PO BID [facility] Last Admin: 04/16/21 08:11 Dose: 6.25 mg Documented by: Docusate Sodium (Docusate Sodium 100 Mg Cap) 100 mg PO DAILY PRN PRN Reason: Constipation Last Admin: 04/15/21 11:01 Dose: 100 mg Documented by: Enoxaparin Sodium (Enoxaparin 80 Mg/0.8 Ml Syringe) 70 mg SUBCUT Q24H [facility] Last Admin: 04/16/21 13:22 Dose: 70 mg Documented by: Furosemide (Furosemide 20 Mg Tab) 20 mg PO BIDDIURETIC [facility] Last Admin: 04/16/21 13:22 Dose: 20 mg Documented by: Hydrocortisone (Hydrocortisone 2.5% Crm 30 Gm Tube) 0 gm TOP BID PRN PRN Reason: Itching Last Admin: 04/15/21 22:16 Dose: 30 gm Documented by: Sodium Chloride (Normal Saline) 250 mls @ 100 mls/hr IV ASDIRECTED [facility] Last Admin: 04/12/21 20:10 Dose: 100 mls/hr Documented by: Melatonin (Melatonin 3 Mg Tab) 9 mg PO BEDTIME [facility] Last Admin: 04/15/21 20:32 Dose: 9 mg Documented by: Metolazone (Metolazone 5 Mg Tab) 2.5 mg PO DAILY PRN PRN Reason: weight gain > 3lbs Last Admin: 04/15/21 17:08 Dose: 2.5 mg Documented by: Nitroglycerin (Nitroglycerin 0.4 Mg Tab.Sl) 0.4 mg SL Q5M PRN PRN Reason: Chest Pain Pantoprazole Sodium (Pantoprazole 40 Mg Tab.Cr) 40 mg PO BID [facility] Last Admin: 04/16/21 08:12 Dose: 40 mg Documented by: Potassium Chloride (Potassium Chloride 10 Meq Tab.Er) 30 meq PO BID [facility] Last Admin: 04/16/21 08:12 Dose: 30 meq Documented by: Senna/Docusate Sodium (Docusate Sodium/Sennosides 50-8.6 Mg Tab) 2 tab PO DAILY PRN PRN Reason: Constipation Last Admin: 04/16/21 07:45 Dose: 2 tab Documented by: Sodium Chloride (Sodium Chloride 0.9% 10 Ml Syringe) 10 ml FLUSH ASDIRECTED PRN PRN Reason: Keep Vein Open Last Admin: 04/14/21 13:02 Dose: 10 ml Documented by: Trazodone HCl (Trazodone 50 Mg Tab) 50 mg PO BEDTIME [facility] Last Admin: 04/15/21 20:32 Dose: 50 mg Documented by: Warfarin Sodium (Warfarin Sliding Scale) 1 each PO ASDIRECTED [facility] Warfarin Sodium (Warfarin 2 Mg Tab) 4 mg PO ONETIME ONE Stop: 04/16/21 16:01 Discontinued Medications Coenzyme Q10 (Ubidecarenone 100 Mg Cap) 100 mg PO DAILY [facility] Furosemide (Furosemide 40 Mg/4 Ml Vial) 40 mg IVPUSH NOW ONE Stop: 04/10/21 11:34 Last Admin: 04/10/21 12:17 Dose: 40 mg Documented by: Furosemide (Furosemide 40 Mg/4 Ml Vial) 40 mg IVPUSH BIDDIURETIC [facility] Last Admin: 04/15/21 08:43 Dose: Not Given Documented by: Phytonadione 10 mg/ Sodium (Chloride) 51 mls @ 100 mls/hr IV NOW ONE Stop: 04/10/21 11:58 Last Admin: 04/10/21 12:17 Dose: 100 mls/hr Documented by: Melatonin (Melatonin 3 Mg Tab) 3 mg PO BEDTIME [facility] Metolazone (Metolazone 5 Mg Tab) 5 mg PO DAILY [facility] Last Admin: 04/14/21 08:43 Dose: 5 mg Documented by: Metolazone (Metolazone 2.5 Mg Tab) 2.5 mg PO WEEKLY PRN PRN Reason: Edema Potassium Chloride (Potassium Chloride 10 Meq Tab.Er) 30 meq PO DAILY [facility] Last Admin: 04/13/21 08:27 Dose: 30 meq Documented by: Potassium Chloride (Potassium Chloride 20 Meq Tab.Er) 40 meq PO ONETIME ONE Stop: 04/12/21 07:53 Last Admin: 04/12/21 08:16 Dose: 40 meq Documented by: Trazodone HCl (Trazodone 50 Mg Tab) 25 mg PO BEDTIME PRN PRN Reason: Insomnia Warfarin Sodium (Warfarin 1 Mg Tab) 1 mg PO DAILY@1600 [facility] Last Admin: 04/11/21 16:36 Dose: 1 mg Documented by: Warfarin Sodium (Warfarin 2.5 Mg Tab) 2.5 mg PO ONETIME ONE Stop: 04/12/21 16:01 Last Admin: 04/12/21 16:44 Dose: 2.5 mg Documented by: Warfarin Sodium (Warfarin 2.5 Mg Tab) 2.5 mg PO ONETIME ONE Stop: 04/13/21 16:01 Last Admin: 04/13/21 15:32 Dose: 2.5 mg Documented by: Warfarin Sodium (Warfarin 2.5 Mg Tab) 2.5 mg PO ONETIME ONE Stop: 04/14/21 16:01 Last Admin: 04/14/21 15:50 Dose: 2.5 mg Documented by: Warfarin Sodium (Warfarin 3 Mg Tab) 3 mg PO 1600 [facility] Stop: 04/15/21 16:01 Last Admin: 04/15/21 16:43 Dose: 3 mg Documented by: Warfarin Sodium (Warfarin 2 Mg Tab) 4 mg PO 1600 [facility] Stop: 04/16/21 16:01 - Exam General: Alert, Oriented, Cooperative, No Acute Distress Lungs: Clear to Auscultation, Normal Respiratory Effort, Decreased Breath Sounds (bibasilar). No: Crackles, Wheezing Cardiovascular: Regular Rate, Irregular Rhythm GI/Abdominal Exam: Normal Bowel Sounds, Soft, Non-Tender, Distended (not had BM yet), Hernia (reducible) Extremities: Pedal Edema (1+ BLE, trace in bilateral feet, improved. ) Peripheral Pulses: 2+: Radial (L), Radial (R) - Patient Data Lab Results Last 24 hrs: Laboratory Results - last 24 hr 04/16/21 04/16/21 Range/Units 06:20 06:20 PT 15.8 H (9.0-11.1) sec INR 1.50 H (1.00-1.24) Sodium 136 D (135-145) mmol/L Potassium 3.5 (3.5-5.3) mmol/L Chloride 97 L (100-110) mmol/L Carbon Dioxide 33 H (21-32) mmol/L BUN 50 H (7-18) mg/dL Creatinine 1.6 H (0.70-1.30) mg/dL Est Cr Clr Drug Dosing 31.30 mL/min Estimated GFR (MDRD) 41 L (>60) BUN/Creatinine Ratio 31.3 H (9-20) Glucose 91 (80-116) mg/dL Calcium 8.8 (8.6-10.2) mg/dL Result Diagrams: 04/15/21 06:12 04/16/21 06:20 Sepsis Event Note - Evaluation Sepsis Screening Result: No Definite Risk - Focused Exam Vital Signs: Vital Signs Temp Pulse Pulse Resp BP BP Pulse Ox 04/16/21 08:11 74 105/60 04/16/21 08:00 97.5 F 74 16 105/60 97 - Problem List & Annotations (1) LV (left ventricular) mural thrombus SNOMED Code(s): 104470987229967 Code(s): I51.3 - INTRACARDIAC THROMBOSIS, NOT ELSEWHERE CLASSIFIED Status: Acute Current Visit: Yes (2) Hypokalemia SNOMED Code(s): 10577215 Code(s): E87.6 - HYPOKALEMIA Status: Resolved Current Visit: No (3) Anemia SNOMED Code(s): 124893760 Code(s): D64.9 - ANEMIA, UNSPECIFIED Status: Chronic Current Visit: Yes (4) CHF (congestive heart failure) SNOMED Code(s): 72230822 Code(s): I50.9 - HEART FAILURE, UNSPECIFIED Status: Chronic Current Visit: Yes Qualifiers: Heart failure type: combined systolic and diastolic (5) Weakness SNOMED Code(s): 75367958 Code(s): R53.1 - WEAKNESS Status: Acute Current Visit: No (6) Chronic kidney disease, stage 3b SNOMED Code(s): 019195850 Code(s): N18.32 - CHRONIC KIDNEY DISEASE, STAGE 3B Status: Chronic Current Visit: Yes (7) Hyperlipidemia SNOMED Code(s): 85794228 Code(s): E78.5 - HYPERLIPIDEMIA, UNSPECIFIED Status: Chronic Current Visit: Yes (8) COPD (chronic obstructive pulmonary disease) SNOMED Code(s): 55388561 Code(s): J44.9 - CHRONIC OBSTRUCTIVE PULMONARY DISEASE, UNSPECIFIED Status: Chronic Current Visit: No Qualifiers: Chronic bronchitis type: unspecified (9) Cardiac pacemaker in situ SNOMED Code(s): 150512610 Code(s): Z95.0 - PRESENCE OF CARDIAC PACEMAKER Status: Chronic Current Visit: No - Problem List Review Problem List Initiated/Reviewed/Updated: Yes - My Orders Last 24 Hours: My Active Orders 04/15/21 17:22 Hydrocortisone [Hydrocortisone 2.5% Crm] 0 gm TOP BID PRN 04/16/21 16:00 Warfarin [Coumadin] 4 mg PO ONETIME ONE 04/17/21 06:00 BASIC METABOLIC PANEL,BMP [CHEM] Routine INR,PT,PROTHROMBIN TIME [COAG] Routine - Plan Plan:: 1. Acute anemia: Hgb 10.0 yesterday, repeat tomorrow. 2. Subtherapeutic INR: INR 1.50 today, continue to bridge with Lovenox 70 mg q24h, Pharmacy to adjust dose. 3. Acute exacerbation of congestive heart failure: Change Lasix to 20 mg po bid and Metolazone 2.5 mg daily as needed weight gain >3 lbs, daily weights, weight down 2 lbs today, if requiring daily Metolazone with changed from prn to scheduled. Colace as needed constipation. 4. Hyponatremia/hypokalemia: Na 136, K 3.5, continue KCl 30 mEq bid. Recheck BMP tomorrow. 5. Weakness: PT/OT on discharge with [facility]. 6. Disposition: Pt contacted by [facility] who are providing respite care for his , they have an adjacent room available next to her if he would be interested to accept it for short term rehab stay. I believe this would be beneficial for patient, as he has been requiring more medical care in the past few months. Will have Mary Ann Fernández talk with Cal and [facility] tomorrow. His INR has been sitting at 1.5 for past few days, if he did accept bed at [facility] he could have daily INR done there and once gets to 1.9/2.0 then discontinue Lovenox and continue to have Coumadin adjusted by Anticoagulation clinic.
[2021-04-16] MEDS ORDERED: Warfarin 2 MG Tab PO SCH (16:00)
[2021-04-16] MEDS ORDERED: Warfarin 2 MG Tab PO ONE (16:00)
[2021-04-16] MEDS: Docusate Sodium 100 MG Cap PO PRN (17:02)
[2021-04-16] MEDS: traZODone 50 MG Tab PO SCH (20:33)
[2021-04-16] MEDS: Acetaminophen 500 MG Tab PO PRN (20:33)
[2021-04-16] MEDS: Melatonin 3 MG Tab PO SCH (20:34)
[2021-04-16] MEDS: Hydrocortisone 2.5% Crm 30 GM Tube TOP PRN (20:34)
[2021-04-17] MEDS: Hydrocortisone 2.5% Crm 30 GM Tube TOP PRN (03:25)
[2021-04-17] MEDS ORDERED: Potassium Chloride 20 MEQ Tab.ER PO SCH (09:00)
[2021-04-17] MEDS: Carvedilol 6.25 MG Tab PO SCH (09:25)
[2021-04-17] MEDS: Furosemide 20 MG Tab PO SCH ×2 (09:25→15:33)
[2021-04-17] MEDS: Pantoprazole 40 MG Tab.CR PO SCH (09:26)
[2021-04-17] MEDS: Acetaminophen 500 MG Tab PO PRN (09:33)
[2021-04-17 09:34] VITALS: BP 103/48
[2021-04-17] MEDS ORDERED: Enoxaparin 80 MG/0.8 ML Syringe SUBCUT SCH (11:00)
--- NOTE | 2021-04-17 11:13 | PCM.DCSUM1 ---
Discharge Summary - Hospital Course HPI Initial Comments: 86-year-old gentleman came to the emergency department due to a 2 or more week history of increasing shortness of breath/dyspnea on exertion. His past medical history is extensive and complicated and involves ischemic cardiomyopathy with both systolic and diastolic heart failure. His last echocardiogram showed EF approximately 30% with severe wall motion abnormality. 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 Patient also has hypertension, known atrial septal defect, paroxysmal atrial fibrillation, history of NSTEMI, chronic kidney disease stage IIIb, COPD. In the emergency department the patient was found to have a significantly elevated BNP at greater than 18,000. Note that BNP has been elevated at greater than 19,000 in the past. Patient is a poor historian but it appears that the patient recently had a watchman device placed. It is possible that the device placed was an atrial septal defect closure device. Patient was restarted on his Coumadin with Lovenox bridge secondary finding LV thrombus after watchman device placed. However, he was also found to have significantly elevated INR at 6.2 in the emergency department. Diagnosis: Stroke: No - Discharge Data Discharge Date: 04/17/21 ([facility]) Discharge Disposition: Home, Home Health Agency 06 Condition: Good - Referral to Home Health Date of Face to Face Encounter: 04/17/21 Reason for Homebound Status: [facility] Primary Care Physician: Sunny Johnson MD Skilled Need: custodial for assessment/education for CHF, INR regulation & PT/OT - Discharge Diagnosis/Problem(s) (1) LV (left ventricular) mural thrombus SNOMED Code(s): 841119345754930 ICD Code: I51.3 - INTRACARDIAC THROMBOSIS, NOT ELSEWHERE CLASSIFIED Status: Acute Current Visit: Yes (2) Hypokalemia SNOMED Code(s): 40018132 ICD Code: E87.6 - HYPOKALEMIA Status: Resolved Current Visit: No (3) Anemia SNOMED Code(s): 465593447 ICD Code: D64.9 - ANEMIA, UNSPECIFIED Status: Chronic Current Visit: Yes (4) Weakness SNOMED Code(s): 89249813 ICD Code: R53.1 - WEAKNESS Status: Acute Current Visit: No (5) CHF (congestive heart failure) SNOMED Code(s): 21604243 ICD Code: I50.9 - HEART FAILURE, UNSPECIFIED Status: Chronic Current Visit: Yes Qualifiers: Heart failure type: combined systolic and diastolic (6) Chronic kidney disease, stage 3b SNOMED Code(s): 948988022 ICD Code: N18.32 - CHRONIC KIDNEY DISEASE, STAGE 3B Status: Chronic Current Visit: Yes (7) Hyperlipidemia SNOMED Code(s): 08078798 ICD Code: E78.5 - HYPERLIPIDEMIA, UNSPECIFIED Status: Chronic Current Visit: Yes (8) COPD (chronic obstructive pulmonary disease) SNOMED Code(s): 94035959 ICD Code: J44.9 - CHRONIC OBSTRUCTIVE PULMONARY DISEASE, UNSPECIFIED Status: Chronic Current Visit: No Qualifiers: Chronic bronchitis type: unspecified (9) Cardiac pacemaker in situ SNOMED Code(s): 942333807 ICD Code: Z95.0 - PRESENCE OF CARDIAC PACEMAKER Status: Chronic Current Visit: No (10) Presence of Watchman left atrial appendage closure device SNOMED Code(s): 467566193, 667068638 ICD Code: Z95.818 - PRESENCE OF OTHER CARDIAC IMPLANTS AND GRAFTS Status: Acute Current Visit: Yes - Patient Summary/Data Consults: Consultations 04/10/21 18:16 OT Evaluation and Treatment [CONS] Routine Please Evaluate and Treat. OT Reason for Consult: ADL's This query below is only for informational purposes and is not editable. Admission Diagnosis/Problem: CHF, Congestive heart failure PT Evaluation and Treatment [CONS] Routine Please Evaluate and Treat. PT Reason for Consult: Ambulation This query below is only for informational purposes and is not editable. Admission Diagnosis/Problem: CHF, Congestive heart failure Hospital Course: Cal's BNP was 6[address] on admission, also had INR 6.2 for LV thrombus found after placement of Watchman device. He received 10 mg Vitamin K x 1 in ER. Also started on Metolazone 5 mg daily with Lasix 40 mg IV bid for CHF exacerbation. INR dropped to 1.19 at lowest. Troponin 107.3, 119.9, asymptomatic; Dr Cummings spoke with Cardiology and they wanted his INR between 2-3, continue Lovenox bridge until he is 2.0 or greater. His Hgb in ER was 8.4, trended down to 6.8, received 2 units of PRBCs on 04/12, Hgb came up to 8.4, then 9.3, 10.0 and 9.9 today. INR slowly has come up 1.36, 1.52, 1.51, 1.50, 1.61 for last 5 days, he is due to get Warfarin 5 mg today, further adjustment per [facility] Anticoagulation clinic. Will have daily INR until he gets to 2.0, then Lovenox can be discontinued. In regards to his CHF, his weight trended down from 163(measured, stated weight on admit was 171), lowest was 149, gained 3 lbs on Saturday up to 152, received dose of Metolazone 2.5 on Saturday, weight has been stable at 150 for past 2 days. His potassium was 3.0 on admission, came up then dropped again to 3.0, KCL 30 mEq increased to bid; K came up 3.8 and decreased dose to 20 mEq bid for discharge. His sodium dropped to 124 on 04/15, came back up to normal the next day after changing Lasix 40 mg IV bid to 20 mg bid oral and changing Metolazone to 2.5 mg daily as needed weight gain >3 lbs. He has only received 1 dose of Metolazone since changing it to as needed. His was admitted to [facility] for respite care while he was hospitalized and they have an adjacent room available for him so he will go today for short term rehab stay with Home Health services for care home for assessments, education for CHF, INR regulation, PT/OT. PT/OT had recommended outpatient therapy but since he will be going to [facility] will have therapy services through Home health. - Patient Instructions Diet: Heart Healthy Diet Activity: As Tolerated Driving: Do Not Drive Showering/Bathing: May Shower Other/Special Instructions: Follow up with Dr Johnson to recheck BMP in 1 week. Daily INR until INR>2.0, discontinue Lovenox once INR > or equal to 2.0. Warfarin dosing per anticoagulation clinic at [facility]. - Discharge Plan *PRESCRIPTION DRUG MONITORING PROGRAM REVIEWED*: Not Applicable *COPY OF PRESCRIPTION DRUG MONITORING REPORT IN PATIENT [place]: Not Applicable Prescriptions/Med Rec: Potassium Chloride [Klor-Con M20] 20 meq PO BID #60 tab.er Furosemide [Lasix] 20 mg PO BIDDIURETIC #60 tablet Enoxaparin [Lovenox] 70 mg SUBCUT Q24H #4 syringe metOLazone [Zaroxolyn] 2.5 mg PO DAILY PRN #15 tablet PRN Reason: weight gain > 3lbs Home Medications: Home Meds Nitroglycerin [Nitrostat] 0.4 mg SL Q5M PRN 04/29/18 [History] Pantoprazole Sodium [Protonix] 40 mg PO DAILY 11/21/20 [History] carvediloL [Coreg] 6.25 mg PO BID 11/21/20 [History] Acetaminophen [Acetaminophen Extra Strength] 1,000 mg PO Q6H PRN 02/28/21 [History] Amoxicillin 2,000 mg PO ASDIRECTED PRN 02/28/21 [History] Cyanocobalamin (Vitamin B-12) [B-12] 1,000 mcg PO DAILY 02/28/21 [History] traZODone 50 mg PO BEDTIME 02/28/21 [History] Docusate Sodium/Sennosides [Senna Plus] 2 tab PO DAILY PRN 04/10/21 [History] Melatonin 10 mg PO BEDTIME 04/10/21 [History] Enoxaparin [Lovenox] 70 mg SUBCUT Q24H #4 syringe 04/17/21 [Rx] Furosemide [Lasix] 20 mg PO BIDDIURETIC #60 tablet 04/17/21 [Rx] Hydrocortisone [Hydrocortisone 2.5% Crm] 0 gm TOP BID PRN tube 04/17/21 [Rx] Potassium Chloride [Klor-Con M20] 20 meq PO BID #60 tab.er 04/17/21 [Rx] Warfarin [Coumadin] 5 mg PO ONETIME #1 tab 04/17/21 [Rx] metOLazone [Zaroxolyn] 2.5 mg PO DAILY PRN #15 tablet 04/17/21 [Rx] Oxygen Therapy Mode: Room Air Patient Handouts: Heart Failure, Self-Care, [id number], Heart Failure Action Plan, Fall Prevention in Hospitals, Adult, Venous Thromboembolism Prevention Forms: ED Department Discharge Referrals: Sunny Johnson MD [Primary Care Provider] - - Discharge Summary/Plan Comment DC Time >30 min.: No Total # of Minutes for Discharge Time: 20 min - General Info Date of Service: 04/17/21 Subjective Update: Cal states he had BM last night, abdomen feels better not so distended. He states his breathing is better, his weight is stable at 150. No fevers, chills, shortness of breath, ambulated with nursing. Has been on room air over the weekend. [facility] is able to accept him today for short term rehab stay. Functional Status: Reports: Tolerating Diet, Ambulating - Patient Data Vitals - Most Recent: Last Vital Signs Temp 97.4 F 04/17/21 00:00 Pulse 61 04/17/21 09:25 Resp 16 04/17/21 00:00 BP 103/48 L 04/17/21 09:25 Pulse Ox 96 04/17/21 00:00 Weight - Most Recent: 150 lb 3.2 oz Lab Results - Last 24 hrs: Laboratory Results - last 24 hr 04/17/21 04/17/21 04/17/21 Range/Units 06:25 06:25 06:25 Hgb 9.9 L (12.9-17.7) g/dL Hct 30.9 L (38.3-50.1) % PT 16.8 H (9.0-11.1) sec INR 1.61 H (1.00-1.24) Sodium 135 (135-145) mmol/L Potassium 3.8 (3.5-5.3) mmol/L Chloride 98 L (100-110) mmol/L Carbon Dioxide 31 (21-32) mmol/L BUN 48 H (7-18) mg/dL Creatinine 1.8 H (0.70-1.30) mg/dL Est Cr Clr Drug Dosing 27.86 mL/min Estimated GFR (MDRD) 36 L (>60) BUN/Creatinine Ratio 26.7 H (9-20) Glucose 90 (80-116) mg/dL Calcium 9.0 (8.6-10.2) mg/dL SARS-CoV-2 RNA (MARCELINA) (NEGATIVE) 04/17/21 Range/Units 09:50 Hgb (12.9-17.7) g/dL Hct (38.3-50.1) % PT (9.0-11.1) sec INR (1.00-1.24) Sodium (135-145) mmol/L Potassium (3.5-5.3) mmol/L Chloride (100-110) mmol/L Carbon Dioxide (21-32) mmol/L BUN (7-18) mg/dL Creatinine (0.70-1.30) mg/dL Est Cr Clr Drug Dosing mL/min Estimated GFR (MDRD) (>60) BUN/Creatinine Ratio (9-20) Glucose (80-116) mg/dL Calcium (8.6-10.2) mg/dL SARS-CoV-2 RNA (MARCELINA) Negative (NEGATIVE) Med Orders - Current: Current Medications Acetaminophen (Acetaminophen 500 Mg Tab) 1,000 mg PO Q6H PRN PRN Reason: Pain Last Admin: 04/17/21 09:33 Dose: 1,000 mg Documented by: Carvedilol (Carvedilol 6.25 Mg Tab) 6.25 mg PO BID [facility] Last Admin: 04/17/21 09:25 Dose: 6.25 mg Documented by: Docusate Sodium (Docusate Sodium 100 Mg Cap) 100 mg PO DAILY PRN PRN Reason: Constipation Last Admin: 04/16/21 17:02 Dose: 100 mg Documented by: Enoxaparin Sodium (Enoxaparin 80 Mg/0.8 Ml Syringe) 70 mg SUBCUT Q24H [facility] Last Admin: 04/17/21 10:57 Dose: 70 mg Documented by: Furosemide (Furosemide 20 Mg Tab) 20 mg PO BIDDIURETIC [facility] Last Admin: 04/17/21 09:25 Dose: 20 mg Documented by: Hydrocortisone (Hydrocortisone 2.5% Crm 30 Gm Tube) 0 gm TOP BID PRN PRN Reason: Itching Last Admin: 04/17/21 03:25 Dose: 30 gm Documented by: Melatonin (Melatonin 3 Mg Tab) 9 mg PO BEDTIME [facility] Last Admin: 04/16/21 20:34 Dose: 9 mg Documented by: Metolazone (Metolazone 5 Mg Tab) 2.5 mg PO DAILY PRN PRN Reason: weight gain > 3lbs Last Admin: 04/15/21 17:08 Dose: 2.5 mg Documented by: Nitroglycerin (Nitroglycerin 0.4 Mg Tab.Sl) 0.4 mg SL Q5M PRN PRN Reason: Chest Pain Pantoprazole Sodium (Pantoprazole 40 Mg Tab.Cr) 40 mg PO BID [facility] Last Admin: 04/17/21 09:26 Dose: 40 mg Documented by: Potassium Chloride (Potassium Chloride 20 Meq Tab.Er) 20 meq PO BID [facility] Last Admin: 04/17/21 09:26 Dose: 20 meq Documented by: Senna/Docusate Sodium (Docusate Sodium/Sennosides 50-8.6 Mg Tab) 2 tab PO DAILY PRN PRN Reason: Constipation Last Admin: 04/16/21 07:45 Dose: 2 tab Documented by: Trazodone HCl (Trazodone 50 Mg Tab) 50 mg PO BEDTIME [facility] Last Admin: 04/16/21 20:33 Dose: 50 mg Documented by: Warfarin Sodium (Warfarin Sliding Scale) 1 each PO ASDIRECTED [facility] Warfarin Sodium (Warfarin 5 Mg Tab) 5 mg PO ONETIME ONE Stop: 04/17/21 16:01 Discontinued Medications Coenzyme Q10 (Ubidecarenone 100 Mg Cap) 100 mg PO DAILY [facility] Enoxaparin Sodium (Enoxaparin 80 Mg/0.8 Ml Syringe) 70 mg SUBCUT Q24H [facility] Last Admin: 04/16/21 13:22 Dose: 70 mg Documented by: Furosemide (Furosemide 40 Mg/4 Ml Vial) 40 mg IVPUSH NOW ONE Stop: 04/10/21 11:34 Last Admin: 04/10/21 12:17 Dose: 40 mg Documented by: Furosemide (Furosemide 40 Mg/4 Ml Vial) 40 mg IVPUSH BIDDIURETIC [facility] Last Admin: 04/15/21 08:43 Dose: Not Given Documented by: Phytonadione 10 mg/ Sodium (Chloride) 51 mls @ 100 mls/hr IV NOW ONE Stop: 04/10/21 11:58 Last Admin: 04/10/21 12:17 Dose: 100 mls/hr Documented by: Sodium Chloride (Normal Saline) 250 mls @ 100 mls/hr IV ASDIRECTED [facility] Last Admin: 04/12/21 20:10 Dose: 100 mls/hr Documented by: Melatonin (Melatonin 3 Mg Tab) 3 mg PO BEDTIME [facility] Metolazone (Metolazone 5 Mg Tab) 5 mg PO DAILY [facility] Last Admin: 04/14/21 08:43 Dose: 5 mg Documented by: Metolazone (Metolazone 2.5 Mg Tab) 2.5 mg PO WEEKLY PRN PRN Reason: Edema Potassium Chloride (Potassium Chloride 10 Meq Tab.Er) 30 meq PO DAILY [facility] Last Admin: 04/13/21 08:27 Dose: 30 meq Documented by: Potassium Chloride (Potassium Chloride 20 Meq Tab.Er) 40 meq PO ONETIME ONE Stop: 04/12/21 07:53 Last Admin: 04/12/21 08:16 Dose: 40 meq Documented by: Potassium Chloride (Potassium Chloride 10 Meq Tab.Er) 30 meq PO BID [facility] Last Admin: 04/16/21 20:34 Dose: 30 meq Documented by: Sodium Chloride (Sodium Chloride 0.9% 10 Ml Syringe) 10 ml FLUSH ASDIRECTED PRN PRN Reason: Keep Vein Open Last Admin: 04/14/21 13:02 Dose: 10 ml Documented by: Trazodone HCl (Trazodone 50 Mg Tab) 25 mg PO BEDTIME PRN PRN Reason: Insomnia Warfarin Sodium (Warfarin 1 Mg Tab) 1 mg PO DAILY@1600 [facility] Last Admin: 04/11/21 16:36 Dose: 1 mg Documented by: Warfarin Sodium (Warfarin 2.5 Mg Tab) 2.5 mg PO ONETIME ONE Stop: 04/12/21 16:01 Last Admin: 04/12/21 16:44 Dose: 2.5 mg Documented by: Warfarin Sodium (Warfarin 2.5 Mg Tab) 2.5 mg PO ONETIME ONE Stop: 04/13/21 16:01 Last Admin: 04/13/21 15:32 Dose: 2.5 mg Documented by: Warfarin Sodium (Warfarin 2.5 Mg Tab) 2.5 mg PO ONETIME ONE Stop: 04/14/21 16:01 Last Admin: 04/14/21 15:50 Dose: 2.5 mg Documented by: Warfarin Sodium (Warfarin 3 Mg Tab) 3 mg PO 1600 [facility] Stop: 04/15/21 16:01 Last Admin: 04/15/21 16:43 Dose: 3 mg Documented by: Warfarin Sodium (Warfarin 2 Mg Tab) 4 mg PO 1600 [facility] Stop: 04/16/21 16:01 Warfarin Sodium (Warfarin 2 Mg Tab) 4 mg PO ONETIME ONE Stop: 04/16/21 16:01 Last Admin: 04/16/21 15:11 Dose: 4 mg Documented by: - Exam General: Reports: Alert, Oriented, Cooperative, No Acute Distress Lungs: Reports: Clear to Auscultation, Normal Respiratory Effort, Decreased Breath Sounds, Crackles (rare fine crackles in left base) Cardiovascular: Reports: Regular Rate, Irregular Rhythm GI/Abdominal Exam: Normal Bowel Sounds, Soft, Non-Tender, No Distention, Hernia (reducible) Extremities: Pedal Edema (1+ RLE>2+LLE) Skin: Reports: Warm, Dry, Intact
[2021-04-17 15:14] VITALS: PULSE 60
[2021-04-17] MEDS ORDERED: Warfarin 5 MG Tab PO ONE (16:00)
== END 2021-04-17 11:10 | disposition home health service (06) | DRG 291 ==
LOC: FB.ED 10:10 → SUPCPDRO 10:10 → FB.MS 11:27 → FB.ED 13:10 → UNDOADMIN 13:32 → FB.MS 13:32 → UNDODISIN 04-17 11:10
PROVIDERS: ADMIT Student in an Organized Health Care Education/Training Program; ATTEND Family Medicine
PROC: 30233N1 Transfusion of Nonautologous Red Blood Cells into Peripheral Vein, Percutaneous Approach (ICD-10-PCS; principal; 2021-04-12)
DX: I50.40 Unspecified combined systolic (congestive) and diastolic (congestive) heart failure (principal); R77.8 Other specified abnormalities of plasma proteins; I13.0 Hypertensive heart and chronic kidney disease with heart failure and stage 1 through stage 4 chronic kidney disease, or unspecified chronic kidney disease; I50.43 Acute on chronic combined systolic (congestive) and diastolic (congestive) heart failure; Q21.1 Atrial septal defect; N28.9 Disorder of kidney and ureter, unspecified; I11.0 Hypertensive heart disease with heart failure; R18.8 Other ascites; I42.9 Cardiomyopathy, unspecified; E87.1 Hypo-osmolality and hyponatremia; I25.10 Atherosclerotic heart disease of native coronary artery without angina pectoris; E78.00 Pure hypercholesterolemia, unspecified; Z86.718 Personal history of other venous thrombosis and embolism; Z51.5 Encounter for palliative care; I51.3 Intracardiac thrombosis, not elsewhere classified; N18.32 Chronic kidney disease, stage 3b; I25.5 Ischemic cardiomyopathy; I48.0 Paroxysmal atrial fibrillation; Z20.822 Contact with and (suspected) exposure to COVID-19; J44.9 Chronic obstructive pulmonary disease, unspecified; E87.6 Hypokalemia; D64.9 Anemia, unspecified; Z96.643 Presence of artificial hip joint, bilateral; E78.5 Hyperlipidemia, unspecified; H54.7 Unspecified visual loss; M19.90 Unspecified osteoarthritis, unspecified site; Z86.19 Personal history of other infectious and parasitic diseases; I25.2 Old myocardial infarction; Z98.49 Cataract extraction status, unspecified eye; Z90.89 Acquired absence of other organs; Z95.0 Presence of cardiac pacemaker; Z95.818 Presence of other cardiac implants and grafts; Z79.01 Long term (current) use of anticoagulants; Z79.899 Other long term (current) drug therapy; Z88.1 Allergy status to other antibiotic agents; Z88.8 Allergy status to other drugs, medicaments and biological substances; Z79.82 Long term (current) use of aspirin; Z95.1 Presence of aortocoronary bypass graft; Z95.5 Presence of coronary angioplasty implant and graft; Z90.49 Acquired absence of other specified parts of digestive tract; Z87.891 Personal history of nicotine dependence
CPT/HCPCS: 36415; 71045; 80053; 83880; 84484; 85025; 85610; 93005; 99285; J1940; J3430; U0002; 36430; 80048; 85014; 85018; 86850; 86900; 86901; 86920; 86922; 97161-GP; 97530-GP; 99223; 99232; 99238; A9270-GY; J1650; J7050; P9016

== ENCOUNTER 2021-06-03 21:43 | Inpatient (IN) | payer MEDICARE, BC ==
[2021-06-03] MEDS ORDERED: Albuterol/Ipratropium 3.0-0.5 MG/3 ML Neb Soln NEB ONE (22:13)
[2021-06-03] MEDS ORDERED: Furosemide 40 MG/4 ML VIAL IVPUSH ONE (22:13)
[2021-06-03] MEDS ORDERED: Morphine 2 MG/ML SYRINGE IVPUSH ONE (22:13)
[2021-06-03] MEDS ORDERED: methylPREDNISolone Sodium Succinate 125 MG/2 ML SDV IVPUSH ONE (22:13)
[2021-06-03] MEDS ORDERED: Metolazone 2.5 MG Tab PO ONE (22:13)
[2021-06-03] MEDS: Sodium Chloride 0.9% 10 ML Syringe FLUSH PRN ×3 (22:35→22:49)
[2021-06-04] MEDS ORDERED: Albuterol/Ipratropium 3.0-0.5 MG/3 ML Neb Soln INH PRN (00:30)
[2021-06-04] MEDS ORDERED: Morphine 2 MG/ML SYRINGE IVPUSH PRN (00:41)
[2021-06-04] MEDS ORDERED: Nitroglycerin 0.4 MG Tab.SL SL PRN (00:51)
[2021-06-04] MEDS ORDERED: Warfarin 2.5 MG Tab PO SCH (01:00)
[2021-06-04] MEDS ORDERED: Albuterol/Ipratropium 3.0-0.5 MG/3 ML Neb Soln NEB PRN (04:00)
[2021-06-04] MEDS: methylPREDNISolone Sodium Succinate 125 MG/2 ML SDV IVPUSH SCH ×3 (06:20→21:52)
--- NOTE | 2021-06-04 07:37 | EDM.PDOC ---
ED HPI GENERAL MEDICAL PROBLEM - General Chief Complaint: Respiratory Problem Stated Complaint: SOB Time Seen by Provider: 06/03/21 21:55 Source of Information: Reports: Patient History Limitations: Reports: No Limitations - History of Present Illness INITIAL COMMENTS - FREE TEXT/NARRATIVE: Patient is an 86 YO WM from the [facility] who presented to the ED because of increasing dyspnea and orthopnea for the the past week which got worse tonight. He said he can only walk to the other room and easily gets winded. He also c/o right hip pain,6/10, and worse with movements. Denies any recent fall or injury. He has a history of CHF and COPD per chart and he took his metolazone without significant relief. There is no fever, chills cough/cold. No nausea. vomiting diarrhea. - Related Data Allergies Allergy/AdvReac Type Severity Reaction Status Date / Time simvastatin [From Zocor] Allergy Unknown Other Verified 02/28/21 01:43 amoxicillin [From Augmentin] Allergy Abdominal Verified 02/28/21 01:43 Pain clavulanic acid Allergy Abdominal Verified 02/28/21 01:43 [From Augmentin] Pain sucralfate [From Carafate] Allergy Itching Verified 02/28/21 01:43 Home Meds: Home Meds Nitroglycerin [Nitrostat] 0.4 mg SL Q5M PRN 04/29/18 [History] Pantoprazole Sodium [Protonix] 40 mg PO DAILY 11/21/20 [History] carvediloL [Coreg] 6.25 mg PO BID 11/21/20 [History] Acetaminophen [Acetaminophen Extra Strength] 1,000 mg PO Q6H PRN 02/28/21 [History] Amoxicillin 2,000 mg PO ASDIRECTED PRN 02/28/21 [History] Cyanocobalamin (Vitamin B-12) [B-12] 1,000 mcg PO DAILY 02/28/21 [History] traZODone 50 mg PO BEDTIME PRN 02/28/21 [History] Hydrocortisone [Hydrocortisone 2.5% Crm] 0 gm TOP BID PRN tube 04/17/21 [Rx] Potassium Chloride [Klor-Con M20] 20 meq PO BID #60 tab.er 04/17/21 [Rx] metOLazone [Zaroxolyn] 2.5 mg PO DAILY PRN #15 tablet 04/17/21 [Rx] Bumetanide [Bumex] 3 mg PO DAILY 06/04/21 [History] Melatonin 10 mg PO BEDTIME 06/04/21 [History] Tiotropium [Spiriva] 1 puff IH DAILY 06/04/21 [History] Warfarin [Coumadin] 2.5 mg PO 1600 06/04/21 [History] Past Medical History - Past Health History Medical/Surgical History: Denies Medical/Surgical History HEENT History: Reports: Impaired Vision Other HEENT History: Wears glasses. Cardiovascular History: Reports: Blood Clots/VTE/DVT, Bypass, CAD, Cardiomyopathy, Heart Failure, High Cholesterol, Hypertension, VT, Pacemaker, Other (See Below) Other Cardiovascular History: DVT, Patent foramen ovale (PFO). Respiratory History: Reports: COPD, SOB Gastrointestinal History: Reports: Other (See Below) Other Gastrointestinal History: EGD. Ulceration, on Carafate, anti-coagulation stopped at that time. Genitourinary History: Reports: Renal Disease, Other (See Below) Other Genitourinary History: Renal infarct. LATEXER History: Reports: None Musculoskeletal History: Reports: Arthritis, Other (See Below) Other Musculoskeletal History: Sacroiliitis. Neurological History: Reports: None Psychiatric History: Reports: None Endocrine/Metabolic History: Reports: None Hematologic History: Reports: None Immunologic History: Reports: None Oncologic (Cancer) History: Reports: None Dermatologic History: Reports: None - Infectious Disease History Infectious Disease History: Reports: C-Difficile, Chicken Pox, Measles, Shingles - Past Surgical History Head Surgeries/Procedures: Reports: None HEENT Surgical History: Reports: Adenoidectomy, Cataract Surgery, Tonsillectomy Cardiovascular Surgical History: Reports: Coronary Artery Bypass, Coronary Artery Stent, Other (See Below) Other Cardiovascular Surgeries/Procedures: One stent. Triple bypass, Watchman Procedure 04/23. Respiratory Surgical History: Reports: None GI Surgical History: Reports: Appendectomy, Colonoscopy, EGD, Hernia, Inguinal Male Surgical History: Reports: Other (See Below) Other Male Surgeries/Procedures: Renal angiogram. Musculoskeletal Surgical History: Reports: Arthroscopic Knee, Hip Replacement, Other (See Below) Other Musculoskeletal Surgeries/Procedures:: Bilateral hip replacement. Social & Family History - Family History Family Medical History: No Pertinent Family History GI: Reports: None - Tobacco Use Tobacco Use Status *Q: Former Tobacco User Used Tobacco, but Quit: Yes Month/Year Tobacco Last Used: 1979 - Caffeine Use Caffeine Use: Reports: None Other Caffeine Use: 1-2 cups coffee/day Caffeine Use Comment: Daily - Recreational Drug Use Recreational Drug Use: Yes Recreational Drug Type: Reports: Other (see below) Other Recreational Drug Type: medical marijuana - Living Situation & Occupation Living situation: Reports: Occupation: Retired ED ROS GENERAL - Review of Systems Review Of Systems: See Below Constitutional: Reports: No Symptoms HEENT: Reports: No Symptoms Respiratory: Reports: Shortness of Breath Cardiovascular: Reports: No Symptoms Endocrine: Reports: No Symptoms GI/Abdominal: Reports: No Symptoms : Reports: No Symptoms Musculoskeletal: Reports: Other (right hip pain) Skin: Reports: No Symptoms Neurological: Reports: No Symptoms Psychiatric: Reports: No Symptoms Hematologic/Lymphatic: Reports: No Symptoms ED EXAM, GENERAL - Physical Exam Exam: See Below Exam Limited By: No Limitations General Appearance: Alert, No Apparent Distress Ears: Normal External Exam, Normal Canal, Normal TMs Nose: Normal Inspection, Normal Mucosa, No Blood Throat/Mouth: Normal Inspection, Normal Lips, Normal Teeth, Normal Gums, Normal Oropharynx, Normal Voice Head: Atraumatic, Normocephalic Neck: Normal Inspection, Supple, Non-Tender, Full Range of Motion Respiratory/Chest: No Respiratory Distress, Lungs Clear, Normal Breath Sounds, No Accessory Muscle Use, Chest Non-Tender Cardiovascular: Normal Peripheral Pulses, Regular Rate, Rhythm, No Edema, No Gallop, No JVD, No Murmur, No Rub GI/Abdominal: Normal Bowel Sounds, Soft, Non-Tender, No Organomegaly, No Distention, No Abnormal Bruit Back Exam: Normal Inspection, Full Range of Motion Extremities: Normal Inspection, Normal Range of Motion, Non-Tender, No Pedal Edema, Normal Capillary Refill, Pedal Edema, Other (tenderneess right hip) Neurological: Alert, CN II-XII Intact Psychiatric: Normal Affect #1 Interpretation EKG Date: 06/03/21 Time: 22:08 Rhythm: Other (Ventricular paced rhythm) Rate (Beats/Min): 60 [place]: Normal P-Wave: Present QRS: Normal ST-T: Normal QT: Normal NM/PQ Interval: 67 Comparison: No Change EKG Interpretation Comments: Ventricular paced Rhythm No acute changes Course - Vital Signs Text/Narrative:: Lab/EKG/CXR was reviewed and discussed with patient Zaroxolyn 2.5 mg PO x1 Lasix 40 mg IV x1 Duoneb x1 Solumedrol 125 mg IV x1 Morphine 2 mg IV x1 Last Recorded V/S: Last Vital Signs Temp 36.4 C 06/04/21 01:45 Pulse 65 06/04/21 05:00 Resp 20 06/04/21 05:00 BP 101/56 L 06/04/21 05:00 Pulse Ox 99 06/04/21 05:00 - Orders/Labs/Meds Orders: Active Orders 24 hr Category Date Time Status RT Aerosol Therapy [RC] ASDIRECTED Care 06/03/21 22:14 Active Chest 1V Frontal [CR] Stat Exams 06/03/21 22:13 Taken Sodium Chloride 0.9% [Saline Flush] Med 06/03/21 22:13 Active 10 ml FLUSH ASDIRECTED PRN Saline Lock Insert [OM.PC] Routine Oth 06/03/21 22:13 Ordered EKG 12 Lead [EK] Routine Ther 06/03/21 22:13 Ordered Medication Orders Acetaminophen (Acetaminophen 500 Mg Tab) 1,000 mg PO Q6H PRN PRN Reason: Pain Albuterol/Ipratropium (Albuterol/Ipratropium 3.0-0.5 Mg/3 Ml Neb Soln) 3 ml INH Q6H PRN PRN Reason: Shortness Of Breath/wheezing Albuterol/Ipratropium (Albuterol/Ipratropium 3.0-0.5 Mg/3 Ml Neb Soln) 3 ml NEB Q6H PRN PRN Reason: Dyspnea Carvedilol (Carvedilol 6.25 Mg Tab) 6.25 mg PO BID [facility] Cyanocobalamin (Cyanocobalamin (Vitamin B12) 1,000 Mcg Tab) 1,000 mcg PO DAILY [facility] Furosemide (Furosemide 40 Mg/4 Ml Vial) 40 mg IVPUSH DAILY [facility] Methylprednisolone Sodium Succinate (Methylprednisolone Sodium Succinate 125 Mg/2 Ml Sdv) 125 mg IVPUSH Q8H [facility] Last Admin: 06/04/21 06:20 Dose: 125 mg Documented by: BLANKA Metolazone (Metolazone 2.5 Mg Tab) 2.5 mg PO DAILY@0800 [facility] Morphine Sulfate (Morphine 2 Mg/Ml Syringe) 2 mg IVPUSH Q2H PRN PRN Reason: Pain Nitroglycerin (Nitroglycerin 0.4 Mg Tab.Sl) 0.4 mg SL Q5M PRN PRN Reason: Chest Pain Non-Formulary Medication (Melatonin [Melatonin]) 10 mg PO BEDTIME [facility] Non-Formulary Medication (Tiotropium [Spiriva Handihaler]) 1 puff IH DAILY [facility] Pantoprazole Sodium (Pantoprazole 40 Mg Tab.Cr) 40 mg PO DAILY [facility] Potassium Chloride (Potassium Chloride 20 Meq Tab.Er) 20 meq PO BID [facility] Senna/Docusate Sodium (Docusate Sodium/Sennosides 50-8.6 Mg Tab) 1 tab PO BID PRN PRN Reason: Constipation Sodium Chloride (Sodium Chloride 0.9% 10 Ml Syringe) 10 ml FLUSH ASDIRECTED PRN PRN Reason: Keep Vein Open Last Admin: 06/03/21 22:49 Dose: 10 ml Documented by: Admin: 06/03/21 22:43 Dose: 10 ml Documented by: Admin: 06/03/21 22:35 Dose: 10 ml Documented by: JAXSON Trazodone HCl (Trazodone 50 Mg Tab) 50 mg PO BEDTIME PRN PRN Reason: Sleep Warfarin Sodium (Warfarin 2.5 Mg Tab) 2.5 mg PO 1600 [facility] Labs: Laboratory Tests 06/03/21 06/03/21 06/03/21 Range/Units 22:30 22:30 22:30 WBC 6.4 (3.2-10.1) x10-3/uL RBC 3.66 L (3.90-5.90) x10(6)uL Hgb 9.3 L (12.9-17.7) g/dL Hct 30.2 L (38.3-50.1) % MCV 82.6 (80.8-98.7) fL MCH 25.5 L (27.0-33.3) pg MCHC 30.9 (28.7-35.3) g/dL RDW 18.2 H (12.4-15.0) % Plt Count 215 (117-477) x10(3)uL MPV 8.5 (6.7-11.0) fL Neut % (Auto) 77.7 H (40.3-71.8) % Lymph % (Auto) 11.5 L (15.8-45.3) % [place] % (Auto) 9.0 (5.5-15.2) % Eos % (Auto) 1.5 (0.1-6.8) % Baso % (Auto) 0.3 (0.3-3.8) % Neut # (Auto) 5.0 (1.7-6.9) x10-3/uL Lymph # (Auto) 0.7 (0.5-4.5) x10-3/uL [place] # (Auto) 0.6 (0.0-1.2) x10-3/uL Eos # (Auto) 0.1 (0.0-0.6) x10-3/uL Baso # (Auto) 0.0 (0.0-0.3) x10-3/uL PT (9.0-11.1) sec INR (1.00-1.24) Sodium 138 (135-145) mmol/L Potassium 4.6 (3.5-5.3) mmol/L Chloride 102 (100-110) mmol/L Carbon Dioxide 27 (21-32) mmol/L BUN 48 H (7-18) mg/dL Creatinine 2.1 H* (0.70-1.30) mg/dL Est Cr Clr Drug Dosing TNP Estimated GFR (MDRD) 30 L (>60) BUN/Creatinine Ratio 22.9 H (9-20) Glucose 97 (80-116) mg/dL Calcium 9.2 (8.6-10.2) mg/dL Total Bilirubin 1.1 (0.1-1.3) mg/dL AST 25 D (5-25) IU/L ALT 27 D (12-36) U/L Alkaline Phosphatase 196 H (56-112) IU/L Troponin I 117.7 H* (4.0-60.3) pg/mL NT-Pro-B Natriuret Pep 00158 H* (<=450) pg/mL Total Protein 6.7 (6.0-8.0) g/dL Albumin 3.2 (3.2-4.6) g/dL Globulin 3.5 g/dL Albumin/Globulin Ratio 0.9 SARS-CoV-2 RNA (MARCELINA) (NEGATIVE) 06/03/21 06/04/21 Range/Units 22:30 00:20 WBC (3.2-10.1) x10-3/uL RBC (3.90-5.90) x10(6)uL Hgb (12.9-17.7) g/dL Hct (38.3-50.1) % MCV (80.8-98.7) fL MCH (27.0-33.3) pg MCHC (28.7-35.3) g/dL RDW (12.4-15.0) % Plt Count (117-477) x10(3)uL MPV (6.7-11.0) fL Neut % (Auto) (40.3-71.8) % Lymph % (Auto) (15.8-45.3) % [place] % (Auto) (5.5-15.2) % Eos % (Auto) (0.1-6.8) % Baso % (Auto) (0.3-3.8) % Neut # (Auto) (1.7-6.9) x10-3/uL Lymph # (Auto) (0.5-4.5) x10-3/uL [place] # (Auto) (0.0-1.2) x10-3/uL Eos # (Auto) (0.0-0.6) x10-3/uL Baso # (Auto) (0.0-0.3) x10-3/uL PT 27.6 H (9.0-11.1) sec INR 2.73 H (1.00-1.24) Sodium (135-145) mmol/L Potassium (3.5-5.3) mmol/L Chloride (100-110) mmol/L Carbon Dioxide (21-32) mmol/L BUN (7-18) mg/dL Creatinine (0.70-1.30) mg/dL Est Cr Clr Drug Dosing Estimated GFR (MDRD) (>60) BUN/Creatinine Ratio (9-20) Glucose (80-116) mg/dL Calcium (8.6-10.2) mg/dL Total Bilirubin (0.1-1.3) mg/dL AST (5-25) IU/L ALT (12-36) U/L Alkaline Phosphatase (56-112) IU/L Troponin I (4.0-60.3) pg/mL NT-Pro-B Natriuret Pep (<=450) pg/mL Total Protein (6.0-8.0) g/dL Albumin (3.2-4.6) g/dL Globulin g/dL Albumin/Globulin Ratio SARS-CoV-2 RNA (MARCELINA) Negative (NEGATIVE) Meds: Medications Generic Name Dose Route Start Last Admin Trade Name Freq PRN Reason Stop Dose Admin Acetaminophen 1,000 mg 06/04/21 00:51 Acetaminophen 500 Mg Tab PO Q6H PRN Pain Albuterol/Ipratropium 3 ml 06/04/21 00:30 Albuterol/Ipratropium 3.0-0.5 Mg/3 Ml Neb Soln INH Q6H PRN Shortness Of Breath/wheezing Albuterol/Ipratropium 3 ml 06/04/21 04:00 Albuterol/Ipratropium 3.0-0.5 Mg/3 Ml Neb Soln NEB Q6H PRN Dyspnea Carvedilol 6.25 mg 06/04/21 09:00 Carvedilol 6.25 Mg Tab PO BID [facility] Cyanocobalamin 1,000 mcg 06/04/21 09:00 Cyanocobalamin (Vitamin B12) 1,000 Mcg Tab PO DAILY [facility] Furosemide 40 mg 06/04/21 09:00 Furosemide 40 Mg/4 Ml Vial IVPUSH DAILY [facility] Methylprednisolone Sodium Succinate 125 mg 06/04/21 06:00 06/04/21 06:20 Methylprednisolone Sodium Succinate 125 Mg/2 Ml Sdv IVPUSH 125 mg Q8H [facility] Administration Metolazone 2.5 mg 06/04/21 08:00 Metolazone 2.5 Mg Tab PO DAILY@0800 [facility] Morphine Sulfate 2 mg 06/04/21 00:41 Morphine 2 Mg/Ml Syringe IVPUSH Q2H PRN Pain Nitroglycerin 0.4 mg 06/04/21 00:51 Nitroglycerin 0.4 Mg Tab.Sl SL Q5M PRN Chest Pain Non-Formulary Medication 10 mg 06/04/21 21:00 Melatonin [Melatonin] PO BEDTIME [facility] Non-Formulary Medication 1 puff 06/04/21 09:00 Tiotropium [Spiriva Handihaler] IH DAILY [facility] Pantoprazole Sodium 40 mg 06/04/21 09:00 Pantoprazole 40 Mg Tab.Cr PO DAILY [facility] Potassium Chloride 20 meq 06/04/21 09:00 Potassium Chloride 20 Meq Tab.Er PO BID [facility] Senna/Docusate Sodium 1 tab 06/04/21 00:30 Docusate Sodium/Sennosides 50-8.6 Mg Tab PO BID PRN Constipation Sodium Chloride 10 ml 06/03/21 22:13 06/03/21 22:49 Sodium Chloride 0.9% 10 Ml Syringe FLUSH 10 ml ASDIRECTED PRN Administration Keep Vein Open Trazodone HCl 50 mg 06/04/21 00:51 Trazodone 50 Mg Tab PO BEDTIME PRN Sleep Warfarin Sodium 2.5 mg 06/04/21 16:00 Warfarin 2.5 Mg Tab PO 1600 [facility] Discontinued Medications Generic Name Dose Route Start Last Admin Trade Name Freq PRN Reason Stop Dose Admin Albuterol/Ipratropium 3 ml 06/03/21 22:13 06/03/21 22:22 Albuterol/Ipratropium 3.0-0.5 Mg/3 Ml Neb Soln NEB 06/03/21 22:14 3 ml ONETIME ONE Administration Furosemide 40 mg 06/03/21 22:13 06/03/21 22:35 Furosemide 40 Mg/4 Ml Vial IVPUSH 06/03/21 22:14 40 mg NOW ONE Administration Methylprednisolone Sodium Succinate 125 mg 06/03/21 22:13 06/03/21 22:42 Methylprednisolone Sodium Succinate 125 Mg/2 Ml Sdv IVPUSH 06/03/21 22:14 125 mg ONETIME ONE Administration Metolazone 2.5 mg 06/03/21 22:13 06/03/21 22:22 Metolazone 2.5 Mg Tab PO 06/03/21 22:14 2.5 mg ONETIME ONE Administration Morphine Sulfate 2 mg 06/03/21 22:13 06/03/21 22:47 Morphine 2 Mg/Ml Syringe IVPUSH 06/03/21 22:14 2 mg ONETIME ONE Administration Departure - Departure Time of Disposition: 00:00 Disposition: Admitted As Inpatient 65 Condition: Good (CHF exacer) Clinical Impression: Dehydration, GILES (acute kidney injury), Anemia CHF exacerbation Qualifiers: Heart failure type: unspecified Qualified Code(s): I50.9 - Heart failure, unspecified COPD (chronic obstructive pulmonary disease) Qualifiers: Chronic bronchitis type: unspecified CKD (chronic kidney disease) Qualifiers: Chronic kidney disease stage: stage 3 (moderate) Qualified Code(s): N18.3 - Chronic kidney disease, stage 3 (moderate) - Discharge Information Sepsis Event Note (ED) - Evaluation Sepsis Screening Result: No Definite Risk - Focused Exam Vital Signs: Vital Signs Temp 06/03/21 21:45 36.4 C - My Orders Last 24 Hours: My Active Orders 06/03/21 22:13 Chest 1V Frontal [CR] Stat Sodium Chloride 0.9% [Saline Flush] 10 ml FLUSH ASDIRECTED PRN Saline Lock Insert [OM.PC] Routine EKG 12 Lead [EK] Routine 06/03/21 22:14 RT Aerosol Therapy [RC] ASDIRECTED - Assessment/Plan Last 24 Hours: My Active Orders 06/03/21 22:13 Chest 1V Frontal [CR] Stat Sodium Chloride 0.9% [Saline Flush] 10 ml FLUSH ASDIRECTED PRN Saline Lock Insert [OM.PC] Routine EKG 12 Lead [EK] Routine 06/03/21 22:14 RT Aerosol Therapy [RC] ASDIRECTED
[2021-06-04] MEDS: Metolazone 2.5 MG Tab PO SCH (09:05)
[2021-06-04] MEDS: Carvedilol 6.25 MG Tab PO SCH ×2 (09:06→20:32)
[2021-06-04] MEDS: Potassium Chloride 20 MEQ Tab.ER PO SCH ×2 (09:06→20:32)
[2021-06-04] MEDS: Furosemide 40 MG/4 ML VIAL IVPUSH SCH (09:07)
[2021-06-04] MEDS: Pantoprazole 40 MG Tab.CR PO SCH (09:07)
[2021-06-04] MEDS: Sodium Chloride 0.9% 10 ML Syringe FLUSH PRN ×4 (09:13→21:52)
[2021-06-04] MEDS: Cyanocobalamin (Vitamin B12) 1,000 MCG Tab PO SCH (09:19)
--- NOTE | 2021-06-04 09:19 | PCM.HP.2 ---
H&P History of Present Illness - General Date of Service: 06/04/21 Admit Problem/Dx: Admission Diagnosis/Problem Admission Diagnosis/Problem CHF, Congestive heart failure Source of Information: Patient History Limitations: Reports: No Limitations - History of Present Illness Initial Comments - Free Text/Narative: Alvaro is an 86-year-old male from [facility]. He presented last night with congestive heart failure. His symptoms included dyspnea, even at rest, leg swelling, orthopnea lasting 2-3 days. He does have a history of ischemic cardiomyopathy, coronary disease and a remote history of COPD.He has CKD,with a baseline creatinine of 1.9. He denies fever,chills,cough or chest pain. - Related Data Allergies/Adverse Reactions: Allergies Allergy/AdvReac Type Severity Reaction Status Date / Time simvastatin [From Zocor] Allergy Unknown Other Verified 02/28/21 01:43 amoxicillin [From Augmentin] Allergy Abdominal Verified 02/28/21 01:43 Pain clavulanic acid Allergy Abdominal Verified 02/28/21 01:43 [From Augmentin] Pain sucralfate [From Carafate] Allergy Itching Verified 02/28/21 01:43 Home Medications: Home Meds Nitroglycerin [Nitrostat] 0.4 mg SL Q5M PRN 04/29/18 [History] Pantoprazole Sodium [Protonix] 40 mg PO DAILY 11/21/20 [History] carvediloL [Coreg] 6.25 mg PO BID 11/21/20 [History] Acetaminophen [Acetaminophen Extra Strength] 1,000 mg PO Q6H PRN 02/28/21 [H istory] Amoxicillin 2,000 mg PO ASDIRECTED PRN 02/28/21 [History] Cyanocobalamin (Vitamin B-12) [B-12] 1,000 mcg PO DAILY 02/28/21 [History] traZODone 50 mg PO BEDTIME PRN 02/28/21 [History] Hydrocortisone [Hydrocortisone 2.5% Crm] 0 gm TOP BID PRN tube 04/17/21 [Rx] Potassium Chloride [Klor-Con M20] 20 meq PO BID #60 tab.er 04/17/21 [Rx] metOLazone [Zaroxolyn] 2.5 mg PO DAILY PRN #15 tablet 04/17/21 [Rx] Bumetanide [Bumex] 3 mg PO DAILY 06/04/21 [History] Melatonin 10 mg PO BEDTIME 06/04/21 [History] Tiotropium [Spiriva] 1 puff IH DAILY 06/04/21 [History] Warfarin [Coumadin] 2.5 mg PO 1600 06/04/21 [History] Past Medical History - Past Health History Medical/Surgical History: Denies Medical/Surgical History HEENT History: Reports: Impaired Vision Other HEENT History: Wears glasses. Cardiovascular History: Reports: Blood Clots/VTE/DVT, Bypass, CAD, Cardiomyopathy, Heart Failure, High Cholesterol, Hypertension, [place], Pacemaker, Other (See Below) Other Cardiovascular History: DVT, Patent foramen ovale (PFO). Respiratory History: Reports: COPD, SOB Gastrointestinal History: Reports: Other (See Below) Other Gastrointestinal History: EGD. Ulceration, on Carafate, anti-coagulation stopped at that time. Genitourinary History: Reports: Renal Disease, Other (See Below) Other Genitourinary History: Renal infarct. MINING SPECULATOR History: Reports: None Musculoskeletal History: Reports: Arthritis, Other (See Below) Other Musculoskeletal History: Sacroiliitis. Neurological History: Reports: None Psychiatric History: Reports: None Endocrine/Metabolic History: Reports: None Hematologic History: Reports: None Immunologic History: Reports: None Oncologic (Cancer) History: Reports: None Dermatologic History: Reports: None - Infectious Disease History Infectious Disease History: Reports: C-Difficile, Chicken Pox, Measles, Shingles - Past Surgical History Head Surgeries/Procedures: Reports: None HEENT Surgical History: Reports: Adenoidectomy, Cataract Surgery, Tonsillectomy Cardiovascular Surgical History: Reports: Coronary Artery Bypass, Coronary Artery Stent, Other (See Below) Other Cardiovascular Surgeries/Procedures: One stent. Triple bypass, Watchman Procedure 04/23. Respiratory Surgical History: Reports: None GI Surgical History: Reports: Appendectomy, Colonoscopy, EGD, Hernia, Inguinal Male Surgical History: Reports: Other (See Below) Other Male Surgeries/Procedures: Renal angiogram. Musculoskeletal Surgical History: Reports: Arthroscopic Knee, Hip Replacement, Other (See Below) Other Musculoskeletal Surgeries/Procedures:: Bilateral hip replacement. Social & Family History - Family History Family Medical History: No Pertinent Family History GI: Reports: None - Tobacco Use Tobacco Use Status *Q: Former Tobacco User Used Tobacco, but Quit: Yes Month/Year Tobacco Last Used: 1979 - Caffeine Use Caffeine Use: Reports: None Other Caffeine Use: 1-2 cups coffee/day Caffeine Use Comment: Daily - Recreational Drug Use Recreational Drug Use: Yes Recreational Drug Type: Reports: Other (see below) Other Recreational Drug Type: medical marijuana - Living Situation & Occupation Living situation: Reports: Occupation: Retired H&P Review of Systems - Review of Systems: Review Of Systems: Comprehensive ROS is negative, except as noted in HPI. Exam - Exam Exam: See Below - Vital Signs Vital Signs: Last Vital Signs Temp 97.5 F 06/04/21 01:45 Pulse 63 06/04/21 09:06 Resp 20 06/04/21 05:00 BP 108/72 06/04/21 09:06 Pulse Ox 99 06/04/21 05:00 Weight: 76.385 kg - Exam Quality Assessment: Supplemental Oxygen General: Alert, Oriented, Cooperative HEENT: PERRLA Neck: Supple Lungs: Decreased Breath Sounds, Rales Cardiovascular: Regular Rate GI/Abdominal Exam: Soft Back Exam: Normal Inspection Extremities: Pedal Edema Skin: Warm Neurological: Cranial Nerves Intact Neuro Extensive - Mental Status: Oriented x3 Psychiatric: Alert, Normal Affect - Patient Data Lab Results Last 24 hrs: Laboratory Results - last 24 hr 06/03/21 06/03/21 06/03/21 Range/Units 22:30 22:30 22:30 WBC 6.4 (3.2-10.1) x10-3/uL RBC 3.66 L (3.90-5.90) x10(6)uL Hgb 9.3 L (12.9-17.7) g/dL Hct 30.2 L (38.3-50.1) % MCV 82.6 (80.8-98.7) fL MCH 25.5 L (27.0-33.3) pg MCHC 30.9 (28.7-35.3) g/dL RDW 18.2 H (12.4-15.0) % Plt Count 215 (117-477) x10(3)uL MPV 8.5 (6.7-11.0) fL Neut % (Auto) 77.7 H (40.3-71.8) % Lymph % (Auto) 11.5 L (15.8-45.3) % [place] % (Auto) 9.0 (5.5-15.2) % Eos % (Auto) 1.5 (0.1-6.8) % Baso % (Auto) 0.3 (0.3-3.8) % Neut # (Auto) 5.0 (1.7-6.9) x10-3/uL Lymph # (Auto) 0.7 (0.5-4.5) x10-3/uL [place] # (Auto) 0.6 (0.0-1.2) x10-3/uL Eos # (Auto) 0.1 (0.0-0.6) x10-3/uL Baso # (Auto) 0.0 (0.0-0.3) x10-3/uL Add Manual Diff Neutrophils % (Manual) (46-82) % Lymphocytes % (Manual) (13-37) % Poikilocytosis Anisocytosis PT (9.0-11.1) sec INR (1.00-1.24) Sodium 138 (135-145) mmol/L Potassium 4.6 (3.5-5.3) mmol/L Chloride 102 (100-110) mmol/L Carbon Dioxide 27 (21-32) mmol/L BUN 48 H (7-18) mg/dL Creatinine 2.1 H* (0.70-1.30) mg/dL Est Cr Clr Drug Dosing TNP Estimated GFR (MDRD) 30 L (>60) BUN/Creatinine Ratio 22.9 H (9-20) Glucose 97 (80-116) mg/dL Calcium 9.2 (8.6-10.2) mg/dL Total Bilirubin 1.1 (0.1-1.3) mg/dL AST 25 D (5-25) IU/L ALT 27 D (12-36) U/L Alkaline Phosphatase 196 H (56-112) IU/L Troponin I 117.7 H* (4.0-60.3) pg/mL NT-Pro-B Natriuret Pep 59517 H* (<=450) pg/mL Total Protein 6.7 (6.0-8.0) g/dL Albumin 3.2 (3.2-4.6) g/dL Globulin 3.5 g/dL Albumin/Globulin Ratio 0.9 SARS-CoV-2 RNA (MARCELINA) (NEGATIVE) 06/03/21 06/04/21 06/04/21 Range/Units 22:30 00:20 06:15 WBC 4.1 (3.2-10.1) x10-3/uL RBC 3.60 L (3.90-5.90) x10(6)uL Hgb 9.3 L (12.9-17.7) g/dL Hct 29.6 L (38.3-50.1) % MCV 82.2 (80.8-98.7) fL MCH 25.7 L (27.0-33.3) pg MCHC 31.3 (28.7-35.3) g/dL RDW 18.1 H (12.4-15.0) % Plt Count 185 (117-477) x10(3)uL MPV 8.7 (6.7-11.0) fL Neut % (Auto) (40.3-71.8) % Lymph % (Auto) (15.8-45.3) % [place] % (Auto) (5.5-15.2) % Eos % (Auto) (0.1-6.8) % Baso % (Auto) (0.3-3.8) % Neut # (Auto) (1.7-6.9) x10-3/uL Lymph # (Auto) (0.5-4.5) x10-3/uL [place] # (Auto) (0.0-1.2) x10-3/uL Eos # (Auto) (0.0-0.6) x10-3/uL Baso # (Auto) (0.0-0.3) x10-3/uL Add Manual Diff Yes Neutrophils % (Manual) 97 H (46-82) % Lymphocytes % (Manual) 3 L (13-37) % Poikilocytosis Few Anisocytosis Few PT 27.6 H (9.0-11.1) sec INR 2.73 H (1.00-1.24) Sodium (135-145) mmol/L Potassium (3.5-5.3) mmol/L Chloride (100-110) mmol/L Carbon Dioxide (21-32) mmol/L BUN (7-18) mg/dL Creatinine (0.70-1.30) mg/dL Est Cr Clr Drug Dosing Estimated GFR (MDRD) (>60) BUN/Creatinine Ratio (9-20) Glucose (80-116) mg/dL Calcium (8.6-10.2) mg/dL Total Bilirubin (0.1-1.3) mg/dL AST (5-25) IU/L ALT (12-36) U/L Alkaline Phosphatase (56-112) IU/L Troponin I (4.0-60.3) pg/mL NT-Pro-B Natriuret Pep (<=450) pg/mL Total Protein (6.0-8.0) g/dL Albumin (3.2-4.6) g/dL Globulin g/dL Albumin/Globulin Ratio SARS-CoV-2 RNA (MARCELINA) Negative (NEGATIVE) 06/04/21 06/04/21 06/04/21 Range/Units 06:15 06:15 06:15 WBC (3.2-10.1) x10-3/uL RBC (3.90-5.90) x10(6)uL Hgb (12.9-17.7) g/dL Hct (38.3-50.1) % MCV (80.8-98.7) fL MCH (27.0-33.3) pg MCHC (28.7-35.3) g/dL RDW (12.4-15.0) % Plt Count (117-477) x10(3)uL MPV (6.7-11.0) fL Neut % (Auto) (40.3-71.8) % Lymph % (Auto) (15.8-45.3) % [place] % (Auto) (5.5-15.2) % Eos % (Auto) (0.1-6.8) % Baso % (Auto) (0.3-3.8) % Neut # (Auto) (1.7-6.9) x10-3/uL Lymph # (Auto) (0.5-4.5) x10-3/uL [place] # (Auto) (0.0-1.2) x10-3/uL Eos # (Auto) (0.0-0.6) x10-3/uL Baso # (Auto) (0.0-0.3) x10-3/uL Add Manual Diff Neutrophils % (Manual) (46-82) % Lymphocytes % (Manual) (13-37) % Poikilocytosis Anisocytosis PT 24.3 H (9.0-11.1) sec INR 2.38 H (1.00-1.24) Sodium 141 (135-145) mmol/L Potassium 3.8 (3.5-5.3) mmol/L Chloride 102 (100-110) mmol/L Carbon Dioxide 28 (21-32) mmol/L BUN 48 H (7-18) mg/dL Creatinine 2.0 H* (0.70-1.30) mg/dL Est Cr Clr Drug Dosing 24.33 Estimated GFR (MDRD) 32 L (>60) BUN/Creatinine Ratio 24.0 H (9-20) Glucose 116 (80-116) mg/dL Calcium 9.2 (8.6-10.2) mg/dL Total Bilirubin (0.1-1.3) mg/dL AST (5-25) IU/L ALT (12-36) U/L Alkaline Phosphatase (56-112) IU/L Troponin I 94.1 H* (4.0-60.3) pg/mL NT-Pro-B Natriuret Pep 24155 H* (<=450) pg/mL Total Protein (6.0-8.0) g/dL Albumin (3.2-4.6) g/dL Globulin g/dL Albumin/Globulin Ratio SARS-CoV-2 RNA (MARCELINA) (NEGATIVE) Result Diagrams: 06/04/21 06:15 06/04/21 06:15 Sepsis Event Note - Evaluation Sepsis Screening Result: No Definite Risk - Focused Exam Vital Signs: Vital Signs Temp Temp Pulse Pulse Resp BP BP 06/04/21 09:06 63 108/72 06/04/21 05:00 65 20 101/56 L 06/04/21 01:45 97.5 F 65 20 94/65 06/03/21 21:45 97.5 F Pulse Ox 06/04/21 09:06 06/04/21 05:00 99 06/04/21 01:45 97 06/03/21 21:45 - Problem List (1) CHF exacerbation SNOMED Code(s): 917149484, 91071774693535 ICD Code: I50.9 - HEART FAILURE, UNSPECIFIED Status: Acute Current Visit: Yes Qualifiers: Heart failure type: combined systolic and diastolic Qualified Code(s): I50.43 - Acute on chronic combined systolic (congestive) and diastolic (congestive) heart failure (2) Afib SNOMED Code(s): 39081638 ICD Code: I48.91 - UNSPECIFIED ATRIAL FIBRILLATION Status: Acute Current Visit: Yes Qualifiers: Atrial fibrillation type: paroxysmal Qualified Code(s): I48.0 - Paroxysmal atrial fibrillation (3) Long-term (current) use of anticoagulants, INR goal 2.0-3.0 SNOMED Code(s): 486427303, 461611076 ICD Code: Z79.01 - PLANT ETIOLOGIST (CURRENT) USE OF ANTICOAGULANTS Status: Acute Current Visit: Yes (4) CKD (chronic kidney disease) SNOMED Code(s): 793018194 ICD Code: N18.9 - CHRONIC KIDNEY DISEASE, UNSPECIFIED Status: Chronic Current Visit: Yes Qualifiers: Chronic kidney disease stage: stage 3 (moderate) (5) COPD (chronic obstructive pulmonary disease) SNOMED Code(s): 76576313 ICD Code: J44.9 - CHRONIC OBSTRUCTIVE PULMONARY DISEASE, UNSPECIFIED Status: Chronic Current Visit: Yes Qualifiers: Chronic bronchitis type: unspecified (6) Elevated troponin SNOMED Code(s): 765425502, 846572163, 155484796 ICD Code: R77.8 - OTHER SPECIFIED ABNORMALITIES OF PLASMA PROTEINS Status: Acute Current Visit: No (7) Non-STEMI (non-ST elevated myocardial infarction) SNOMED Code(s): 43348731 ICD Code: I21.4 - NON-ST ELEVATION (NSTEMI) MYOCARDIAL INFARCTION Status: Acute Current Visit: No Problem Details: Mr Gramajo will be transferred to [facility] by ground ambulance tonight. (8) CAD (coronary artery disease) SNOMED Code(s): 13599375 ICD Code: I25.10 - ATHSCL HEART DISEASE OF [place] CORONARY ARTERY W/O ANG PCTRS Status: Chronic Current Visit: No Qualifiers: Coronary Disease-Associated Artery/Lesion type: bypass graft Associated angina: without angina (9) HTN (hypertension) SNOMED Code(s): 36417829 ICD Code: I10 - ESSENTIAL (PRIMARY) HYPERTENSION Status: Chronic Current Visit: No Qualifiers: Hypertension type: primary hypertension Qualified Code(s): I10 - Essential (primary) hypertension Problem List Initiated/Reviewed/Updated: Yes Orders Last 24hrs: Active Orders 24 hr Category Date Time Status Patient Status [ADT] Routine ADT 06/04/21 00:30 Active Height and Weight [RC] 06 Care 06/04/21 00:30 Active Intake and Output [RC] 06,14,22 Care 06/04/21 00:33 Active Oxygen Therapy [RC] PRN Care 06/04/21 00:30 Active Pulse Oximetry [RC] CONTINUOUS Care 06/04/21 00:33 Active RT Aerosol Therapy [RC] ASDIRECTED Care 06/03/21 22:14 Active RT Aerosol Therapy [RC] ASDIRECTED Care 06/04/21 00:46 Active Up With Assistance [RC] ASDIRECTED Care 06/04/21 00:30 Active VTE/DVT Education [RC] Per Unit Routine Care 06/04/21 00:30 Active Vital Signs [RC] 08,12,16,20,00 Care 06/04/21 00:30 Active Heart Healthy Diet [DIET] Diet 06/04/21 Breakfast Active Chest 1V Frontal [CR] Stat Exams 06/03/21 22:13 Taken BASIC METABOLIC PANEL,BMP [CHEM] AM Lab 06/05/21 05:11 Ordered CBC WITH AUTO DIFF [HEME] AM Lab 06/05/21 05:11 Ordered PRO B-TYPE NATRIUR PEPT,BNPPRO [CHEM] DAILY Lab 06/05/21 05:11 Ordered PRO B-TYPE NATRIUR PEPT,BNPPRO [CHEM] DAILY Lab 06/06/21 05:11 Ordered PRO B-TYPE NATRIUR PEPT,BNPPRO [CHEM] DAILY Lab 06/07/21 05:11 Ordered Acetaminophen [Tylenol Extra Strength] Med 06/04/21 00:51 Active 1,000 mg PO Q6H PRN Albuterol/Ipratropium [DuoNeb 3.0-0.5 MG/3 ML] Med 06/04/21 00:30 Active 3 ml INH Q6H PRN Albuterol/Ipratropium [DuoNeb 3.0-0.5 MG/3 ML] Med 06/04/21 04:00 Active 3 ml NEB Q6H PRN Cyanocobalamin (Vitamin B12) [Vitamin B12] Med 06/04/21 09:00 Active 1,000 mcg PO DAILY Docusate Sodium/Sennosides [Senna Plus] Med 06/04/21 00:30 Active 1 tab PO BID PRN Furosemide [Lasix] Med 06/04/21 09:00 Active 40 mg IVPUSH DAILY Melatonin [Melatonin] Med 06/04/21 21:00 Pending 10 mg PO BEDTIME Morphine Med 06/04/21 00:41 Active 2 mg IVPUSH Q2H PRN Nitroglycerin [Nitrostat] Med 06/04/21 00:51 Active 0.4 mg SL Q5M PRN Pantoprazole [ProTONIX] Med 06/04/21 09:00 Active 40 mg PO DAILY Potassium Chloride [Klor-Con M20] Med 06/04/21 09:00 Active 20 meq PO BID Sodium Chloride 0.9% [Saline Flush] Med 06/03/21 22:13 Active 10 ml FLUSH ASDIRECTED PRN Tiotropium [Spiriva HandiHaler] Med 06/04/21 09:00 Pending 1 puff IH DAILY Warfarin [Coumadin] Med 06/04/21 16:00 Active 2.5 mg PO 1600 carvediloL [Coreg] Med 06/04/21 09:00 Active 6.25 mg PO BID metOLazone [Zaroxolyn] Med 06/04/21 08:00 Active 2.5 mg PO DAILY@0800 methylPREDNISolone Sod Succ [Solu-MEDROL] Med 06/04/21 06:00 Active 125 mg IVPUSH Q8H traZODone Med 06/04/21 00:51 Active 50 mg PO BEDTIME PRN Saline Lock Insert [OM.PC] Routine Oth 06/03/21 22:13 Ordered Resuscitation Status Routine Resus Stat 06/04/21 00:30 Ordered EKG 12 Lead [EK] Routine Ther 06/03/21 22:13 Ordered Medication Orders Acetaminophen (Acetaminophen 500 Mg Tab) 1,000 mg PO Q6H PRN PRN Reason: Pain Albuterol/Ipratropium (Albuterol/Ipratropium 3.0-0.5 Mg/3 Ml Neb Soln) 3 ml INH Q6H PRN PRN Reason: Shortness Of Breath/wheezing Albuterol/Ipratropium (Albuterol/Ipratropium 3.0-0.5 Mg/3 Ml Neb Soln) 3 ml NEB Q6H PRN PRN Reason: Dyspnea Carvedilol (Carvedilol 6.25 Mg Tab) 6.25 mg PO BID [facility] Last Admin: 06/04/21 09:06 Dose: 6.25 mg Documented by: RAO Cyanocobalamin (Cyanocobalamin (Vitamin B12) 1,000 Mcg Tab) 1,000 mcg PO DAILY [facility] Furosemide (Furosemide 40 Mg/4 Ml Vial) 40 mg IVPUSH DAILY [facility] Last Admin: 06/04/21 09:07 Dose: 40 mg Documented by: RAO Methylprednisolone Sodium Succinate (Methylprednisolone Sodium Succinate 125 Mg/2 Ml Sdv) 125 mg IVPUSH Q8H [facility] Last Admin: 06/04/21 06:20 Dose: 125 mg Documented by: BLANKA Metolazone (Metolazone 2.5 Mg Tab) 2.5 mg PO DAILY@0800 [facility] Last Admin: 06/04/21 09:05 Dose: 2.5 mg Documented by: RAO Morphine Sulfate (Morphine 2 Mg/Ml Syringe) 2 mg IVPUSH Q2H PRN PRN Reason: Pain Nitroglycerin (Nitroglycerin 0.4 Mg Tab.Sl) 0.4 mg SL Q5M PRN PRN Reason: Chest Pain Non-Formulary Medication (Melatonin [Melatonin]) 10 mg PO BEDTIME [facility] Non-Formulary Medication (Tiotropium [Spiriva Handihaler]) 1 puff IH DAILY [facility] Pantoprazole Sodium (Pantoprazole 40 Mg Tab.Cr) 40 mg PO DAILY [facility] Last Admin: 06/04/21 09:07 Dose: 40 mg Documented by: RAO Potassium Chloride (Potassium Chloride 20 Meq Tab.Er) 20 meq PO BID [facility] Last Admin: 06/04/21 09:06 Dose: 20 meq Documented by: RAO Senna/Docusate Sodium (Docusate Sodium/Sennosides 50-8.6 Mg Tab) 1 tab PO BID PRN PRN Reason: Constipation Sodium Chloride (Sodium Chloride 0.9% 10 Ml Syringe) 10 ml FLUSH ASDIRECTED PRN PRN Reason: Keep Vein Open Last Admin: 06/04/21 09:13 Dose: 10 ml Documented by: Admin: 06/03/21 22:49 Dose: 10 ml Documented by: Admin: 06/03/21 22:43 Dose: 10 ml Documented by: Admin: 06/03/21 22:35 Dose: 10 ml Documented by: JAXSON Trazodone HCl (Trazodone 50 Mg Tab) 50 mg PO BEDTIME PRN PRN Reason: Sleep Warfarin Sodium (Warfarin 2.5 Mg Tab) 2.5 mg PO 1600 [facility] Assessment/Plan Comment:: Admit patient, supply oxygen supplementation by nasal prongs to keep O2 stats at 90-92%. Lasix is appropriate, and so his Metolazone. Monitor creatinine function and GFR.
[2021-06-04] MEDS: Warfarin 2.5 MG Tab PO SCH (16:14)
[2021-06-04] MEDS: Melatonin 3 MG Tab PO SCH (20:32)
[2021-06-04] MEDS ORDERED: Non-Formulary Medication 1 Each (Melatonin [Melatonin] 10 MG Tablet) PO SCH ×2 (21:00)
[2021-06-05] MEDS: methylPREDNISolone Sodium Succinate 125 MG/2 ML SDV IVPUSH SCH ×3 (05:56→21:20)
[2021-06-05] MEDS: Metolazone 2.5 MG Tab PO SCH (08:52)
[2021-06-05] MEDS: Carvedilol 6.25 MG Tab PO SCH ×2 (08:52→08:57)
[2021-06-05] MEDS: Pantoprazole 40 MG Tab.CR PO SCH (08:53)
[2021-06-05] MEDS: Cyanocobalamin (Vitamin B12) 1,000 MCG Tab PO SCH (08:53)
[2021-06-05] MEDS: Potassium Chloride 20 MEQ Tab.ER PO SCH ×2 (08:53→21:11)
[2021-06-05] MEDS: Tiotropium Bromide 4 GM Inhalation Spray (2.5mcg/1 dose; 10 doses) INH SCH (08:53)
--- NOTE | 2021-06-05 09:12 | PCM.PN ---
- General Info Date of Service: 06/05/21 Subjective Update: Recheck was admitted for CHF exacerbation. He's gained 1 pound overnight, and still short of breath on mild exertion. - Review of Systems General: Reports: Fatigue HEENT: Reports: No Symptoms Pulmonary: Reports: Shortness of Breath. Denies: Wheezing Cardiovascular: Reports: Edema. Denies: Chest Pain Gastrointestinal: Reports: No Symptoms Genitourinary: Reports: No Symptoms Musculoskeletal: Reports: Neck Pain, Shoulder Pain - Patient Data Vitals - Most Recent: Last Vital Signs Temp 98.2 F 06/05/21 00:00 Pulse 64 06/05/21 00:00 Resp 15 06/05/21 00:00 BP 98/52 L 06/05/21 00:00 Pulse Ox 97 06/05/21 00:14 Weight - Most Recent: 76.839 kg I&O - Last 24 Hours: Intake & Output 06/04/21 06/05/21 06/05/21 22:59 06:59 14:59 Intake Total 360 Output Total 300 500 Balance 60 -500 Lab Results Last 24 Hours: Laboratory Results - last 24 hr 06/05/21 06/05/21 06/05/21 Range/Units 06:20 06:20 06:20 WBC 9.4 (3.2-10.1) x10-3/uL RBC 3.51 L (3.90-5.90) x10(6)uL Hgb 9.3 L (12.9-17.7) g/dL Hct 28.6 L (38.3-50.1) % MCV 81.6 (80.8-98.7) fL MCH 26.4 L (27.0-33.3) pg MCHC 32.4 (28.7-35.3) g/dL RDW 18.2 H (12.4-15.0) % Plt Count 183 (117-477) x10(3)uL MPV 8.9 (6.7-11.0) fL Add Manual Diff Yes Neutrophils % (Manual) 87 H (46-82) % Band Neutrophils % 3 (0-6) % Lymphocytes % (Manual) 7 L (13-37) % Monocytes % (Manual) 3 L (4-12) % Sodium 137 (135-145) mmol/L Potassium 3.6 (3.5-5.3) mmol/L Chloride 98 L (100-110) mmol/L Carbon Dioxide 27 (21-32) mmol/L BUN 61 H D (7-18) mg/dL Creatinine 2.3 H* (0.70-1.30) mg/dL Est Cr Clr Drug Dosing 21.16 mL/min Estimated GFR (MDRD) 27 L (>60) BUN/Creatinine Ratio 26.5 H (9-20) Glucose 136 H (80-116) mg/dL Calcium 9.1 (8.6-10.2) mg/dL NT-Pro-B Natriuret Pep 98346 H* (<=450) pg/mL Med Orders - Current: Current Medications Acetaminophen (Acetaminophen 500 Mg Tab) 1,000 mg PO Q6H PRN PRN Reason: Pain Albuterol/Ipratropium (Albuterol/Ipratropium 3.0-0.5 Mg/3 Ml Neb Soln) 3 ml INH Q6H PRN PRN Reason: Shortness Of Breath/wheezing Cyanocobalamin (Cyanocobalamin (Vitamin B12) 1,000 Mcg Tab) 1,000 mcg PO DAILY [facility] Last Admin: 06/05/21 08:53 Dose: 1,000 mcg Documented by: Furosemide (Furosemide 40 Mg/4 Ml Vial) 40 mg IVPUSH DAILY [facility] Last Admin: 06/04/21 09:07 Dose: 40 mg Documented by: Furosemide (Furosemide 20 Mg/2 Ml Vial) 20 mg IVPUSH DAILY [facility] Melatonin (Melatonin 3 Mg Tab) 9 mg PO BEDTIME [facility] Last Admin: 06/04/21 20:32 Dose: 9 mg Documented by: Methylprednisolone Sodium Succinate (Methylprednisolone Sodium Succinate 125 Mg/2 Ml Sdv) 125 mg IVPUSH Q8H [facility] Last Admin: 06/05/21 05:56 Dose: 125 mg Documented by: Metolazone (Metolazone 2.5 Mg Tab) 2.5 mg PO DAILY@0800 [facility] Last Admin: 06/05/21 08:52 Dose: 2.5 mg Documented by: Morphine Sulfate (Morphine 2 Mg/Ml Syringe) 2 mg IVPUSH Q2H PRN PRN Reason: Pain Nitroglycerin (Nitroglycerin 0.4 Mg Tab.Sl) 0.4 mg SL Q5M PRN PRN Reason: Chest Pain Pantoprazole Sodium (Pantoprazole 40 Mg Tab.Cr) 40 mg PO DAILY [facility] Last Admin: 06/05/21 08:53 Dose: 40 mg Documented by: Potassium Chloride (Potassium Chloride 20 Meq Tab.Er) 20 meq PO BID [facility] Last Admin: 06/05/21 08:53 Dose: 20 meq Documented by: Senna/Docusate Sodium (Docusate Sodium/Sennosides 50-8.6 Mg Tab) 1 tab PO BID PRN PRN Reason: Constipation Sodium Chloride (Sodium Chloride 0.9% 10 Ml Syringe) 10 ml FLUSH ASDIRECTED PRN PRN Reason: Keep Vein Open Last Admin: 06/04/21 21:52 Dose: 10 ml Documented by: Tiotropium [place] (Tiotropium [place] 4 Gm Inhalation [place] (2.5mcg/1 Dose; 10 Doses)) 0 gm INH DAILY [facility] Last Admin: 06/05/21 08:53 Dose: 4 gm Documented by: Trazodone HCl (Trazodone 50 Mg Tab) 50 mg PO BEDTIME PRN PRN Reason: Sleep Warfarin Sodium (Warfarin 2.5 Mg Tab) 2.5 mg PO 1600 [facility] Last Admin: 06/04/21 16:14 Dose: 2.5 mg Documented by: Discontinued Medications Albuterol/Ipratropium (Albuterol/Ipratropium 3.0-0.5 Mg/3 Ml Neb Soln) 3 ml NEB ONETIME ONE Stop: 06/03/21 22:14 Last Admin: 06/03/21 22:22 Dose: 3 ml Documented by: Albuterol/Ipratropium (Albuterol/Ipratropium 3.0-0.5 Mg/3 Ml Neb Soln) 3 ml NEB Q6H PRN PRN Reason: Dyspnea Carvedilol (Carvedilol 6.25 Mg Tab) 6.25 mg PO BID [facility] Last Admin: 06/05/21 08:57 Dose: Not Given Documented by: Furosemide (Furosemide 40 Mg/4 Ml Vial) 40 mg IVPUSH NOW ONE Stop: 06/03/21 22:14 Last Admin: 06/03/21 22:35 Dose: 40 mg Documented by: Methylprednisolone Sodium Succinate (Methylprednisolone Sodium Succinate 125 Mg/2 Ml Sdv) 125 mg IVPUSH ONETIME ONE Stop: 06/03/21 22:14 Last Admin: 06/03/21 22:42 Dose: 125 mg Documented by: Metolazone (Metolazone 2.5 Mg Tab) 2.5 mg PO ONETIME ONE Stop: 06/03/21 22:14 Last Admin: 06/03/21 22:22 Dose: 2.5 mg Documented by: Morphine Sulfate (Morphine 2 Mg/Ml Syringe) 2 mg IVPUSH ONETIME ONE Stop: 06/03/21 22:14 Last Admin: 06/03/21 22:47 Dose: 2 mg Documented by: Non-Formulary Medication (Melatonin [Melatonin]) 10 mg PO BEDTIME [facility] - Exam Quality Assessment: Supplemental Oxygen General: Alert, Oriented HEENT: Pupils Equal Neck: Supple Lungs: Crackles Cardiovascular: Regular Rate GI/Abdominal Exam: Normal Bowel Sounds Skin: Warm Neurological: No New Focal Deficit Psy/Mental Status: Alert, Normal Affect - Patient Data Lab Results Last 24 hrs: Laboratory Results - last 24 hr 06/05/21 06/05/21 06/05/21 Range/Units 06:20 06:20 06:20 WBC 9.4 (3.2-10.1) x10-3/uL RBC 3.51 L (3.90-5.90) x10(6)uL Hgb 9.3 L (12.9-17.7) g/dL Hct 28.6 L (38.3-50.1) % MCV 81.6 (80.8-98.7) fL MCH 26.4 L (27.0-33.3) pg MCHC 32.4 (28.7-35.3) g/dL RDW 18.2 H (12.4-15.0) % Plt Count 183 (117-477) x10(3)uL MPV 8.9 (6.7-11.0) fL Add Manual Diff Yes Neutrophils % (Manual) 87 H (46-82) % Band Neutrophils % 3 (0-6) % Lymphocytes % (Manual) 7 L (13-37) % Monocytes % (Manual) 3 L (4-12) % Sodium 137 (135-145) mmol/L Potassium 3.6 (3.5-5.3) mmol/L Chloride 98 L (100-110) mmol/L Carbon Dioxide 27 (21-32) mmol/L BUN 61 H D (7-18) mg/dL Creatinine 2.3 H* (0.70-1.30) mg/dL Est Cr Clr Drug Dosing 21.16 mL/min Estimated GFR (MDRD) 27 L (>60) BUN/Creatinine Ratio 26.5 H (9-20) Glucose 136 H (80-116) mg/dL Calcium 9.1 (8.6-10.2) mg/dL NT-Pro-B Natriuret Pep 60691 H* (<=450) pg/mL Result Diagrams: 06/05/21 06:20 06/05/21 06:20 Sepsis Event Note - Evaluation Sepsis Screening Result: No Definite Risk - Focused Exam Vital Signs: Vital Signs Temp Pulse Resp BP Pulse Ox Pulse Ox 06/05/21 00:14 97 06/05/21 00:00 98.2 F 64 15 98/52 L 96 - Problem List & Annotations (1) CHF exacerbation SNOMED Code(s): 255775527, 75748939446467 Code(s): I50.9 - HEART FAILURE, UNSPECIFIED Status: Acute Current Visit: Yes Qualifiers: Heart failure type: combined systolic and diastolic Qualified Code(s): I50.43 - Acute on chronic combined systolic (congestive) and diastolic (congestive) heart failure (2) Afib SNOMED Code(s): 64227366 Code(s): I48.91 - UNSPECIFIED ATRIAL FIBRILLATION Status: Acute Current Visit: Yes Qualifiers: Atrial fibrillation type: paroxysmal Qualified Code(s): I48.0 - Paroxysmal atrial fibrillation (3) Long-term (current) use of anticoagulants, INR goal 2.0-3.0 SNOMED Code(s): 038873443, 400790710 Code(s): Z79.01 - GROUP HOME (CURRENT) USE OF ANTICOAGULANTS Status: Acute Current Visit: Yes (4) CKD (chronic kidney disease) SNOMED Code(s): 287500517 Code(s): N18.9 - CHRONIC KIDNEY DISEASE, UNSPECIFIED Status: Chronic Current Visit: Yes Qualifiers: Chronic kidney disease stage: stage 3 (moderate) (5) COPD (chronic obstructive pulmonary disease) SNOMED Code(s): 08515553 Code(s): J44.9 - CHRONIC OBSTRUCTIVE PULMONARY DISEASE, UNSPECIFIED Status: Chronic Current Visit: Yes Qualifiers: Chronic bronchitis type: unspecified (6) Elevated troponin SNOMED Code(s): 110581817, 532175200, 572257400 Code(s): R77.8 - OTHER SPECIFIED ABNORMALITIES OF PLASMA PROTEINS Status: Acute Current Visit: No (7) Non-STEMI (non-ST elevated myocardial infarction) SNOMED Code(s): 65143543 Code(s): I21.4 - NON-ST ELEVATION (NSTEMI) MYOCARDIAL INFARCTION Status: Acute Current Visit: No Annotation/Comment:: Mr Gramajo will be transferred to [facility] by ground ambulance tonight. (8) CAD (coronary artery disease) SNOMED Code(s): 64215654 Code(s): I25.10 - ATHSCL HEART DISEASE OF [place] CORONARY ARTERY W/O ANG P [employer] Status: Chronic Current Visit: No Qualifiers: Coronary Disease-Associated Artery/Lesion type: bypass graft Associated angina: without angina (9) HTN (hypertension) SNOMED Code(s): 55854443 Code(s): I10 - ESSENTIAL (PRIMARY) HYPERTENSION Status: Chronic Current Visit: No Qualifiers: Hypertension type: primary hypertension Qualified Code(s): I10 - Essential (primary) hypertension - Problem List Review Problem List Initiated/Reviewed/Updated: Yes - My Orders Last 24 Hours: My Active Orders 06/04/21 21:00 Melatonin 9 mg PO BEDTIME 06/05/21 09:07 IS (RT) [RT Incentive Spirometry] [RC] Q4HWA 06/06/21 05:11 BASIC METABOLIC PANEL,BMP [CHEM] DAILY PRO B-TYPE NATRIUR PEPT,BNPPRO [CHEM] DAILY 06/06/21 16:00 Furosemide [Lasix] 20 mg IVPUSH DAILY 06/07/21 05:11 BASIC METABOLIC PANEL,BMP [CHEM] DAILY PRO B-TYPE NATRIUR PEPT,BNPPRO [CHEM] DAILY 06/08/21 05:11 BASIC METABOLIC PANEL,BMP [CHEM] DAILY - Plan Plan:: I have increased Lasix dose. I have stopped Zaroxolyn and will try Aldactone for CHF . He is on Solumedrol .ARLETTE FRANKLIN.
[2021-06-05] MEDS ORDERED: Warfarin Sliding Scale PO SCH (09:45)
[2021-06-05] MEDS: Furosemide 40 MG/4 ML VIAL IVPUSH SCH (09:59)
[2021-06-05] MEDS: Spironolactone 50 MG Tab PO SCH ×2 (10:00→21:09)
[2021-06-05] MEDS: Sodium Chloride 0.9% 10 ML Syringe FLUSH PRN ×2 (13:19→21:21)
[2021-06-05] MEDS: Warfarin 2.5 MG Tab PO SCH (16:34)
[2021-06-05] MEDS: Furosemide 20 MG/2 ML VIAL IVPUSH SCH (16:35)
[2021-06-05] MEDS: Melatonin 3 MG Tab PO SCH (21:12)
[2021-06-06] MEDS: methylPREDNISolone Sodium Succinate 125 MG/2 ML SDV IVPUSH SCH ×3 (06:58→21:09)
[2021-06-06] MEDS: Sodium Chloride 0.9% 10 ML Syringe FLUSH PRN ×5 (06:58→21:10)
[2021-06-06] MEDS: Potassium Chloride 20 MEQ Tab.ER PO SCH ×2 (08:15→20:13)
[2021-06-06] MEDS: Spironolactone 50 MG Tab PO SCH ×2 (08:15→20:13)
[2021-06-06] MEDS: Pantoprazole 40 MG Tab.CR PO SCH (08:16)
[2021-06-06] MEDS: Tiotropium Bromide 4 GM Inhalation Spray (2.5mcg/1 dose; 10 doses) INH SCH (08:16)
[2021-06-06] MEDS: Cyanocobalamin (Vitamin B12) 1,000 MCG Tab PO SCH (08:17)
[2021-06-06] MEDS: Furosemide 40 MG/4 ML VIAL IVPUSH SCH (08:19)
--- NOTE | 2021-06-06 09:16 | PCM.PN ---
- General Info Date of Service: 06/06/21 Subjective Update: He is much better today. Off O2. - Review of Systems General: Reports: Weakness Pulmonary: Reports: Shortness of Breath Cardiovascular: Reports: Edema. Denies: Dyspnea on Exertion, Lightheadedness Gastrointestinal: Reports: No Symptoms - Patient Data Vitals - Most Recent: Last Vital Signs Temp 96.9 F 06/06/21 08:00 Pulse 70 06/06/21 08:00 Resp 18 06/06/21 08:00 BP 116/61 06/06/21 08:00 Pulse Ox 93 L 06/06/21 08:00 Weight - Most Recent: 75.381 kg I&O - Last 24 Hours: Intake & Output 06/05/21 06/06/21 06/06/21 22:59 06:59 14:59 Intake Total 1350 100 Output Total 1200 600 Balance 150 -500 Lab Results Last 24 Hours: Laboratory Results - last 24 hr 06/06/21 06/06/21 Range/Units 06:35 06:35 Sodium 137 (135-145) mmol/L Potassium 3.0 L (3.5-5.3) mmol/L Chloride 98 L (100-110) mmol/L Carbon Dioxide 30 (21-32) mmol/L BUN 69 H (7-18) mg/dL Creatinine 2.1 H* (0.70-1.30) mg/dL Est Cr Clr Drug Dosing 23.17 mL/min Estimated GFR (MDRD) 30 L (>60) BUN/Creatinine Ratio 32.9 H (9-20) Glucose 129 H (80-116) mg/dL Calcium 9.2 (8.6-10.2) mg/dL NT-Pro-B Natriuret Pep 2321 H* (<=450) pg/mL Med Orders - Current: Current Medications Acetaminophen (Acetaminophen 500 Mg Tab) 1,000 mg PO Q6H PRN PRN Reason: Pain Albuterol/Ipratropium (Albuterol/Ipratropium 3.0-0.5 Mg/3 Ml Neb Soln) 3 ml INH Q6H PRN PRN Reason: Shortness Of Breath/wheezing Cyanocobalamin (Cyanocobalamin (Vitamin B12) 1,000 Mcg Tab) 1,000 mcg PO DAILY [facility] Last Admin: 06/06/21 08:17 Dose: 1,000 mcg Documented by: Furosemide (Furosemide 40 Mg/4 Ml Vial) 40 mg IVPUSH DAILY [facility] Last Admin: 06/06/21 08:19 Dose: 40 mg Documented by: Furosemide (Furosemide 20 Mg/2 Ml Vial) 20 mg IVPUSH DAILY@1600 [facility] Last Admin: 06/05/21 16:35 Dose: 20 mg Documented by: Melatonin (Melatonin 3 Mg Tab) 9 mg PO BEDTIME COUNT [facility]CLUDES [facility] Last Admin: 06/05/21 21:12 Dose: 9 mg Documented by: Methylprednisolone Sodium Succinate (Methylprednisolone Sodium Succinate 125 Mg/2 Ml Sdv) 125 mg IVPUSH Q8H COUNT [facility]CLUDES [facility] Last Admin: 06/06/21 06:58 Dose: 125 mg Documented by: Morphine Sulfate (Morphine 2 Mg/Ml Syringe) 2 mg IVPUSH Q2H PRN PRN Reason: Pain Nitroglycerin (Nitroglycerin 0.4 Mg Tab.Sl) 0.4 mg SL Q5M PRN PRN Reason: Chest Pain Pantoprazole Sodium (Pantoprazole 40 Mg Tab.Cr) 40 mg PO DAILY [facility] Last Admin: 06/06/21 08:16 Dose: 40 mg Documented by: Potassium Chloride (Potassium Chloride 20 Meq Tab.Er) 20 meq PO BID [facility]CLUD[facility] Last Admin: 06/06/21 08:15 Dose: 20 meq Documented by: Senna/Docusate Sodium (Docusate Sodium/Sennosides 50-8.6 Mg Tab) 1 tab PO BID PRN PRN Reason: Constipation Sodium Chloride (Sodium Chloride 0.9% 10 Ml Syringe) 10 ml FLUSH ASDIRECTED PRN PRN Reason: Keep Vein Open Last Admin: 06/06/21 08:28 Dose: 10 ml Documented by: Spironolactone (Spironolactone 50 Mg Tab) 50 mg PO BID [facility]CLUD[facility] Last Admin: 06/06/21 08:15 Dose: 50 mg Documented by: Tiotropium [place] (Tiotropium [place] 4 Gm Inhalation [place] (2.5mcg/1 Dose; 10 Doses)) 0 gm INH DAILY [facility]CLUD[facility] Last Admin: 06/06/21 08:16 Dose: 2 puff Documented by: Trazodone HCl (Trazodone 50 Mg Tab) 50 mg PO BEDTIME PRN PRN Reason: Sleep Warfarin Sodium (Warfarin 2.5 Mg Tab) 2.5 mg PO 1600 [facility] Last Admin: 06/05/21 16:34 Dose: 2.5 mg Documented by: Warfarin Sodium (Warfarin Sliding Scale) 1 each PO ASDIRECTED COUNT INCLUDES THE [facility] Discontinued Medications Albuterol/Ipratropium (Albuterol/Ipratropium 3.0-0.5 Mg/3 Ml Neb Soln) 3 ml NEB ONETIME ONE Stop: 06/03/21 22:14 Last Admin: 06/03/21 22:22 Dose: 3 ml Documented by: Albuterol/Ipratropium (Albuterol/Ipratropium 3.0-0.5 Mg/3 Ml Neb Soln) 3 ml NEB Q6H PRN PRN Reason: Dyspnea Carvedilol (Carvedilol 6.25 Mg Tab) 6.25 mg PO BID [facility]CLUD[facility] Last Admin: 06/05/21 08:57 Dose: Not Given Documented by: Furosemide (Furosemide 40 Mg/4 Ml Vial) 40 mg IVPUSH NOW ONE Stop: 06/03/21 22:14 Last Admin: 06/03/21 22:35 Dose: 40 mg Documented by: Methylprednisolone Sodium Succinate (Methylprednisolone Sodium Succinate 125 Mg/2 Ml Sdv) 125 mg IVPUSH ONETIME ONE Stop: 06/03/21 22:14 Last Admin: 06/03/21 22:42 Dose: 125 mg Documented by: Metolazone (Metolazone 2.5 Mg Tab) 2.5 mg PO ONETIME ONE Stop: 06/03/21 22:14 Last Admin: 06/03/21 22:22 Dose: 2.5 mg Documented by: Metolazone (Metolazone 2.5 Mg Tab) 2.5 mg PO DAILY@0800 COUNT [facility]CLUDES [facility] Last Admin: 06/05/21 08:52 Dose: 2.5 mg Documented by: Morphine Sulfate (Morphine 2 Mg/Ml Syringe) 2 mg IVPUSH ONETIME ONE Stop: 06/03/21 22:14 Last Admin: 06/03/21 22:47 Dose: 2 mg Documented by: Non-Formulary Medication (Melatonin [Melatonin]) 10 mg PO BEDTIME COUNT INCLUDES [facility] - Exam General: Alert, Oriented Lungs: Crackles, Rales Cardiovascular: Regular Rate GI/Abdominal Exam: Normal Bowel Sounds Extremities: Pedal Edema - Patient Data Lab Results Last 24 hrs: Laboratory Results - last 24 hr 06/06/21 06/06/21 Range/Units 06:35 06:35 Sodium 137 (135-145) mmol/L Potassium 3.0 L (3.5-5.3) mmol/L Chloride 98 L (100-110) mmol/L Carbon Dioxide 30 (21-32) mmol/L BUN 69 H (7-18) mg/dL Creatinine 2.1 H* (0.70-1.30) mg/dL Est Cr Clr Drug Dosing 23.17 mL/min Estimated GFR (MDRD) 30 L (>60) BUN/Creatinine Ratio 32.9 H (9-20) Glucose 129 H (80-116) mg/dL Calcium 9.2 (8.6-10.2) mg/dL NT-Pro-B Natriuret Pep 2321 H* (<=450) pg/mL Result Diagrams: 06/05/21 06:20 06/06/21 06:35 Sepsis Event Note - Evaluation Sepsis Screening Result: No Definite Risk - Focused Exam Vital Signs: Vital Signs Temp Pulse Resp BP BP Pulse Ox Pulse Ox 06/06/21 08:00 96.9 F 70 18 116/61 93 L 06/06/21 04:07 97.4 F 85 20 124/57 L 97 06/06/21 01:00 96 06/06/21 00:00 97.5 F 84 20 131/66 96 - Problem List & Annotations (1) CHF exacerbation SNOMED Code(s): 666623311, 52987249690260 Code(s): I50.9 - HEART FAILURE, UNSPECIFIED Status: Acute Current Visit: Yes Qualifiers: Heart failure type: combined systolic and diastolic Qualified Code(s): I50.43 - Acute on chronic combined systolic (congestive) and diastolic (congestive) heart failure (2) Afib SNOMED Code(s): 71970708 Code(s): I48.91 - UNSPECIFIED ATRIAL FIBRILLATION Status: Acute Current Visit: Yes Qualifiers: Atrial fibrillation type: paroxysmal Qualified Code(s): I48.0 - Paroxysmal atrial fibrillation (3) Long-term (current) use of anticoagulants, INR goal 2.0-3.0 SNOMED Code(s): 489514984, 488330070 Code(s): 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 Status: Acute Current Visit: Yes (4) CKD (chronic kidney disease) SNOMED Code(s): 384369788 Code(s): N18.9 - CHRONIC KIDNEY DISEASE, UNSPECIFIED Status: Chronic C urrent Visit: Yes Qualifiers: Chronic kidney disease stage: stage 3 (moderate) (5) COPD (chronic obstructive pulmonary disease) SNOMED Code(s): 71399138 Code(s): J44.9 - CHRONIC OBSTRUCTIVE PULMONARY DISEASE, UNSPECIFIED Status: Chronic Current Visit: Yes Qualifiers: Chronic bronchitis type: unspecified (6) Elevated troponin SNOMED Code(s): 692429267, 056761937, 866213768 Code(s): R77.8 - OTHER SPECIFIED ABNORMALITIES OF PLASMA PROTEINS Status: Acute Current Visit: No (7) Non-STEMI (non-ST elevated myocardial infarction) SNOMED Code(s): 38606481 Code(s): I21.4 - NON-ST ELEVATION (NSTEMI) MYOCARDIAL INFARCTION Status: Acute Current Visit: No Annotation/Comment:: Mr Gramajo will be transferred to [facility] by ground ambulance tonight. (8) CAD (coronary artery disease) SNOMED Code(s): 17864343 Code(s): I25.10 - ATHSCL HEART DISEASE OF [place] CORONARY ARTERY W/O ANG PCTRS Status: Chronic Current Visit: No Qualifiers: Coronary Disease-Associated Artery/Lesion type: bypass graft Associated angina: without angina (9) HTN (hypertension) SNOMED Code(s): 53514077 Code(s): I10 - ESSENTIAL (PRIMARY) HYPERTENSION Status: Chronic Current Visit: No Qualifiers: Hypertension type: primary hypertension Qualified Code(s): I10 - Essential (primary) hypertension - Problem List Review Problem List Initiated/Reviewed/Updated: Yes - My Orders Last 24 Hours: My Active Orders 06/05/21 09:07 IS (RT) [RT Incentive Spirometry] [RC] Q4HWA 06/05/21 09:30 Spironolactone [Aldactone] 50 mg PO BID 06/05/21 09:45 Warfarin Sliding Scale [Coumadin Sliding Scale] 1 each PO ASDIRECTED 06/05/21 16:00 Furosemide [Lasix] 20 mg IVPUSH DAILY@1600 06/06/21 09:14 CXR [Chest 2V] [CR] Routine 06/07/21 05:11 BASIC METABOLIC PANEL,BMP [CHEM] DAILY CBC WITH AUTO DIFF [HEME] AM INR,PT,PROTHROMBIN TIME [COAG] DAILY PRO B-TYPE NATRIUR PEPT,BNPPRO [CHEM] DAILY 06/08/21 05:11 BASIC METABOLIC PANEL,BMP [CHEM] DAILY INR,PT,PROTHROMBIN TIME [COAG] DAILY 06/09/21 05:11 INR,PT,PROTHROMBIN TIME [COAG] DAILY 06/10/21 05:11 INR,PT,PROTHROMBIN TIME [COAG] DAILY 06/11/21 05:11 INR,PT,PROTHROMBIN TIME [COAG] DAILY 06/12/21 05:11 INR,PT,PROTHROMBIN TIME [COAG] DAILY 06/13/21 05:11 INR,PT,PROTHROMBIN TIME [COAG] DAILY - Plan Plan:: Continue current therapy for 2 more days. Tonight chest x-ray today. Repeat labs the morning. Probably discharge towards end of the week.
[2021-06-06] MEDS: Hydrocortisone Acetate 1% Crm 30 GM Tube TOP PRN (16:00)
[2021-06-06] MEDS: Furosemide 20 MG/2 ML VIAL IVPUSH SCH (16:25)
[2021-06-06] MEDS: Melatonin 3 MG Tab PO SCH (20:13)
[2021-06-07] MEDS: Hydrocortisone Acetate 1% Crm 30 GM Tube TOP PRN ×3 (02:15→21:22)
[2021-06-07] MEDS: methylPREDNISolone Sodium Succinate 125 MG/2 ML SDV IVPUSH SCH ×3 (05:47→21:28)
[2021-06-07] MEDS: Sodium Chloride 0.9% 10 ML Syringe FLUSH PRN ×5 (05:50→21:31)
[2021-06-07] MEDS: Tiotropium Bromide 4 GM Inhalation Spray (2.5mcg/1 dose; 10 doses) INH SCH (08:40)
[2021-06-07] MEDS: Potassium Chloride 20 MEQ Tab.ER PO SCH (08:40)
[2021-06-07] MEDS: Furosemide 40 MG/4 ML VIAL IVPUSH SCH (08:40)
[2021-06-07] MEDS: Pantoprazole 40 MG Tab.CR PO SCH (08:40)
[2021-06-07] MEDS: Spironolactone 50 MG Tab PO SCH ×2 (08:40→21:10)
[2021-06-07] MEDS: Cyanocobalamin (Vitamin B12) 1,000 MCG Tab PO SCH (08:41)
--- NOTE | 2021-06-07 10:22 | PCM.PN ---
- General Info Date of Service: 06/07/21 Subjective Update: He is much better today. Off O2. Functional Status: Reports: Pain Controlled - Review of Systems General: Reports: No Symptoms HEENT: Reports: No Symptoms Pulmonary: Reports: No Symptoms Skin: Reports: Pruritis Neurological: Reports: No Symptoms - Patient Data Vitals - Most Recent: Last Vital Signs Temp 98.3 F 06/07/21 05:00 Pulse 70 06/07/21 05:00 Resp 18 06/07/21 05:00 BP 114/61 06/07/21 05:00 Pulse Ox 95 06/07/21 05:00 Weight - Most Recent: 73.936 kg I&O - Last 24 Hours: Intake & Output 06/06/21 06/07/21 06/07/21 22:59 06:59 14:59 Intake Total 300 200 Output Total 1000 900 Balance -700 -700 Lab Results Last 24 Hours: Laboratory Results - last 24 hr 06/07/21 06/07/21 06/07/21 Range/Units 06:40 06:40 06:40 WBC (3.2-10.1) x10-3/uL RBC (3.90-5.90) x10(6)uL Hgb (12.9-17.7) g/dL Hct (38.3-50.1) % MCV (80.8-98.7) fL MCH (27.0-33.3) pg MCHC (28.7-35.3) g/dL RDW (12.4-15.0) % Plt Count (117-477) x10(3)uL MPV (6.7-11.0) fL Add Manual Diff Neutrophils % (Manual) (46-82) % Band Neutrophils % (0-6) % Lymphocytes % (Manual) (13-37) % Monocytes % (Manual) (4-12) % PT 33.8 H (9.0-11.1) sec INR 3.39 H (1.00-1.24) Sodium 137 (135-145) mmol/L Potassium 2.7 L* (3.5-5.3) mmol/L Chloride 96 L (100-110) mmol/L Carbon Dioxide 32 (21-32) mmol/L BUN 70 H (7-18) mg/dL Creatinine 2.0 H* (0.70-1.30) mg/dL Est Cr Clr Drug Dosing 24.33 mL/min Estimated GFR (MDRD) 32 L (>60) BUN/Creatinine Ratio 35.0 H (9-20) Glucose 131 H (80-116) mg/dL Calcium 8.9 (8.6-10.2) mg/dL NT-Pro-B Natriuret Pep 97847 H* (<=450) pg/mL 06/07/21 Range/Units 06:40 WBC 9.2 (3.2-10.1) x10-3/uL RBC 3.45 L (3.90-5.90) x10(6)uL Hgb 8.8 L (12.9-17.7) g/dL Hct 27.7 L (38.3-50.1) % MCV 80.3 L (80.8-98.7) fL MCH 25.6 L (27.0-33.3) pg MCHC 31.9 (28.7-35.3) g/dL RDW 17.9 H (12.4-15.0) % Plt Count 166 (117-477) x10(3)uL MPV 8.6 (6.7-11.0) fL Add Manual Diff Yes Neutrophils % (Manual) 86 H (46-82) % Band Neutrophils % 4 (0-6) % Lymphocytes % (Manual) 7 L (13-37) % Monocytes % (Manual) 3 L (4-12) % PT (9.0-11.1) sec INR (1.00-1.24) Sodium (135-145) mmol/L Potassium (3.5-5.3) mmol/L Chloride (100-110) mmol/L Carbon Dioxide (21-32) mmol/L BUN (7-18) mg/dL Creatinine (0.70-1.30) mg/dL Est Cr Clr Drug Dosing mL/min Estimated GFR (MDRD) (>60) BUN/Creatinine Ratio (9-20) Glucose (80-116) mg/dL Calcium (8.6-10.2) mg/dL NT-Pro-B Natriuret Pep (<=450) pg/mL Med Orders - Current: Current Medications Acetaminophen (Acetaminophen 500 Mg Tab) 1,000 mg PO Q6H PRN PRN Reason: Pain Albuterol/Ipratropium (Albuterol/Ipratropium 3.0-0.5 Mg/3 Ml Neb Soln) 3 ml INH Q6H PRN PRN Reason: Shortness Of Breath/wheezing Cyanocobalamin (Cyanocobalamin (Vitamin B12) 1,000 Mcg Tab) 1,000 mcg PO DAILY [facility] Last Admin: 06/07/21 08:41 Dose: 1,000 mcg Documented by: Furosemide (Furosemide 40 Mg/4 Ml Vial) 40 mg IVPUSH DAILY [facility] Last Admin: 06/07/21 08:40 Dose: 40 mg Documented by: Furosemide (Furosemide 20 Mg/2 Ml Vial) 20 mg IVPUSH DAILY@1600 [facility] Last Admin: 06/06/21 16:25 Dose: 20 mg Documented by: Hydrocortisone Acetate (Hydrocortisone Acetate 1% Crm 30 Gm Tube) 1 gm TOP TID PRN PRN Reason: Itching Last Admin: 06/07/21 10:00 Dose: 1 applic Documented by: Melatonin (Melatonin 3 Mg Tab) 9 mg PO BEDTIME [facility] Last Admin: 06/06/21 20:13 Dose: 9 mg Documented by: Methylprednisolone Sodium Succinate (Methylprednisolone Sodium Succinate 125 Mg/2 Ml Sdv) 125 mg IVPUSH Q8H [facility] Last Admin: 06/07/21 05:47 Dose: 125 mg Documented by: Morphine Sulfate (Morphine 2 Mg/Ml Syringe) 2 mg IVPUSH Q2H PRN PRN Reason: Pain Nitroglycerin (Nitroglycerin 0.4 Mg Tab.Sl) 0.4 mg SL Q5M PRN PRN Reason: Chest Pain Pantoprazole Sodium (Pantoprazole 40 Mg Tab.Cr) 40 mg PO DAILY [facility] Last Admin: 06/07/21 08:40 Dose: 40 mg Documented by: Potassium Chloride (Potassium Chloride 20 Meq Tab.Er) 40 meq PO BID [facility] Senna/Docusate Sodium (Docusate Sodium/Sennosides 50-8.6 Mg Tab) 1 tab PO BID PRN PRN Reason: Constipation Sodium Chloride (Sodium Chloride 0.9% 10 Ml Syringe) 10 ml FLUSH ASDIRECTED PRN PRN Reason: Keep Vein Open Last Admin: 06/07/21 08:40 Dose: 10 ml Documented by: Spironolactone (Spironolactone 50 Mg Tab) 50 mg PO BID [facility] Last Admin: 06/07/21 08:40 Dose: 50 mg Documented by: Tiotropium [place] (Tiotropium [place] 4 Gm Inhalation [place] (2.5mcg/1 Dose; 10 Doses)) 0 gm INH DAILY [facility] Last Admin: 06/07/21 08:40 Dose: 2 puff Documented by: Trazodone HCl (Trazodone 50 Mg Tab) 50 mg PO BEDTIME PRN PRN Reason: Sleep Warfarin Sodium (Warfarin Sliding Scale) 1 each PO ASDIRECTED [facility] Discontinued Medications Albuterol/Ipratropium (Albuterol/Ipratropium 3.0-0.5 Mg/3 Ml Neb Soln) 3 ml NEB ONETIME ONE Stop: 06/03/21 22:14 Last Admin: 06/03/21 22:22 Dose: 3 ml Documented by: Albuterol/Ipratropium (Albuterol/Ipratropium 3.0-0.5 Mg/3 Ml Neb Soln) 3 ml NEB Q6H PRN PRN Reason: Dyspnea Carvedilol (Carvedilol 6.25 Mg Tab) 6.25 mg PO BID [facility] Last Admin: 06/05/21 08:57 Dose: Not Given Documented by: Furosemide (Furosemide 40 Mg/4 Ml Vial) 40 mg IVPUSH NOW ONE Stop: 06/03/21 22:14 Last Admin: 06/03/21 22:35 Dose: 40 mg Documented by: Methylprednisolone Sodium Succinate (Methylprednisolone Sodium Succinate 125 Mg/2 Ml Sdv) 125 mg IVPUSH ONETIME ONE Stop: 06/03/21 22:14 Last Admin: 06/03/21 22:42 Dose: 125 mg Documented by: Metolazone (Metolazone 2.5 Mg Tab) 2.5 mg PO ONETIME ONE Stop: 06/03/21 22:14 Last Admin: 06/03/21 22:22 Dose: 2.5 mg Documented by: Metolazone (Metolazone 2.5 Mg Tab) 2.5 mg PO DAILY@0800 [facility] Last Admin: 06/05/21 08:52 Dose: 2.5 mg Documented by: Morphine Sulfate (Morphine 2 Mg/Ml Syringe) 2 mg IVPUSH ONETIME ONE Stop: 06/03/21 22:14 Last Admin: 06/03/21 22:47 Dose: 2 mg Documented by: Non-Formulary Medication (Melatonin [Melatonin]) 10 mg PO BEDTIME [facility] Potassium Chloride (Potassium Chloride 20 Meq Tab.Er) 20 meq PO BID [facility] Last Admin: 06/07/21 08:40 Dose: 20 meq Documented by: Warfarin Sodium (Warfarin 2.5 Mg Tab) 2.5 mg PO 1600 [facility] Last Admin: 06/05/21 16:34 Dose: 2.5 mg Documented by: - Exam General: Alert, Oriented HEENT: Pupils Equal Neck: Supple Lungs: Clear to Auscultation Cardiovascular: Regular Rate GI/Abdominal Exam: Normal Bowel Sounds - Patient Data Lab Results Last 24 hrs: Laboratory Results - last 24 hr 06/07/21 06/07/21 06/07/21 Range/Units 06:40 06:40 06:40 WBC (3.2-10.1) x10-3/uL RBC (3.90-5.90) x10(6)uL Hgb (12.9-17.7) g/dL Hct (38.3-50.1) % MCV (80.8-98.7) fL MCH (27.0-33.3) pg MCHC (28.7-35.3) g/dL RDW (12.4-15.0) % Plt Count (117-477) x10(3)uL MPV (6.7-11.0) fL Add Manual Diff Neutrophils % (Manual) (46-82) % Band Neutrophils % (0-6) % Lymphocytes % (Manual) (13-37) % Monocytes % (Manual) (4-12) % PT 33.8 H (9.0-11.1) sec INR 3.39 H (1.00-1.24) Sodium 137 (135-145) mmol/L Potassium 2.7 L* (3.5-5.3) mmol/L Chloride 96 L (100-110) mmol/L Carbon Dioxide 32 (21-32) mmol/L BUN 70 H (7-18) mg/dL Creatinine 2.0 H* (0.70-1.30) mg/dL Est Cr Clr Drug Dosing 24.33 mL/min Estimated GFR (MDRD) 32 L (>60) BUN/Creatinine Ratio 35.0 H (9-20) Glucose 131 H (80-116) mg/dL Calcium 8.9 (8.6-10.2) mg/dL NT-Pro-B Natriuret Pep 68680 H* (<=450) pg/mL 06/07/21 Range/Units 06:40 WBC 9.2 (3.2-10.1) x10-3/uL RBC 3.45 L (3.90-5.90) x10(6)uL Hgb 8.8 L (12.9-17.7) g/dL Hct 27.7 L (38.3-50.1) % MCV 80.3 L (80.8-98.7) fL MCH 25.6 L (27.0-33.3) pg MCHC 31.9 (28.7-35.3) g/dL RDW 17.9 H (12.4-15.0) % Plt Count 166 (117-477) x10(3)uL MPV 8.6 (6.7-11.0) fL Add Manual Diff Yes Neutrophils % (Manual) 86 H (46-82) % Band Neutrophils % 4 (0-6) % Lymphocytes % (Manual) 7 L (13-37) % Monocytes % (Manual) 3 L (4-12) % PT (9.0-11.1) sec INR (1.00-1.24) Sodium (135-145) mmol/L Potassium (3.5-5.3) mmol/L Chloride (100-110) mmol/L Carbon Dioxide (21-32) mmol/L BUN (7-18) mg/dL Creatinine (0.70-1.30) mg/dL Est Cr Clr Drug Dosing mL/min Estimated GFR (MDRD) (>60) BUN/Creatinine Ratio (9-20) Glucose (80-116) mg/dL Calcium (8.6-10.2) mg/dL NT-Pro-B Natriuret Pep (<=450) pg/mL Result Diagrams: 06/07/21 06:40 06/07/21 06:40 Sepsis Event Note - Evaluation Sepsis Screening Result: No Definite Risk - Focused Exam Vital Signs: Vital Signs Temp Temp Pulse Resp BP Pulse Ox 06/07/21 05:00 98.3 F 70 18 114/61 95 06/07/21 02:00 98.2 F 71 18 116/63 95 - Problem List & Annotations (1) CHF exacerbation SNOMED Code(s): 906100545, 35820217289295 Code(s): I50.9 - HEART FAILURE, UNSPECIFIED Status: Acute Current Visit: Yes Qualifiers: Heart failure type: combined systolic and diastolic Qualified Code(s): 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 (2) Afib SNOMED Code(s): 81434059 Code(s): I48.91 - UNSPECIFIED ATRIAL FIBRILLATION Status: Acute Current Visit: Yes Qualifiers: Atrial fibrillation type: paroxysmal Qualified Code(s): I48.0 - Paroxysmal atrial fibrillation (3) Long-term (current) use of anticoagulants, INR goal 2.0-3.0 SNOMED Code(s): 017037147, 714137123 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(s): 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 Status: Acute Current Visit: Yes (4) CKD (chronic kidney disease) SNOMED Code(s): 727064828 Code(s): N18.9 - CHRONIC KIDNEY DISEASE, UNSPECIFIED Status: Chronic Current Visit: Yes Qualifiers: Chronic kidney disease stage: stage 3 (moderate) (5) COPD (chronic obstructive pulmonary disease) SNOMED Code(s): 31900729 Code(s): J44.9 - CHRONIC OBSTRUCTIVE PULMONARY DISEASE, UNSPECIFIED Status: Chronic Current Visit: Yes Qualifiers: Chronic bronchitis type: unspecified (6) Elevated troponin SNOMED Code(s): 807023425, 410050801, 788882187 Code(s): R77.8 - OTHER SPECIFIED ABNORMALITIES OF PLASMA PROTEINS Status: Acute Current Visit: No (7) Non-STEMI (non-ST elevated myocardial infarction) SNOMED Code(s): 56157416 Code(s): I21.4 - NON-ST ELEVATION (NSTEMI) MYOCARDIAL INFARCTION Status: Acute Current Visit: No Annotation/Comment:: Mr Gramajo will be transferred to [facility] by ground ambulance tonight. (8) CAD (coronary artery disease) SNOMED Code(s): 97605809 Code(s): I25.10 - ATHSCL HEART DISEASE OF [place] CORONARY ARTERY W/O ANG PCTRS Status: Chronic Current Visit: No Qualifiers: Coronary Disease-Associated Artery/Lesion type: bypass graft Associated angina: without angina (9) HTN (hypertension) SNOMED Code(s): 56927176 Code(s): I10 - ESSENTIAL (PRIMARY) HYPERTENSION Status: Chronic Current Visit: No Qualifiers: Hypertension type: primary hypertension Qualified Code(s): I10 - Essential (primary) hypertension (10) Pruritus SNOMED Code(s): 363773507 Code(s): L29.9 - PRURITUS, UNSPECIFIED Status: Acute Current Visit: Yes - Problem List Review Problem List Initiated/Reviewed/Updated: Yes - My Orders Last 24 Hours: My Active Orders 06/06/21 10:28 Hydrocortisone Acetate [Hydrocortisone Acetate 1% Crm] 1 gm TOP TID PRN 06/07/21 21:00 Potassium Chloride [Klor-Con M20] 40 meq PO BID 06/08/21 05:11 BASIC METABOLIC PANEL,BMP [CHEM] DAILY INR,PT,PROTHROMBIN TIME [COAG] DAILY PRO B-TYPE NATRIUR PEPT,BNPPRO [CHEM] DAILY 06/09/21 05:11 INR,PT,PROTHROMBIN TIME [COAG] DAILY PRO B-TYPE NATRIUR PEPT,BNPPRO [CHEM] DAILY 06/10/21 05:11 INR,PT,PROTHROMBIN TIME [COAG] DAILY 06/11/21 05:11 INR,PT,PROTHROMBIN TIME [COAG] DAILY 06/12/21 05:11 INR,PT,PROTHROMBIN TIME [COAG] DAILY 06/13/21 05:11 INR,PT,PROTHROMBIN TIME [COAG] DAILY - Plan Plan:: Cal complains of pruritus, generalized. His weight has improved, and he is less short of breath. I will start him on when necessary Benadryl for itching, replace potassium, continue IV diuresis for another day
[2021-06-07] MEDS: diphenhydrAMINE 25 MG Cap PO PRN ×2 (14:59→21:10)
[2021-06-07] MEDS: Furosemide 20 MG/2 ML VIAL IVPUSH SCH (16:06)
[2021-06-07] MEDS ORDERED: Potassium Chloride 20 MEQ Tab.ER PO SCH (21:00)
[2021-06-07] MEDS: Melatonin 3 MG Tab PO SCH (21:10)
[2021-06-07] MEDS: traZODone 50 MG Tab PO PRN (21:20)
[2021-06-08] MEDS: methylPREDNISolone Sodium Succinate 125 MG/2 ML SDV IVPUSH SCH ×3 (06:10→22:54)
[2021-06-08] MEDS: Sodium Chloride 0.9% 10 ML Syringe FLUSH PRN ×5 (06:12→22:54)
[2021-06-08] MEDS: Spironolactone 50 MG Tab PO SCH ×2 (08:21→20:48)
[2021-06-08] MEDS: Pantoprazole 40 MG Tab.CR PO SCH (08:21)
[2021-06-08] MEDS: Cyanocobalamin (Vitamin B12) 1,000 MCG Tab PO SCH (08:21)
[2021-06-08] MEDS: Tiotropium Bromide 4 GM Inhalation Spray (2.5mcg/1 dose; 10 doses) INH SCH (08:22)
--- NOTE | 2021-06-08 08:44 | PCM.PN ---
- General Info Date of Service: 06/08/21 Subjective Update: Cal has increased his weight by 1 & 1/2 pounds today. He does not need oxygen supplementation, however he still is short of breath and couldn't finish complete sentences. He denies any fever or chills. Functional Status: Reports: Pain Controlled - Review of Systems General: Reports: No Symptoms Gastrointestinal: Reports: No Symptoms Genitourinary: Reports: No Symptoms - Patient Data Vitals - Most Recent: Last Vital Signs Temp 98.3 F 06/08/21 08:00 Pulse 61 06/08/21 08:00 Resp 19 06/08/21 08:00 BP 117/59 L 06/08/21 08:00 Pulse Ox 97 06/08/21 08:00 Weight - Most Recent: 74.588 kg Lab Results Last 24 Hours: Laboratory Results - last 24 hr 06/08/21 06/08/21 06/08/21 Range/Units 06:17 06:17 06:17 PT 27.1 H (9.0-11.1) sec INR 2.68 H (1.00-1.24) Sodium 139 (135-145) mmol/L Potassium 2.8 L* (3.5-5.3) mmol/L Chloride 97 L (100-110) mmol/L Carbon Dioxide 33 H (21-32) mmol/L BUN 70 H (7-18) mg/dL Creatinine 2.1 H* (0.70-1.30) mg/dL Est Cr Clr Drug Dosing 23.17 mL/min Estimated GFR (MDRD) 30 L (>60) BUN/Creatinine Ratio 33.3 H (9-20) Glucose 131 H (80-116) mg/dL Calcium 8.9 (8.6-10.2) mg/dL NT-Pro-B Natriuret Pep 39891 H* (<=450) pg/mL Med Orders - Current: Current Medications Acetaminophen (Acetaminophen 500 Mg Tab) 1,000 mg PO Q6H PRN PRN Reason: Pain Albuterol/Ipratropium (Albuterol/Ipratropium 3.0-0.5 Mg/3 Ml Neb Soln) 3 ml INH Q6H PRN PRN Reason: Shortness Of Breath/wheezing Bumetanide (Bumetanide 1 Mg/4 Ml Mdv) 1 mg IVPUSH BIDDIURETIC [facility] Cyanocobalamin (Cyanocobalamin (Vitamin B12) 1,000 Mcg Tab) 1,000 mcg PO DAILY [facility] Last Admin: 06/08/21 08:21 Dose: 1,000 mcg Documented by: Diphenhydramine HCl (Diphenhydramine 25 Mg Cap) 25 mg PO Q6H PRN PRN Reason: Itching Last Admin: 06/07/21 21:10 Dose: 25 mg Documented by: Hydrocortisone Acetate (Hydrocortisone Acetate 1% Crm 30 Gm Tube) 1 gm TOP TID PRN PRN Reason: Itching Last Admin: 06/07/21 21:22 Dose: 1 applic Documented by: Melatonin (Melatonin 3 Mg Tab) 9 mg PO BEDTIME [facility] Last Admin: 06/07/21 21:10 Dose: 9 mg Documented by: Methylprednisolone Sodium Succinate (Methylprednisolone Sodium Succinate 125 Mg/2 Ml Sdv) 125 mg IVPUSH Q8H [facility] Last Admin: 06/08/21 06:10 Dose: 125 mg Documented by: Morphine Sulfate (Morphine 2 Mg/Ml Syringe) 2 mg IVPUSH Q2H PRN PRN Reason: Pain Nitroglycerin (Nitroglycerin 0.4 Mg Tab.Sl) 0.4 mg SL Q5M PRN PRN Reason: Chest Pain Pantoprazole Sodium (Pantoprazole 40 Mg Tab.Cr) 40 mg PO DAILY [facility] Last Admin: 06/08/21 08:21 Dose: 40 mg Documented by: Potassium Chloride (Potassium Chloride 20 Meq Tab.Er) 40 meq PO TID [facility] Senna/Docusate Sodium (Docusate Sodium/Sennosides 50-8.6 Mg Tab) 1 tab PO BID PRN PRN Reason: Constipation Sodium Chloride (Sodium Chloride 0.9% 10 Ml Syringe) 10 ml FLUSH ASDIRECTED PRN PRN Reason: Keep Vein Open Last Admin: 06/08/21 06:12 Dose: 10 ml Documented by: Spironolactone (Spironolactone 50 Mg Tab) 50 mg PO BID [facility] Last Admin: 06/08/21 08:21 Dose: 50 mg Documented by: Tiotropium [place] (Tiotropium [place] 4 Gm Inhalation [place] (2.5mcg/1 Dose; 10 Doses)) 0 gm INH DAILY [facility] Last Admin: 06/08/21 08:22 Dose: 2 puff Documented by: Trazodone HCl (Trazodone 50 Mg Tab) 50 mg PO BEDTIME PRN PRN Reason: Sleep Last Admin: 06/07/21 21:20 Dose: 50 mg Documented by: Warfarin Sodium (Warfarin Sliding Scale) 1 each PO ASDIRECTED [facility] Warfarin Sodium (Warfarin 2.5 Mg Tab) 2.5 mg PO ONETIME ONE Stop: 06/08/21 16:01 Discontinued Medications Albuterol/Ipratropium (Albuterol/Ipratropium 3.0-0.5 Mg/3 Ml Neb Soln) 3 ml NEB ONETIME ONE Stop: 06/03/21 22:14 Last Admin: 06/03/21 22:22 Dose: 3 ml Documented by: Albuterol/Ipratropium (Albuterol/Ipratropium 3.0-0.5 Mg/3 Ml Neb Soln) 3 ml NEB Q6H PRN PRN Reason: Dyspnea Carvedilol (Carvedilol 6.25 Mg Tab) 6.25 mg PO BID [facility] Last Admin: 06/05/21 08:57 Dose: Not Given Documented by: Furosemide (Furosemide 40 Mg/4 Ml Vial) 40 mg IVPUSH NOW ONE Stop: 06/03/21 22:14 Last Admin: 06/03/21 22:35 Dose: 40 mg Documented by: Furosemide (Furosemide 40 Mg/4 Ml Vial) 40 mg IVPUSH DAILY [facility] Last Admin: 06/07/21 08:40 Dose: 40 mg Documented by: Furosemide (Furosemide 20 Mg/2 Ml Vial) 20 mg IVPUSH DAILY@1600 [facility] Last Admin: 06/07/21 16:06 Dose: 20 mg Documented by: Methylprednisolone Sodium Succinate (Methylprednisolone Sodium Succinate 125 Mg/2 Ml Sdv) 125 mg IVPUSH ONETIME ONE Stop: 06/03/21 22:14 Last Admin: 06/03/21 22:42 Dose: 125 mg Documented by: Metolazone (Metolazone 2.5 Mg Tab) 2.5 mg PO ONETIME ONE Stop: 06/03/21 22:14 Last Admin: 06/03/21 22:22 Dose: 2.5 mg Documented by: Metolazone (Metolazone 2.5 Mg Tab) 2.5 mg PO DAILY@0800 [facility] Last Admin: 06/05/21 08:52 Dose: 2.5 mg Documented by: Morphine Sulfate (Morphine 2 Mg/Ml Syringe) 2 mg IVPUSH ONETIME ONE Stop: 06/03/21 22:14 Last Admin: 06/03/21 22:47 Dose: 2 mg Documented by: Non-Formulary Medication (Melatonin [Melatonin]) 10 mg PO BEDTIME [facility] Potassium Chloride (Potassium Chloride 20 Meq Tab.Er) 20 meq PO BID [facility] Last Admin: 06/07/21 08:40 Dose: 20 meq Documented by: Potassium Chloride (Potassium Chloride 20 Meq Tab.Er) 40 meq PO BID [facility] Last Admin: 06/07/21 21:10 Dose: 40 meq Documented by: Warfarin Sodium (Warfarin 2.5 Mg Tab) 2.5 mg PO 1600 [facility] Last Admin: 06/05/21 16:34 Dose: 2.5 mg Documented by: - Exam Quality Assessment: No: Supplemental Oxygen General: Alert, Oriented, Cooperative HEENT: Pupils Equal Neck: Supple Cardiovascular: Regular Rate Extremities: Normal Inspection - Patient Data Lab Results Last 24 hrs: Laboratory Results - last 24 hr 06/08/21 06/08/21 06/08/21 Range/Units 06:17 06:17 06:17 PT 27.1 H (9.0-11.1) sec INR 2.68 H (1.00-1.24) Sodium 139 (135-145) mmol/L Potassium 2.8 L* (3.5-5.3) mmol/L Chloride 97 L (100-110) mmol/L Carbon Dioxide 33 H (21-32) mmol/L BUN 70 H (7-18) mg/dL Creatinine 2.1 H* (0.70-1.30) mg/dL Est Cr Clr Drug Dosing 23.17 mL/min Estimated GFR (MDRD) 30 L (>60) BUN/Creatinine Ratio 33.3 H (9-20) Glucose 131 H (80-116) mg/dL Calcium 8.9 (8.6-10.2) mg/dL NT-Pro-B Natriuret Pep 94817 H* (<=450) pg/mL Result Diagrams: 06/07/21 06:40 06/08/21 06:17 Sepsis Event Note - Evaluation Sepsis Screening Result: No Definite Risk - Focused Exam Vital Signs: Vital Signs Temp Temp Pulse Resp BP Pulse Ox 06/08/21 08:00 98.3 F 61 19 117/59 L 97 06/08/21 05:45 98.8 F 64 16 128/60 96 06/08/21 00:00 16 - Problem List & Annotations (1) CHF exacerbation SNOMED Code(s): 346718409, 28076048284343 Code(s): I50.9 - HEART FAILURE, UNSPECIFIED Status: Acute Current Visit: Yes Qualifiers: Heart failure type: combined systolic and diastolic Qualified Code(s): I50. 43 - Acute on chronic combined systolic (congestive) and diastolic (congestive) heart failure (2) Afib SNOMED Code(s): 55491571 Code(s): I48.91 - UNSPECIFIED ATRIAL FIBRILLATION Status: Acute Current Visit: Yes Qualifiers: Atrial fibrillation type: paroxysmal Qualified Code(s): I48.0 - Paroxysmal atrial fibrillation (3) Long-term (current) use of anticoagulants, INR goal 2.0-3.0 SNOMED Code(s): 652804607, 525382269 Code(s): Z79.01 - CUSTODIAL (CURRENT) USE OF ANTICOAGULANTS Status: Acute Current Visit: Yes (4) CKD (chronic kidney disease) SNOMED Code(s): 188222586 Code(s): N18.9 - CHRONIC KIDNEY DISEASE, UNSPECIFIED Status: Chronic Current Visit: Yes Qualifiers: Chronic kidney disease stage: stage 3 (moderate) (5) COPD (chronic obstructive pulmonary disease) SNOMED Code(s): 42300258 Code(s): J44.9 - CHRONIC OBSTRUCTIVE PULMONARY DISEASE, UNSPECIFIED Status: Chronic Current Visit: Yes Qualifiers: Chronic bronchitis type: unspecified (6) Elevated troponin SNOMED Code(s): 389877175, 032227990, 124819103 Code(s): R77.8 - OTHER SPECIFIED ABNORMALITIES OF PLASMA PROTEINS Status: Acute Current Visit: No (7) Non-STEMI (non-ST elevated myocardial infarction) SNOMED Code(s): 98258006 Code(s): I21.4 - NON-ST ELEVATION (NSTEMI) MYOCARDIAL INFARCTION Status: Acute Current Visit: No Annotation/Comment:: Mr Gramajo will be transferred to [facility] by ground ambulance tonight. (8) CAD (coronary artery disease) SNOMED Code(s): 55293627 Code(s): I25.10 - ATHSCL HEART DISEASE OF [place] CORONARY ARTERY W/O ANG PCTRS Status: Chronic Current Visit: No Qualifiers: Coronary Disease-Associated Artery/Lesion type: bypass graft Associated angina: without angina (9) HTN (hypertension) SNOMED Code(s): 01674366 Code(s): I10 - ESSENTIAL (PRIMARY) HYPERTENSION Status: Chronic Current Visit: No Qualifiers: Hypertension type: primary hypertension Qualified Code(s): I10 - Essential (primary) hypertension (10) Pruritus SNOMED Code(s): 370818354 Code(s): L29.9 - PRURITUS, UNSPECIFIED Status: Acute Current Visit: Yes - Problem List Review Problem List Initiated/Reviewed/Updated: Yes - My Orders Last 24 Hours: My Active Orders 06/07/21 10:22 diphenhydrAMINE [Benadryl] 25 mg PO Q6H PRN 06/07/21 12:53 PT Evaluation and Treatment [CONS] Routine 06/07/21 12:54 OT Evaluation and Treatment [CONS] Routine 06/08/21 09:00 Bumetanide [Bumex] 1 mg IVPUSH BIDDIURETIC Potassium Chloride [Klor-Con M20] 40 meq PO TID 06/08/21 16:00 Warfarin [Coumadin] 2.5 mg PO ONETIME ONE 06/09/21 05:11 INR,PT,PROTHROMBIN TIME [COAG] DAILY PRO B-TYPE NATRIUR PEPT,BNPPRO [CHEM] DAILY 06/10/21 05:11 INR,PT,PROTHROMBIN TIME [COAG] DAILY 06/11/21 05:11 INR,PT,PROTHROMBIN TIME [COAG] DAILY 06/12/21 05:11 INR,PT,PROTHROMBIN TIME [COAG] DAILY 06/13/21 05:11 INR,PT,PROTHROMBIN TIME [COAG] DAILY - Plan Plan:: I reviewed his chest x-ray from yesterday, and there is not much improvement f rom the one done on the first. Creatinine is 2.1, his potassium still low at 2.8. I have discontinued Lasix in favor of Bumex 1 mg IV twice a day. Continue daily weight, will probably stay with him over the weekend.
[2021-06-08] MEDS: Bumetanide 1 MG/4 ML MDV IVPUSH SCH ×2 (08:51→15:41)
[2021-06-08] MEDS: Potassium Chloride 20 MEQ Tab.ER PO SCH ×3 (08:51→20:48)
[2021-06-08] MEDS ORDERED: Warfarin 2.5 MG Tab PO ONE (16:00)
[2021-06-08] MEDS: Melatonin 3 MG Tab PO SCH (20:48)
[2021-06-08] MEDS: Hydrocortisone Acetate 1% Crm 30 GM Tube TOP PRN (20:49)
[2021-06-09] MEDS: Acetaminophen 500 MG Tab PO PRN ×2 (04:35→21:24)
[2021-06-09] MEDS: Sodium Chloride 0.9% 10 ML Syringe FLUSH PRN (06:12)
[2021-06-09] MEDS: methylPREDNISolone Sodium Succinate 125 MG/2 ML SDV IVPUSH SCH (06:12)
[2021-06-09] MEDS: Cyanocobalamin (Vitamin B12) 1,000 MCG Tab PO SCH (08:04)
[2021-06-09] MEDS: Potassium Chloride 20 MEQ Tab.ER PO SCH ×3 (08:04→21:16)
[2021-06-09] MEDS: Pantoprazole 40 MG Tab.CR PO SCH (08:04)
[2021-06-09] MEDS: Spironolactone 50 MG Tab PO SCH ×2 (08:04→21:16)
[2021-06-09] MEDS: Tiotropium Bromide 4 GM Inhalation Spray (2.5mcg/1 dose; 10 doses) INH SCH (08:05)
[2021-06-09] MEDS: Bumetanide 1 MG/4 ML MDV IVPUSH SCH (08:07)
--- NOTE | 2021-06-09 09:13 | PCM.PN ---
- General Info Date of Service: 06/09/21 Admission Dx/Problem (Free Text): Patient is doing well. He denies fevers, chills, shortness of breath. He does have to sleep at an angle he says is more comfortable. He has bilateral edema worse on the left than the right. No wheezing, coughing. - Patient Data Vitals - Most Recent: Last Vital Signs Temp 97.7 F 06/09/21 00:00 Pulse 78 06/09/21 04:55 Resp 20 06/09/21 04:55 BP 126/72 06/09/21 04:55 Pulse Ox 97 06/09/21 04:55 Weight - Most Recent: 163 lb 7 oz Lab Results Last 24 Hours: Laboratory Results - last 24 hr 06/09/21 06/09/21 Range/Units 06:30 06:30 PT 23.0 H (9.0-11.1) sec INR 2.25 H (1.00-1.24) NT-Pro-B Natriuret Pep 50006 H* (<=450) pg/mL Med Orders - Current: Current Medications Acetaminophen (Acetaminophen 500 Mg Tab) 1,000 mg PO Q6H PRN PRN Reason: Pain Last Admin: 06/09/21 04:35 Dose: 1,000 mg Documented by: Albuterol/Ipratropium (Albuterol/Ipratropium 3.0-0.5 Mg/3 Ml Neb Soln) 3 ml INH Q6H PRN PRN Reason: Shortness Of Breath/wheezing Bumetanide (Bumetanide 2 Mg Tab) 2 mg PO BID [facility] Cyanocobalamin (Cyanocobalamin (Vitamin B12) 1,000 Mcg Tab) 1,000 mcg PO DAILY [facility] Last Admin: 06/09/21 08:04 Dose: 1,000 mcg Documented by: Diphenhydramine HCl (Diphenhydramine 25 Mg Cap) 25 mg PO Q6H PRN PRN Reason: Itching Last Admin: 06/07/21 21:10 Dose: 25 mg Documented by: Hydrocortisone Acetate (Hydrocortisone Acetate 1% Crm 30 Gm Tube) 1 gm TOP TID PRN PRN Reason: Itching Last Admin: 06/08/21 20:49 Dose: 1 applic Documented by: Melatonin (Melatonin 3 Mg Tab) 9 mg PO BEDTIME [facility] Last Admin: 06/08/21 20:48 Dose: 9 mg Documented by: Nitroglycerin (Nitroglycerin 0.4 Mg Tab.Sl) 0.4 mg SL Q5M PRN PRN Reason: Chest Pain Pantoprazole Sodium (Pantoprazole 40 Mg Tab.Cr) 40 mg PO DAILY [facility] Last Admin: 06/09/21 08:04 Dose: 40 mg Documented by: Potassium Chloride (Potassium Chloride 20 Meq Tab.Er) 40 meq PO TID [facility] Last Admin: 06/09/21 08:04 Dose: 40 meq Documented by: Prednisone (Prednisone 20 Mg Tab) 60 mg PO WITHBREAKFAST [facility] Senna/Docusate Sodium (Docusate Sodium/Sennosides 50-8.6 Mg Tab) 1 tab PO BID PRN PRN Reason: Constipation Sodium Chloride (Sodium Chloride 0.9% 10 Ml Syringe) 10 ml FLUSH ASDIRECTED PRN PRN Reason: Keep Vein Open Last Admin: 06/09/21 06:12 Dose: 10 ml Documented by: Spironolactone (Spironolactone 50 Mg Tab) 50 mg PO BID [facility] Last Admin: 06/09/21 08:04 Dose: 50 mg Documented by: Tiotropium [place] (Tiotropium [place] 4 Gm Inhalation [place] (2.5mcg/1 Dose; 10 Doses)) 0 gm INH DAILY [facility] Last Admin: 06/09/21 08:05 Dose: 2 puff Documented by: Trazodone HCl (Trazodone 50 Mg Tab) 50 mg PO BEDTIME PRN PRN Reason: Sleep Last Admin: 06/07/21 21:20 Dose: 50 mg Documented by: Warfarin Sodium (Warfarin Sliding Scale) 1 each PO ASDIRECTED [facility] Discontinued Medications Albuterol/Ipratropium (Albuterol/Ipratropium 3.0-0.5 Mg/3 Ml Neb Soln) 3 ml NEB ONETIME ONE Stop: 06/03/21 22:14 Last Admin: 06/03/21 22:22 Dose: 3 ml Documented by: Albuterol/Ipratropium (Albuterol/Ipratropium 3.0-0.5 Mg/3 Ml Neb Soln) 3 ml NEB Q6H PRN PRN Reason: Dyspnea Bumetanide (Bumetanide 1 Mg/4 Ml Mdv) 1 mg IVPUSH BIDDIURETIC [facility] Last Admin: 06/09/21 08:07 Dose: 1 mg Documented by: Carvedilol (Carvedilol 6.25 Mg Tab) 6.25 mg PO BID [facility] Last Admin: 06/05/21 08:57 Dose: Not Given Documented by: Furosemide (Furosemide 40 Mg/4 Ml Vial) 40 mg IVPUSH NOW ONE Stop: 06/03/21 22:14 Last Admin: 06/03/21 22:35 Dose: 40 mg Documented by: Furosemide (Furosemide 40 Mg/4 Ml Vial) 40 mg IVPUSH DAILY [facility] Last Admin: 06/07/21 08:40 Dose: 40 mg Documented by: Furosemide (Furosemide 20 Mg/2 Ml Vial) 20 mg IVPUSH DAILY@1600 [facility] Last Admin: 06/07/21 16:06 Dose: 20 mg Documented by: Methylprednisolone Sodium Succinate (Methylprednisolone Sodium Succinate 125 Mg/2 Ml Sdv) 125 mg IVPUSH ONETIME ONE Stop: 06/03/21 22:14 Last Admin: 06/03/21 22:42 Dose: 125 mg Documented by: Methylprednisolone Sodium Succinate (Methylprednisolone Sodium Succinate 125 Mg/2 Ml Sdv) 125 mg IVPUSH Q8H [facility] Last Admin: 06/09/21 06:12 Dose: 125 mg Documented by: Metolazone (Metolazone 2.5 Mg Tab) 2.5 mg PO ONETIME ONE Stop: 06/03/21 22:14 Last Admin: 06/03/21 22:22 Dose: 2.5 mg Documented by: Metolazone (Metolazone 2.5 Mg Tab) 2.5 mg PO DAILY@0800 [facility] Last Admin: 06/05/21 08:52 Dose: 2.5 mg Documented by: Morphine Sulfate (Morphine 2 Mg/Ml Syringe) 2 mg IVPUSH ONETIME ONE Stop: 06/03/21 22:14 Last Admin: 06/03/21 22:47 Dose: 2 mg Documented by: Morphine Sulfate (Morphine 2 Mg/Ml Syringe) 2 mg IVPUSH Q2H PRN PRN Reason: Pain Non-Formulary Medication (Melatonin [Melatonin]) 10 mg PO BEDTIME [facility] Potassium Chloride (Potassium Chloride 20 Meq Tab.Er) 20 meq PO BID [facility] Last Admin: 06/07/21 08:40 Dose: 20 meq Documented by: Potassium Chloride (Potassium Chloride 20 Meq Tab.Er) 40 meq PO BID [facility] Last Admin: 06/07/21 21:10 Dose: 40 meq Documented by: Warfarin Sodium (Warfarin 2.5 Mg Tab) 2.5 mg PO 1600 [facility] Last Admin: 06/05/21 16:34 Dose: 2.5 mg Documented by: Warfarin Sodium (Warfarin 2.5 Mg Tab) 2.5 mg PO ONETIME ONE Stop: 06/08/21 16:01 Last Admin: 06/08/21 15:47 Dose: 2.5 mg Documented by: - Exam General: Alert, Oriented, Cooperative Neck: Supple Lungs: Clear to Auscultation, Normal Respiratory Effort, Decreased Breath Sounds Cardiovascular: Regular Rate, Regular Rhythm, No Murmurs Extremities: Pedal Edema - Patient Data Lab Results Last 24 hrs: Laboratory Results - last 24 hr 06/09/21 06/09/21 Range/Units 06:30 06:30 PT 23.0 H (9.0-11.1) sec INR 2.25 H (1.00-1.24) NT-Pro-B Natriuret Pep 00718 H* (<=450) pg/mL Result Diagrams: 06/07/21 06:40 06/08/21 06:17 Sepsis Event Note - Evaluation Sepsis Screening Result: No Definite Risk - Focused Exam Vital Signs: Vital Signs Temp Pulse Resp BP Pulse Ox 06/09/21 04:55 78 20 126/72 97 06/09/21 00:00 97.7 F 72 20 118/60 96 - Problem List & Annotations (1) Coronary artery disease SNOMED Code(s): 77109777 Code(s): I25.10 - ATHSCL HEART DISEASE OF [place] CORONARY ARTERY W/O ANG PCTRS Status: Acute Current Visit: Yes (2) GILES (acute kidney injury) SNOMED Code(s): 26046423, 43508179 Code(s): N17.9 - ACUTE KIDNEY FAILURE, UNSPECIFIED Status: Acute Current Visit: Yes (3) Afib SNOMED Code(s): 61430650 Code(s): I48.91 - UNSPECIFIED ATRIAL FIBRILLATION Status: Acute Current Visit: Yes Qualifiers: Atrial fibrillation type: paroxysmal Qualified Code(s): I48.0 - Paroxysmal atrial fibrillation (4) CHF exacerbation SNOMED Code(s): 844598600, 74401422567835 Code(s): I50.9 - HEART FAILURE, UNSPECIFIED Status: Acute Current Visit: Yes Qualifiers: Heart failure type: combined systolic and diastolic Qualified Code(s): I50.43 - Acute on chronic combined systolic (congestive) and diastolic (congestive) heart failure (5) CKD (chronic kidney disease) SNOMED Code(s): 596698763 Code(s): N18.9 - CHRONIC KIDNEY DISEASE, UNSPECIFIED Status: Chronic Current Visit: Yes Qualifiers: Chronic kidney disease stage: stage 3 (moderate) (6) COPD (chronic obstructive pulmonary disease) SNOMED Code(s): 48418295 Code(s): J44.9 - CHRONIC OBSTRUCTIVE PULMONARY DISEASE, UNSPECIFIED Status: Chronic Current Visit: Yes Qualifiers: Chronic bronchitis type: unspecified (7) Elevated troponin SNOMED Code(s): 399531421, 568086073, 041819739 Code(s): R77.8 - OTHER SPECIFIED ABNORMALITIES OF PLASMA PROTEINS Status: Acute Current Visit: No (8) Encounter for palliative care SNOMED Code(s): 896508074, 967338659 Code(s): Z51.5 - ENCOUNTER FOR PALLIATIVE CARE Status: Acute Current Visit: No (9) Non-STEMI (non-ST elevated myocardial infarction) SNOMED Code(s): 53692112 Code(s): I21.4 - NON-ST ELEVATION (NSTEMI) MYOCARDIAL INFARCTION Status: Ac chenega Current Visit: No Annotation/Comment:: Mr Gramajo will be transferred to [facility] by ground ambulance tonight. (10) HTN (hypertension) SNOMED Code(s): 38303829 Code(s): I10 - ESSENTIAL (PRIMARY) HYPERTENSION Status: Chronic Current Visit: No Qualifiers: Hypertension type: primary hypertension Qualified Code(s): I10 - Essential (primary) hypertension - Problem List Review Problem List Initiated/Reviewed/Updated: Yes - My Orders Last 24 Hours: My Active Orders 06/09/21 Lunch Low Salt [Sodium Restricted Diet] [DIET] 06/09/21 21:00 Bumetanide [Bumex] 2 mg PO BID 06/10/21 08:00 predniSONE 60 mg PO WITHBREAKFAST - Plan Plan:: 1. DC morphine, Solu-Medrol, IV Buprenex, cardiac diet 2. Start low-sodium diet. 3. TIM hose 4. Bumex 2 mg p.o. twice daily 5. Prednisone 60 mg a day. 6. Continue PT/OT. 7. Continue daily weights and I's and O's. 8. Ambulate frequently
[2021-06-09] MEDS: Bumetanide 2 MG Tab PO SCH (13:05)
[2021-06-09] MEDS ORDERED: Warfarin 2.5 MG Tab PO SCH (16:00)
[2021-06-09] MEDS: Melatonin 3 MG Tab PO SCH (21:17)
[2021-06-09] MEDS: traZODone 50 MG Tab PO PRN (21:24)
[2021-06-10] MEDS ORDERED: predniSONE 20 MG Tab PO SCH (08:00)
[2021-06-10] MEDS: Bumetanide 2 MG Tab PO SCH ×2 (09:06→14:36)
[2021-06-10] MEDS: Spironolactone 50 MG Tab PO SCH (09:06)
--- NOTE | 2021-06-10 09:06 | PCM.PN ---
- General Info Date of Service: 06/10/21 Admission Dx/Problem (Free Text): Patient is doing well. Swelling is a bit better and his leg. We will short of breath occasionally. No chest pain, fevers, chills. - Patient Data Vitals - Most Recent: Last Vital Signs Temp 97.9 F 06/10/21 01:00 Pulse 68 06/10/21 01:00 Resp 16 06/10/21 01:00 BP 118/57 L 06/10/21 01:00 Pulse Ox 95 06/10/21 01:00 Weight - Most Recent: 163 lb 5 oz I&O - Last 24 Hours: Intake & Output 06/09/21 06/10/21 06/10/21 22:59 06:59 14:59 Output Total 1100 Balance -1100 Lab Results Last 24 Hours: Laboratory Results - last 24 hr 06/10/21 06/10/21 06/10/21 Range/Units 06:25 06:25 06:25 WBC 11.2 H (3.2-10.1) x10-3/uL RBC 3.87 L (3.90-5.90) x10(6)uL Hgb 9.8 L (12.9-17.7) g/dL Hct 31.3 L (38.3-50.1) % MCV 80.9 (80.8-98.7) fL MCH 25.3 L (27.0-33.3) pg MCHC 31.3 (28.7-35.3) g/dL RDW 18.1 H (12.4-15.0) % Plt Count 198 (117-477) x10(3)uL MPV 8.4 (6.7-11.0) fL Add Manual Diff Yes Neutrophils % (Manual) 87 H (46-82) % Band Neutrophils % 4 (0-6) % Lymphocytes % (Manual) 4 L (13-37) % Monocytes % (Manual) 5 (4-12) % PT 23.4 H (9.0-11.1) sec INR 2.29 H (1.00-1.24) Sodium 137 (135-145) mmol/L Potassium 4.5 D (3.5-5.3) mmol/L Chloride 100 (100-110) mmol/L Carbon Dioxide 32 (21-32) mmol/L BUN 69 H (7-18) mg/dL Creatinine 1.7 H (0.70-1.30) mg/dL Est Cr Clr Drug Dosing 28.62 mL/min Estimated GFR (MDRD) 38 L (>60) BUN/Creatinine Ratio 40.6 H (9-20) Glucose 107 (80-116) mg/dL Calcium 8.8 (8.6-10.2) mg/dL NT-Pro-B Natriuret Pep (<=450) pg/mL 06/10/21 Range/Units 06:25 WBC (3.2-10.1) x10-3/uL RBC (3.90-5.90) x10(6)uL Hgb (12.9-17.7) g/dL Hct (38.3-50.1) % MCV (80.8-98.7) fL MCH (27.0-33.3) pg MCHC (28.7-35.3) g/dL RDW (12.4-15.0) % Plt Count (117-477) x10(3)uL MPV (6.7-11.0) fL Add Manual Diff Neutrophils % (Manual) (46-82) % Band Neutrophils % (0-6) % Lymphocytes % (Manual) (13-37) % Monocytes % (Manual) (4-12) % PT (9.0-11.1) sec INR (1.00-1.24) Sodium (135-145) mmol/L Potassium (3.5-5.3) mmol/L Chloride (100-110) mmol/L Carbon Dioxide (21-32) mmol/L BUN (7-18) mg/dL Creatinine (0.70-1.30) mg/dL Est Cr Clr Drug Dosing mL/min Estimated GFR (MDRD) (>60) BUN/Creatinine Ratio (9-20) Glucose (80-116) mg/dL Calcium (8.6-10.2) mg/dL NT-Pro-B Natriuret Pep 27252 H* (<=450) pg/mL Med Orders - Current: Current Medications Acetaminophen (Acetaminophen 500 Mg Tab) 1,000 mg PO Q6H PRN PRN Reason: Pain Last Admin: 06/09/21 21:24 Dose: 1,000 mg Documented by: Albuterol/Ipratropium (Albuterol/Ipratropium 3.0-0.5 Mg/3 Ml Neb Soln) 3 ml INH Q6H PRN PRN Reason: Shortness Of Breath/wheezing Bumetanide (Bumetanide 2 Mg Tab) 2 mg PO BIDDIURETIC [facility] Last Admin: 06/09/21 13:05 Dose: 2 mg Documented by: Cyanocobalamin (Cyanocobalamin (Vitamin B12) 1,000 Mcg Tab) 1,000 mcg PO DAILY [facility] Last Admin: 06/09/21 08:04 Dose: 1,000 mcg Documented by: Diphenhydramine HCl (Diphenhydramine 25 Mg Cap) 25 mg PO Q6H PRN PRN Reason: Itching Last Admin: 06/07/21 21:10 Dose: 25 mg Documented by: Hydrocortisone Acetate (Hydrocortisone Acetate 1% Crm 30 Gm Tube) 1 gm TOP TID PRN PRN Reason: Itching Last Admin: 06/08/21 20:49 Dose: 1 applic Documented by: Melatonin (Melatonin 3 Mg Tab) 9 mg PO BEDTIME [facility] Last Admin: 06/09/21 21:17 Dose: 9 mg Documented by: Nitroglycerin (Nitroglycerin 0.4 Mg Tab.Sl) 0.4 mg SL Q5M PRN PRN Reason: Chest Pain Pantoprazole Sodium (Pantoprazole 40 Mg Tab.Cr) 40 mg PO DAILY [facility] Last Admin: 06/09/21 08:04 Dose: 40 mg Documented by: Potassium Chloride (Potassium Chloride 20 Meq Tab.Er) 40 meq PO TID [facility] Last Admin: 06/09/21 21:16 Dose: 40 meq Documented by: Prednisone (Prednisone 20 Mg Tab) 60 mg PO WITHBREAKFAST [facility] Senna/Docusate Sodium (Docusate Sodium/Sennosides 50-8.6 Mg Tab) 1 tab PO BID PRN PRN Reason: Constipation Sodium Chloride (Sodium Chloride 0.9% 10 Ml Syringe) 10 ml FLUSH ASDIRECTED PRN PRN Reason: Keep Vein Open Last Admin: 06/09/21 06:12 Dose: 10 ml Documented by: Spironolactone (Spironolactone 50 Mg Tab) 50 mg PO BID [facility] Last Admin: 06/09/21 21:16 Dose: 50 mg Documented by: Tiotropium [place] (Tiotropium [place] 4 Gm Inhalation [place] (2.5mcg/1 Dose; 10 Doses)) 0 gm INH DAILY [facility] Last Admin: 06/09/21 08:05 Dose: 2 puff Documented by: Trazodone HCl (Trazodone 50 Mg Tab) 50 mg PO BEDTIME PRN PRN Reason: Sleep Last Admin: 06/09/21 21:24 Dose: 50 mg Documented by: Warfarin Sodium (Warfarin Sliding Scale) 1 each PO ASDIRECTED [facility] Warfarin Sodium (Warfarin 2.5 Mg Tab) 1.25 mg PO MoFr@1600 [facility] Last Admin: 06/09/21 15:58 Dose: 1.25 mg Documented by: Warfarin Sodium (Warfarin 2.5 Mg Tab) 2.5 mg PO SuTuWeThSa@1600 [facility] Discontinued Medications Albuterol/Ipratropium (Albuterol/Ipratropium 3.0-0.5 Mg/3 Ml Neb Soln) 3 ml NEB ONETIME ONE Stop: 06/03/21 22:14 Last Admin: 06/03/21 22:22 Dose: 3 ml Documented by: Albuterol/Ipratropium (Albuterol/Ipratropium 3.0-0.5 Mg/3 Ml Neb Soln) 3 ml NEB Q6H PRN PRN Reason: Dyspnea Bumetanide (Bumetanide 1 Mg/4 Ml Mdv) 1 mg IVPUSH BIDDIURETIC [facility] Last Admin: 06/09/21 08:07 Dose: 1 mg Documented by: Carvedilol (Carvedilol 6.25 Mg Tab) 6.25 mg PO BID [facility] Last Admin: 06/05/21 08:57 Dose: Not Given Documented by: Furosemide (Furosemide 40 Mg/4 Ml Vial) 40 mg IVPUSH NOW ONE Stop: 06/03/21 22:14 Last Admin: 06/03/21 22:35 Dose: 40 mg Documented by: Furosemide (Furosemide 40 Mg/4 Ml Vial) 40 mg IVPUSH DAILY [facility] Last Admin: 06/07/21 08:40 Dose: 40 mg Documented by: Furosemide (Furosemide 20 Mg/2 Ml Vial) 20 mg IVPUSH DAILY@1600 [facility] Last Admin: 06/07/21 16:06 Dose: 20 mg Documented by: Methylprednisolone Sodium Succinate (Methylprednisolone Sodium Succinate 125 Mg/2 Ml Sdv) 125 mg IVPUSH ONETIME ONE Stop: 06/03/21 22:14 Last Admin: 06/03/21 22:42 Dose: 125 mg Documented by: Methylprednisolone Sodium Succinate (Methylprednisolone Sodium Succinate 125 Mg/2 Ml Sdv) 125 mg IVPUSH Q8H [facility] Last Admin: 06/09/21 06:12 Dose: 125 mg Documented by: Metolazone (Metolazone 2.5 Mg Tab) 2.5 mg PO ONETIME ONE Stop: 06/03/21 22:14 Last Admin: 06/03/21 22:22 Dose: 2.5 mg Documented by: Metolazone (Metolazone 2.5 Mg Tab) 2.5 mg PO DAILY@0800 [facility] Last Admin: 06/05/21 08:52 Dose: 2.5 mg Documented by: Morphine Sulfate (Morphine 2 Mg/Ml Syringe) 2 mg IVPUSH ONETIME ONE Stop: 06/03/21 22:14 Last Admin: 06/03/21 22:47 Dose: 2 mg Documented by: Morphine Sulfate (Morphine 2 Mg/Ml Syringe) 2 mg IVPUSH Q2H PRN PRN Reason: Pain Non-Formulary Medication (Melatonin [Melatonin]) 10 mg PO BEDTIME [facility] Potassium Chloride (Potassium Chloride 20 Meq Tab.Er) 20 meq PO BID [facility] Last Admin: 06/07/21 08:40 Dose: 20 meq Documented by: Potassium Chloride (Potassium Chloride 20 Meq Tab.Er) 40 meq PO BID [facility] Last Admin: 06/07/21 21:10 Dose: 40 meq Documented by: Warfarin Sodium (Warfarin 2.5 Mg Tab) 2.5 mg PO 1600 [facility] Last Admin: 06/05/21 16:34 Dose: 2.5 mg Documented by: Warfarin Sodium (Warfarin 2.5 Mg Tab) 2.5 mg PO ONETIME ONE Stop: 06/08/21 16:01 Last Admin: 06/08/21 15:47 Dose: 2.5 mg Documented by: - Exam General: Alert, Oriented Lungs: Clear to Auscultation, Normal Respiratory Effort Cardiovascular: Regular Rate, Regular Rhythm, No Murmurs Extremities: Pedal Edema (Left leg and right leg but much improved) - Patient Data Lab Results Last 24 hrs: Laboratory Results - last 24 hr 06/10/21 06/10/21 06/10/21 Range/Units 06:25 06:25 06:25 WBC 11.2 H (3.2-10.1) x10-3/uL RBC 3.87 L (3.90-5.90) x10(6)uL Hgb 9.8 L (12.9-17.7) g/dL Hct 31.3 L (38.3-50.1) % MCV 80.9 (80.8-98.7) fL MCH 25.3 L (27.0-33.3) pg MCHC 31.3 (28.7-35.3) g/dL RDW 18.1 H (12.4-15.0) % Plt Count 198 (117-477) x10(3)uL MPV 8.4 (6.7-11.0) fL Add Manual Diff Yes Neutrophils % (Manual) 87 H (46-82) % Band Neutrophils % 4 (0-6) % Lymphocytes % (Manual) 4 L (13-37) % Monocytes % (Manual) 5 (4-12) % PT 23.4 H (9.0-11.1) sec INR 2.29 H (1.00-1.24) Sodium 137 (135-145) mmol/L Potassium 4.5 D (3.5-5.3) mmol/L Chloride 100 (100-110) mmol/L Carbon Dioxide 32 (21-32) mmol/L BUN 69 H (7-18) mg/dL Creatinine 1.7 H (0.70-1.30) mg/dL Est Cr Clr Drug Dosing 28.62 mL/min Estimated GFR (MDRD) 38 L (>60) BUN/Creatinine Ratio 40.6 H (9-20) Glucose 107 (80-116) mg/dL Calcium 8.8 (8.6-10.2) mg/dL NT-Pro-B Natriuret Pep (<=450) pg/mL 06/10/21 Range/Units 06:25 WBC (3.2-10.1) x10-3/uL RBC (3.90-5.90) x10(6)uL Hgb (12.9-17.7) g/dL Hct (38.3-50.1) % MCV (80.8-98.7) fL MCH (27.0-33.3) pg MCHC (28.7-35.3) g/dL RDW (12.4-15.0) % Plt Count (117-477) x10(3)uL MPV (6.7-11.0) fL Add Manual Diff Neutrophils % (Manual) (46-82) % Band Neutrophils % (0-6) % Lymphocytes % (Manual) (13-37) % Monocytes % (Manual) (4-12) % PT (9.0-11.1) sec INR (1.00-1.24) Sodium (135-145) mmol/L Potassium (3.5-5.3) mmol/L Chloride (100-110) mmol/L Carbon Dioxide (21-32) mmol/L BUN (7-18) mg/dL Creatinine (0.70-1.30) mg/dL Est Cr Clr Drug Dosing mL/min Estimated GFR (MDRD) (>60) BUN/Creatinine Ratio (9-20) Glucose (80-116) mg/dL Calcium (8.6-10.2) mg/dL NT-Pro-B Natriuret Pep 11642 H* (<=450) pg/mL Result Diagrams: 06/10/21 06:25 06/10/21 06:25 Sepsis Event Note - Evaluation Sepsis Screening Result: No Definite Risk - Focused Exam Vital Signs: Vital Signs Temp Pulse Resp BP Pulse Ox 06/10/21 01:00 97.9 F 68 16 118/57 L 95 - Problem List & Annotations (1) Coronary artery disease SNOMED Code(s): 40275742 Code(s): I25.10 - ATHSCL HEART DISEASE OF [place] CORONARY ARTERY W/O ANG PCTRS Status: Acute Current Visit: Yes (2) GILES (acute kidney injury) SNOMED Code(s): 58114543, 93875112 Code(s): N17.9 - ACUTE KIDNEY FAILURE, UNSPECIFIED Status: Acute Current Visit: Yes (3) Afib SNOMED Code(s): 57356689 Code(s): I48.91 - UNSPECIFIED ATRIAL FIBRILLATION Status: Acute Current Visit: Yes Qualifiers: Atrial fibrillation type: paroxysmal Qualified Code(s): I48.0 - Paroxysmal atrial fibrillation (4) CHF exacerbation SNOMED Code(s): 225595583, 81695467763781 Code(s): I50.9 - HEART FAILURE, UNSPECIFIED Status: Acute Current Visit: Yes Qualifiers: Heart failure type: combined systolic and diastolic Qualified Code(s): I50.43 - Acute on chronic combined systolic (congestive) and diastolic (congestive) heart failure (5) CKD (chronic kidney disease) SNOMED Code(s): 921338613 Code(s): N18.9 - CHRONIC KIDNEY DISEASE, UNSPECIFIED Status: Chronic Current Visit: Yes Qualifiers: Chronic kidney disease stage: stage 3 (moderate) (6) COPD (chronic obstructive pulmonary disease) SNOMED Code(s): 91659112 Code(s): J44.9 - CHRONIC OBSTRUCTIVE PULMONARY DISEASE, UNSPECIFIED Status: Chronic Current Visit: Yes Qualifiers: Chronic bronchitis type: unspecified (7) Elevated troponin SNOMED Code(s): 268246834, 861100776, 730076115 Code(s): R77.8 - OTHER SPECIFIED ABNORMALITIES OF PLASMA PROTEINS Status: Acute Current Visit: No (8) Encounter for palliative care SNOMED Code(s): 550375611, 436783163 Code(s): Z51.5 - ENCOUNTER FOR PALLIATIVE CARE Status: Acute Current Visit: No (9) Non-STEMI (non-ST elevated myocardial infarction) SNOMED Code(s): 69897095 Code(s): I21.4 - NON-ST ELEVATION (NSTEMI) MYOCARDIAL INFARCTION Status: Acute Current Visit: No Annotation/Comment:: Mr Gramajo will be transferred to [facility] by ground ambulance tonight. (10) HTN (hypertension) SNOMED Code(s): 10646146 Code(s): I10 - ESSENTIAL (PRIMARY) HYPERTENSION Status: Chronic Current Visit: No Qualifiers: Hypertension type: primary hypertension Qualified Code(s): I10 - Essential (primary) hypertension - Problem List Review Problem List Initiated/Reviewed/Updated: Yes - My Orders Last 24 Hours: My Active Orders 06/09/21 10:05 TIM Hose [Antiembolic Hose] [OM.PC] Routine 06/09/21 Lunch Low Salt [Sodium Restricted Diet] [DIET] 06/09/21 14:00 Bumetanide [Bumex] 2 mg PO BIDDIURETIC 06/09/21 16:00 Warfarin [Coumadin] 1.25 mg PO MoFr@1600 06/10/21 08:00 predniSONE 60 mg PO WITHBREAKFAST 06/10/21 16:00 Warfarin [Coumadin] 2.5 mg PO [place]@1600 06/10/21 21:00 Potassium Chloride [Klor-Con M20] 40 meq PO BID - Plan Plan:: 1. Change potassium to twice daily 2. Continue current care. 3. It is the weekend and whenever we can transfer back to the [place] home and they can take him I believe he should be able to go.
[2021-06-10] MEDS: Tiotropium Bromide 4 GM Inhalation Spray (2.5mcg/1 dose; 10 doses) INH SCH (09:07)
[2021-06-10] MEDS: Cyanocobalamin (Vitamin B12) 1,000 MCG Tab PO SCH (09:07)
[2021-06-10] MEDS: Pantoprazole 40 MG Tab.CR PO SCH (09:07)
[2021-06-10] MEDS ORDERED: Potassium Chloride 20 MEQ Tab.ER PO SCH ×2 (09:30→18:00)
--- NOTE | 2021-06-10 10:13 | PCM.DCSUM1 ---
Discharge Summary - Hospital Course Free Text/Narrative:: Hospital course-patient was placed on IV Lasix, Medrol IV. And he had a good diuresis. Legs remain his swelling especially the left. He was switched to p.o. and then back to IV Bumex. Switch him over to 2 mg twice daily p.o. when he did fine. Hemoglobin is low from 8.8 went to 9.8. Creatinine was 2.7 when he came in 1.7 when the discharge. BNP was 18,000 when he came in and then went up and then went down to 21,000. Patient's breathing was well he had no fevers or chills. We did use TIM hose. Spironolactone 50 mg twice daily was added on to his regiment. INR was between 2-3 pharmacy dose his Coumadin. Patient will go home on home health. Should consider CHF clinic. Brief History: Alvaro is an 86-year-old male from [facility]. He presented last night with congestive heart failure. His symptoms included dyspnea, even at rest, leg swelling, orthopnea lasting 2-3 days. He does have a history of ischemic cardiomyopathy, coronary disease and a remote history of COPD.He has CKD,with a baseline creatinine of 1.9. He denies fever,chills,cough or chest pain. Diagnosis: Stroke: No - Discharge Data Discharge Date: 06/10/21 Discharge Disposition: Home, W Home Health Agency 06 Condition: Good - Referral to Home Health Date of Face to Face Encounter: 06/10/21 Reason for Homebound Status: CHF exacerbation Primary Care Physician: PCP None Skilled Need: mdication management, home safety, daily weights - Discharge Diagnosis/Problem(s) (1) Coronary artery disease SNOMED Code(s): 45780864 ICD Code: I25.10 - ATHSCL HEART DISEASE OF [place] CORONARY ARTERY W/O ANG PCTRS Status: Acute Current Visit: Yes (2) GILES (acute kidney injury) SNOMED Code(s): 27430798, 66360638 ICD Code: N17.9 - ACUTE KIDNEY FAILURE, UNSPECIFIED Status: Acute Current Visit: Yes (3) Afib SNOMED Code(s): 89363914 ICD Code: I48.91 - UNSPECIFIED ATRIAL FIBRILLATION Status: Acute Current Visit: Yes Qualifiers: Atrial fibrillation type: paroxysmal Qualified Code(s): I48.0 - Paroxysmal atrial fibrillation (4) CHF exacerbation SNOMED Code(s): 772075393, 21107395881000 ICD Code: I50.9 - HEART FAILURE, UNSPECIFIED Status: Acute Current Visit: Yes Qualifiers: Heart failure type: combined systolic and diastolic Qualified Code(s): I50.43 - Acute on chronic combined systolic (congestive) and diastolic (congestive) heart failure (5) CKD (chronic kidney disease) SNOMED Code(s): 367959924 ICD Code: N18.9 - CHRONIC KIDNEY DISEASE, UNSPECIFIED Status: Chronic Current Visit: Yes Qualifiers: Chronic kidney disease stage: stage 3 (moderate) (6) COPD (chronic obstructive pulmonary disease) SNOMED Code(s): 45336566 ICD Code: J44.9 - CHRONIC OBSTRUCTIVE PULMONARY DISEASE, UNSPECIFIED Status: Chronic Current Visit: Yes Qualifiers: Chronic bronchitis type: unspecified (7) Elevated troponin SNOMED Code(s): 215169393, 967135371, 704969301 ICD Code: R77.8 - OTHER SPECIFIED ABNORMALITIES OF PLASMA PROTEINS Status: Acute Current Visit: No (8) Encounter for palliative care SNOMED Code(s): 633724389, 776437815 ICD Code: Z51.5 - ENCOUNTER FOR PALLIATIVE CARE Status: Acute Current Visit: No (9) Non-STEMI (non-ST elevated myocardial infarction) SNOMED Code(s): 45438474 ICD Code: I21.4 - NON-ST ELEVATION (NSTEMI) MYOCARDIAL INFARCTION Status: Acute Current Visit: No Problem Details: Mr Gramajo will be transferred to [facility] by ground ambulance tonight. (10) HTN (hypertension) SNOMED Code(s): 04494843 ICD Code: I10 - ESSENTIAL (PRIMARY) HYPERTENSION Status: Chronic Current Visit: No Qualifiers: Hypertension type: primary hypertension Qualified Code(s): I10 - Essential (primary) hypertension - Patient Summary/Data Consults: Consultations 06/07/21 12:53 PT Evaluation and Treatment [CONS] Routine Please Evaluate and Treat. PT Reason for Consult: Ambulation This query below is only for informational purposes and is not editable. Admission Diagnosis/Problem: CHF, Congestive heart failure 06/07/21 12:54 OT Evaluation and Treatment [CONS] Routine Please Evaluate and Treat. OT Reason for Consult: ADL's This query below is only for informational purposes and is not editable. Admission Diagnosis/Problem: CHF, Congestive heart failure - Patient Instructions Diet: Low Sodium Activity: As Tolerated Driving: May Drive Today Showering/Bathing: May Shower Notify Provider of: Swelling and Redness Other/Special Instructions: 1. Recheck with Dr. Johnson in 1 week. 2. INR in 2 days 06/12/2021. 3. BMP in [address] Johnson. - Discharge Plan Prescriptions/Med Rec: Spironolactone [Aldactone] 50 mg PO BID #60 tablet Bumetanide [Bumex] 2 mg PO BIDDIURETIC #60 tablet predniSONE 40 mg PO WITHBREAKFAST #5 tablet Home Medications: Home Meds Nitroglycerin [Nitrostat] 0.4 mg SL Q5M PRN 04/29/18 [History] Pantoprazole Sodium [Protonix] 40 mg PO DAILY 11/21/20 [History] carvediloL [Coreg] 6.25 mg PO BID 11/21/20 [History] Acetaminophen [Acetaminophen Extra Strength] 1,000 mg PO Q6H PRN 02/28/21 [History] Amoxicillin 2,000 mg PO ASDIRECTED PRN 02/28/21 [History] Cyanocobalamin (Vitamin B-12) [B-12] 1,000 mcg PO DAILY 02/28/21 [History] traZODone 50 mg PO BEDTIME PRN 02/28/21 [History] Hydrocortisone [Hydrocortisone 2.5% Crm] 0 gm TOP BID PRN tube 04/17/21 [Rx] Potassium Chloride [Klor-Con M20] 20 meq PO BID #60 tab.er 04/17/21 [Rx] metOLazone [Zaroxolyn] 2.5 mg PO DAILY PRN #15 tablet 04/17/21 [Rx] Melatonin 10 mg PO BEDTIME 06/04/21 [History] Tiotropium [Spiriva HandiHaler] 1 puff IH DAILY 06/04/21 [History] Warfarin [Coumadin] 2.5 mg PO 1600 06/04/21 [History] Bumetanide [Bumex] 2 mg PO BIDDIURETIC #60 tablet 06/10/21 [Rx] Spironolactone [Aldactone] 50 mg PO BID #60 tablet 06/10/21 [Rx] predniSONE 40 mg PO WITHBREAKFAST #5 tablet 06/10/21 [Rx] Patient Handouts: Fall Prevention in Hospitals, Adult, Heart Failure Exacerbation, Venous Thromboembolism Prevention Forms: ED Department Discharge Referrals: PCP,None [Primary Care Provider] - - Discharge Summary/Plan Comment DC Time >30 min.: No Total # of Minutes for Discharge Time: 15 minutes - Patient Data Vitals - Most Recent: Last Vital Signs Temp 97.9 F 06/10/21 01:00 Pulse 68 06/10/21 01:00 Resp 16 06/10/21 01:00 BP 118/57 L 06/10/21 01:00 Pulse Ox 95 06/10/21 01:00 Weight - Most Recent: 163 lb 5 oz I&O - Last 24 hours: Intake & Output 06/09/21 06/10/21 06/10/21 22:59 06:59 14:59 Output Total 1100 Balance -1100 Lab Results - Last 24 hrs: Laboratory Results - last 24 hr 06/10/21 06/10/21 06/10/21 Range/Units 06:25 06:25 06:25 WBC 11.2 H (3.2-10.1) x10-3/uL RBC 3.87 L (3.90-5.90) x10(6)uL Hgb 9.8 L (12.9-17.7) g/dL Hct 31.3 L (38.3-50.1) % MCV 80.9 (80.8-98.7) fL MCH 25.3 L (27.0-33.3) pg MCHC 31.3 (28.7-35.3) g/dL RDW 18.1 H (12.4-15.0) % Plt Count 198 (117-477) x10(3)uL MPV 8.4 (6.7-11.0) fL Add Manual Diff Yes Neutrophils % (Manual) 87 H (46-82) % Band Neutrophils % 4 (0-6) % Lymphocytes % (Manual) 4 L (13-37) % Monocytes % (Manual) 5 (4-12) % PT 23.4 H (9.0-11.1) sec INR 2.29 H (1.00-1.24) Sodium 137 (135-145) mmol/L Potassium 4.5 D (3.5-5.3) mmol/L Chloride 100 (100-110) mmol/L Carbon Dioxide 32 (21-32) mmol/L BUN 69 H (7-18) mg/dL Creatinine 1.7 H (0.70-1.30) mg/dL Est Cr Clr Drug Dosing 28.62 mL/min Estimated GFR (MDRD) 38 L (>60) BUN/Creatinine Ratio 40.6 H (9-20) Glucose 107 (80-116) mg/dL Calcium 8.8 (8.6-10.2) mg/dL NT-Pro-B Natriuret Pep (<=450) pg/mL 06/10/21 Range/Units 06:25 WBC (3.2-10.1) x10-3/uL RBC (3.90-5.90) x10(6)uL Hgb (12.9-17.7) g/dL Hct (38.3-50.1) % MCV (80.8-98.7) fL MCH (27.0-33.3) pg MCHC (28.7-35.3) g/dL RDW (12.4-15.0) % Plt Count (117-477) x10(3)uL MPV (6.7-11.0) fL Add Manual Diff Neutrophils % (Manual) (46-82) % Band Neutrophils % (0-6) % Lymphocytes % (Manual) (13-37) % Monocytes % (Manual) (4-12) % PT (9.0-11.1) sec INR (1.00-1.24) Sodium (135-145) mmol/L Potassium (3.5-5.3) mmol/L Chloride (100-110) mmol/L Carbon Dioxide (21-32) mmol/L BUN (7-18) mg/dL Creatinine (0.70-1.30) mg/dL Est Cr Clr Drug Dosing mL/min Estimated GFR (MDRD) (>60) BUN/Creatinine Ratio (9-20) Glucose (80-116) mg/dL Calcium (8.6-10.2) mg/dL NT-Pro-B Natriuret Pep 61499 H* (<=450) pg/mL Med Orders - Current: Current Medications Acetaminophen (Acetaminophen 500 Mg Tab) 1,000 mg PO Q6H PRN PRN Reason: Pain Last Admin: 06/09/21 21:24 Dose: 1,000 mg Documented by: Albuterol/Ipratropium (Albuterol/Ipratropium 3.0-0.5 Mg/3 Ml Neb Soln) 3 ml INH Q6H PRN PRN Reason: Shortness Of Breath/wheezing Bumetanide (Bumetanide 2 Mg Tab) 2 mg PO BIDDIURETIC [facility] Last Admin: 06/10/21 09:06 Dose: 2 mg Documented by: Cyanocobalamin (Cyanocobalamin (Vitamin B12) 1,000 Mcg Tab) 1,000 mcg PO DAILY [facility] Last Admin: 06/10/21 09:07 Dose: 1,000 mcg Documented by: Diphenhydramine HCl (Diphenhydramine 25 Mg Cap) 25 mg PO Q6H PRN PRN Reason: Itching Last Admin: 06/07/21 21:10 Dose: 25 mg Documented by: Hydrocortisone Acetate (Hydrocortisone Acetate 1% Crm 30 Gm Tube) 1 gm TOP TID PRN PRN Reason: Itching Last Admin: 06/08/21 20:49 Dose: 1 applic Documented by: Melatonin (Melatonin 3 Mg Tab) 9 mg PO BEDTIME [facility] Last Admin: 06/09/21 21:17 Dose: 9 mg Documented by: Nitroglycerin (Nitroglycerin 0.4 Mg Tab.Sl) 0.4 mg SL Q5M PRN PRN Reason: Chest Pain Pantoprazole Sodium (Pantoprazole 40 Mg Tab.Cr) 40 mg PO DAILY [facility] Last Admin: 06/10/21 09:07 Dose: 40 mg Documented by: Potassium Chloride (Potassium Chloride 20 Meq Tab.Er) 40 meq PO BIDMEALS [facility] Prednisone (Prednisone 20 Mg Tab) 60 mg PO WITHBREAKFAST [facility] Last Admin: 06/10/21 09:06 Dose: 60 mg Documented by: Senna/Docusate Sodium (Docusate Sodium/Sennosides 50-8.6 Mg Tab) 1 tab PO BID PRN PRN Reason: Constipation Sodium Chloride (Sodium Chloride 0.9% 10 Ml Syringe) 10 ml FLUSH ASDIRECTED PRN PRN Reason: Keep Vein Open Last Admin: 06/09/21 06:12 Dose: 10 ml Documented by: Spironolactone (Spironolactone 50 Mg Tab) 50 mg PO BID [facility] Last Admin: 06/10/21 09:06 Dose: 50 mg Documented by: Tiotropium [place] (Tiotropium [place] 4 Gm Inhalation [place] (2.5mcg/1 Dose; 10 Doses)) 0 gm INH DAILY [facility] Last Admin: 06/10/21 09:07 Dose: 2 puff Documented by: Trazodone HCl (Trazodone 50 Mg Tab) 50 mg PO BEDTIME PRN PRN Reason: Sleep Last Admin: 06/09/21 21:24 Dose: 50 mg Documented by: Warfarin Sodium (Warfarin Sliding Scale) 1 each PO ASDIRECTED [facility] Warfarin Sodium (Warfarin 2.5 Mg Tab) 1.25 mg PO MoFr@1600 [facility] Last Admin: 06/09/21 15:58 Dose: 1.25 mg Documented by: Warfarin Sodium (Warfarin 2.5 Mg Tab) 2.5 mg PO SuTuWeThSa@1600 [facility] Discontinued Medications Albuterol/Ipratropium (Albuterol/Ipratropium 3.0-0.5 Mg/3 Ml Neb Soln) 3 ml NEB ONETIME ONE Stop: 06/03/21 22:14 Last Admin: 06/03/21 22:22 Dose: 3 ml Documented by: Albuterol/Ipratropium (Albuterol/Ipratropium 3.0-0.5 Mg/3 Ml Neb Soln) 3 ml NEB Q6H PRN PRN Reason: Dyspnea Bumetanide (Bumetanide 1 Mg/4 Ml Mdv) 1 mg IVPUSH BIDDIURETIC [facility] Last Admin: 06/09/21 08:07 Dose: 1 mg Documented by: Carvedilol (Carvedilol 6.25 Mg Tab) 6.25 mg PO BID [facility] Last Admin: 06/05/21 08:57 Dose: Not Given Documented by: Furosemide (Furosemide 40 Mg/4 Ml Vial) 40 mg IVPUSH NOW ONE Stop: 06/03/21 22:14 Last Admin: 06/03/21 22:35 Dose: 40 mg Documented by: Furosemide (Furosemide 40 Mg/4 Ml Vial) 40 mg IVPUSH DAILY [facility] Last Admin: 06/07/21 08:40 Dose: 40 mg Documented by: Furosemide (Furosemide 20 Mg/2 Ml Vial) 20 mg IVPUSH DAILY@1600 [facility] Last Admin: 06/07/21 16:06 Dose: 20 mg Documented by: Methylprednisolone Sodium Succinate (Methylprednisolone Sodium Succinate 125 Mg/2 Ml Sdv) 125 mg IVPUSH ONETIME ONE Stop: 06/03/21 22:14 Last Admin: 06/03/21 22:42 Dose: 125 mg Documented by: Methylprednisolone Sodium Succinate (Methylprednisolone Sodium Succinate 125 Mg/2 Ml Sdv) 125 mg IVPUSH Q8H [facility] Last Admin: 06/09/21 06:12 Dose: 125 mg Documented by: Metolazone (Metolazone 2.5 Mg Tab) 2.5 mg PO ONETIME ONE Stop: 06/03/21 22:14 Last Admin: 06/03/21 22:22 Dose: 2.5 mg Documented by: Metolazone (Metolazone 2.5 Mg Tab) 2.5 mg PO DAILY@0800 [facility] Last Admin: 06/05/21 08:52 Dose: 2.5 mg Documented by: Morphine Sulfate (Morphine 2 Mg/Ml Syringe) 2 mg IVPUSH ONETIME ONE Stop: 06/03/21 22:14 Last Admin: 06/03/21 22:47 Dose: 2 mg Documented by: Morphine Sulfate (Morphine 2 Mg/Ml Syringe) 2 mg IVPUSH Q2H PRN PRN Reason: Pain Non-Formulary Medication (Melatonin [Melatonin]) 10 mg PO BEDTIME [facility] Potassium Chloride (Potassium Chloride 20 Meq Tab.Er) 20 meq PO BID [facility] Last Admin: 06/07/21 08:40 Dose: 20 meq Documented by: Potassium Chloride (Potassium Chloride 20 Meq Tab.Er) 40 meq PO BID [facility] Last Admin: 06/07/21 21:10 Dose: 40 meq Documented by: Potassium Chloride (Potassium Chloride 20 Meq Tab.Er) 40 meq PO TID [facility] Last Admin: 06/09/21 21:16 Dose: 40 meq Documented by: Potassium Chloride (Potassium Chloride 20 Meq Tab.Er) 40 meq PO BIDMEALS [facility] Warfarin Sodium (Warfarin 2.5 Mg Tab) 2.5 mg PO 1600 [facility] Last Admin: 06/05/21 16:34 Dose: 2.5 mg Documented by: Warfarin Sodium (Warfarin 2.5 Mg Tab) 2.5 mg PO ONETIME ONE Stop: 06/08/21 16:01 Last Admin: 06/08/21 15:47 Dose: 2.5 mg Documented by:
[2021-06-10 10:29] VITALS: BP 124/58; PULSE 60
[2021-06-10] MEDS: Potassium Chloride 20 MEQ Tab.ER PO SCH (10:42)
[2021-06-10] MEDS ORDERED: Warfarin 2.5 MG Tab PO SCH (16:00)
== END 2021-06-10 13:50 | disposition home health service (06) | DRG 291 ==
LOC: FB.ED 21:43 → FB.MS 06-04 00:30
PROVIDERS: ADMIT Emergency Medicine; ATTEND Family Medicine
DX: I50.9 Heart failure, unspecified (principal); I13.0 Hypertensive heart and chronic kidney disease with heart failure and stage 1 through stage 4 chronic kidney disease, or unspecified chronic kidney disease; I50.43 Acute on chronic combined systolic (congestive) and diastolic (congestive) heart failure; D64.9 Anemia, unspecified; N17.9 Acute kidney failure, unspecified; N18.30 Chronic kidney disease, stage 3 unspecified; J44.9 Chronic obstructive pulmonary disease, unspecified; H54.7 Unspecified visual loss; I25.10 Atherosclerotic heart disease of native coronary artery without angina pectoris; Z20.822 Contact with and (suspected) exposure to COVID-19; E78.00 Pure hypercholesterolemia, unspecified; M19.90 Unspecified osteoarthritis, unspecified site; R77.8 Other specified abnormalities of plasma proteins; I25.5 Ischemic cardiomyopathy; E86.0 Dehydration; D63.1 Anemia in chronic kidney disease; L29.9 Pruritus, unspecified; Z96.643 Presence of artificial hip joint, bilateral; I48.0 Paroxysmal atrial fibrillation; Z88.0 Allergy status to penicillin; Z88.8 Allergy status to other drugs, medicaments and biological substances; Z79.01 Long term (current) use of anticoagulants; Z79.899 Other long term (current) drug therapy; Z86.718 Personal history of other venous thrombosis and embolism; I25.2 Old myocardial infarction; Z95.0 Presence of cardiac pacemaker; Z87.891 Personal history of nicotine dependence; Z90.49 Acquired absence of other specified parts of digestive tract; Z51.5 Encounter for palliative care; Z95.1 Presence of aortocoronary bypass graft; Z88.1 Allergy status to other antibiotic agents
CPT/HCPCS: 36415; 71045; 71046; 80048; 80053; 83880; 84484; 85025; 85610; 93005; 93010; 94150; 94640; 94762; 96374; 96375; 97110-GP; 97116-GP; 97161-GP; 97165-GO; 99285; 99285-25; A9270-GY; J1940; J2270; J2930; J3490; J7512; J7620-GY; U0002

== ENCOUNTER 2021-07-17 20:32 | Emergency (ER) | payer MEDICARE, BC ==
[2021-07-17 20:35] VITALS: BP 124/55; PULSE 60
[2021-07-17] MEDS ORDERED: Sodium Chloride 0.9% 10 ML Syringe FLUSH PRN (20:35)
[2021-07-17] MEDS ORDERED: Sodium Polystyrene Sulfonate 15 GM/60 ML Susp 60 ML Bot PO ONE (20:57)
== END 2021-07-17 21:30 | disposition home or self-care (01) ==
LOC: FB.ED 20:32
DX: E87.5 Hyperkalemia (principal); E87.1 Hypo-osmolality and hyponatremia; I11.0 Hypertensive heart disease with heart failure; I50.9 Heart failure, unspecified; I25.10 Atherosclerotic heart disease of native coronary artery without angina pectoris; J44.9 Chronic obstructive pulmonary disease, unspecified; Z95.1 Presence of aortocoronary bypass graft; Z88.0 Allergy status to penicillin; Z88.8 Allergy status to other drugs, medicaments and biological substances; Z79.01 Long term (current) use of anticoagulants; Z79.899 Other long term (current) drug therapy
CPT/HCPCS: 36415; 80048; 99284; A9270-GY

== ENCOUNTER 2021-11-22 11:43 | Observation (INO) | payer MEDICARE, BC ==
[2021-11-22 12:43] LABS: ESTIMATED GFR 39 mL/min (>60)
[2021-11-22] MEDS ORDERED: Acetaminophen 500 MG Tab PO PRN (15:22)
[2021-11-22] MEDS ORDERED: Warfarin Sliding Scale PO SCH (15:30)
[2021-11-22] MEDS ORDERED: Sodium Chloride 0.9% 10 ML Syringe FLUSH PRN (15:49)
[2021-11-22] MEDS ORDERED: Warfarin 2.5 MG Tab *PTOM PO ONE (16:00)
[2021-11-22] MEDS ORDERED: [UNRECOGNIZED DRUG - OTHER] PO SCH (21:00)
[2021-11-23] MEDS ORDERED: Pantoprazole 40 MG Tab.CR *PTOM PO SCH (08:00)
[2021-11-23] MEDS ORDERED: BUMETANIDE 1 MG PO SCH (08:00)
[2021-11-23] MEDS ORDERED: EPLERENONE 25 MG PO SCH (08:00)
[2021-11-23] MEDS ORDERED: Docusate Sodium/Sennosides 50-8.6 MG Tab*PTOM PO SCH (09:00)
[2021-11-23] MEDS ORDERED: Cyanocobalamin (Vitamin B12) 1,000 MCG Tab *PTOM PO SCH (09:00)
[2021-11-23] MEDS ORDERED: Acetaminophen 500 MG Tab *PTOM PO SCH (09:00)
[2021-11-23] MEDS ORDERED: SPIRIVA HANDIHALER 18 MCG INH SCH (09:00)
[2021-11-23] MEDS ORDERED: Polyethylene Glycol 3350 Powder 17 GM Packet PO SCH (10:00)
[2021-11-23] MEDS ORDERED: Carvedilol 3.125 MG Tab *PTOM PO ONE (10:00)
[2021-11-23 10:13] VITALS: BP 112/59; PULSE 69
== END 2021-11-23 11:05 | disposition home health service (06) ==
LOC: FB.MS 11:43 → UNDOADMOB 11:43 → FB.MS 11:59
PROVIDERS: ADMIT Family Medicine; ATTEND Family Medicine
DX: T44.7X1A Poisoning by beta-adrenoreceptor antagonists, accidental (unintentional), initial encounter (principal); T39.1X1A Poisoning by 4-Aminophenol derivatives, accidental (unintentional), initial encounter; T43.211A Poisoning by selective serotonin and norepinephrine reuptake inhibitors, accidental (unintentional), initial encounter; I95.2 Hypotension due to drugs; I50.42 Chronic combined systolic (congestive) and diastolic (congestive) heart failure; R00.1 Bradycardia, unspecified; N18.32 Chronic kidney disease, stage 3b; I13.0 Hypertensive heart and chronic kidney disease with heart failure and stage 1 through stage 4 chronic kidney disease, or unspecified chronic kidney disease; J44.9 Chronic obstructive pulmonary disease, unspecified; I25.2 Old myocardial infarction; Z98.890 Other specified postprocedural states; Z90.49 Acquired absence of other specified parts of digestive tract; Z87.891 Personal history of nicotine dependence; Z95.0 Presence of cardiac pacemaker; Z88.8 Allergy status to other drugs, medicaments and biological substances; Z88.1 Allergy status to other antibiotic agents; Z79.899 Other long term (current) drug therapy
CPT/HCPCS: 36415; 80048; 85025; 85610; 93005; 93010; 99217; 99220; A9270-GY; G0378; G0379; J3490

== ENCOUNTER 2022-01-15 13:13 | Observation (INO) | payer MEDICARE, BC ==
[2022-01-15] MEDS ORDERED: Acetaminophen 500 MG Tab PO ONE (13:58)
[2022-01-15] MEDS ORDERED: Sodium Chloride 0.9% 1,000 ML IV ONE (14:21)
[2022-01-15] MEDS ORDERED: ALUM HYDROX PO PRN (15:15)
[2022-01-15] MEDS ORDERED: Sodium Chloride 0.9% 1,000 ML IV SCH (15:15)
[2022-01-15] MEDS ORDERED: SIMETH PO PRN (15:15)
[2022-01-15] MEDS ORDERED: Acetaminophen 325 MG Tab PO PRN (15:15)
[2022-01-15] MEDS ORDERED: Metolazone 5 MG Tab PO PRN (15:15)
[2022-01-15] MEDS ORDERED: Non-Formulary Medication 1 Each (Triamcinolone Acetonide [Triamcinolone Acetonide 0.1% Crm TOP PRN (15:15)
[2022-01-15] MEDS ORDERED: MAG HYDROX PO PRN (15:15)
[2022-01-15] MEDS ORDERED: Nitroglycerin 0.4 MG Tab.SL SL PRN (15:15)
[2022-01-15] MEDS ORDERED: Warfarin 2.5 MG Tab *PTOM PO SCH (16:00)
[2022-01-15] MEDS: Acetaminophen 500 MG Tab *PTOM PO SCH (20:07)
[2022-01-15] MEDS: Carvedilol 3.125 MG Tab *PTOM PO SCH (20:09)
[2022-01-15] MEDS ORDERED: traZODone 50 MG Tab *PTOM PO SCH (21:00)
[2022-01-16] MEDS ORDERED: Zolpidem 5 MG Tab PO PRN (00:51)
[2022-01-16 06:35] LABS: ESTIMATED GFR 32 mL/min (>60)
[2022-01-16] MEDS ORDERED: EPLERENONE 25 MG PO SCH (09:00)
[2022-01-16] MEDS ORDERED: Docusate Sodium/Sennosides 50-8.6 MG Tab *PTOM PO SCH (09:00)
[2022-01-16] MEDS ORDERED: Non-Formulary Medication 1 Each (Lidocaine 4% [Aspercreme 4%] 1 EACH Patch) TOP SCH (09:00)
[2022-01-16] MEDS ORDERED: Pantoprazole 40 MG Tab.CR *PTOM PO SCH (09:00)
[2022-01-16] MEDS ORDERED: Potassium Chloride 20 MEQ Tab.ER *PTOM PO SCH (09:00)
[2022-01-16] MEDS ORDERED: TIOTROPIUM 18 MCG INH SCH (09:00)
[2022-01-16] MEDS ORDERED: Cyanocobalamin (Vitamin B12) 1,000 MCG Tab *PTOM PO SCH (09:00)
[2022-01-16] MEDS ORDERED: BUMETANIDE 1 MG PO SCH (09:00)
[2022-01-16] MEDS: Carvedilol 3.125 MG Tab *PTOM PO SCH (09:56)
[2022-01-16] MEDS: Acetaminophen 500 MG Tab *PTOM PO SCH (09:58)
[2022-01-16 10:00] VITALS: BP 126/54
[2022-01-16 13:48] VITALS: PULSE 65
[2022-01-16] MEDS ORDERED: Bumetanide 2 MG Tab PO SCH (14:00)
== END 2022-01-16 10:40 | disposition home or self-care (01) ==
LOC: FB.ED 13:13 → FB.MS 15:05
PROVIDERS: ADMIT Family Medicine; ATTEND Family Medicine
DX: E86.0 Dehydration (principal); R41.0 Disorientation, unspecified; N17.9 Acute kidney failure, unspecified; I11.0 Hypertensive heart disease with heart failure; I50.9 Heart failure, unspecified; I25.10 Atherosclerotic heart disease of native coronary artery without angina pectoris; I48.0 Paroxysmal atrial fibrillation; R77.8 Other specified abnormalities of plasma proteins; R53.1 Weakness; E78.2 Mixed hyperlipidemia; I43 Cardiomyopathy in diseases classified elsewhere; I82.409 Acute embolism and thrombosis of unspecified deep veins of unspecified lower extremity; M19.90 Unspecified osteoarthritis, unspecified site; Z88.0 Allergy status to penicillin; Z88.8 Allergy status to other drugs, medicaments and biological substances; Z88.1 Allergy status to other antibiotic agents; Z79.01 Long term (current) use of anticoagulants; Z79.899 Other long term (current) drug therapy; Z95.1 Presence of aortocoronary bypass graft; Z90.49 Acquired absence of other specified parts of digestive tract; Z98.890 Other specified postprocedural states; Z96.643 Presence of artificial hip joint, bilateral; Z87.891 Personal history of nicotine dependence; Z79.811 Long term (current) use of aromatase inhibitors; Z79.2 Long term (current) use of antibiotics
CPT/HCPCS: 36415; 80048; 81001; 82565; 83880; 84484; 85025; 85610; 96360; 96361; 99284; 99285; A9270; G0378; J7030

== ENCOUNTER 2022-02-04 08:57 | Emergency (ER) | payer MEDICARE, BC ==
[2022-02-04] MEDS ORDERED: Ibuprofen 400 MG Tab PO ONE (09:43)
[2022-02-04 11:53] VITALS: BP 111/56; PULSE 60
== END 2022-02-04 10:55 | disposition home or self-care (01) ==
LOC: FB.ED 08:57
DX: G89.29 Other chronic pain (principal); M25.511 Pain in right shoulder; M25.512 Pain in left shoulder; I11.0 Hypertensive heart disease with heart failure; I50.9 Heart failure, unspecified; I25.10 Atherosclerotic heart disease of native coronary artery without angina pectoris; J44.9 Chronic obstructive pulmonary disease, unspecified; I25.2 Old myocardial infarction; Z88.8 Allergy status to other drugs, medicaments and biological substances; Z88.1 Allergy status to other antibiotic agents; Z79.899 Other long term (current) drug therapy; Z79.01 Long term (current) use of anticoagulants; Z90.49 Acquired absence of other specified parts of digestive tract
CPT/HCPCS: 93005; 99283; A9270-GY

== ENCOUNTER 2022-02-14 20:04 | Emergency (ER) | payer MEDICARE, BC ==
[2022-02-14 20:49] LABS: ESTIMATED GFR 24 mL/min (>60)
[2022-02-14] MEDS ORDERED: Potassium Chloride 20 MEQ Tab.ER PO ONE ×2 (20:57→21:02)
[2022-02-14 23:49] VITALS: BP 120/63; PULSE 61
== END 2022-02-14 21:45 | disposition home or self-care (01) ==
LOC: FB.ED 20:04
DX: E87.6 Hypokalemia (principal); E87.1 Hypo-osmolality and hyponatremia; I11.0 Hypertensive heart disease with heart failure; I50.9 Heart failure, unspecified; J44.9 Chronic obstructive pulmonary disease, unspecified; I25.10 Atherosclerotic heart disease of native coronary artery without angina pectoris; I25.2 Old myocardial infarction; Z88.8 Allergy status to other drugs, medicaments and biological substances; Z88.1 Allergy status to other antibiotic agents; Z79.899 Other long term (current) drug therapy; Z79.01 Long term (current) use of anticoagulants; Z90.49 Acquired absence of other specified parts of digestive tract
CPT/HCPCS: 36415; 80048; 83735; 99284; A9270

== ENCOUNTER 2022-02-23 14:29 | Emergency (ER) | payer MEDICARE, BC ==
[2022-02-23] MEDS ORDERED: Sodium Chloride 0.9% 10 ML Syringe FLUSH PRN (14:30)
[2022-02-23] MEDS ORDERED: Acetaminophen/oxyCODONE 325-5 MG Tab PO PRN (14:55)
[2022-02-23 15:13] LABS: ESTIMATED GFR 23 mL/min (>60)
[2022-02-23 16:35] VITALS: BP 110/61; PULSE 62
== END 2022-02-23 17:05 ==
LOC: FB.ED 14:29
DX: I11.0 Hypertensive heart disease with heart failure (principal); I50.42 Chronic combined systolic (congestive) and diastolic (congestive) heart failure; I24.9 Acute ischemic heart disease, unspecified; N17.9 Acute kidney failure, unspecified; I25.10 Atherosclerotic heart disease of native coronary artery without angina pectoris; J44.9 Chronic obstructive pulmonary disease, unspecified; E87.6 Hypokalemia; E87.1 Hypo-osmolality and hyponatremia; Z88.8 Allergy status to other drugs, medicaments and biological substances; Z79.899 Other long term (current) drug therapy; Z79.01 Long term (current) use of anticoagulants; Z86.16 Personal history of COVID-19; Z90.49 Acquired absence of other specified parts of digestive tract
CPT/HCPCS: 36415; 71045; 80053; 83880; 84484; 85025; 85610; 93005; 93010; 99285; A9270; J3490

== ENCOUNTER 2022-03-06 11:30 | Inpatient (IN) | payer MEDICARE, BC ==
[2022-03-07] MEDS ORDERED: traZODone 50 MG Tab PO PRN (16:04)
[2022-03-07] MEDS ORDERED: Emollient 454 GM Jar TOP PRN (16:05)
[2022-03-07] MEDS ORDERED: Nitroglycerin 0.4 MG Tab.SL SL PRN ×2 (16:07→16:15)
[2022-03-07] MEDS ORDERED: Triamcinolone Acetonide 0.1% Crm 15 GM Tube TOP PRN (16:10)
[2022-03-07] MEDS ORDERED: Warfarin Sliding Scale PO SCH (16:15)
[2022-03-07] MEDS ORDERED: Warfarin 2.5 MG Tab PO ONE (16:15)
[2022-03-07] MEDS ORDERED: Hydrocortisone 2.5% Crm 30 GM Tube TOP PRN (16:20)
[2022-03-07] MEDS: Carvedilol 3.125 MG Tab PO SCH (21:00)
[2022-03-07] MEDS: Acetaminophen 500 MG Tab PO SCH (21:00)
[2022-03-07] MEDS: Polyethylene Glycol 3350 Powder 17 GM Packet PO SCH (21:00)
[2022-03-08] MEDS ORDERED: Pantoprazole 40 MG Tab.CR PO SCH (06:00)
[2022-03-08 06:09] VITALS: BP 104/56
[2022-03-08 06:10] VITALS: PULSE 60
[2022-03-08] MEDS ORDERED: Ferrous Sulfate 325 MG Tab PO SCH (09:00)
[2022-03-08] MEDS ORDERED: Tamsulosin 0.4 MG Cap.ER PO SCH (09:00)
[2022-03-08] MEDS ORDERED: Tiotropium Bromide 4 GM Inhalation Spray (2.5mcg/1 dose; 10 doses) INH SCH (09:00)
[2022-03-08] MEDS: Acetaminophen 500 MG Tab PO SCH (10:10)
[2022-03-08] MEDS: Carvedilol 3.125 MG Tab PO SCH (10:10)
[2022-03-08] MEDS: Polyethylene Glycol 3350 Powder 17 GM Packet PO SCH (10:11)
[2022-03-08] MEDS ORDERED: Warfarin 2.5 MG Tab PO ONE (16:00)
[2022-03-09] MEDS ORDERED: Lidocaine 4% 1 each Patch TOP SCH (09:00)
[2022-03-09] MEDS ORDERED: Warfarin 2.5 MG Tab PO ONE (16:00)
[2022-03-10] MEDS ORDERED: traMADol 50 MG Tab ONE (09:42)
[2022-03-10] MEDS ORDERED: Warfarin 2.5 MG Tab PO ONE (16:00)
[2022-03-11] MEDS ORDERED: traMADol 50 MG Tab ONE (02:39)
[2022-03-11] MEDS ORDERED: Warfarin 2.5 MG Tab PO ONE (16:00)
[2022-03-12] MEDS ORDERED: traMADol 50 MG Tab ONE (00:12)
[2022-03-12] MEDS ORDERED: Warfarin Sliding Scale PO SCH (16:00)
[2022-03-12] MEDS ORDERED: Warfarin 2.5 MG Tab PO ONE (16:00)
[2022-03-13] MEDS ORDERED: traMADol 50 MG Tab ONE (09:46)
[2022-03-15] MEDS ORDERED: traMADol 50 MG Tab ONE (00:57)
[2022-03-17] MEDS ORDERED: traMADol 50 MG Tab ONE (22:29)
== END 2022-03-20 13:05 | disposition still patient (30) | DRG 948 ==
LOC: FB.MS 11:30
PROVIDERS: ADMIT Family Medicine; ATTEND Family Medicine
DX: R53.81 Other malaise (principal); I13.0 Hypertensive heart and chronic kidney disease with heart failure and stage 1 through stage 4 chronic kidney disease, or unspecified chronic kidney disease; R77.8 Other specified abnormalities of plasma proteins; E78.5 Hyperlipidemia, unspecified; I48.0 Paroxysmal atrial fibrillation; J44.9 Chronic obstructive pulmonary disease, unspecified; E78.00 Pure hypercholesterolemia, unspecified; I50.9 Heart failure, unspecified; N18.30 Chronic kidney disease, stage 3 unspecified; Z96.649 Presence of unspecified artificial hip joint; Z95.1 Presence of aortocoronary bypass graft; Z79.01 Long term (current) use of anticoagulants; Z86.718 Personal history of other venous thrombosis and embolism; Z79.899 Other long term (current) drug therapy
CPT/HCPCS: 36415; 85610; 99306; 99315; A9270-GY

== ENCOUNTER 2022-04-27 15:21 | Emergency (ER) | payer MEDICARE, BC ==
[2022-04-27 15:55] LABS: ESTIMATED GFR 36 mL/min (>60)
[2022-04-27] MEDS ORDERED: Furosemide 100 MG/10 ML SDV IVPUSH ONE (15:59)
[2022-04-27] MEDS ORDERED: Sodium Chloride 0.9% 10 ML Syringe FLUSH PRN (15:59)
[2022-04-27 16:27] VITALS: BP 115/59; PULSE 70
== END 2022-04-27 19:05 | disposition home or self-care (01) ==
LOC: FB.ED 15:21
DX: E87.70 Fluid overload, unspecified (principal); I25.10 Atherosclerotic heart disease of native coronary artery without angina pectoris; I25.810 Atherosclerosis of coronary artery bypass graft(s) without angina pectoris; I11.0 Hypertensive heart disease with heart failure; I50.9 Heart failure, unspecified; I25.2 Old myocardial infarction; J44.9 Chronic obstructive pulmonary disease, unspecified; M19.90 Unspecified osteoarthritis, unspecified site; Z88.8 Allergy status to other drugs, medicaments and biological substances; Z88.1 Allergy status to other antibiotic agents; Z79.01 Long term (current) use of anticoagulants; Z79.899 Other long term (current) drug therapy
CPT/HCPCS: 36415; 80048; 96374; 99283; J1940; J3490

== ENCOUNTER 2022-04-30 12:24 | Emergency (ER) | payer MEDICARE, BC ==
[2022-04-30] MEDS: Sodium Chloride 0.9% 10 ML Syringe FLUSH PRN ×2 (12:51→13:57)
[2022-04-30 13:25] LABS: ESTIMATED GFR 38 mL/min (>60)
[2022-04-30] MEDS ORDERED: Metolazone 2.5 MG Tab PO ONE ×2 (13:48→20:11)
[2022-04-30] MEDS ORDERED: Furosemide 40 MG/4 ML VIAL IVPUSH ONE (13:48)
[2022-04-30] MEDS ORDERED: cefTRIAXone 1 GM in Sodium Chloride 0.9% 50 ML IV ONE (14:52)
[2022-04-30] MEDS ORDERED: Furosemide 40 MG/4 ML VIAL IVPUSH SCH (21:00)
[2022-04-30] MEDS ORDERED: Pantoprazole 40 MG Tab.CR PO SCH (21:00)
[2022-04-30] MEDS ORDERED: Warfarin 2.5 MG Tab PO ONE (21:00)
[2022-04-30] MEDS ORDERED: Potassium Chloride 10 MEQ Tab.ER PO ONE (21:00)
[2022-04-30] MEDS ORDERED: Carvedilol 3.125 MG Tab PO ONE (21:00)
[2022-05-01] MEDS: Metolazone 2.5 MG Tab PO SCH ×2 (08:58→15:54)
[2022-05-01] MEDS: Furosemide 40 MG/4 ML VIAL IVPUSH SCH ×2 (08:59→09:00)
[2022-05-01] MEDS: Sodium Chloride 0.9% 10 ML Syringe FLUSH PRN ×2 (09:00→12:46)
[2022-05-01] MEDS ORDERED: cefTRIAXone 1 GM Vial IVPUSH STA (12:23)
[2022-05-01 12:40] LABS: ESTIMATED GFR 36 mL/min (>60)
[2022-05-01 16:04] VITALS: BP 118/61; PULSE 61
== END 2022-05-01 15:34 ==
LOC: FB.ED 12:24
DX: I13.0 Hypertensive heart and chronic kidney disease with heart failure and stage 1 through stage 4 chronic kidney disease, or unspecified chronic kidney disease (principal); N18.30 Chronic kidney disease, stage 3 unspecified; I50.40 Unspecified combined systolic (congestive) and diastolic (congestive) heart failure; N39.0 Urinary tract infection, site not specified; R79.89 Other specified abnormal findings of blood chemistry; I25.10 Atherosclerotic heart disease of native coronary artery without angina pectoris; E78.00 Pure hypercholesterolemia, unspecified; I25.2 Old myocardial infarction; M19.90 Unspecified osteoarthritis, unspecified site; Z88.8 Allergy status to other drugs, medicaments and biological substances; Z88.1 Allergy status to other antibiotic agents; Z79.01 Long term (current) use of anticoagulants; Z79.899 Other long term (current) drug therapy; Z20.822 Contact with and (suspected) exposure to COVID-19
CPT/HCPCS: 36415; 71045; 80053; 81001; 83880; 84484; 85025; 85610; 85730; 87086; 87088; 87186; 93005; 96365; 96375; 96376; 99285; A9270; J0696; J1940; J3490; U0002

== ENCOUNTER 2022-06-06 15:03 | Emergency (ER) | payer MEDICARE, BC ==
[2022-06-06] MEDS ORDERED: Morphine 4 MG/ML VIAL IVPUSH ONE (15:43)
[2022-06-06] MEDS ORDERED: Ondansetron 4 MG/2 ML SDV IVPUSH ONE (15:44)
[2022-06-06] MEDS ORDERED: Potassium Chloride 20 MEQ Tab.ER PO ONE (15:46)
[2022-06-06] MEDS ORDERED: Sodium Chloride 0.9% 500 ML IV ONE (17:22)
[2022-06-06 17:34] LABS: CORONAVIRUS COVID-19 NAA NEGATIVE (NEGATIVE)
[2022-06-06 17:41] VITALS: BP 108/60; PULSE 73
== END 2022-06-06 19:30 | disposition home or self-care (01) ==
LOC: FB.ED 15:03
DX: E86.0 Dehydration (principal); E87.6 Hypokalemia; R79.89 Other specified abnormal findings of blood chemistry; I25.10 Atherosclerotic heart disease of native coronary artery without angina pectoris; I11.0 Hypertensive heart disease with heart failure; I50.9 Heart failure, unspecified; E78.00 Pure hypercholesterolemia, unspecified; I25.2 Old myocardial infarction; Z95.0 Presence of cardiac pacemaker; Z88.0 Allergy status to penicillin; Z88.8 Allergy status to other drugs, medicaments and biological substances; Z79.899 Other long term (current) drug therapy; Z79.01 Long term (current) use of anticoagulants; Z20.822 Contact with and (suspected) exposure to COVID-19
CPT/HCPCS: 0241U; 36415; 74019; 81001; 83605; 83735; 85610; 86140; 87040; 87086; 87088; 87186; 96374; 96375; 99285-25; A9270-GY; J2270; J2405; J7040

== ENCOUNTER 2022-08-16 15:50 | Inpatient (IN) | payer MEDICARE, BC ==
[2022-08-16] MEDS ORDERED: Sodium Chloride 0.9% 10 ML Syringe FLUSH PRN (16:23)
[2022-08-16] MEDS ORDERED: Nitroglycerin 0.4 MG Tab.SL SL PRN (16:26)
[2022-08-16] MEDS ORDERED: Loperamide 2 MG Cap PO PRN (16:26)
[2022-08-16] MEDS ORDERED: Magnesium Hydroxide 400 MG/5 ML Susp 30 ML Cup PO PRN (16:26)
[2022-08-16] MEDS ORDERED: Warfarin Sliding Scale PO SCH (16:45)
[2022-08-16] MEDS: Sodium Chloride 0.9% 1,000 ML IV SCH (17:55)
[2022-08-16] MEDS: cefTRIAXone 1 GM Vial IVPUSH SCH (17:55)
[2022-08-16] MEDS: Warfarin 2.5 MG Tab PO SCH (18:33)
[2022-08-16] MEDS: Polyethylene Glycol 3350 Powder 17 GM Packet PO SCH (20:23)
[2022-08-16] MEDS: Potassium Chloride 20 MEQ Tab.ER PO SCH (20:23)
[2022-08-16] MEDS: Acetaminophen 500 MG Tab PO SCH (20:23)
[2022-08-16] MEDS: traZODone 100 MG Tab PO SCH (20:23)
[2022-08-16] MEDS: atorvaSTATin 20 MG Tab PO SCH (20:24)
[2022-08-16] MEDS: Tamsulosin 0.4 MG Cap.ER PO SCH (20:24)
[2022-08-16] MEDS: traMADol 50 MG Tab PO PRN (21:43)
[2022-08-17] MEDS: Acetaminophen 500 MG Tab PO PRN ×2 (02:58→10:47)
[2022-08-17] MEDS: Sodium Chloride 0.9% 1,000 ML IV SCH (04:25)
[2022-08-17] MEDS: Pantoprazole 40 MG Tab.CR PO SCH (06:19)
[2022-08-17 06:37] LABS: ESTIMATED GFR 34 mL/min (>60)
[2022-08-17] MEDS: traMADol 50 MG Tab PO PRN (07:49)
[2022-08-17] MEDS: Acetaminophen 500 MG Tab PO SCH ×2 (08:36→20:15)
[2022-08-17] MEDS: Aspirin 81 MG Tab.Chew PO SCH (08:36)
[2022-08-17] MEDS: Ferrous Sulfate 325 MG Tab PO SCH (08:37)
[2022-08-17] MEDS: Polyethylene Glycol 3350 Powder 17 GM Packet PO SCH ×2 (08:38→20:11)
[2022-08-17] MEDS: Potassium Chloride 20 MEQ Tab.ER PO SCH ×3 (08:38→20:13)
[2022-08-17] MEDS: Carvedilol 3.125 MG Tab PO SCH ×2 (09:00→20:14)
[2022-08-17] MEDS: Tiotropium Bromide 4 GM Inhalation Spray (2.5mcg/1 dose; 10 doses) INH SCH (09:41)
[2022-08-17] MEDS ORDERED: Metolazone 5 MG Tab PO ONE (11:00)
[2022-08-17] MEDS: Bumetanide 1 MG Tab PO SCH (11:29)
[2022-08-17] MEDS: Warfarin 2.5 MG Tab PO SCH (16:49)
[2022-08-17] MEDS: cefTRIAXone 1 GM Vial IVPUSH SCH (16:49)
[2022-08-17] MEDS: atorvaSTATin 20 MG Tab PO SCH (20:11)
[2022-08-17] MEDS: traZODone 100 MG Tab PO SCH (20:11)
[2022-08-17] MEDS: Tamsulosin 0.4 MG Cap.ER PO SCH (20:13)
[2022-08-18] MEDS: Pantoprazole 40 MG Tab.CR PO SCH (05:58)
[2022-08-18 06:53] LABS: ESTIMATED GFR 36 mL/min (>60)
[2022-08-18] MEDS: Bumetanide 1 MG Tab PO SCH ×2 (08:32→11:11)
[2022-08-18] MEDS: Carvedilol 3.125 MG Tab PO SCH (08:33)
[2022-08-18] MEDS: Polyethylene Glycol 3350 Powder 17 GM Packet PO SCH (08:34)
[2022-08-18] MEDS: Ferrous Sulfate 325 MG Tab PO SCH (08:34)
[2022-08-18] MEDS: Potassium Chloride 20 MEQ Tab.ER PO SCH (08:34)
[2022-08-18] MEDS: Acetaminophen 500 MG Tab PO SCH (08:35)
[2022-08-18] MEDS: Tiotropium Bromide 4 GM Inhalation Spray (2.5mcg/1 dose; 10 doses) INH SCH (08:35)
[2022-08-18] MEDS: Aspirin 81 MG Tab.Chew PO SCH (08:36)
[2022-08-18] MEDS ORDERED: Menthol 10%/Methyl Salicylate 30% 85 GM Tube TOP SCH (10:15)
[2022-08-18 11:13] VITALS: BP 108/64; PULSE 65
[2022-08-18] MEDS ORDERED: Cefdinir 300 MG Cap PO SCH (12:00)
[2022-08-18] MEDS: Acetaminophen 500 MG Tab PO PRN (13:12)
[2022-08-19] MEDS ORDERED: Metolazone 5 MG Tab PO SCH (07:30)
== END 2022-08-18 13:30 | disposition home health service (06) | DRG 699 ==
LOC: FB.MS 15:50
PROVIDERS: ADMIT Family Medicine; ATTEND Family Medicine
DX: T83.511A Infection and inflammatory reaction due to indwelling urethral catheter, initial encounter (principal); E87.1 Hypo-osmolality and hyponatremia; I50.42 Chronic combined systolic (congestive) and diastolic (congestive) heart failure; I13.0 Hypertensive heart and chronic kidney disease with heart failure and stage 1 through stage 4 chronic kidney disease, or unspecified chronic kidney disease; N39.0 Urinary tract infection, site not specified; Z66 Do not resuscitate; Z51.5 Encounter for palliative care; I25.10 Atherosclerotic heart disease of native coronary artery without angina pectoris; E86.0 Dehydration; F03.90 Unspecified dementia, unspecified severity, without behavioral disturbance, psychotic disturbance, mood disturbance, and anxiety; I48.0 Paroxysmal atrial fibrillation; M19.90 Unspecified osteoarthritis, unspecified site; E78.2 Mixed hyperlipidemia; F03.B0 Unspecified dementia, moderate, without behavioral disturbance, psychotic disturbance, mood disturbance, and anxiety; N18.32 Chronic kidney disease, stage 3b; Y83.8 Other surgical procedures as the cause of abnormal reaction of the patient, or of later complication, without mention of misadventure at the time of the procedure; J44.9 Chronic obstructive pulmonary disease, unspecified; Z96.643 Presence of artificial hip joint, bilateral; Z79.01 Long term (current) use of anticoagulants; Z95.0 Presence of cardiac pacemaker; Z79.899 Other long term (current) drug therapy; Z88.8 Allergy status to other drugs, medicaments and biological substances; I25.2 Old myocardial infarction; Z98.890 Other specified postprocedural states; Z86.718 Personal history of other venous thrombosis and embolism; Z98.49 Cataract extraction status, unspecified eye; Z90.89 Acquired absence of other organs; Z90.49 Acquired absence of other specified parts of digestive tract; Z95.1 Presence of aortocoronary bypass graft; Z79.82 Long term (current) use of aspirin
CPT/HCPCS: 36415; 51702; 80048; 81001; 85025; 85610; 87040; 87086; 87088; 87186; 99223; 99233; 99238; A9270-GY; J0696; J3490; J7030; U0002